=== PATIENT | female | born 1945 | race Caucasian/White ===

== ENCOUNTER 2020-05-06 09:05 | Outpatient (REF) | payer MEDICARE, SELFPAY ==
--- NOTE | 2020-05-06 09:10 | US_ITS ---
EXAMINATION: US THYROID CLINICAL INFORMATION: Thyroid nodules. COMPARISON: Ultrasound soft tissue head/neck thyroid dated 05/03/2019 and 05/02/2018. TECHNIQUE: Linear transducer lauren-scale and color Doppler examination with attention to the region of the thyroid. FINDINGS: SIZE: Measurements of the thyroid lobes and nodules are given in sagittal, anteroposterior and transverse dimensions respectively. Right Thyroid Lobe: 4.9 x 2.9 x 1.9 cm, volume 13.5 mL. Previously 4.2 x 2.1 x 1.9 cm, volume 8.8 mL. Parenchyma: The gland echotexture is heterogeneous. Thyroid vascularity is normal. Left Thyroid Lobe: 4.7 x 1.9 x 1.6 cm, volume 7.6 mL. Previously 4.0 x 1.7 x 1.5 cm, volume 5.3 mL. Parenchyma: The gland echotexture is heterogeneous. Thyroid vascularity is normal. Isthmus: 0.29 cm in maximum AP dimension. Previously 0.43 cm. RIGHT THYROID LOBE: There are 4 nodules seen. 1. Location: Superior. Size: 1.4 x 1.0 x 1.3 cm. Previous: 1.6 x 1.2 x 1.2 cm. Nodule characteristics: Hypoechoic smooth margin, peripheral calcification and no intranodular flow. 2. Location: Superior. Size: 1.1 x 0.85 x 0.60 cm. Previous: This nodule is new. Nodule characteristics: Hypoechoic and heterogeneous, smooth margin, no calcification and no intranodular flow. 3. Location: Middle/inferior. Size: 1.1 x 1.4 x 0.82 cm. Previous: 1.2 x 0.90 x 1.2 cm. Nodule characteristics: Follow up collection heterogeneous, smooth margin, peripheral calcification and no intranodular flow. 4. Location: Inferior. Size: 1.0 x 0.80 x 0.44 cm. Previous: This nodule is new. Nodule characteristics: Hypoechoic and heterogeneous, smooth margin, no calcification and no intranodular flow. ISTHMUS: No nodules. LEFT THYROID LOBE: There are 3 nodules seen. 1. Location: Inferior. Size: 0.91 x 0.56 x 0.61 cm. Previous: 0.90 x 0.50 x 0.66 cm. Nodule characteristics: Hypoechoic and heterogeneous, smooth margin, no calcification and no intranodular flow. 2. Location: Middle. Size: 0.90 x 0.65 x 0.65 cm. Previous: 0.65 x 0.62 x 0.72 cm. Nodule characteristics: Hypoechoic and heterogeneous, smooth margin, no calcification and no intranodular flow. 3. Location: Superior. Size: 0.82 x 0.62 x 0.76 cm. Previous: 0.8 x 0.6 x 0.8 cm. Nodule characteristics: Hyperechoic, smooth margin, small calcification and no intranodular flow. Measurement differences may be due to interobserver variation of the margins of the nodule. NODES: No lymphadenopathy is seen in the tissue surrounding the thyroid gland. US/US thyroid IMPRESSION: Heterogeneous thyroid gland. The right lobe is enlarged. There are 2 newly appreciated right thyroid nodules. The remaining right thyroid nodules do not appear appreciably changed. The left thyroid nodules are unchanged.
== END 2020-05-06 09:06 | disposition home or self-care (01) ==
LOC: HO.HMGCX 09:05
PROVIDERS: PCP Internal Medicine; Visit Provider Internal Medicine
DX: E04.1 Nontoxic single thyroid nodule (principal)
CPT/HCPCS: 76536

== ENCOUNTER 2020-05-16 09:50 | Outpatient (REF) | payer MEDICARE, SELFPAY ==
--- NOTE | 2020-05-16 | MM_ITS ---
EXAMINATION: MM SCREENING DIGITAL BREAST TOMOSYNTHESIS, BILATERAL CLINICAL INFORMATION: Screening. Asymptomatic. The lifetime risk of breast cancer based on the Tyrer-Cuzick Model is 5.7%. COMPARISON: Mammography: May 12, 2019 and studies dating back to September 08, 2013 TECHNIQUE: Digital breast tomosynthesis is performed in both the craniocaudal and mediolateral oblique views along with computer-aided detection (CAD). Synthesized 2D images are generated from the tomosynthesis. FINDINGS: There are scattered areas of fibroglandular density (ACR BI-RADS breast composition Category b). There are no significant masses, abnormal calcifications, or other abnormalities. MM/MM tomosynthesis screening BI IMPRESSION: There are no significant changes from prior study. ASSESSMENT: BI-RADS 1: Negative RECOMMENDATION: Routine annual mammography screening. This patient's information was entered into a reminder system with a target due date for their next mammogram.
== END 2020-05-16 09:51 | disposition home or self-care (01) ==
LOC: HO.MAMMO 09:50
PROVIDERS: PCP Internal Medicine; Visit Provider Internal Medicine
DX: Z12.31 Encounter for screening mammogram for malignant neoplasm of breast (principal)
CPT/HCPCS: 77063; 77067

== ENCOUNTER 2020-09-13 08:39 | Outpatient (REF) | payer MEDICARE, SELFPAY ==
--- NOTE | ~2020-09-13 | CT_ITS ---
EXAMINATION: CT CHEST WITHOUT CONTRAST CLINICAL INFORMATION: Follow-up pulmonary nodule COMPARISON: Previous chest CT scans most recent September 2019 TECHNIQUE: Multidetector volumetric CT imaging of the chest was done. Axial MIP volume rendering provided. Sagittal and coronal reformatted images were obtained. This CT examination was performed using dose optimization techniques as appropriate, variously including the following: *Automated exposure control *Adjustment of mA and/or kV according to patient size (this includes techniques or standardized protocols for targeted exams where dose is matched to indication/reason for exam; i.e. extremities or head) *Use of iterative reconstruction technique DLP: 132 mGy-cm FINDINGS: LUNGS: There is biapical pleural and parenchymal scarring. There are small pulmonary nodules that are stable. No new pulmonary nodule is seen. MEDIASTINUM: There are calcified right thyroid nodules that are stable. No follow-up is needed. There are small mediastinal lymph nodes. There are no enlarged hilar or mediastinal lymph nodes seen. The heart does not appear enlarged. There is coronary artery calcification. There is prominent fat seen in the anterior atrial septum. There is no pericardial effusion. PLEURA: There is no pleural effusion. No pleural mass or thickening. AXILLA: No lymphadenopathy. UPPER ABDOMEN: There is a small posterior gastric diverticulum that is stable. OSSEOUS STRUCTURES: There are degenerative changes of the spine. CT/CT chest wo con IMPRESSION: Stable biapical pleural and parenchymal scarring and small pulmonary nodules.
== END 2020-09-13 08:40 | disposition home or self-care (01) ==
LOC: HO.CT 08:39
PROVIDERS: PCP Internal Medicine; Visit Provider Internal Medicine
DX: R91.1 Solitary pulmonary nodule (principal)
CPT/HCPCS: 71250

== ENCOUNTER 2020-09-17 10:33 | Outpatient (REF) | payer MEDICARE, SELFPAY ==
[2020-09-17 10:38] LABS: MANUAL DIFF FLAG NO
[2020-09-17 10:50] LABS: Basophils Absolute Auto 0.1 X10*3/uL (0.0-0.2); Basophils Percent Auto 0.9 % (0-2); Eosinophils Absolute Auto 0.7 X10*3/uL (0.0-0.4); Eosinophils Percent Auto 10.4 % (0-4); Hematocrit 42.8 % (37-47); Hemoglobin 13.3 g/dl (12.0-16.0); Imm Gran Abs Auto 0.02 X10*3/uL (0.00-0.03); Imm Gran Pct Auto 0.3 % (0.0-0.4); Lymphocytes Absolute Auto 1.8 X10*3/uL (1.2-4.9); Lymphocytes Percent Auto 26.1 % (20-40); Mean Corpuscular HGB Conc 31.1 g/dl (31.0-35.0); Mean Corpuscular Hemoglobin 29.2 pg (27.0-33.0); Mean Corpuscular Volume 93.9 fL (80-98); Mean Platelet Volume 11.7 fL (9.4-12.3); Monocytes Absolute Auto 0.7 X10*3/uL (0.1-1.2); Monocytes Percent Auto 9.9 % (2-11); Neutrophils Absolute Auto 3.5 X10*3/uL (2.0-8.3); Neutrophils Percent Auto 52.4 % (45-73); Platelet Count 239 X10*3/uL (160-400); Red Blood Count 4.56 X10*6/uL (4.20-5.50); Red Cell Distribution Width 13.2 % (11.0-16.0); White Blood Count 6.7 X10*3/uL (4.8-10.8)
[2020-09-17 11:33] LABS: Alanine Aminotransferase 14 U/L (0-31); Albumin Level 4.1 g/dL (3.5-5.0); Alkaline Phosphatase 109 U/L (39-117); Anion Gap 12 (12-20); Aspartate Amino Transferase 15 U/L (5-31); Bilirubin Total 0.8 mg/dL (0.0-1.0); Blood Urea Nitrogen 17 mg/dL (9-16); Calcium 9.2 mg/dL (8.4-10.2); Carbon Dioxide 32 mmol/L (22-29); Chloride 104 mmol/L (96-108); Cholesterol 178 mg/dL; Estimated Glomerular Filt Rate > 60; Glucose Fasting 99 mg/dL (60-99); HDL Cholesterol 54 mg/dL; LDL Cholesterol Calculated 101 mg/dl; Potassium 4.5 mmol/L (3.3-5.1); Sodium 143 mmol/L (135-145); Total Protein 6.7 g/dL (6.5-8.0); Triglycerides 116 mg/dL
[2020-09-17 11:56] LABS: TSH reflex Free T4 1.23 uIU/mL (0.32-4.0); Vitamin D 25-OH Total 25.4 ng/mL (>30)
[2020-09-17 13:29] LABS: Reflex LDLD? No
== END 2020-09-17 10:34 | disposition home or self-care (01) ==
LOC: HO.LNP 10:33
PROVIDERS: Visit Provider Internal Medicine
DX: Z00.00 Encounter for general adult medical examination without abnormal findings (principal); E04.1 Nontoxic single thyroid nodule; E55.9 Vitamin D deficiency, unspecified; E78.00 Pure hypercholesterolemia, unspecified
CPT/HCPCS: 80053; 80061; 81003; 82306; 84443; 85025

== ENCOUNTER 2020-09-26 13:57 | Outpatient (REF) | payer MEDICARE, SELFPAY ==
[2020-09-26 14:06] LABS: Glucose Urine UA NEG (NEG); Leukocyte Esterase Urine NEG (NEG); Nitrite Urine NEG (NEG); Specific Gravity - Urine 1.025 (1.005-1.025); Urine Blood NEG (NEG); Urine Ketones NEG (NEG); Urine Protein NEG (NEG-TRACE)
[2020-09-26 14:07] LABS: Appearance Urine CLEAR; Color Urine YELLOW
[2020-09-26 14:53] LABS: Bacteria Urine TRACE /LPF; RBC Urine 0 /HPF (0); Squamous Epithelial Cell Urine TRACE /LPF; WBC Urine 0-2 /HPF (0-4)
== END 2020-09-26 13:58 | disposition home or self-care (01) ==
LOC: HO.LNP 13:57
PROVIDERS: Visit Provider Internal Medicine
DX: Z00.00 Encounter for general adult medical examination without abnormal findings (principal)
CPT/HCPCS: 81001

== ENCOUNTER 2021-01-02 13:38 | Outpatient (REF) | payer MEDICARE, SELFPAY | END 2021-01-02 13:39 | disposition home or self-care (01) | LOC: HO.LAB 13:38 | PROVIDERS: PCP Physician Assistant Medical; Visit Provider Internal Medicine | DX: J45.901 Unspecified asthma with (acute) exacerbation (principal) | CPT/HCPCS: C9803; U0003; U0005 ==

== ENCOUNTER 2021-03-24 11:33 | Outpatient (REF) | payer MEDICARE, SELFPAY ==
[2021-03-24 12:39] LABS: Alanine Aminotransferase 10 U/L (0-31); Alkaline Phosphatase 90 U/L (39-117); Aspartate Amino Transferase 15 U/L (5-31); Bilirubin Direct 0.4 mg/dL (0.0-0.5); Bilirubin Total 1.4 mg/dL (0.0-1.0); Cholesterol 171 mg/dL; HDL Cholesterol 43 mg/dL; LDL Cholesterol Calculated 101 mg/dl; Total Protein 6.2 g/dL (6.5-8.0); Triglycerides 137 mg/dL
[2021-03-24 12:41] LABS: Reflex LDLD? No
== END 2021-03-24 11:34 | disposition home or self-care (01) ==
LOC: HO.LNP 11:33
PROVIDERS: Visit Provider Internal Medicine
DX: E78.00 Pure hypercholesterolemia, unspecified (principal)
CPT/HCPCS: 80061; 80076

== ENCOUNTER 2021-05-12 11:18 | Outpatient (REF) | payer MEDICARE, SELFPAY ==
--- NOTE | ~2021-05-12 | US_ITS ---
EXAMINATION: US THYROID CLINICAL INFORMATION: Nontoxic single thyroid nodule. COMPARISON: Thyroid ultrasound 05/06/2020 and 05/03/2019. TECHNIQUE: Linear transducer grayscale and color Doppler examination with attention to the region of the thyroid. Technically difficult study secondary to severe COPD. FINDINGS: SIZE: Measurements of the thyroid lobes and nodules are given in sagittal, anteroposterior and transverse dimensions respectively. Right Thyroid Lobe: 4.0 x 1.9 x 2.0 cm, volume 7.8 mL. Previously 4.9 x 2.9 x 1.9 cm, volume 8.8 mL. Parenchyma: The gland echotexture is heterogeneous. Thyroid vascularity is normal. Left Thyroid Lobe: 4.4 x 2.2 x 1.4 cm, volume 7.1 mL. Previously 4.7 x 1.9 x 1.6 cm, volume 7.6 mL. Parenchyma: The gland echotexture is heterogeneous. Thyroid vascularity is normal. Isthmus: 0.3 cm in maximum AP dimension. Previously 0.3 cm. Estimated total number of nodules greater than or equal to 1 cm: 6 to 10. Punch [employer] Member nodules are described as follows: 1. Location: Right mid pole. Size: 1.4 x 1.4 x 1.0 cm, volume 0.97 mL. Previously: 1.4 x 1.2 x 1.2 cm, volume 1.1 mL. Nodule characteristics: Composition: Solid/almost completely solid (2). Echogenicity: Hypoechoic (2). Shape: Not taller than wide (0). Margins: Smooth (0). Echogenic Foci: Peripheral calcifications (2). ACR TI-RADS total points: 6 Previous: Not applicable ACR TI-RADS category: 4 Previous: Not applicable Significant change in size (>/= 20% in 2 dimensions and minimal increase of 2 mm or 50% or greater increase in volume): Change in features: Change in ACR TI-RADS risk category: Not applicable 2. Location: Right mid pole. Size: 0.9 x 0.8 x 0.7 cm, volume 0.24 mL. Previously: 1.1 x 0.9 x 0.6 cm, volume 0.31 mL. Nodule characteristics: Composition: Solid/almost completely solid (2). Echogenicity: Hypoechoic (2). Shape: Not taller than wide (0). Margins: Smooth (0). Echogenic Foci: None (0). ACR TI-RADS total points: 4 Previous: Not applicable ACR TI-RADS category: 4 Previous: Not applicable Significant change in size (>/= 20% in 2 dimensions and minimal increase of 2 mm or 50% or greater increase in volume): Change in features: Change in ACR TI-RADS risk category: Not applicable 3. Location: Right mid pole. Size: 1.2 x 0.8 x 0.9 cm, volume 0.46 mL. Previously: 1.2 x 0.9 x 1.2 cm, volume 0.68 mL. Nodule characteristics: Composition: Solid (2). Echogenicity: Very hypoechoic (3). Shape: Not taller than wide (0). Margins: Smooth (0). Echogenic Foci: Peripheral calcifications (2). ACR TI-RADS total points: 7 Previous: Not applicable ACR TI-RADS category: 5 Previous: Not applicable Significant change in size (>/= 20% in 2 dimensions and minimal increase of 2 mm or 50% or greater increase in volume): Change in features: Change in ACR TI-RADS risk category: Not applicable 4. Location: Left upper pole. Size: 0.6 x 0.7 x 0.6 cm, volume 0.75 mL. Previously: 0.9 x 0.5 x 0.7 cm, volume 0.17 mL. Nodule characteristics: Composition: Solid/almost completely solid (2). Echogenicity: Isoechoic (1). Shape: Not taller than wide (0). Margins: Smooth (0). Echogenic Foci: Punctate echogenic foci (3). ACR TI-RADS total points: 5 Previous: Not applicable ACR TI-RADS category: 4 Previous: Not applicable Significant change in size (>/= 20% in 2 dimensions and minimal increase of 2 mm or 50% or greater increase in volume): Change in features: Change in ACR TI-RADS risk category: Not applicable 5. Location: Left lower pole. Size: 0.6 x 0.7 x 0.5 cm, volume 0.13 mL. Previously: 0.8 x 0.6 x 0.8 cm, volume 0.20 mL. Nodule characteristics: Composition: Spongiform (0). Echogenicity: Hypoechoic (2). Shape: Not taller than wide (0). Margins: Smooth (0). Echogenic Foci: Punctate echogenic foci (3). ACR TI-RADS total points: Previous: Not applicable ACR TI-RADS category: Previous: Not applicable Significant change in size (>/= 20% in 2 dimensions and minimal increase of 2 mm or 50% or greater increase in volume): Change in features: Change in ACR TI-RADS risk category: Not applicable NODES: No lymphadenopathy is seen in the tissue surrounding the thyroid gland. US/US thyroid IMPRESSION: Stable bilateral thyroid nodules. ACR TI-RADS RECOMMENDATION REFERENCE: Ultrasound-guided fine-needle aspiration, followup ultrasound, no further follow up. * TR1 (0 point) and TR 2 (2 points): No FNA or follow up * TR3 (3 points): FNA if more than or equal to 2.5 cm in maximum dimension, followup ultrasound in 1, 3 and 5 years if 1.5 to 2.4 cm in maximum dimension. * TR4 (4-6 points): FNA if more than or equal to 1.5 cm in maximum dimension, followup ultrasound in 1, 2, 3 and 5 years if 1 to 1.4 cm in maximum dimension. * TR5 (more than or equal to 7 points): FNA if more than or equal to 1 cm in maximum dimension, followup ultrasound every year for 5 years if 0.5 to 0.9 cm in maximum dimension. * TR3, TR4 or TR5 nodules that are below the size threshold for follow up receive no follow up.
== END 2021-05-12 11:19 | disposition home or self-care (01) ==
LOC: HO.US 11:18
PROVIDERS: PCP Internal Medicine; Visit Provider Internal Medicine
DX: E04.1 Nontoxic single thyroid nodule (principal)
CPT/HCPCS: 76536

== ENCOUNTER 2021-05-20 11:42 | Outpatient (REF) | payer MEDICARE, SELFPAY ==
--- NOTE | ~2021-05-20 | MM_ITS ---
EXAMINATION: MM SCREENING DIGITAL BREAST TOMOSYNTHESIS, BILATERAL CLINICAL INFORMATION: Screening. Asymptomatic. The lifetime risk of breast cancer based on the Tyrer-Cuzick Model is 7.8%. COMPARISON: Mammography: May 16, 2020 and studies dating back to September 08, 2013 TECHNIQUE: Digital breast tomosynthesis is performed in both the craniocaudal and mediolateral oblique views along with computer-aided detection (CAD). Synthesized 2D images are generated from the tomosynthesis. FINDINGS: There are scattered areas of fibroglandular density (ACR BI-RADS breast composition Category b). There are no significant masses, abnormal calcifications, or other abnormalities. MM/MM tomosynthesis screening BI IMPRESSION: There are no significant changes from prior study. ASSESSMENT: BI-RADS 1: Negative RECOMMENDATION: Routine annual mammography screening. This patient's information was entered into a reminder system with a target due date for their next mammogram.
== END 2021-05-20 11:43 | disposition home or self-care (01) ==
LOC: HO.MAMMO 11:42
PROVIDERS: Visit Provider Internal Medicine
DX: Z12.31 Encounter for screening mammogram for malignant neoplasm of breast (principal)
CPT/HCPCS: 77063; 77067

== ENCOUNTER 2021-09-18 10:46 | Outpatient (REF) | payer MEDICARE, SELFPAY ==
[2021-09-18 10:52] LABS: MANUAL DIFF FLAG NO
[2021-09-18 12:19] LABS: Basophils Absolute Auto 0.1 X10*3/uL (0.0-0.2); Basophils Percent Auto 0.9 % (0-2); Eosinophils Absolute Auto 0.6 X10*3/uL (0.0-0.4); Eosinophils Percent Auto 10.8 % (0-4); Hematocrit 43.4 % (37.0-47.0); Hemoglobin 13.7 g/dl (12.0-16.0); Imm Gran Abs Auto 0.01 X10*3/uL (0.00-0.03); Imm Gran Pct Auto 0.2 % (0.0-0.4); Lymphocytes Absolute Auto 1.5 X10*3/uL (1.2-4.9); Lymphocytes Percent Auto 26.6 % (20-40); Mean Corpuscular HGB Conc 31.6 g/dl (31.0-35.0); Mean Corpuscular Hemoglobin 29.3 pg (27.0-33.0); Mean Corpuscular Volume 92.7 fL (80.0-98.0); Mean Platelet Volume 11.8 fL (9.4-12.3); Monocytes Absolute Auto 0.6 X10*3/uL (0.1-1.2); Monocytes Percent Auto 11.1 % (2-11); Neutrophils Absolute Auto 2.8 x10*3/uL (2.0-8.3); Neutrophils Percent Auto 50.4 % (45-73); Platelet Count 235 X10*3/uL (160-400); Red Blood Count 4.68 X10*6/uL (4.20-5.50); Red Cell Distribution Width 13.3 % (11.0-16.0); White Blood Count 5.5 X10*3/uL (4.8-10.8)
[2021-09-18 12:46] LABS: Alanine Aminotransferase 11 U/L (0-31); Albumin Level 4.2 g/dL (3.5-5.0); Alkaline Phosphatase 98 U/L (39-117); Anion Gap 9 (12-20); Aspartate Amino Transferase 17 U/L (5-31); Bilirubin Total 1.3 mg/dL (0.0-1.0); Blood Urea Nitrogen 17 mg/dL (9-16); Calcium 9.6 mg/dL (8.4-10.2); Carbon Dioxide 34 mmol/L (22-29); Chloride 101 mmol/L (96-108); Cholesterol 191 mg/dL; Estimated Glomerular Filt Rate > 60; Glucose Fasting 102 mg/dL (60-99); HDL Cholesterol 50 mg/dL; LDL Cholesterol Calculated 112 mg/dl; Potassium 4.4 mmol/L (3.3-5.1); Sodium 140 mmol/L (135-145); Total Protein 6.9 g/dL (6.5-8.0); Triglycerides 148 mg/dL
[2021-09-18 12:50] LABS: Appearance Urine HAZY; Color Urine YELLOW; Glucose Urine UA NEG (NEG); Leukocyte Esterase Urine 1+ (NEG); Nitrite Urine NEG (NEG); PH 5.5 (5.0-8.0); Specific Gravity - Urine 1.025 (1.005-1.025); Urine Blood NEG (NEG); Urine Ketones NEG (NEG); Urine Protein NEG (NEG-TRACE)
[2021-09-18 12:52] LABS: TSH reflex Free T4 1.12 uIU/mL (0.32-4.0); Vitamin D 25-OH Total 23.4 ng/mL (>30)
[2021-09-18 13:55] LABS: Bacteria Urine 1+ /LPF; Mucus Urine 2+ /LPF; RBC Urine 0 /HPF (0); Squamous Epithelial Cell Urine 2+ /LPF
== END 2021-09-18 10:47 | disposition home or self-care (01) ==
LOC: HO.LNP 10:46
PROVIDERS: Visit Provider Internal Medicine
DX: Z00.00 Encounter for general adult medical examination without abnormal findings (principal); E04.1 Nontoxic single thyroid nodule; E78.00 Pure hypercholesterolemia, unspecified; E55.9 Vitamin D deficiency, unspecified
CPT/HCPCS: 80053; 80061; 81001; 81003; 82306; 84443; 85025

== ENCOUNTER 2021-10-17 08:01 | Outpatient (REF) | payer MEDICARE, SELFPAY ==
--- NOTE | ~2021-10-17 | XR_ITS ---
EXAMINATION: XR SHOULDER, LEFT CLINICAL INFORMATION: Left shoulder pain. COMPARISON: None TECHNIQUE: Three views of the left shoulder. FINDINGS: There is calcific density along the left rotator cuff suggestive of calcific tendinitis. There is loss of left AC joint space. The glenohumeral joint space is also reduced. No bony erosive changes. No acute fracture, dislocation or subluxation seen. The soft tissues are normal. XR/XR shoulder LT min 2V IMPRESSION: Suspect calcific tendinitis. No visible acute fracture, dislocation or subluxation seen.
== END 2021-10-17 08:02 | disposition home or self-care (01) ==
LOC: HO.HOSX 08:01
PROVIDERS: Visit Provider Physician Assistant
DX: M75.32 Calcific tendinitis of left shoulder (principal)
CPT/HCPCS: 20610; 73030; 99202; J1040

== ENCOUNTER 2021-10-24 08:47 | Outpatient (REF) | payer MEDICARE, SELFPAY ==
--- NOTE | ~2021-10-24 | CT_ITS ---
EXAMINATION: CT CHEST WITHOUT CONTRAST CLINICAL INFORMATION: Multiple lung nodules. COMPARISON: CT chest 09/13/2020. TECHNIQUE: Multidetector volumetric CT imaging of the chest was done. Axial MIP volume rendering provided. Sagittal and coronal reformatted images were obtained. This CT examination was performed using dose optimization techniques as appropriate, variously including the following: *Automated exposure control *Adjustment of mA and/or kV according to patient size (this includes techniques or standardized protocols for targeted exams where dose is matched to indication/reason for exam; i.e. extremities or head) *Use of iterative reconstruction technique DLP: 138 mGy-cm. FINDINGS: RN ANGIOGRAPHY: Well-inflated lungs. LUNGS: The lungs are well expanded. Bilaterally apical parenchymal scarring and pleural thickening. There are bilateral small calcified and noncalcified lung nodules in the range of 1 to 3 mm. Largest 3 mm calcified nodule in the right lower lobe axial image 249/6 and 3 mm calcified nodule left upper lobe axial image 207/6. There are no new nodules seen. MEDIASTINUM: The heart size and the great vessels are normal caliber. The thyroid lobes are symmetric and normal. The central trachea and the bronchi are widely patent. There are small shotty lymph nodes with a short-axis pretracheal lymph node measuring 5 mm axial image 119/3. There is no pericardial effusion. PLEURA: There is no pleural effusion. No pleural mass or thickening. AXILLA: There are small shotty lymph nodes in the axilla. The chest wall is unremarkable. UPPER ABDOMEN: Visualized liver, spleen, pancreas and bilateral adrenal glands are unremarkable. There is a moderate-sized cyst upper pole left kidney. OSSEOUS STRUCTURES: No lytic or sclerotic process seen. CT/CT chest wo con IMPRESSION: Bilateral apical pleural thickening and scarring. There are small calcified and noncalcified pulmonary nodule. The noncalcified pulmonary nodule is slightly larger on the right lower lobe. No new nodules seen. No abnormal mediastinal adenopathy. Fleischner guidelines were followed.
== END 2021-10-24 08:48 | disposition home or self-care (01) ==
LOC: HO.CT 08:47
PROVIDERS: PCP Internal Medicine; Visit Provider Internal Medicine
DX: R91.8 Other nonspecific abnormal finding of lung field (principal)
CPT/HCPCS: 71250

== ENCOUNTER 2022-03-20 10:49 | Outpatient (REF) | payer MEDICARE, SELFPAY ==
[2022-03-20 11:08] LABS: Alanine Aminotransferase 12 U/L (0-31); Albumin Level 4.1 g/dL (3.5-5.0); Alkaline Phosphatase 94 U/L (39-117); Aspartate Amino Transferase 17 U/L (5-31); Bilirubin Direct 0.3 mg/dL (0.0-0.5); Bilirubin Total 1.1 mg/dL (0.0-1.0); Cholesterol 174 mg/dL; HDL Cholesterol 52 mg/dL; LDL Cholesterol Calculated 101 mg/dl; Total Protein 6.7 g/dL (6.5-8.0); Triglycerides 108 mg/dL
== END 2022-03-20 10:50 | disposition home or self-care (01) ==
LOC: HO.LNP 10:49
PROVIDERS: Visit Provider Internal Medicine
DX: E78.00 Pure hypercholesterolemia, unspecified (principal)
CPT/HCPCS: 80061; 80076

== ENCOUNTER 2022-05-21 11:42 | Outpatient (REF) | payer MEDICARE, SELFPAY ==
--- NOTE | ~2022-05-21 | MM_ITS ---
EXAMINATION: MM SCREENING DIGITAL BREAST TOMOSYNTHESIS, BILATERAL CLINICAL INFORMATION: Screening. Asymptomatic. COMPARISON: Mammography: May 20, 2021 and studies dating back to April 29, 2016 TECHNIQUE: Digital breast tomosynthesis is performed in both the craniocaudal and mediolateral oblique views along with computer-aided detection (CAD). Synthesized 2D images are generated from the tomosynthesis. FINDINGS: There are scattered areas of fibroglandular density (ACR BI-RADS breast composition Category b). There are no significant masses, abnormal calcifications, or other abnormalities. MM/MM tomosynthesis screening BI IMPRESSION: No significant changes from prior exam. ASSESSMENT: BI-RADS 1: Negative RECOMMENDATION: Routine annual mammography screening. This patient's information was entered into a reminder system with a target due date for their next mammogram.
== END 2022-05-21 11:43 | disposition home or self-care (01) ==
LOC: HO.MAMMO 11:42
PROVIDERS: Visit Provider Internal Medicine
DX: Z12.31 Encounter for screening mammogram for malignant neoplasm of breast (principal)
CPT/HCPCS: 77063; 77067

== ENCOUNTER 2022-06-09 08:51 | Outpatient (REF) | payer MEDICARE, SELFPAY ==
--- NOTE | ~2022-06-09 | US_ITS ---
EXAMINATION: US THYROID CLINICAL INFORMATION: Thyroid nodule. COMPARISON: Ultrasound soft tissue head/neck thyroid dated 05/12/2021 and 05/06/2020. TECHNIQUE: Linear transducer grayscale and color Doppler examination with attention to the region of the thyroid. Limited exam due to low-lying thyroid and patient breathing (COPD). FINDINGS: SIZE: Measurements of the thyroid lobes and nodules are given in sagittal, anteroposterior and transverse dimensions respectively. Right Thyroid Lobe: 4.76 x 2.91 x 1.83 cm, volume 13.3 mL. Previously 4.0 x 1.9 x 2.0 cm, volume 7.8 mL. Parenchyma: The gland echotexture is heterogeneous. Thyroid vascularity is normal. Left Thyroid Lobe: 4.69 x 2.19 x 1.50 cm, volume 8.06 mL. Previously 4.4 x 2.2 x 1.4 cm, volume 7.1 mL. Parenchyma: The gland echotexture is heterogeneous. Thyroid vascularity is normal. Isthmus: 0.39 cm in maximum AP dimension. Previously 0.29 cm. Estimated total number of nodules greater than or equal to 1 cm: 3. Paint Maker nodules are described as follows: 1. Location: Right mid. Size: 1.4 x 0.91 x 1.2 cm, volume 0.80 mL. Previously: 1.4 x 1.2 x 1.2 cm, volume 0.97 mL. Nodule characteristics: Composition: Solid (2). Echogenicity: Hypoechoic (2). Shape: Not taller than wide (0). Margins: Smooth (0). Echogenic Foci: Peripheral calcifications (2). ACR TI-RADS total points: 6 Previous: 6 ACR TI-RADS category: 4 Previous: 4 Significant change in size (>/= 20% in 2 dimensions and minimal increase of 2 mm or 50% or greater increase in volume): None Change in features: None Change in ACR TI-RADS risk category: No change 2. Location: Right mid. Size: 1.2 x 1.0 x 0.91 cm, volume 0.57 mL. Previously: 0.90 x 0.80 x 0.70 cm, volume 0.24 mL. Nodule characteristics: Composition: Solid (2). Echogenicity: Hypoechoic (2). Shape: Taller than wide (3). Margins: Smooth (0). Echogenic Foci: Peripheral calcifications (2). ACR TI-RADS total points: 7 Previous: 4 ACR TI-RADS category: 5 Previous: 4 Significant change in size (>/= 20% in 2 dimensions and minimal increase of 2 mm or 50% or greater increase in volume): None Change in features: None Change in ACR TI-RADS risk category: No change 3. Location: Right mid. Size: 1.2 x 0.81 x 0.89 cm, volume 0.45 mL. Previously: 1.2 x 0.80 x 0.90 cm, volume 0.46 mL. Nodule characteristics: Composition: Solid (2). Echogenicity: Hypoechoic (2). Shape: Not taller than wide (0). Margins: Smooth (0). Echogenic Foci: Peripheral calcifications (2). ACR TI-RADS total points: 6 Previous: 7 ACR TI-RADS category: 4 Previous: 5 Significant change in size (>/= 20% in 2 dimensions and minimal increase of 2 mm or 50% or greater increase in volume): None Change in features: None Change in ACR TI-RADS risk category: No change 4. Location: Left mid. Size: 0.90 x 0.53 x 0.71 cm, volume 0.18 mL. Previously: 0.60 x 0.70 x 0.50 cm, volume 0.13 mL. Nodule characteristics: Composition: Spongiform (0). Echogenicity: Anechoic (0). Shape: Not taller than wide (0). Margins: Smooth (0). Echogenic Foci: None (0). ACR TI-RADS total points: 0 Previous: 5 ACR TI-RADS category: 1 Previous: 4 Significant change in size (>/= 20% in 2 dimensions and minimal increase of 2 mm or 50% or greater increase in volume): None Change in features: None Change in ACR TI-RADS risk category: No change NODES: No lymphadenopathy is seen in the tissue surrounding the thyroid gland. US/US thyroid IMPRESSION: 1. Multiple thyroid nodules, stable. 2. TR1 (0 point) and TR 2 (2 points): 3. TR4 (4-6 points): FNA if more than or equal to 1.5 cm in maximum dimension, followup ultrasound in 1, 2, 3 and 5 years if 1 to 1.4 cm in maximum dimension. 4. TR5 (more than or equal to 7 points): FNA if more than or equal to 1 cm in maximum dimension, followup ultrasound every year for 5 years if 0.5 to 0.9 cm in maximum dimension.
== END 2022-06-09 08:52 | disposition home or self-care (01) ==
LOC: HO.HMGCX 08:51
PROVIDERS: Visit Provider Internal Medicine
DX: E04.1 Nontoxic single thyroid nodule (principal)
CPT/HCPCS: 76536

== ENCOUNTER 2022-09-18 11:29 | Outpatient (REF) | payer MEDICARE, SELFPAY ==
[2022-09-18 11:31] LABS: MANUAL DIFF FLAG NO
[2022-09-18 11:44] LABS: Basophils Absolute Auto 0.1 X10*3/uL (0.0-0.2); Basophils Percent Auto 0.9 % (0-2); Eosinophils Absolute Auto 0.5 X10*3/uL (0.0-0.4); Eosinophils Percent Auto 6.7 % (0-4); Hematocrit 43.5 % (37.0-47.0); Hemoglobin 13.8 g/dl (12.0-16.0); Imm Gran Abs Auto 0.02 X10*3/uL (0.00-0.03); Imm Gran Pct Auto 0.3 % (0.0-0.4); Lymphocytes Absolute Auto 1.7 X10*3/uL (1.2-4.9); Lymphocytes Percent Auto 25.3 % (20-40); Mean Corpuscular HGB Conc 31.7 g/dl (31.0-35.0); Mean Corpuscular Hemoglobin 29.4 pg (27.0-33.0); Mean Corpuscular Volume 92.6 fL (80.0-98.0); Mean Platelet Volume 11.9 fL (9.4-12.3); Monocytes Absolute Auto 0.8 X10*3/uL (0.1-1.2); Monocytes Percent Auto 11.7 % (2-11); Neutrophils Absolute Auto 3.7 x10*3/uL (2.0-8.3); Neutrophils Percent Auto 55.1 % (45-73); Platelet Count 228 X10*3/uL (160-400); Red Cell Distribution Width 13.2 % (11.0-16.0); White Blood Count 6.7 X10*3/uL (4.8-10.8)
[2022-09-18 11:45] LABS: Appearance Urine Clear; Color Urine Yellow; Glucose Urine UA Negative (Negative); Leukocyte Esterase Urine Small (1+) (Negative); Nitrite Urine Negative (Negative); Specific Gravity - Urine 1.015 (1.005-1.025); UMIC TRIGGER UACC YES; Urine Blood Negative (Negative); Urine Ketones Negative (Negative); Urine Protein Negative (Neg-Trace)
[2022-09-18 11:49] LABS: Bacteria Urine 1+ (None Seen); Hyaline Casts Urine 0-2 /LPF (0-2); RBC Urine 0-2 /HPF (0-2); UACC Culture Trigger YES
[2022-09-18 13:03] LABS: Alanine Aminotransferase 12 U/L (0-31); Albumin Level 4.1 g/dL (3.5-5.0); Alkaline Phosphatase 96 U/L (39-117); Anion Gap 10 (12-20); Aspartate Amino Transferase 16 U/L (5-31); Bilirubin Total 1.4 mg/dL (0.0-1.0); Blood Urea Nitrogen 16 mg/dL (9-16); Calcium 9.1 mg/dL (8.4-10.2); Carbon Dioxide 33 mmol/L (22-29); Chloride 104 mmol/L (96-108); Cholesterol 189 mg/dL; Estimated Glomerular Filt Rate > 60; Glucose Fasting 105 mg/dL (60-99); HDL Cholesterol 48 mg/dL; LDL Cholesterol Calculated 116 mg/dl; Potassium 4.8 mmol/L (3.3-5.1); Sodium 142 mmol/L (135-145); TSH reflex Free T4 1.08 uIU/mL (0.32-4.0); Total Protein 6.5 g/dL (6.5-8.0); Triglycerides 129 mg/dL; Vitamin D 25-OH Total 23.8 ng/mL (>30)
== END 2022-09-18 11:30 | disposition home or self-care (01) ==
LOC: HO.LNP 11:29
PROVIDERS: Visit Provider Internal Medicine
DX: Z00.00 Encounter for general adult medical examination without abnormal findings (principal); E78.00 Pure hypercholesterolemia, unspecified; E55.9 Vitamin D deficiency, unspecified; E04.1 Nontoxic single thyroid nodule; R82.90 Unspecified abnormal findings in urine
CPT/HCPCS: 80053; 80061; 81001; 82306; 84443; 85025; 87086

== ENCOUNTER 2022-10-05 06:52 | Day surgery (SDC) | payer MEDICARE, SELFPAY ==
[2022-09-29 11:41] VITALS: BMI 27.4
--- NOTE | 2022-10-01 14:43 | MHC.SHP ---
Pre-Procedural Eval Section A Date of Service: 10/01/22 The patient is an INPATIENT: No Changes since office visit: No Cold of Flu in the past 2 weeks, No New Medical Problems, No Changes in Medication and No Patient answered all questions The History & Physical has been completed within 30 days and I have reviewed it.: Yes Section B Chief Complaint: Age-related nuclear cataract, left eye Allergies: Allergies Allergy/AdvReac Type Severity Reaction Status Date / Time gatifloxacin [From TEQUIN] Allergy Severe BLACKED Verified 09/29/22 11:28 OUT Plan Diagnosis/Plan: Unchanged I have reviewed the history and physical and performed a pertinent physical examination on my patient. No changes have occurred unless specified. Time Spent With Patient Time: Total time managing care of this patient today ____ minutes.
[2022-10-05 07:51] VITALS: BP 162/67; PULSE 70; RESP 16; TEMP 36.6; O2SAT 94
[2022-10-05] MEDS: Cyclopentolate 1 % Ophth Sol 2 ML DRPBTL 1 DROP EYE-LEFT ×3 (07:54→08:05)
[2022-10-05] MEDS: Tetracaine HCl/PF 0.5% Oph Sol 4 ML DROPS 1 DROP EYE-LEFT (07:54)
[2022-10-05] MEDS: Tropicamide 1 % Ophth Sol 3 ML BTL 1 DROP EYE-LEFT ×3 (07:55→08:05)
[2022-10-05] MEDS: Ketorolac Tromethamine 0.5% Op 5 ML DROPS 1 DROP EYE-LEFT ×3 (07:58→08:06)
[2022-10-05] MEDS: Phenylephrine HCL 2.5% Oph SoL 2 ML BOTTLE 1 DROP EYE-LEFT ×3 (07:58→08:07)
[2022-10-05] MEDS: Lactated Ringers 500 ML 50 ML IV (07:58)
--- NOTE | 2022-10-05 08:03 | HO.ANESPROP2 ---
[facility] Active Problems Active Problems: All Active Problems (Updated 09/29/22 @ 11:39 by Elif Carmichael RN) Calcific tendonitis of left shoulder (Acute) Past Medical History Medical History (Updated 09/29/22 @ 11:39 by Elif Carmichael RN) Anxiety Arthritis COPD (chronic obstructive pulmonary disease) Elevated cholesterol Lung nodules Thyroid nodule Family History Family history of problems with anesthesia: No Surgical History Surgical History (Updated 09/29/22 @ 11:39 by Elif Carmichael RN) H/O colonoscopy Hx of excision of mass Hx of right breast biopsy Hx of tubal ligation Hx of varicose vein ligation History of Problems with Anesthesia: No Social History Social History (Updated 10/17/21 @ 10:02 by ALIE Francois) Are you a primary managed care coordinator to a significant other at home: No Do you presently have visiting nurse or other home services: No Patient Tobacco Use Status: Former Tobacco user Quit Date: age 60 Tobacco use type: Cigarette Years Smoked: 38 Use of substances other than those prescribed or required for medical reasons: No Have you been hit, kicked, punched, or otherwise hurt by someone within the past year? If so, by whom?: No Advance Directives Information Provided: Yes (will bring copy DOS) Advance Directives on File: No Recently lost weight without trying: No Eating poorly because of decreased appetite: No Nutrition Risks: Surgical patient >75years Poor oral hygiene: No (upper & lower full dentured) Current occupational status: retired Current occupation: rt hand Meds Allergies Allergy/AdvReac Type Severity Reaction Status Date / Time gatifloxacin [From TEQUIN] Allergy Severe BLACKED Verified 09/29/22 11:28 OUT Active Medications: Current Medications Lactated Ringer's (Lr) 500 mls @ 50 mls/hr IV .Q10H JESSICA Stop: 10/05/22 18:14 Povidone Iodine (Povidone Iodine 5 % Ophth Soln 30 Ml Bottle) 1 appl EYE-LEFT PREOP PRN PRN Reason: Pre-Op Surgical Implant Prophy Home Medications Medication Instructions Recorded Confirmed Last Taken Type albuterol sulfate 90 mcg/actuation 2 puff inhalation Q4H PRN Wheezing 10/17/21 09/29/22 10/05/22 06:30 History aerosol inhaler atorvastatin 20 mg tablet 20 mg PO DAILY 10/17/21 09/29/22 Unknown History triamcinolone acetonide 0.5 % 1 appl topical DAILY PRN dermatitis 10/17/21 09/29/22 Unknown History topical cream aspirin 81 mg tablet,delayed 81 mg PO DAILY 09/29/22 09/29/22 Unknown History release Exam Exam Date and Time: October 05, 2022 0803 Height,Weight and Vital Signs: Height 5 ft 2 in Weight 68.039 kg Last Vital Signs Temp 97.8 F 10/05/22 07:51 Pulse 70 10/05/22 07:51 Resp 16 10/05/22 07:51 BP 162/67 H 10/05/22 07:51 Pulse Ox 94 10/05/22 07:51 O2 Del Method Room Air 10/05/22 07:51 Airway Mallampati Class: II TM Dist: >3cm Neck ROM: Full Denture: Upper and Lower Heart: rrr Lungs: cta Assessment and Plan Assessment Anesthesia Assessment: Anesthesia Plan Discussed and Chart Reviewed Final Anesthetic Review Family History of Problems with Anesthesia: No History of Problems with Anesthesia: No NPO: Yes ASA Class: III Final Preanesthetic Review: No Changes in Pt Med Stat, Meds/Allgs Chart Reviewed and Consent Obtained/Reviewed Patient Risk: Intermediate Procedure Risk: Intermediate Anesthetic Plan Anesthetic Plan: MAC: Disposition: Standard PACU
--- NOTE | 2022-10-05 08:41 | HO.PNOPHT ---
Ophthalmology Procedure Procedure Date of Service: 10/05/22 Ophthalmology Viscoelastic: Healmaria esther Bonillat Dual Pack Pro Ophthalmology Lenses: TECAPOLLO [id number] (23) Procedure Notes: PREOPERATIVE DIAGNOSIS: Decreased visual acuity left eye secondary to cataract POSTOPERATIVE DIAGNOSIS: Same PROCEDURE: Left cataract extraction with intraocular lens insertion SURGEON: Christiano Samano M.D. ANESTHESIA: Topical/MAC ESTIMATED BLOOD LOSS: None COMPLICATIONS: None After obtaining informed consent, the patient was brought to the operation room suite and placed in the supine position. After adequate sedation per anesthesia, topical drops of Tetracaine were given to the left eye. The eye was then prepped and draped in the usual sterile fashion. The operating room microscope was then positioned over the operative eye and a lid speculum placed. A paracentesis was created. Viscoelastic was then instilled into the anterior chamber. A three plane incision was then created temporally, utilizing a 2.85 mm keratome. Capsulotomy forceps were then utilized to create a circular tear capsulotomy. Hydrodissection and hydrodelineation were carried out until adequate mobilization of the nucleus occurred. Phacoemulsification was then utilized to remove the dense central nucleus followed by removal of the cortical material utilizing the automated aspiration irrigation unit. Viscoat elastic was instilled into the posterior capsular bag followed by placement of a posterior chamber intraocular lens without difficulty. The residual Viscoat elastic was then removed utilizing the automated IA machine. The wound was check and found to be watertight. The patient tolerated the procedure well and the lid speculum was removed. Intracameral injection of Vigamox 0.1 mL followed by a subtenon injection of Kenalog-40 0.2 mL were administered. The patient will be seen in the a.m.
[2022-10-05 09:01] VITALS: BP 132/39; PULSE 60; RESP 12; TEMP 36.4; O2SAT 100
== END 2022-10-05 09:17 | disposition home or self-care (01) ==
PROVIDERS: PCP Internal Medicine; Visit Provider Ophthalmology
PROC: (CPT 66985; principal; 2022-10-05 08:50)
DX: H25.12 Age-related nuclear cataract, left eye (principal); Z83.511 Family history of glaucoma; H52.4 Presbyopia; H18.413 Arcus senilis, bilateral; H11.153 Pinguecula, bilateral; H35.09 Other intraretinal microvascular abnormalities; J44.9 Chronic obstructive pulmonary disease, unspecified; Z79.82 Long term (current) use of aspirin; Z79.899 Other long term (current) drug therapy; Z88.8 Allergy status to other drugs, medicaments and biological substances; Z87.891 Personal history of nicotine dependence
CPT/HCPCS: 66984; J2250; J3010; J3301; V2632

== ENCOUNTER 2022-11-16 05:55 | Day surgery (SDC) | payer MEDICARE, SELFPAY ==
[2022-11-11 10:31] VITALS: BMI 27.4
--- NOTE | 2022-11-13 07:56 | MHC.SHP ---
Pre-Procedural Eval Section A Date of Service: 11/13/22 The patient is an INPATIENT: No Changes since office visit: No Cold of Flu in the past 2 weeks, No New Medical Problems, No Changes in Medication and No Patient answered all questions The History & Physical has been completed within 30 days and I have reviewed it.: Yes Section B Chief Complaint: Age-related nuclear cataract, right eye Allergies: Allergies Allergy/AdvReac Type Severity Reaction Status Date / Time gatifloxacin [From TEQUIN] Allergy Severe BLACKED Verified 09/29/22 11:28 OUT Plan Diagnosis/Plan: Unchanged I have reviewed the history and physical and performed a pertinent physical examination on my patient. No changes have occurred unless specified. Time Spent With Patient Time: Total time managing care of this patient today ____ minutes.
[2022-11-16 06:20] VITALS: BP 127/55; PULSE 70; RESP 18; TEMP 36.8; O2SAT 96; BMI 27.4
[2022-11-16] MEDS: Phenylephrine HCL 2.5% Oph SoL 2 ML BOTTLE 1 DROP EYE-RIGHT ×3 (06:28→06:34)
[2022-11-16] MEDS: Tetracaine HCl/PF 0.5% Oph Sol 4 ML DROPS 1 DROP EYE-RIGHT (06:28)
[2022-11-16] MEDS: Tropicamide 1 % Ophth Sol 3 ML BTL 1 DROP EYE-RIGHT ×3 (06:29→06:35)
[2022-11-16] MEDS: Cyclopentolate 1 % Ophth Sol 2 ML DRPBTL 1 DROP EYE-RIGHT ×3 (06:29→06:35)
[2022-11-16] MEDS: Ketorolac Tromethamine 0.5% Op 5 ML DROPS 1 DROP EYE-RIGHT ×3 (06:29→06:35)
[2022-11-16] MEDS: Lactated Ringers 500 ML 50 ML IV (06:40)
--- NOTE | 2022-11-16 07:13 | HO.ANESPROP2 ---
[facility] Active Problems Active Problems: All Active Problems (Updated 09/29/22 @ 11:39 by Elif Carmichael RN) Calcific tendonitis of left shoulder (Acute) Past Medical History Medical History Anxiety Arthritis COPD (chronic obstructive pulmonary disease) Elevated cholesterol Lung nodules Thyroid nodule Family History Family history of problems with anesthesia: No Surgical History Surgical History H/O colonoscopy Hx of excision of mass Hx of left cataract extraction Hx of right breast biopsy Hx of tubal ligation Hx of varicose vein ligation History of Problems with Anesthesia: No Social History Social History Are you a primary career technical education instructor to a significant other at home: No Do you presently have visiting nurse or other home services: No Patient Tobacco Use Status: Former Tobacco user Quit Date: age 60 Tobacco use type: Cigarette Years Smoked: 38 Use of substances other than those prescribed or required for medical reasons: No Have you been hit, kicked, punched, or otherwise hurt by someone within the past year? If so, by whom?: No Are you DNR?: No Advance Directives: No (states son is HCP) Advance Directives Information Provided: Yes (will bring copy DOS) Advance Directives on File: No Recently lost weight without trying: No Eating poorly because of decreased appetite: No Nutrition Risks: Surgical patient >75years Poor oral hygiene: No (upper/lower full denture) Current occupational status: retired Current occupation: rt hand Meds Allergies Allergy/AdvReac Type Severity Reaction Status Date / Time amoxicillin Allergy Severe Anaphylaxis Verified 11/16/22 06:42 gatifloxacin [From TEQUIN] Allergy Severe BLACKED Verified 09/29/22 11:28 OUT Active Medications: Current Medications Albuterol Sulfate (Albuterol Sulfate (0.083%) 2.5 Mg/3 Ml Vial.Neb) 2.5 mg INHALE ONCE PRN PRN Reason: Shortness of Breath/Wheezing Lactated Ringer's (Lr) 500 mls @ 50 mls/hr IV .Q10H JESSICA Stop: 11/16/22 15:59 Last Admin: 11/16/22 06:40 Dose: 50 mls/hr Moxifloxacin HCl (Moxifloxacin Hcl 0.5 % Oph [place] 3 Ml Drpbtl) 1 drop EYE-RIGHT POSTOP ONE Stop: 11/16/22 05:59 Moxifloxacin HCl (Moxifloxacin Hcl 0.5 % Oph [place] 3 Ml Drpbtl) 1 drop EYE-RIGHT POSTOP ONE Stop: 11/16/22 06:00 Povidone Iodine (Povidone Iodine 5 % Ophth Soln 30 Ml Bottle) 1 appl EYE-RIGHT PREOP PRN PRN Reason: Pre-Op Surgical Implant Prophy Povidone Iodine (Povidone Iodine 5 % Ophth Soln 30 Ml Bottle) 1 appl EYE-RIGHT PREOP PRN PRN Reason: Pre-Op Surgical Implant Prophy Home Medications Medication Instructions Recorded Confirmed Last Taken Type albuterol sulfate 90 mcg/actuation 2 puff inhalation Q4H PRN Wheezing 10/17/21 11/11/22 11/16/22 History aerosol inhaler atorvastatin 20 mg tablet 20 mg PO DAILY 10/17/21 11/11/22 Unknown History triamcinolone acetonide 0.5 % 1 appl topical DAILY PRN dermatitis 10/17/21 11/11/22 Unknown History topical cream aspirin 81 mg tablet,delayed 81 mg PO DAILY 09/29/22 11/11/22 Unknown History release ipratropium 0.5 mg-albuterol 3 mg 3 ml inhalation QID 11/11/22 11/11/22 Unknown History (2.5 mg base)/3 mL nebulization soln Exam Exam Date and Time: November 16, 2022712 Height,Weight and Vital Signs: Height 5 ft 2 in Weight 68.039 kg Last Vital Signs Temp 98.3 F 11/16/22 06:20 Pulse 70 11/16/22 06:20 Resp 18 11/16/22 06:20 BP 127/55 L 11/16/22 06:20 Pulse Ox 96 11/16/22 06:20 O2 Del Method Room Air 11/16/22 06:20 Airway Mallampati Class: II (edentulous) TM Dist: >3cm Neck ROM: Full Denture: Upper and Lower Loose/Missing/Broken Teeth: Yes, Upper and Lower Heart: RRR Lungs: CTA Assessment and Plan Assessment Anesthesia Assessment: Anesthesia Plan Discussed and Chart Reviewed Final Anesthetic Review Family History of Problems with Anesthesia: No History of Problems with Anesthesia: No NPO: Yes ASA Class: III Final Preanesthetic Review: Meds/Allgs Chart Reviewed, Consent Obtained/Reviewed and Anes Risks/Benef Reviewed Patient Risk: Intermediate Procedure Risk: Low Anesthetic Plan Anesthetic Plan: MAC: Disposition: Standard PACU
--- NOTE | 2022-11-16 07:34 | HO.PNOPHT ---
Ophthalmology Procedure Procedure Date of Service: 11/16/22 Ophthalmology Viscoelastic: Healmaria esther Bonillat Dual Pack Pro Ophthalmology Lenses: TECNIS [id number] (22.5) Procedure Notes: PREOPERATIVE DIAGNOSIS: Decreased visual acuity right eye secondary to cataract POSTOPERATIVE DIAGNOSIS: Same PROCEDURE: Right cataract extraction with intraocular lens insertion SURGEON: Christiano Samano M.D. ANESTHESIA: Topical/MAC ESTIMATED BLOOD LOSS: None COMPLICATIONS: None After obtaining informed consent, the patient was brought to the operating room suite and placed in the supine position. After adequate sedation per anesthesia, topical drops of Tetracaine were given to the right eye. The eye was then prepped and draped in the usual sterile fashion. The operating room microscope was then positioned over the operative eye and a lid speculum placed. A paracentesis was created. Viscoelastic was then instilled into the anterior chamber. A three plane incision was then created temporally, utilizing a 2.85 mm keratome. Capsulotomy forceps were then utilized to create a circular tear capsulotomy. Hydrodissection and hydrodelineation were carried out until adequate mobilization of the nucleus occurred. Phacoemulsification was then utilized to remove the dense central nucleus followed by removal of the cortical material utilizing the automated aspiration irrigation unit. Viscoelastic was instilled into the posterior capsular bag followed by placement of a posterior chamber intraocular lens without difficulty. The residual Viscoelastic was then removed utilizing the automated IA machine. The wound was checked and found to be watertight. The patient tolerated the procedure well and the lid speculum was removed. Intracameral injection of Vigamox 0.1 mL followed by a subtenon injection of Kenalog-40 0.2 mL were administered. The patient will be seen in the a.m.
[2022-11-16 08:00] VITALS: BP 145/58; PULSE 61; RESP 12; TEMP 36.6; O2SAT 100
[2022-11-16 08:15] VITALS: BP 124/59; PULSE 67; RESP 16; TEMP 36.4; O2SAT 95
[2022-11-16 08:30] VITALS: BP 117/62; PULSE 68; RESP 16; TEMP 36.4; O2SAT 96
== END 2022-11-16 08:36 | disposition home or self-care (01) ==
PROVIDERS: PCP Internal Medicine; Visit Provider Ophthalmology
PROC: (CPT 66985; principal; 2022-11-16 07:30)
DX: H25.11 Age-related nuclear cataract, right eye (principal); H52.4 Presbyopia; H18.413 Arcus senilis, bilateral; H11.153 Pinguecula, bilateral; H35.09 Other intraretinal microvascular abnormalities; J43.1 Panlobular emphysema; E04.1 Nontoxic single thyroid nodule; Z79.82 Long term (current) use of aspirin; Z79.899 Other long term (current) drug therapy; Z87.891 Personal history of nicotine dependence
CPT/HCPCS: 66984; J1100; J2250; J2405; J3010; J3301; V2632

== ENCOUNTER 2022-11-20 10:36 | Outpatient (REF) | payer MEDICARE, SELFPAY ==
--- NOTE | ~2022-11-20 | CT_ITS ---
EXAMINATION: CT CHEST WITHOUT CONTRAST CLINICAL INFORMATION: Pulmonary nodule COMPARISON: CT chest 10/24/2021. TECHNIQUE: Multidetector volumetric CT imaging of the chest was done. Axial MIP volume rendering provided. Sagittal and coronal reformatted images were obtained. This CT examination was performed using dose optimization techniques as appropriate, variously including the following: *Automated exposure control *Adjustment of mA and/or kV according to patient size (this includes techniques or standardized protocols for targeted exams where dose is matched to indication/reason for exam; i.e. extremities or head) *Use of iterative reconstruction technique DLP: 135 mGy-cm FINDINGS: DRYWALL HANGER: Well-inflated lungs with right apical pleural thickening and parenchymal scarring. LUNGS: The lungs are well-expanded with bilateral apical pleural thickening and parenchymal scarring. There are multiple small calcified and noncalcified pulmonary nodules similar to previous study. There is a 4 mm minor fissure triangular-shaped 4 mm nodule, stable likely intrafissural lymph node. Also visualized is a 5 mm nodule along the right minor fissure anteriorly, axial image 215/5, likely a lymph node, stable as well. No new nodules visualized. There is nonspecific mild parenchymal ground-glass attenuation seen in right upper lobe and left upper lobe with centrilobular emphysema. There is mild peribronchial wall thickening in both upper and lower lobes. No bronchiectasis or intrabronchial debris or nodule visualized. MEDIASTINUM: Thyroid lobes are symmetrical and normal. There is a calcified 1.1 cm nodule, right lobe. Central trachea and the bronchi are widely patent. Heart size and the great vessels are normal caliber. No pericardial effusion seen. Small shotty lymph nodes are seen in the pretracheal space. CORONARY ARTERY CALCIFICATION: Moderate coronary artery calcifications are present. PLEURA: There is bilateral apical pleural thickening. No calcified pleural plaques or effusion. AXILLA: No abnormal axillary lymph nodes seen. The chest wall is unremarkable. UPPER ABDOMEN: Visualized liver, spleen, pancreas and bilateral adrenal glands are unremarkable. OSSEOUS STRUCTURES: No aggressive lytic or sclerotic process seen. CT/CT chest wo IV con IMPRESSION: 1. Multiple calcified and noncalcified pulmonary nodules are stable. 2. There are bilateral apical pleural thickening and parenchymal scarring, stable. 3. There is diffuse centrilobular emphysema with nonspecific groundglass attenuation in both upper lobes, stable. 4. There is mild peribronchial wall thickening in both upper and lower lobes. 5. No abnormal mediastinal or axillary lymph nodes seen. 6. Calcified right thyroid nodule is stable. 7. Moderate coronary artery calcifications are stable. Fleischner guidelines were followed.
== END 2022-11-20 10:37 | disposition home or self-care (01) ==
LOC: HO.CT 10:36
PROVIDERS: PCP Internal Medicine; Visit Provider Internal Medicine
DX: R91.1 Solitary pulmonary nodule (principal)
CPT/HCPCS: 71250

== ENCOUNTER 2023-03-19 10:40 | Outpatient (REF) | payer MEDICARE, SELFPAY ==
[2023-03-19 11:30] LABS: Cholesterol 173 mg/dL (<200); HDL Cholesterol 46 mg/dL (>40); LDL Cholesterol Calculated 103 mg/dL (<100); Triglycerides 122 mg/dL (<150)
[2023-03-19 11:32] LABS: Alanine Aminotransferase 10 U/L (0-31); Albumin Level 4.1 g/dL (3.5-5.0); Alkaline Phosphatase 87 U/L (39-117); Aspartate Amino Transferase 16 U/L (5-31); Bilirubin Direct 0.3 mg/dL (0.0-0.5); Bilirubin Total 0.9 mg/dL (0.0-1.0); Reflex LDLD? No; Total Protein 6.6 g/dL (6.5-8.0)
== END 2023-03-19 10:41 | disposition home or self-care (01) ==
LOC: HO.LNP 10:40
PROVIDERS: Visit Provider Internal Medicine
DX: E78.00 Pure hypercholesterolemia, unspecified (principal)
CPT/HCPCS: 80061; 80076

== ENCOUNTER 2023-04-12 12:04 | Outpatient (AMB) | payer MEDICARE, SELFPAY ==
--- NOTE | 2023-04-12 13:12 | AM.OFFWIN_ITS ---
Intake Vital Signs 04/12/23 13:13 Height 5 ft 1 in Weight 66.224 kg BMI 27.6 BP 130/80 Blood Pressure Location Lt brachial Position Sitting Pulse 72 Pulse Source Pulse Oximeter Temp 97.9 F Temp Source Temporal Artery Scan Pulse Oximetry (%) 96 Intake Visit Reasons: EP, back pain Intake Note: pt is here for c/o back pain, pulled back from cleaning windows at home over a week ago Patient Tobacco Use Status: Former Tobacco user Quit Date: age 60 Allergies gatifloxacin [From TEQUIN] Allergy (Severe, Verified 04/12/23 13:14) BLACKED OUT moxifloxacin Allergy (Verified 04/12/23 13:14) Anaphylaxis Do you need a note to return to daycare/school/sports/work: Yes HPI HPI Comments History of Present Illness Details Patient presents with right-sided lumbar pain x1 week since cleaning windows. She pushed up on a window that was stuck and felt sudden back pain which has not subsided. She denies radiation of pain or cauda equina symptoms or abdominal pain. She has intermittently tried Tylenol and ibuprofen with minimal relief. She has found some relief with ice and heat. Prolonged standin g sitting or any lifting increases pain. [facility] Medical History Anxiety Arthritis COPD (chronic obstructive pulmonary disease) Elevated cholesterol Lung nodules Thyroid nodule Surgical History H/O colonoscopy Hx of excision of mass Hx of left cataract extraction Hx of right breast biopsy Hx of tubal ligation Hx of varicose vein ligation Social History Are you a primary skin care instructor to a significant other at home: No Do you presently have visiting nurse or other home services: No Patient Tobacco Use Status: Former Tobacco user Quit Date: age 60 Tobacco use type: Cigarette Years Smoked: 38 Current occupational status: retired Current occupation: rt hand Review of Systems Const Reports as per HPI and Reports no additional complaints ENT Reports no additional complaints and Reports as per HPI GI Reports as per HPI and Reports no additional complaints Musc Reports no additional complaints and Reports as per HPI Neuro Reports no additional complaints and Reports as per HPI Physical Exam Vital Signs: Last Vital Signs Temp 97.9 F 04/12/23 13:13 Pulse 72 04/12/23 13:13 BP 130/80 04/12/23 13:13 Pulse Ox 96 04/12/23 13:13 BMI result Body Mass Index 27.6 Const General: cooperative, comfortable and no acute distress Orientation/consciousness: patient oriented x3 Resp Effort & Inspection: normal respiratory effort Auscultation: clear to auscultation bilaterally Cardio Rate: regular rate Rhythm: regular rhythm Heart sounds: S1 normal heart sound present and S2 normal heart sound present General: Yes no CVA tenderness Back/Spine/Pelvis Other: Moderate tenderness to palpation of L3 area Back: no CVA tenderness Cervical Spine: cervical ROM normal Thoracic/Lumbar Spine: thoracic and lumbar spine normal to inspection, pain with thoraco-lumbar ROM, paraspinal muscle tenderness on the right in the mid lumbar, thoraco-lumbar ROM limited and No straight leg raise positive Sacroiliac joints: on the right tender to palpation Sacrum: no erythema Coccyx: no tenderness Neuro General: patient oriented x3 Extrem General: Yes normal to inspection and Yes full ROM Office Meds ketorolac 30 mg/mL injection solution Performing Provider: PAMELA Hobbs Performing Location: [facility] Walk In [facility] Administered by: Angie Kenny RN on 04/12/23 14:11 Dose Route Admin Location Dispensed Lot Number Expiration Date NDC Pottery Decorator 30 mg IM right gluteal 1.0 mL [id number] 11/10/23 55579-867-10 Almoject Results Reviewed Results Reviewed: X-ray of the lumbar spine contemporaneously read by me without acute finding of compression fracture or severe joint space loss. There is some spondylolisthesis of L3-L4. Assessment & Plan Assessment & Plan (1) Lumbar pain: Code(s): M54.50 - Low back pain, unspecified Plan: She did receive a Toradol injection here today which seemed to help initially. Patient declines use of muscle relaxer. I have sent prescription for naproxen, she can start this 12 hours from now. as well as lidocaine patch. I did offer her physical therapy which she declines at this time she can continue alternating heat or ice as well as gentle massage and stretching as tolerated. Return to clinic if symptoms do not improve Orders: Orders AMB Ketorolac Injection Today M54.50 - Low back pain, unspecified XR lumbar spine 2-3V Today M54.50 - Low back pain, unspecified Medications: New naproxen 500 mg PO BID 30 tabs 0RF lidocaine 5% leave on most painful area for up to 12 hrs topical 15 ea 1RF Coding Level of Care Code Est Pt Level 4 (00382) Diagnoses Lumbar pain M54.50
[2023-04-12 13:13] VITALS: BP 130/80; PULSE 72; TEMP 36.6; O2SAT 96; BMI 27.6
== END 2023-04-12 14:23 | disposition home or self-care (01) ==
PROVIDERS: PCP Internal Medicine; Visit Provider Physician Assistant
DX: M54.50 Low back pain, unspecified (principal)
CPT/HCPCS: 96372; 99214; J1885

== ENCOUNTER 2023-04-12 13:33 | Outpatient (REF) | payer MEDICARE, SELFPAY ==
--- NOTE | ~2023-04-12 | XR_ITS ---
EXAMINATION: XR LUMBOSACRAL SPINE CLINICAL INFORMATION: Low back pain COMPARISON: None available. TECHNIQUE: Three views of the lumbosacral spine. FINDINGS: Vertebral bodies are well aligned and intervertebral discs are preserved there is very mild grade 1 anterior listhesis of L4 over L5 and mild facet arthropathy at the level of L4-L5 L5-S1. XR/XR lumbar spine 2-3V IMPRESSION: Mild degenerative changes with grade 1 anterolisthesis of L4 over L5.
== END 2023-04-12 13:34 | disposition home or self-care (01) ==
LOC: HO.HMGCX 13:33
PROVIDERS: PCP Internal Medicine; Visit Provider Physician Assistant
DX: M54.50 Low back pain, unspecified (principal)
CPT/HCPCS: 72100

== ENCOUNTER 2023-05-24 07:41 | Outpatient (REF) | payer MEDICARE, SELFPAY ==
--- NOTE | ~2023-05-24 | MM_ITS ---
EXAMINATION: MM SCREENING DIGITAL BREAST TOMOSYNTHESIS, BILATERAL CLINICAL INFORMATION: Screening. Asymptomatic. COMPARISON: Mammography: This study is compared with prior exams dating back to 2017. TECHNIQUE: Digital breast tomosynthesis is performed in both the craniocaudal and mediolateral oblique views along with computer-aided detection (CAD). Synthesized 2D images are generated from the tomosynthesis. FINDINGS: There are scattered areas of fibroglandular density (ACR BI-RADS breast composition Category b). There are no significant masses, abnormal calcifications, or other abnormalities. Few, benign calcifications are present in each breast. MM/MM tomosynthesis screening BI IMPRESSION: No mammographic evidence of malignancy. ASSESSMENT: BI-RADS BI-RADS 2 - Benign Findings RECOMMENDATION: Routine annual mammography screening. 1 year F/U This examination should not preclude the clinical evaluation of a suspicious palpable abnormality. This patient's information was entered into a reminder system with a target due date for their next mammogram.
== END 2023-05-24 07:42 | disposition home or self-care (01) ==
LOC: HO.MAMMO 07:41
PROVIDERS: PCP Internal Medicine; Visit Provider Internal Medicine
DX: Z12.31 Encounter for screening mammogram for malignant neoplasm of breast (principal)
CPT/HCPCS: 77063; 77067

== ENCOUNTER → 2023-05-24 08:00 | Outpatient (BNV) | payer MEDICARE, SELFPAY | PROVIDERS: PCP Internal Medicine; Visit Provider Radiology Diagnostic Radiology | DX: Z12.31 Encounter for screening mammogram for malignant neoplasm of breast (principal) | CPT/HCPCS: 77063; 77067 ==

== ENCOUNTER 2023-06-08 15:22 | Outpatient (REF) | payer MEDICARE, SELFPAY ==
--- NOTE | ~2023-06-08 | US_ITS ---
EXAMINATION: US THYROID CLINICAL INFORMATION: Thyroid nodule. COMPARISON: Thyroid ultrasound 06/09/2022 and 05/12/2021. TECHNIQUE: Linear transducer grayscale and color Doppler examination with attention to the region of the thyroid. FINDINGS: SIZE: Measurements of the thyroid lobes and nodules are given in sagittal, anteroposterior and transverse dimensions respectively. Right Thyroid Lobe: 5.3 x 2.9 x 1.6 cm, volume 13.0 mL. Previously 4.8 x 2.9 x 1.8 cm, volume 13.3 mL. Parenchyma: The gland echotexture is heterogeneous. Thyroid vascularity is normal. Left Thyroid Lobe: 4.9 x 2.1 x 1.2 cm, volume 6.5 mL. Previously 4.7 x 2.2 x 1.5 cm, volume 8.1 mL. Parenchyma: The gland echotexture is heterogeneous. Thyroid vascularity is normal. Isthmus: 0.4 cm in maximum AP dimension. Previously 0.4 cm. Estimated total number of nodules greater than or equal to 1 cm: 3. Shooting Gallery Operator nodules are described as follows: 1. Location: Right upper pole. Size: 1.2 x 1.1 x 1.3 cm, volume 0.9 mL. Previously: 1.4 x 0.9 x 1.2 cm, volume 0.8 mL. Nodule characteristics: Composition: Solid (2). Echogenicity: Hypoechoic (2). Shape: Not taller than wide (0). Margins: Smooth (0). Echogenic Foci: Peripheral calcifications (2). ACR TI-RADS total points: 6 Previous: 6 ACR TI-RADS category: 4 Previous: 4 Significant change in size (>/= 20% in 2 dimensions and minimal increase of 2 mm or 50% or greater increase in volume): No Change in features: No Change in ACR TI-RADS risk category: No 2. Location: Right mid pole. Size: 1.3 x 0.8 x 1.0 cm, volume 0.5 mL. Previously: 1.2 x 0.8 x 0.9 cm, volume 0.5 mL. Nodule characteristics: Composition: Solid (2). Echogenicity: Hypoechoic (2). Shape: Not taller than wide (0). Margins: Smooth (0). Echogenic Foci: Peripheral calcifications (2). ACR TI-RADS total points: 6 Previous: 6 ACR TI-RADS category: 4 Previous: 4 Significant change in size (>/= 20% in 2 dimensions and minimal increase of 2 mm or 50% or greater increase in volume): No Change in features: No Change in ACR TI-RADS risk category: No 3. Location: Left lower pole. Size: 1.0 x 0.6 x 0.8 cm, volume 0.2 mL. Previously: Not seen previously. Nodule characteristics: Composition: Spongiform (0). ACR TI-RADS total points: 0 ACR TI-RADS category: 1 4. Location: Left mid pole. Size: 0.4 x 0.5 x 0.3 cm, volume 0.03 mL. Previously: Not seen previously. Nodule characteristics: Composition: Cystic(0). ACR TI-RADS total points: 0 ACR TI-RADS category: 1 5. Location: Left mid pole. Size: 0.8 x 0.8 x 1.0 cm, volume 0.3 mL. Previously: 0.9 x 0.5 x 0.7 cm, volume 0.2 mL. Nodule characteristics: Composition: Spongiform (0). ACR TI-RADS total points: 0 Previous: 0 ACR TI-RADS category: 1 Previous: 1 Significant change in size (>/= 20% in 2 dimensions and minimal increase of 2 mm or 50% or greater increase in volume): No Change in features: No Change in ACR TI-RADS risk category: No NODES: No lymphadenopathy is seen in the tissue surrounding the thyroid gland. US/US thyroid IMPRESSION: 1. There is an asymmetric goiter, right lobe greater than left. 2. There is heterogeneous thyroid echotexture, which can be associated with thyroiditis. 3. Bilateral thyroid nodules are noted, as detailed. Recommend continued thyroid ultrasound surveillance. ACR TI-RADS RECOMMENDATION REFERENCE: Ultrasound-guided fine-needle aspiration, follow up ultrasound, no further followup. * TR1 (0 point) and TR2 (2 points): No FNA or followup * TR3 (3 points): FNA if more than or equal to 2.5 cm in maximum dimension, follow up ultrasound in 1, 3 and 5 years if 1.5 to 2.4 cm in maximum dimension. * TR4 (4-6 points): FNA if more than or equal to 1.5 cm in maximum dimension, follow up ultrasound in 1, 2, 3 and 5 years if 1 to 1.4 cm in maximum dimension. * TR5 (more than or equal to 7 points): FNA if more than or equal to 1 cm in maximum dimension, follow up ultrasound every year for 5 years if 0.5 to 0.9 cm in maximum dimension. * TR3, TR4 or TR5 nodules that are below the size threshold for follow up receive no followup.
== END 2023-06-08 15:23 | disposition home or self-care (01) ==
LOC: HO.HMGCX 15:22
PROVIDERS: PCP Internal Medicine; Visit Provider Internal Medicine
DX: E04.1 Nontoxic single thyroid nodule (principal)
CPT/HCPCS: 76536

== ENCOUNTER 2023-09-06 15:08 | Outpatient (REF) | payer MEDICARE, SELFPAY ==
--- NOTE | ~2023-09-06 | XR_ITS ---
EXAMINATION: XR LUMBOSACRAL SPINE WITH OBLIQUES CLINICAL INFORMATION: Compression fracture. COMPARISON: Lumbar spine April 12, 2023 TECHNIQUE: AP, both oblique, and lateral views of the lumbar spine. Lateral view of the lumbosacral junction. FINDINGS: There is compression deformity superior endplate of L5. There is about 25% loss of height of the vertebrae. This is new since the prior study April 12, 2023 but otherwise indeterminate for age. There is chronic stable-appearing compression deformity superior endplate of the L1 vertebrae. 20% loss of height of the body. Chronic spur at the anterior superior endplate of L1 mild disc height narrowing at T12-L1. Stable grade 1 anterolisthesis of L4 anterior to L5. Disc due to degenerative change of facet joints. No spondylolysis. Moderate lumbar disc height narrowing L4-L5 stable since prior study. Marked facet joint arthropathy L5-S1 as well. Sacroiliac joints are normal. Heavy vascular calcification of the abdominal aorta without evidence for aneurysm. Large volume of stool in the colon. No abnormally dilated bowel loop. Nonobstructive bowel pattern. XR/XR lumbar spine 4V min IMPRESSION: 1. Compression deformity superior endplate of L5 with about 25% loss of height of the vertebrae. This is new since prior study April 12, 2023 but otherwise indeterminate for age. 2. Stable chronic compression deformity superior endplate of L1. 3. Stable grade 1 anterolisthesis of L4 anterior to L5. 4. Degenerative changes of lumbar spine.
== END 2023-09-06 15:09 | disposition home or self-care (01) ==
LOC: HO.HMGCX 15:08
PROVIDERS: PCP Internal Medicine; Visit Provider Internal Medicine
DX: S32.000S Wedge compression fracture of unspecified lumbar vertebra, sequela (principal)
CPT/HCPCS: 72110

== ENCOUNTER 2023-09-20 10:17 | Outpatient (REF) | payer MEDICARE, SELFPAY ==
[2023-09-20 10:20] LABS: MANUAL DIFF FLAG NO
[2023-09-20 11:21] LABS: Appearance Urine Clear; Color Urine Yellow; Glucose Urine UA Negative (Negative); Leukocyte Esterase Urine Negative (Negative); Nitrite Urine Negative (Negative); PH 5.5 (5.0-9.0); Urine Blood Negative (Negative); Urine Ketones Negative (Negative); Urine Protein Negative (Neg-Trace)
[2023-09-20 11:24] LABS: Basophils Absolute Auto 0.1 X10*3/uL (0.0-0.2); Basophils Percent Auto 1.1 % (0-2); Eosinophils Absolute Auto 0.7 X10*3/uL (0.0-0.4); Eosinophils Percent Auto 12.1 % (0-4); Hematocrit 41.9 % (37.0-47.0); Hemoglobin 13.2 g/dl (12.0-16.0); Imm Gran Abs Auto 0.01 X10*3/uL (0.00-0.03); Imm Gran Pct Auto 0.2 % (0.0-0.4); Lymphocytes Absolute Auto 1.7 X10*3/uL (1.2-4.9); Lymphocytes Percent Auto 32.5 % (20-40); Mean Corpuscular HGB Conc 31.5 g/dl (31.0-35.0); Mean Corpuscular Hemoglobin 29.5 pg (27.0-33.0); Mean Corpuscular Volume 93.7 fL (80.0-98.0); Mean Platelet Volume 11.5 fL (9.4-12.3); Monocytes Absolute Auto 0.5 X10*3/uL (0.1-1.2); Monocytes Percent Auto 9.3 % (2-11); Neutrophils Absolute Auto 2.4 x10*3/uL (2.0-8.3); Neutrophils Percent Auto 44.8 % (45-73); Platelet Count 231 X10*3/uL (160-400); Red Blood Count 4.47 X10*6/uL (4.20-5.50); Red Cell Distribution Width 13.3 % (11.0-16.0); White Blood Count 5.4 X10*3/uL (4.8-10.8)
[2023-09-20 11:29] LABS: Bacteria Urine None Seen (None Seen); RBC Urine 0-2 /HPF (0-2); Squamous Epithelial Cell Urine 0-2 /HPF (0-2); WBC Urine 0-5 /HPF (0-5)
[2023-09-20 12:59] LABS: Alanine Aminotransferase 13 U/L (0-31); Alkaline Phosphatase 128 U/L (39-117); Anion Gap 12 (12-20); Aspartate Amino Transferase 16 U/L (5-31); Bilirubin Total 0.8 mg/dL (0.0-1.0); Blood Urea Nitrogen 17 mg/dL (9-16); Calcium 9.4 mg/dL (8.4-10.2); Carbon Dioxide 29 mmol/L (22-29); Chloride 107 mmol/L (96-108); Cholesterol 178 mg/dL (<200); Estimated Glomerular Filt Rate > 60; Glucose Fasting 93 mg/dL (60-99); HDL Cholesterol 56 mg/dL (>40); LDL Cholesterol Calculated 102 mg/dL (<100); Potassium 4.3 mmol/L (3.3-5.1); Sodium 144 mmol/L (135-145); Total Protein 6.6 g/dL (6.5-8.0); Triglycerides 102 mg/dL (<150)
== END 2023-09-20 10:18 | disposition home or self-care (01) ==
LOC: HO.LNP 10:17
PROVIDERS: Visit Provider Internal Medicine
DX: Z00.00 Encounter for general adult medical examination without abnormal findings (principal); E78.00 Pure hypercholesterolemia, unspecified
CPT/HCPCS: 80053; 80061; 81001; 85025

== ENCOUNTER 2023-12-24 07:58 | Outpatient (REF) | payer MEDICARE, SELFPAY ==
--- NOTE | ~2023-12-24 | CT_ITS ---
EXAMINATION: CT CHEST WITHOUT CONTRAST CLINICAL INFORMATION: Multiple lung nodules. COMPARISON: Multiple priors, most recently chest CT 11/20/2022. TECHNIQUE: Multidetector volumetric CT imaging of the chest was done. Axial MIP volume rendering provided. Sagittal and coronal reformatted images were obtained. This CT examination was performed using dose optimization techniques as appropriate, variously including the following: *Automated exposure control *Adjustment of mA and/or kV according to patient size (this includes techniques or standardized protocols for targeted exams where dose is matched to indication/reason for exam; i.e. extremities or head) *Use of iterative reconstruction technique DLP: 111 mGy-cm FINDINGS: LUNGS: Stable biapical pleural parenchymal scarring. Again seen are numerous sub-6 mm calcified and noncalcified pulmonary nodules which are stable compared to prior and most likely reflect prior granulomatous disease. There is airway wall thickening consistent with chronic airways disease. No suspicious enlarging or new pulmonary nodule. MEDIASTINUM: Calcified right thyroid nodule is stable. No aortic aneurysm. No mediastinal adenopathy. CORONARY ARTERY CALCIFICATION: Present PLEURA: There is no pleural effusion. No pleural mass or thickening. AXILLA: No lymphadenopathy. UPPER ABDOMEN: Small gastric diverticulum. OSSEOUS STRUCTURES: Degenerative changes in the spine. CT/CT chest wo IV con IMPRESSION: Stable pulmonary nodules. No follow-up recommended as per Fleischner Society guidelines. Follow-up if clinically indicated. Fleischner guidelines were followed.
== END 2023-12-24 07:59 | disposition home or self-care (01) ==
LOC: HO.CT 07:58
PROVIDERS: PCP Internal Medicine; Visit Provider Internal Medicine
DX: R91.8 Other nonspecific abnormal finding of lung field (principal)
CPT/HCPCS: 71250; J1100

== ENCOUNTER 2024-05-23 10:27 | Outpatient (REF) | payer MEDICARE, SELFPAY | END 2024-05-23 10:28 | disposition home or self-care (01) | LOC: HO.US 10:27 | PROVIDERS: PCP Internal Medicine; Visit Provider Internal Medicine | DX: E04.1 Nontoxic single thyroid nodule (principal) | CPT/HCPCS: 76536 ==

== ENCOUNTER → 2024-05-29 08:15 | Outpatient (BNV) | payer MEDICARE, SELFPAY | PROVIDERS: PCP Internal Medicine; Visit Provider Internal Medicine | DX: Z12.31 Encounter for screening mammogram for malignant neoplasm of breast (principal) | CPT/HCPCS: 77063; 77067 ==

== ENCOUNTER 2024-05-29 08:16 | Outpatient (REF) | payer MEDICARE, SELFPAY ==
--- NOTE | ~2024-05-29 | MM_ITS ---
EXAMINATION: MM SCREENING DIGITAL BREAST TOMOSYNTHESIS, BILATERAL CLINICAL INFORMATION: Screening. Asymptomatic. COMPARISON: Mammography: Comparison is made with available priors TECHNIQUE: Digital breast mammography with tomosynthesis is performed in both the craniocaudal and mediolateral oblique views along with computer-aided detection (CAD). FINDINGS: There are scattered areas of fibroglandular density (ACR BI-RADS breast composition Category b). There are no significant masses, abnormal calcifications, or other abnormalities. MM/MM tomosynthesis screening BI IMPRESSION: No mammographic evidence of malignancy. ASSESSMENT: BI-RADS BI-RADS 1 - Negative RECOMMENDATION: Routine annual mammography screening. 1 year F/U This examination should not preclude the clinical evaluation of a suspicious palpable abnormality. This patient's information was entered into a reminder system with a target due date for their next mammogram. Electronically signed by: Nichole Zepeda DO 06/06/2024 11:11 AM [facility]
== END 2024-05-29 08:17 | disposition home or self-care (01) ==
LOC: HO.MAMMO 08:16
PROVIDERS: PCP Internal Medicine; Visit Provider Internal Medicine
DX: Z12.31 Encounter for screening mammogram for malignant neoplasm of breast (principal)
CPT/HCPCS: 77063; 77067

== ENCOUNTER 2024-08-04 09:56 | Outpatient (REF) | payer MEDICARE, SELFPAY ==
[2024-08-04 11:22] LABS: TSH reflex Free T4 0.68 uIU/mL (0.32-4.0)
== END 2024-08-04 09:57 | disposition home or self-care (01) ==
LOC: HO.10HDL 09:56
PROVIDERS: Visit Provider Student in an Organized Health Care Education/Training Program
DX: E04.2 Nontoxic multinodular goiter (principal); Z87.891 Personal history of nicotine dependence
CPT/HCPCS: 36415; 84443; 99202

== ENCOUNTER 2024-08-23 08:33 | Outpatient (REF) | payer MEDICARE, SELFPAY ==
--- OUTSIDE RECORDS SUMMARY | 2024-08-23 09:16 | XMS_ITS ---
Author Organization Boubacar Dumont MD Address [address] [place], [place] [phone] Care Team Providers Care Hydraulic Engineer Name Role Phone Boubacar Dumont Primary Care [...] for 7 days 06/21/2014 Not-Donato sepulveda Nystatin 526023 UNIT/GM 1 application to affected area Externally [...] Location Date Provider Diagnosis Boubacar Dumont MD [address] [place] [address] Drive [address] [place] [phone] 08/11/2024 Boubacar Dumont Bronchitis J40 and Plaque [...] better Next Appt Details Provider Name:Boubacar mcgraw, 09/25/2024 07:00:00 AM, [address] [place] [address], [address], [place], [place], [phone], Provider Name:Boubacar mcgraw, 10/02/2024 09:30:00 AM, [address] [place] [address], [address], [place], [place], [phone], Progress Notes * Sandra GALLEGOS RDOB:[birth year] (78 yo F)Acc No.[id number]:08/11/2024 Progress Notes Patient:?Sandra GALLEGOS Provider:?Boubacar Dumont MD :1945???Age:78 Y???Sex:Female D ate:08/11/2024 Address:[address] [place], [place] [phone] Subjective: * Chief Complaints: * ???2 week * HPI: ???Symptom(s):?patient is a 78 yo female here for 2 week follow up of psoriasis/ arms are all better back is flaired. * ROS:?General/Constitutional:?Denies?Chills.?Denies?Fatigue.?Denies?Fever.?Denies?Headache.?ENT:?Patient denies?decreased sense of smell, any loss of taste, sore throat.?Denies?Sore throat.?Respiratory:?Admits?Cough.?Admits?Shortness of breath at rest.?Admits?Shortness of breath with exertion.?Gastrointestinal:?Denies?Diarrhea.?Denies?Nausea.?Musculoskeletal:?Patient denies?muscle aches.?Peripheral Vascular:?Patient denies?red and blue toes.? * Medical History:? * Surgical History:? * Hospitalization/Major Diagno stic Procedure:? * Medications:?TakingTylenol E xtra Strength 500 MG Tablet 1 tablet as [...] for allergic reaction if trouble breathing Nystatin 316063 UNIT/GM Cream 1 application to affected area [...] allergic reaction if trouble breathing Not-Taking/PRN Nystatin 685312 UNIT/GM Cream 1 application to affected area [...] reviewed and reconciled with the patient * Allergies:?eden: passing frank ambrosio[Allergies Verified] Objective: * Vitals:?Ht: 62, Wt: 129, BMI :23.59, BP:142/56, Wt-k.51. * Examination: ???General Examination: ?GENERAL APPEARANCE:?alert, well hydrated, in no distress.?SKIN:?good turgor.?HEART:?regular rate and rhythm, no murmurs, rubs, gallops.?LUNGS:?no wheezes, rales, rhonchi, good air movement, clear to auscultation bilaterally.? Assessment: * Assessment: 1.?Plaque psoriasis - L40.0 (Primary)???2.?Bronchitis - J40??? Plan: * Treatment: 2.?Bronchitis? Notes: has finally resolved?? * Procedure Codes:? * * Sign off status: Completed true * Provider:?Boubacar Dumont MD Date:?0 08/11/2024 Generated for Sarah tobar/Zainab/eTransmitting on:?08/23/2024 09:16 AM EST History and Physical Notes * [...]
--- OUTSIDE RECORDS SUMMARY | 2024-08-23 09:17 | XMS_ITS ---
Author Organization Boubacar Dumont MD Address [address] [place], [place] [phone] Care Team Providers Care Commercial Housekeeper Name Role Phone Boubacar Dumont Primary Care Provider Allergies Allergen (clinical drug ingredient) Drug/Non Drug Allergy documented on EMR Reaction Allergy Type Onset Date Status gatifloxacin tequin (uncoded) passing out Allergy Active REASON FOR VISIT rash x 1 month arms legs stomach neck Medications Medication SIG (Take, Route, Frequency, Duration) Notes Start Date End Date Status Clobetasol Prop Emollient Base 0.05 % as directed Externally twice a day for 7 days 06/21/2014 Not-Nikhilin coco Estrace 0.1 MG/GM as directed Vaginal Once a day for 30 days 02/06/2022 Active Meclizine HCl 12.5 MG 2 tablets as neede d Orally Once a day Not-Taking Aspir-81 81 MG 1 tablet Orally Once a day for 30 day(s) Active Tylenol Extra Strength 500 MG 1 tablet as needed Orally every 6 hrs Active Nystatin 267269 UNIT/GM 1 application to affected area Externally Twice a day 01/19/2017 Not-Donato sepulveda EpiPen 2-Guy 0.3 MG/0.3ML as directed In jection as needed for allergic reaction if trouble breathing for 1 dose 08/19/2017 Not-Taking Vitamin C Adult Gummies 125 MG as directed Orally Not-Takin g Clobetasol Propionate 0.05 % 1 application to affected area Externally Twice a day for 30 days 06/22/2017 Not-Taking Betamethasone Valerate 0.1 % 1 application to affected area Externally Once a day for 30 days 06/30/2016 Not-Taking Triamcinolone Acetonide 0.5 % APPLY 1 APPLICATION EXTERNALLY TWICE PER WEEK for 21 Active predniSONE 10 MG 1 tablet with food o r milk Orally 4 tabs for 3 days,3tabs for 3 days, 2 tabs for 3 days, and 1 tab for 3 days for 14 days 05/12/2024 Not-Taking Albuterol Sulfate HFA 108 (90 Base) MCG/ACT INHALE 2 PUFFS EVERY 4 HOURS NEEDED INHALATION EVERY 4 HRS 30 DAYS for 30 Active Atorvastatin Calcium 20 MG TAKE 1 TABLET BY MOUTH EVERY DAY for 90 Active Ipratropium-Albuterol 0.5-2.5 (3) MG/3ML 3 ml Inhalation Four times a day for 30 days 07/13/2014 Active Clobetasol Propionate 0.05 % 1 application Externally Twice a day for 30 days 07/18/2024 Active Problems Problem Type SNOMED Code ICD Code Onset Dates Problem Status W/U Status Risk Notes Problem 882755383 Multiple thyroid nodules (E04.2) Active confirmed Problem 102512070 Plaque psoriasis (L40.0) Active confirmed Vital Signs Blood pressure systolic 128 mm Hg 07/18/19 25 Blood pressure diastolic 60 mm Hg 025 Height 62 in 07/18/2024 Weight 131 lbs 07/18/2024 BMI 23.96 kg/m2 07/18/2024 weight is down 3 pounds [facility] 05-26-24 Encounters Encounter Location Date Provider Diagnosis Boubacar Dumont MD [address] [facility] [address] [place], [place] [phone] 07/18/2024 Boubacar Dumont Multiple thyroid nodules E04.2 and Plaque psoriasis L40.0 Assessments Encounter Date Diagnosis (ICD Code) Assessment Notes Treatment Notes Treatment Clinical Notes Section Notes 07/18/2024 Multiple thyroid nodules (ICD-10 - E04.2) [place] [facility] [place] referral already entered in being worked on 07/18/2024 Plaque psoriasis (ICD-10 - L40.0) Plan Of Treatment Medication Medication Name Sig Start Date Stop Date Notes Clobetasol Propionate 0.05 % 1 applicati on Externally Twice a day for 30 days 07/18/2024 Treatment Notes Assessment Notes Multiple thyroid nodules [place] [facility] / referral already entered in being worked on Next Appt Details Follow Up: 2 Weeks, Reason: Provider Name:Boubacar mcgraw, 09/25/2024 07:00:00 AM, [address], [address], [place], [place], [phone], Provider Name:Boubacar Alvarez ier, 10/02/2024 09:30:00 AM, [address], [address], [place], [phone], Progress Notes * KAESandra KOVACS RDOB:[birth year] (78 yo F)Acc No.[id number]:07/18/2024 Progress Notes Patient:?Sandra Franks R Provider:?Boubacar Dumont MD :1945???Age:78 Y???Sex:Female D ate:07/18/2024 Address:[address] [place], [place] [phone] Subjective: * Chief Complaints: * ???Rash x 1 month arms legs stomach neck * HPI: ???Symptom(s):? patientis a 78 yo female here with complaint of a pruritic rash since end of may on arms, legs, stomach and neck. * ROS:?General/Constitutional:?Denies?Chills.?Denies?Fatigue.?Denies?Fever.?Denies?Headache.?ENT:?Patient denies?decreased sense of smell , any loss of taste , sore throat.?Denies?Sore throat.?Respiratory:?Denies?Cough.?Denies?Shortness of breath at rest.?Denies?Shortness of breath with exertion.?Gastrointestinal:?Denies?Diarrhea.?Denies?Nausea.?Musculoskeletal:?Patient denies?muscle aches.?Peripheral Vascular:?Patient [...] INHALATION EVERY 4 HRS 30 DAYS Taking Tylenol Extra Strength 500 MG Tablet 1 tablet as needed Orally every 6 hrsTaking Aspir-81 81 MG Tablet Delayed Release 1 [...] NEEDED INHALATION EVERY 4 HRS 30 DAYS Not-Taking/PRNpredniSONE 10 MG Tablet 1 tablet with [...] needed for allergic reaction if trouble breathingNystatin 995304 UNIT/GM Cream 1 application to affected area [...] for allergic reaction if trouble breathingNot-Taking/PRN Nystatin 871707 UNIT/GM Cream 1 application to affected area Externally Twice a dayNot-Taking/PRN Meclizine HCl 12.5 MG Tablet 2 tablets as needed Orally Once a dayNot-Taking/PRN Clobetasol Prop Emollient Base 0.05 % Cream as directed Externally twice a dayMedication List reviewed and reconciled with the patient * Allergies:?tequin: passing o hebert[Allergies Verified] Objective: * Vitals:?Ht: 62, Wt:131, BMI: 23.96, BP:128/60 weight is down 3 pounds since 05-26-24. * Examination: ???General Examination: ?GENERAL APPEARANCE:?alert, well hydrated, in no distress.?SKIN:?abnormal with psoriatic plaques all over her arms and back as well as her chest.? Assessment: * Assessment: 1.?Multiple thyroid nodules - E04.2 (Primary)?2.?Plaque psoriasis - L40.0? Plan: * Treatment: * Procedure Codes:? * Follow Up:?2 Weeks * * Sign off status: Completed true * Provider:?Boubacar Dumont MD Date:?0 07/18/2024 Generated for Sarah tobar/Zainab/Alexandraitting on:?08/23/2024 09:17 AM EST History and Physical Notes * HPI (History of Present Illness) Category Sub-Category Detail Notes Category Not es Symptom(s) patientis a 78 yo female here with complaint of a pruritic rash since end of may on arms, legs, stomach and neck Examination Category Sub-Category Detail Notes Category Not es General Examination GENERAL APPEARANCE: alert, w ell hydrated, in no distress SKIN: abnormal with psoria tic plaques all over her arms and back as well as her chest
--- OUTSIDE RECORDS SUMMARY | 2024-08-23 09:17 | XMS_ITS ---
Author Organization Boubacar Dumont MD Address [address] [place], [place] [phone] Care Team Providers Care Technician Support Association Name Role Phone Boubacar Dumont Primary Care Provider Allergies Allergen (clinical drug ingredient) Drug/Non Drug Allergy documented on EMR Reaction Allergy Type Onset Date Status gatifloxacin tequin (uncoded) passing out Allergy Active REASON FOR VISIT c/o sore throat productive cough, SOB, congestion x 2 days did not test for Covid, Video [phone] Medications Medication SIG (Take, Route, Frequency, Duration) [...] breathing for 1 dose 08/19/2017 Not-Taking Nystatin 783431 UNIT/GM 1 application to affected area Externally [...] Location Date Provider Diagnosis Boubacar Dumont MD [address] [place] [address] [place] [phone] 07/24/2024 Boubacar Dumont Bronchitis J40 Assessments Encounter [...] for use Next Appt Details Provider Name:Boubacar mcgraw, 09/25/2024 07:00:00 AM, [address] [facility], [address], [place], [place], [phone], Provider Name:Boubacar Berenice Kim mcgraw, 10/02/2024 09:30:00 AM, [address] [place] [address], [address], [place], [place], [phone], Progress Notes * Sandra GALLEGOS RDOB:[birth year] (78 yo F)Acc No.[id number]:07/24/2024 Patient:?Sandra Gallegos Provider:?Boubacar Dumont MD :1945???Age:78 Y???Sex:Female D ate:07/24/2024 Address:[address] [place], [place] [phone] Subjective: * Chief Complaints: * ???c/o sore throat productiv e cough, SOB, congestion x 2 days did not test for CovidVideo [phone] * HPI: ???Symptom(s):?Telehealth?Location of provider rendering services:?[address] [facility], [address],?Location of patient:?at address listed in demographics for today's visit,?Patient identification confirmed using:?Name, , SSN, Insurance information,?Telehealth method:?Telephone only. Patient not visible to care provider.,?Consent:?Patient verbally consented to treatment, Patient verbally consented to billing insurance company, Patient informed of any privacy concerns related to method of visit,?Total time spend talking with patient (minutes)?10.? patient is a 78 yo female audio telehalth visit, with complaint of sore throat, prod cough, SOB, congestion for 2 days. did not test for covid. * ROS:?General/Constitutional:?Denies?Chills.?Denies?Fatigue.?Denies?Fever.?Denies?Headache.?ENT:?Patient denies?decreased sense of smell , any loss of taste , sore throat.?Denies?Sore throat.?Respiratory:?Admits?Cough.?Admits?Shortness of breath at rest.?Admits?Shortness of breath with exertion.?Admits?Sputum production.?Admits?Wheezing.?Musculoskeletal:?Patient denies?muscle aches.?Peripheral Vascular:?Patient denies?red and blue toes.? [...] needed for allergic reaction if trouble breathingNystatin 259512 UNIT/GM Cream 1 application to affected area [...] for allergic reaction if trouble breathingNot-Taking/PRN Nystatin 435049 UNIT/GM Cream 1 application to affected area Externally Twice a dayNot-Taking/PRN Meclizine HCl 12.5 MG Tablet 2 tablets as needed Orally Once a dayNot-Taking/PRN Clobetasol Prop Emollient Base 0.05 % Cream as directed Externally twice a dayMedication List reviewed and reconciled with the patient * Allergies:?tequin: passing o alconyes[Allergies Verified] Objective: * Vitals:?Ht: 62, Wt:130, BMI: 23.77 weight is 130 BP not taken O2 was 92 no temp. Assessment: * Assessment: 1.?Bronchitis - J40 (Primary )? Plan: * Treatment: * Procedure Codes:? * * Sign off status: Completed true * Provider:?Boubacar Dumont MD Date:?0 07/24/2024 Generated for Printi ng/Zainab/eTransmitting on:?08/23/2024 09:17 AM EST History and Physical Notes * HPI (History of Present Illness) Category Sub-Category Detail Notes Category Not es Symptom(s) Telehealth Location of [facility] ider rendering services:: [address], [address] [...]
--- NOTE | 2024-08-23 09:49 | PM.PROC ---
Brief Operative Note Date of procedure: 08/23/24 Pre-op diagnosis: right sup/mid 1.3 cm and left sup/mid 1.2 cm thyroid nodule FNA biopsy Post-op diagnosis: same Procedure: THYROID FINE NEEDLE ASPIRATION PROCEDURE NOTE ? PROCEDURE PERFORMED: Ultrasound-guided FNA of thyroid nodule ? OPERATORS: Dr. Cristina Alvarez ? INDICATION: right sup/mid 1.3 cm and left sup/mid 1.2 cm thyroid nodules; FNA performed to assess for malignancy ? DESCRIPTION OF PROCEDURE: The indications for FNA (to assess for malignancy) were reviewed with the patient in detail. Potential complications (e.g., bleeding, infection, damage to local structures, absence of clear diagnosis after FNA) were reviewed. Alternatives to FNA including conservative observation or surgery were described. The patient understood and agreed to proceed. This was documented by the signing of the written informed consent form. A time-out was performed to confirm the patient's identity and the site of planned FNA. The nodules of interest was identified using ultrasound (14 MHz linear array probe). Only the right superior/mid 1.3 cm was noted in the right lobe, no right inferior lobe nodule present. The left superior/mid nodule was identified. She has a small thyroid gland. The sites of FNA was then draped in the usual fashion and carefully cleaned and prepared using alcohol swabs. The skin at the previously-identified sites of needle insertion was iced and sprayed with numbing spray. First for the right sup/mid 1.3 cm thyroid nodule: Under ultrasound guidance, _5_ passes were performed using a 1.5-inch, 25-gauge needle, and sample was obtained via capillary action. The needle tip was clearly visualized to be within the nodule at the time of sampling for 4__ of _5_ passes First for the left sup/mid 1.2 cm thyroid nodule: Under ultrasound guidance, _4_ passes were performed using a 1.5-inch, 25-gauge needle, and sample was obtained via capillary action. The needle tip was clearly visualized to be within the nodule at the time of sampling for 3__ of _4_ passes. The patient tolerated the procedure well. There were no immediate complications. A small adhesive bandage was applied, and the patient was advised to take acetaminophen (rather than NSAIDs) for any discomfort and to report any signs of inflammation/infection or marked swelling. IMPRESSION: Technically successful ultrasound-guided fine needle aspiration of right sup/mid 1.3 cm and left sup/mid 1.2 cm thyroid nodule FNA biopsy. PLAN: The patient was advised that I will provide follow-up regarding the cytology result and any subsequent plans. Cristina Alvarez MD Endocrinology Attending Condition: stable Disposition: same day
== END 2024-08-23 08:34 | disposition home or self-care (01) ==
LOC: HO.US 08:33
PROVIDERS: PCP Internal Medicine; Visit Provider Student in an Organized Health Care Education/Training Program
DX: E04.2 Nontoxic multinodular goiter (principal)
CPT/HCPCS: 10005; 10006; 88173

== ENCOUNTER → 2024-08-23 08:33 | Outpatient (BNV) | payer MEDICARE, SELFPAY | PROVIDERS: PCP Internal Medicine; Visit Provider Student in an Organized Health Care Education/Training Program | DX: E04.2 Nontoxic multinodular goiter (principal) | CPT/HCPCS: 10005; 10006 ==

== ENCOUNTER 2024-09-06 13:21 | Outpatient (AMB) | payer MEDICARE, SELFPAY ==
[2024-09-06 13:24] VITALS: BP 138/68; PULSE 71; O2SAT 94; BMI 24.2
--- NOTE | 2024-09-06 13:24 | A.OFFVIS_ITS ---
Vital Signs 3 09/06/24 13:24 Height 5 ft 2 in Weight 132 lb 7.965 oz BMI 24.2 BP 138/68 Blood Pressure Location Lt brachial Position Sitting Pulse 71 Pulse Source Pulse Oximeter Pulse Oximetry (%) 94 Oxygen Delivery Method Room Air Intake Visit Reasons: Biopsy f/u Intake Note: Patient present today for biopsy results. Adhesive Bonding Machine Operator Required: No Accompanied by: Self / Same As Patient Allergies gatifloxacin [From TEQUIN] Allergy (Severe, Verified 09/06/24 13:27) BLACKED OUT moxifloxacin Allergy (Verified 09/06/24 13:27) Anaphylaxis HPI Comments Details: 78-year-old female here today for follow up of nontoxic multinodular goiter. HPI She has had thyroid nodules at least since 2019. No prior FNA biopsy. Says she has has these nodules for even before that. Most recent thyroid ultrasound done 05/23/2024 showed bilateral thyroid nodules with a right superior/mid 1.3 cm nodule TR 4 category which is solid, hypoechoic with a peripheral calcification, a right mid/inferior 1.2 cm nodule which is also solid, hypoechoic with a peripheral calcification, TR 4 category. This peripheral calcification is regular, not interrupted. Low suspicion per GLYNN. The left lobe shows a dominant superior/mid lobe 1.2 cm nodule which has punctate echogenic foci, solid, isoechoic, TR 4 category. Per GLYNN guidelines this is a high suspicion nodule due to the punctate echogenic foci, which has greater than 50% chance of malignancy per GLYNN guidelines, hence meets criteria for biopsy. Even the right sided superior/mid 1.3 cm nodules per GLYNN criteria classify as high suspicion nodules with greater than 50% chance of malignancy due to having peripheral rim calcifications with soft tissue extrusion. Patient currently denies heat or cold intolerance, diarrhea or constipation, hair loss, palpitation, anxiety, mood changes, low energy, changes in appearance of eyes or vision changes, tremors, increased diaphoresis or dry skin. ? Weight loss recently due to stress and poor eating. Patient denies any difficulty swallowing, pain on swallowing or voice changes. Patient denies any history of childhood neck radiation. Denies having ever used lithium, amiodarone or biotin supplements. Patient denies any family history of thyroid cancer or thyroid disease. Quit smoking 19 years ago. Interval history 08/04/2024: Normal TSH 0.68 08/23/2024: Underwent FNA biopsy of the right superior/mid 1.3 cm nodule with benign cytology [place] category 2. Also underwent FNA of the left superior mid 1.2 cm nodule which came back as nondiagnostic [place] category 1. Physical exam General: sitting comfortably in no acute distress HEENT: normocephalic/atraumatic, Neck: supple, symmetrical, has loose skin, difficult to palpate, no thyromegaly Cardiac: normal heart sounds Pulm: normal breath sounds B/L, no added breath sounds Laboratory Tests 09/18/22 07:30 TSH 1.08 Laboratory Tests 08/04/24 10:00 TSH 0.68 US THYROID 05/23/24 CLINICAL INFORMATION: Thyroid nodule. COMPARISON: Thyroid ultrasound 06/08/2023 and 06/09/2022. TECHNIQUE: Linear transducer grayscale and color Doppler examination with attention to the region of the thyroid. FINDINGS: SIZE: Measurements of the thyroid lobes and nodules are given in sagittal, anteroposterior and transverse dimensions respectively. Right Thyroid Lobe: 4.5 x 2.2 x 1.6 cm, volume 8.5 mL. Previously 5.3 x 2.9 x 1.6 cm, volume 13.0 mL. Parenchyma: The gland echotexture is heterogeneous. Thyroid vascularity is normal. Left Thyroid Lobe: 4.0 x 1.8 x 1.3 cm, volume 4.8 mL. Previously 4.9 x 2.1 x 1.2 cm, volume 6.5 mL. Parenchyma: The gland echotexture is heterogeneous. Thyroid vascularity is normal. Isthmus: 0.3 cm in maximum AP dimension. Previously 0.4 cm. Estimated total number of nodules greater than or equal to 1 cm: 3. Test Engine Operator nodules are described as follows: 1. Location: Right mid/upper pole. Size: 1.3 x 1.1 x 1.2 cm, volume 0.9 mL. Previously: 1.2 x 1.1 x 1.3 cm, volume 0.91 mL. Nodule characteristics: Composition: Solid (2). Echogenicity: Hypoechoic (2). Shape: Not taller than wide (0). Margins: Smooth (0). Echogenic Foci: Peripheral calcifications (2). ACR TI-RADS total points: 6 Previous: 6 ACR TI-RADS category: 4 Previous: 4 Significant change in size (>/= 20% in 2 dimensions and minimal increase of 2 mm or 50% or greater increase in volume): No Change in features: No Change in ACR TI-RADS risk category: No 2. Location: Right lower/mid pole. Size: 1.2 x 1.0 x 1.1 cm, volume 0.7 mL. Previously: 1.3 x 0.8 x 1.0 cm, volume 0.50 mL. Nodule characteristics: Composition: Solid (2). Echogenicity: Hypoechoic (2). Shape: Not taller than wide (0). Margins: Ill-defined (0). Echogenic Foci: Peripheral calcifications (2). ACR TI-RADS total points: 6 Previous: 6 ACR TI-RADS category: 4 Previous: 4 Significant change in size (>/= 20% in 2 dimensions and minimal increase of 2 mm or 50% or greater increase in volume): No Change in features: No Change in ACR TI-RADS risk category: No 3. Location: Left upper/mid pole. Size: 0.7 x 0.4 x 0.4 cm, volume 0.7 mL. Previously: 0.4 x 0.5 x 0.3 cm, volume 0.3 mL. Nodule characteristics: Composition: Spongiform (0). ACR TI-RADS total points: 0 Previous: 0 ACR TI-RADS category: 1 Previous: 1 Significant change in size (>/= 20% in 2 dimensions and minimal increase of 2 mm or 50% or greater increase in volume): Yes Change in features: No Change in ACR TI-RADS risk category: No 4. Location: Left upper/mid pole. Size: 1.2 x 0.5 x 0.6 cm, volume 0.2 mL. Previously: 0.8 x 0.8 x 1.0 cm, volume 0.31 mL. Nodule characteristics: Composition: Solid (2). Echogenicity: Isoechoic (1). Shape: Not taller than wide (0). Margins: Ill-defined (0). Echogenic Foci: Punctate echogenic foci (3). ACR TI-RADS total points: 6 Previous: 0 ACR TI-RADS category: 4 Previous: 1 Significant change in size (>/= 20% in 2 dimensions and minimal increase of 2 mm or 50% or greater increase in volume): No Change in features: Yes Change in ACR TI-RADS risk category: Yes NODES: No lymphadenopathy is seen in the tissue surrounding the thyroid gland. US/US thyroid IMPRESSION: Heterogeneous thyroid parenchyma with normal vascularity. No thyromegaly. Multiple bilateral thyroid nodules are redemonstrated. The largest nodule is within the left upper/mid pole measuring up to 1.2 cm with ultrasound characteristics consistent with TI-RADS Category 4. This appears slightly increased in size when compared to the prior examination now measuring up to 1.2 cm (previously 0.8 cm). Left upper/mid pole thyroid nodule measuring up to 1.2 cm, not significantly increased in size. There is a change in nodule characteristics with the nodule now representing a TI-RADS Category 4 (previously category 1). Left upper/mid pole nodule measuring up to 0.7 cm, increased in size when compared to the prior examination measuring up to 0.7 mL in volume (previously 0.3 mm). No significant change in thyroid characteristics, consistent with TI-RADS category 1. [facility] Medical History (Updated 08/04/24 @ 09:49 by Cristina Alvarez MD) Non-toxic multinodular goiter Arthritis Thyroid nodule Lung nodules Elevated cholesterol Anxiety COPD (chronic obstructive pulmonary disease) Surgical History Hx of left cataract extraction Hx of excision of mass Hx of tubal ligation Hx of varicose vein ligation Hx of right breast biopsy H/O colonoscopy Social History Are you a primary care program director to a significant other at home: No Do you presently have visiting nurse or other home services: No Patient Tobacco Use Status: Former Tobacco user Tobacco use type: Cigarette Years Smoked: 38 Current occupational status: retired Current occupation: rt hand Assessment & Plan Assessment & Plan (1) Non-toxic multinodular goiter: Code(s): E04.2 - Nontoxic multinodular goiter Category: Medical Plan: 78-year-old female with no personal history of head or neck radiation with no family history of thyroid cancer coming in today for follow up. She has had thyroid nodules at least since 2019. No prior FNA biopsy. Says she has has these nodules for even before that. Most recent thyroid ultrasound done 05/23/2024 showed bilateral thyroid nodules with a right superior/mid 1.3 cm nodule TR 4 category which is solid, hypoechoic with a peripheral calcification, a right mid/inferior 1.2 cm nodule which is also solid, hypoechoic with a peripheral calcification, TR 4 category. This peripheral calcification is regular, not interrupted. Low suspicion per GLYNN. The left lobe shows a dominant superior/mid lobe 1.2 cm nodule which has punctate echogenic foci, solid, isoechoic, TR 4 category. Per GLYNN guidelines this is a high suspicion nodule due to the punctate echogenic foci, which has greater than 50% chance of malignancy per GLYNN guidelines, hence meets criteria for biopsy. Even the right sided superior/mid 1.3 cm nodules per GLYNN criteria classify as high suspicion nodules with greater than 50% chance of malignancy due to having peripheral rim calcifications with soft tissue extrusion. 08/04/2024: Normal TSH 0.68 08/23/2024: Underwent FNA biopsy of the right superior/mid 1.3 cm nodule with benign cytology [place] category 2. Also underwent FNA of the left superior mid 1.2 cm nodule which came back as nondiagnostic [place] category 1. We will plan to repeat biopsy of the left superior/mid 1.2 cm nodule in 3 months. Plan: -scheduled for repeat FNA of the left mid/superior 1.2 cm thyroid nodule in 3 months and a follow up 2 weeks after to discuss results. Plan See above Orders: Orders 2 US biopsy thyroid Today E04.2 - Nontoxic multinodular goiter Patient Instructions: We will plan to repeat biopsy of your left nodule again in October 2024 Coding Level of Care Code Est Pt Level 3 (86170) Diagnoses Non-toxic multinodular goiter E04.2
--- OUTSIDE RECORDS SUMMARY | 2024-09-06 16:23 | XMS_ITS ---
Author Organization Boubacar Dumont MD Address [address] [place], [place] [id number] Care Team Providers Care Network Strategist Name Role Phone Boubacar Dumont Primary Care Provider [phone] Allergies Allergen (clinical drug ingredient) Drug/Non Drug Allergy documented on EMR Reaction Allergy Type Onset Date Status gatifloxacin tequin (uncoded) passing out Allergy Active REASON FOR VISIT 2 week Medications Medication SIG (Take, Route, Frequency, Duration) Notes Start Date End Date Status Clobetasol Prop Emollient Base 0.05 % as directed Externally twice a day for 7 days 06/21/2014 Not-Donato sepulveda Nystatin 203514 UNIT/GM 1 application to affected area Externally [...] Location Date Provider Diagnosis Boubacar Dumont MD [address] [place] [address] Drive [address] [place] [phone] 08/11/2024 Boubacar Dumont Bronchitis J40 and Plaque [...] Details Provider Name:Boubacar mcgraw, 09/25/2024 07:00:00 AM, [address] [place] [address], [address], [place], [place], [phone], Provider Name:Boubacar mcgraw, 10/02/2024 09:30:00 AM, [address] [place] [address], [address], [place], [place], [phone], Progress Notes * Sandra GALLEGOS RDOB:[birth year] (78 yo F)Acc No.[id number]:08/11/2024 Progress Notes Patient:?Sandra GALLEGOS Provider:?Boubacar Dumont MD :1945???Age:78 Y???Sex:Female D ate:08/11/2024 Address:[address] [place], [place] [id number] Subjective: * Chief Complaints: * ???2 week [...] for allergic reaction if trouble breathing Nystatin 501616 UNIT/GM Cream 1 application to affected area [...] allergic reaction if trouble breathing Not-Taking/PRN Nystatin 768748 UNIT/GM Cream 1 application to affected area [...] MD Date:?0 08/11/2024 Generated for Sarah tobar/Zainab/eTransmitting on:?09/06/2024 04:23 PM EST History and Physical Notes * HPI [...]
--- OUTSIDE RECORDS SUMMARY | 2024-09-06 16:24 | XMS_ITS ---
Author Organization Boubacar Dumont MD Address [address] [place], [place] [id number] Care Team Providers Care Dry Cell Sealer Name Role Phone Boubacar Dumont Primary Care Provider Allergies Allergen (clinical drug ingredient) Drug/Non Drug Allergy documented on EMR Reaction Allergy Type Onset Date Status gatifloxacin tequin (uncoded) passing out Allergy Active REASON FOR VISIT c/o sore throat productive cough, SOB, congestion x 2 days did not test for Covid, Video [phone] Medications Medication SIG (Take, Route, Frequency, Duration) [...] breathing for 1 dose 08/19/2017 Not-Taking Nystatin 428141 UNIT/GM 1 application to affected area Externally [...] Location Date Provider Diagnosis Boubacar Dumont MD [address] [place] [address] [place] [phone] 07/24/2024 Boubacar Dumont Bronchitis J40 Assessments Encounter [...] Provider Name:Boubacar mcgraw, 09/25/2024 07:00:00 AM, [address] [facility], [address], [place], [place], [phone], Provider Name:Boubacar Berenice Kim mcgraw, 10/02/2024 09:30:00 AM, [address] [place] [address], [address], [place], [place], [phone], Progress Notes * Sandra GALLEGOS RDOB:[birth year] (78 yo F)Acc No.[id number]:07/24/2024 Patient:?Sandra Gallegos Provider:?Boubacar Dumont MD :1945???Age:78 Y???Sex:Female D ate:07/24/2024 Address:[address] [place], [place] [phone] Subjective: * Chief Complaints: * ???c/o sore throat productiv e cough, SOB, congestion x 2 days did not test for CovidVideo [phone] * HPI: ???Symptom(s):?Telehealth?Location of provider rendering services:?[address] [facility], [address],?Location of patient:?at address listed in [...] needed for allergic reaction if trouble breathingNystatin 507367 UNIT/GM Cream 1 application to affected area [...] for allergic reaction if trouble breathingNot-Taking/PRN Nystatin 485557 UNIT/GM Cream 1 application to affected area [...] MD Date:?0 07/24/2024 Generated for Printi ng/Zainab/eTransmitting on:?09/06/2024 04:23 PM EST History and Physical Notes * HPI (History of Present Illness) Category Sub-Category Detail Notes Category Not es Symptom(s) Telehealth Location of [facility] ider rendering services:: [address], [...]
--- OUTSIDE RECORDS SUMMARY | 2024-09-06 16:24 | XMS_ITS ---
Author Organization Boubacar Dumont MD Address [address] [place], [place] [id number] Care Team Providers Care Visual Merchandising Director Name Role Phone Boubacar Dumont Primary Care [...] needed Orally every 6 hrs Active Nystatin 094428 UNIT/GM 1 application to affected area Externally [...] Problem Status W/U Status Risk Notes Problem 529230713 Multiple thyroid nodules (E04.2) Active confirmed Problem [id number] Plaque psoriasis (L40.0) Active confirmed Vital Signs Blood pressure systolic 128 mm Hg 07/18/19 25 Blood pressure diastolic 60 mm Hg 025 Height 62 in 07/18/2024 Weight 131 lbs 07/18/2024 BMI 23.96 kg/m2 07/18/2024 weight is down 3 pounds [facility] 05-26-24 Encounters Encounter Location Date Provider Diagnosis Boubacar Dumont MD [address] [facility] [address] [place], [place] [phone] 07/18/2024 Boubacar Dumont Multiple thyroid nodules E04.2 and Plaque psoriasis L40.0 Assessments Encounter Date Diagnosis (ICD Code) Assessment Notes Treatment Notes Treatment Clinical Notes Section Notes 07/18/2024 Multiple thyroid nodules (ICD-10 - E04.2) referral to [facility] / referral already entered in being worked on 07/18/2024 Plaque psoriasis (ICD-10 - L40.0) Plan Of Treatment Medication Medication Name Sig Start Date Stop Date Notes Clobetasol Propionate 0.05 % 1 applicati on Externally Twice a day for 30 days 07/18/2024 Treatment Notes Assessment Notes Multiple thyroid nodules referral to [facility] / referral already entered in being worked on Next Appt Details Follow Up: 2 Weeks, Reason: Provider Name:Boubacar mcgraw, 09/25/2024 07:00:00 AM, [address], [address], [place], [place], [phone], Provider Name:Boubacar Alvarez ier, 10/02/2024 09:30:00 AM, [address], [address], [place], [phone], Progress Notes * KAESandra KOVACS RDOB:[birth year] (78 yo F)Acc No.[id number]:07/18/2024 Progress Notes Patient:?Sandra Franks R Provider:?Boubacar Dumont MD :1945???Age:78 Y???Sex:Female D ate:07/18/2024 Address:[address] [place], [place] [phone] Subjective: * Chief Complaints: * ???Rash x [...] needed for allergic reaction if trouble breathingNystatin 328015 UNIT/GM Cream 1 application to affected area [...] for allergic reaction if trouble breathingNot-Taking/PRN Nystatin 611025 UNIT/GM Cream 1 application to affected area [...] Dumont MD Date:?0 07/18/2024 Generated for Sarah tobar/Zainab/Sadaf on:?09/06/2024 04:23 PM EST History and Physical [...]
== END 2024-09-06 13:49 | disposition home or self-care (01) ==
PROVIDERS: PCP Internal Medicine; Visit Provider Student in an Organized Health Care Education/Training Program
DX: E04.2 Nontoxic multinodular goiter (principal)
CPT/HCPCS: 99213

== ENCOUNTER → 2024-09-06 13:21 | Outpatient (BNVA) | payer MEDICARE, SELFPAY | PROVIDERS: PCP Internal Medicine; Visit Provider Student in an Organized Health Care Education/Training Program | DX: E04.2 Nontoxic multinodular goiter (principal) | CPT/HCPCS: 99212 ==

== ENCOUNTER 2024-09-25 10:44 | Outpatient (REF) | payer MEDICARE, SELFPAY ==
[2024-09-25 10:47] LABS: MANUAL DIFF FLAG NO
[2024-09-25 11:04] LABS: Basophils Percent Auto 0.6 % (0-2); Eosinophils Absolute Auto 0.4 X10*3/uL (0.0-0.4); Eosinophils Percent Auto 6.1 % (0-4); Hematocrit 41.1 % (37.0-47.0); Hemoglobin 12.8 g/dl (12.0-16.0); Imm Gran Abs Auto 0.03 X10*3/uL (0.00-0.03); Imm Gran Pct Auto 0.4 % (0.0-0.4); Lymphocytes Absolute Auto 1.4 X10*3/uL (1.2-4.9); Lymphocytes Percent Auto 19.3 % (20-40); Mean Corpuscular HGB Conc 31.1 g/dl (31.0-35.0); Mean Corpuscular Hemoglobin 29.2 pg (27.0-33.0); Mean Corpuscular Volume 93.8 fL (80.0-98.0); Mean Platelet Volume 11.3 fL (9.4-12.3); Monocytes Absolute Auto 0.9 X10*3/uL (0.1-1.2); Monocytes Percent Auto 12.5 % (2-11); Neutrophils Absolute Auto 4.5 x10*3/uL (2.0-8.3); Neutrophils Percent Auto 61.1 % (45-73); Platelet Count 323 X10*3/uL (160-400); Red Blood Count 4.38 X10*6/uL (4.20-5.50); Red Cell Distribution Width 13.6 % (11.0-16.0); White Blood Count 7.3 X10*3/uL (4.8-10.8)
[2024-09-25 11:05] LABS: Appearance Urine Clear; Color Urine Yellow; Glucose Urine UA Negative (Negative); Leukocyte Esterase Urine Negative (Negative); Nitrite Urine Negative (Negative); PH 5.5 (5.0-9.0); Urine Blood Negative (Negative); Urine Ketones Negative (Negative); Urine Protein Negative (Neg-Trace)
[2024-09-25 11:08] LABS: Bacteria Urine None Seen (None Seen); Hyaline Casts Urine 0-2 /LPF (0-2); RBC Urine 0-2 /HPF (0-2); Squamous Epithelial Cell Urine 0-2 /HPF (0-2); WBC Urine 0-5 /HPF (0-5)
[2024-09-25 12:27] LABS: Vitamin D 25-OH Total 28.8 ng/mL (>30)
[2024-09-25 12:56] LABS: Anion Gap 11 (12-20)
[2024-09-25 13:01] LABS: Alanine Aminotransferase 15 U/L (0-31); Albumin Level 3.9 g/dL (3.5-5.0); Alkaline Phosphatase 84 U/L (39-117); Aspartate Amino Transferase 25 U/L (5-31); Blood Urea Nitrogen 15 mg/dL (9-16); Carbon Dioxide 28 mmol/L (22-29); Chloride 108 mmol/L (96-108); Cholesterol 143 mg/dL (<200); Estimated Glomerular Filt Rate > 60; Glucose Fasting 95 mg/dL (60-99); HDL Cholesterol 43 mg/dL (>40); LDL Cholesterol Calculated 78 mg/dL (<100); Potassium 4.4 mmol/L (3.3-5.1); Sodium 143 mmol/L (135-145); Total Protein 6.9 g/dL (6.5-8.0); Triglycerides 114 mg/dL (<150)
== END 2024-09-25 10:45 | disposition home or self-care (01) ==
LOC: HO.LNP 10:44
PROVIDERS: Visit Provider Internal Medicine
DX: Z00.00 Encounter for general adult medical examination without abnormal findings (principal); E78.00 Pure hypercholesterolemia, unspecified; E55.9 Vitamin D deficiency, unspecified
CPT/HCPCS: 80053; 80061; 81001; 82306; 85025

== ENCOUNTER 2024-10-04 15:15 | Outpatient (AMB) | payer MEDICARE, SELFPAY ==
[2024-10-04 15:19] VITALS: BP 120/80; PULSE 80; O2SAT 97
--- NOTE | 2024-10-04 15:19 | AM.OFFWIN_ITS ---
Intake Vital Signs 10/04/24 15:19 Weight 132 lb BP 120/80 Blood Pressure Location Rt brachial Position Sitting Pulse 80 Pulse Source Pulse Oximeter Pulse Oximetry (%) 97 Oxygen Delivery Method Room Air Intake Visit Reasons: EP LT foot injury Intake Note: Patient here for left foot pain after she got up from the cough and her ankle buckled and heard a crack. Patient Tobacco Use Status: Former Tobacco user Allergies gatifloxacin [From TEQUIN] Allergy (Severe, Verified 10/04/24 15:24) BLACKED OUT moxifloxacin Allergy (Verified 10/04/24 15:24) Anaphylaxis Do you need a note to return to daycare/school/sports/work: No HPI HPI Comments History of Present Illness Details History of Present Illness - The patient is a 79-year-old female pr esenting with a recent left ankle in [facility]. The injury occurred when she attempted to rise from the couch, resulting in an audible cracking sound and a fall. This incident happened roughly 20 minutes ago. The patient reports ongoing pain when attempting to ambulate. Ice application provided minimal relief, and she is unable to put pressure on or twist the ankle without experiencing severe shooting pain up the leg. She has not yet taken any medication but has Tylenol and leftover pain medication available at home from a past back fracture. Physical Exam General: Cooperative, healthy appearing, comfortable, no acute distress and well developed Orientation: Patient oriented x3 Limitations: using walker with limping gait Head: Normal to inspection Ears: Hearing grossly normal bilaterally Nose: Normal External nose present Face and sinus: Normal facial exam Eyes: Appearance normal, both eyes and all related structures Neck: Normal visual inspection and Yes full ROM Respiratory: Normal respiratory effort and able to speak in complete sentences. Skin: No rashes or lesions noted Neuro: Patient oriented x3, limping gait Extremities: left ankle has edema lateral malleolus, TTP lateral posterior malleolus; otherwise normal to inspection [facility] Medical History (Updated 10/04/24 @ 15:39 by Odette Ferro PA-C) Non-toxic multinodular goiter Arthritis Thyroid nodule Lung nodules Elevated cholesterol Anxiety COPD (chronic obstructive pulmonary disease) Surgical History Hx of left cataract extraction Hx of excision of mass Hx of tubal ligation Hx of varicose vein ligation Hx of right breast biopsy H/O colonoscopy Social History Are you a primary animal care giver to a significant other at home: No Do you presently have visiting nurse or other home services: No Patient Tobacco Use Status: Former Tobacco user Tobacco use type: Cigarette Years Smoked: 38 Current occupational status: retired Current occupation: rt hand Review of Systems Const All systems reviewed & are unremarkable except as noted in HPI and below Physical Exam Vital Signs: Last Vital Signs Pulse 80 10/04/24 15:19 BP 120/80 10/04/24 15:19 Pulse Ox 97 10/04/24 15:19 Oxygen Delivery Method Room Air 10/04/24 15:19 Assessment & Plan Assessment & Plan (1) Acute left ankle pain: Code(s): M25.572 - Pain in left ankle and joints of left foot Plan: [place] Ankle rules state XR is necessary with TTP lateral posterior malleolus. I will conduct an X-ray evaluation to ascertain whether the left ankle is fractured. Pending the results, if no fracture is present, the focus will be on conservative management using rest, ice, compression, and elevation to alleviate pain and swelling. The patient is advised to use Tylenol for pain relief, with the option of utilizing existing prescription pain medication if required. Patient has an Orthopeic boot at home she can use. I will reassess the case following radiographic findings to determine the final intervention strategy and propose subsequent follow-up as necessary to monitor healing progress and modify treatment as indicated. My interpretation of left ankle x-ray is no acute fracture or dislocation. APRYL wrapped ankle for patient. Recommended patient use the boot so that she can safely ambulate while resting the ankle. I did express she should wean herself off the boot slowly and use the APRYL wrap over the next 5-7 days and start nijgg-tc-fdywat exercises of the ankle in a few days. She can continue to use the boot/APRYL wrap as needed but integrated with sbwkg-gn-[id number] exercises so she does not lose mobility of the joint. Patient was informed and verbally consented to the use of an ambient scribe for clinic note documentation during this visit. Orders: Orders XR ankle LT min 3V Today M25.572 - Pain in left ankle and joints of left foot Coding Level of Care Code Est Pt Level 4 (40409) Diagnoses Acute left ankle pain M25.572
--- OUTSIDE RECORDS SUMMARY | 2024-10-04 18:15 | XMS_ITS ---
Author Organization Boubacar Dumont MD Address [address] [place], [place] [phone] Care Team Providers Care Driller And Reamer Name Role Phone Boubacar Dumont Primary Care [...] for 7 days 06/21/2014 Not-Donato sepulveda Nystatin 753874 UNIT/GM 1 application to affected area Externally [...] Location Date Provider Diagnosis Boubacar Dumont MD [address] [place] [address] Drive [address] [place] [phone] 08/11/2024 Boubacar Dumont Bronchitis J40 and Plaque [...] better Next Appt Details Provider Name:Boubacar mcgraw, 03/29/2025 07:00:00 AM, [address] [place] [address], [address], [place], [place], [phone], Provider Name:Boubacar mcgraw, 04/05/2025 09:00:00 AM, [address] [place] [address], [address], [place], [place], [phone], Provider Name:Boubacar Alvarez ier, 09/27/2025 07:15:00 AM, [address], [address], [place], [place], [phone], Provider Name:Boubacar Alvarez ier, 10/04/2025 11:00:00 AM, [address], [address], [place], [phone], Progress Notes * GEORGEReanna STYLESra RDOB:[birth year] (78 yo F)Acc No.[id number]:08/11/2024 Progress Notes Patient:?Sandra FRANKS R Provider:?Boubacar Dumont MD :1945???Age:78 Y???Sex:Female D ate:08/11/2024 Address:[address] [place], [place] [phone] Subjective: * Chief Complaints: * ???2 week [...] for allergic reaction if trouble breathing Nystatin 145946 UNIT/GM Cream 1 application to affected area [...] allergic reaction if trouble breathing Not-Taking/PRN Nystatin 148590 UNIT/GM Cream 1 application to affected area [...] with the patient * Allergies:?tequin: passing o utyes[Allergies Verified] Objective: * Vitals:?Ht: 62, Wt: 129, [...] Dumont MD Date:?0 08/11/2024 Generated for Sarah tobar/Zainab/Sadaf on:?10/04/2024 06:15 PM EDT History and Physical Notes * [...]
--- OUTSIDE RECORDS SUMMARY | 2024-10-04 18:15 | XMS_ITS ---
Author Organization Boubacar Dumont MD Address [address] [place], [place] [phone] Care Team Providers Care Industrial Rehabilitation Consultant Name Role Phone Boubacar Dumont Primary Care Provider Results Component Value Reference Range Notes Complete Blood Count Auto Di ff Reviewed date:09/25/2024 04:33:00 PM Interpretation: Performing Lab:[facility], [address] [place] [phone] Notes/Report: White Blood Count 7.3 4.8-10.8 X10*3/uL [...] NRBC Abs Auto 0.000 0.0-0.012 X10*3/uL Comprehensive [place]. Panel Fa st Reviewed date:09/25/2024 04:32:44 PM Interpretation: Performing Lab:[facility], [address] [place] [phone] Notes/Report: Sodium 143 135-145 mmol/L Potassium 4.4 [...] Panel Reviewed date:09/25/2024 04:21:18 PM Interpretation: Performing Lab:[facility], [address] [place] [phone] Notes/Report: Triglycerides 114 <150 mg/dL Desirable Triglyceride: [...] Total Reviewed date:09/25/2024 04:21:28 PM Interpretation: Performing Lab:[address] [phone] Notes/Report: Vitamin D 25-OH Total 28.8 >30 [...] t Reviewed date:09/25/2024 04:29:06 PM Interpretation: Performing Lab:[facility], [address] [place] [phone] Notes/Report: Urine, Clean Catch Color Urine Yellow Appearance Urine Clear PH 5.5 5.0-9.0 Glucose Urine UA Negative Negative mg/dL Urine Blood Negative Negative Specific [place] - Urine 1.020 1.005-1.025 Urine Protein Negative [...] Location Date Provider Diagnosis Boubacar Dumont MD [address] [place] [phone] 09/25/2024 Boubacar Dumont Blood tests for rout [...] Treatment Next Appt Details Provider Name:Boubacar mcgraw, 03/29/2025 07:00:00 AM, [address] [place] [address], [address], [phone], Provider Name:Boubacar mcgraw, 04/05/2025 09:00:00 AM, [address] [place] [address], [address], [phone], Provider Name:Boubacar duranr, 09/27/2025 07:15:00 AM, [address] [place] [address], [address], [phone], Provider Name:Boubacar duranr, 10/04/2025 11:00:00 AM, [address] [place] [address], [phone], Progress Notes * Sandra FRANKS RDOB:[birth year] (79 yo F)Acc No.[id number]:09/25/2024 Progress Note Patient:?Sandra FRANKS Provider:?Boubacar Dumont MD :1945???Age:79 Y???Sex:Female D ate:09/25/2024 Address: [address] [facility] Subjective: * Chief Complaints: * ???1. Fasting yearly labs. * Medical History:? Objective: * Vitals:? Assessment: * Assessment: 1.?Blood tests for routine g eneral physical examination - Z00.00 (Primary)???2.?Pure hypercholesterolemia - E78.00???3.?Vitamin D deficiency - E55.9??? Plan: * Treatment: 2.?Pure hypercholesterolemia ?LAB: Complete Blood Count Auto Diff (Collection Date & Time - 09/25/2024 07:00 AM) ?LAB: Comprehensive [place]. Panel Fast (Collection Date & Time - 09/25/2024 07:00 AM) ?LAB: Lipid Panel (Collection Date & Time - 09/25/2024 07:00 AM) ?LAB: Vitamin D 25-OH Total (Collection Date & Time - 09/25/2024 07:00 AM) ?LAB: UA ClnCatch+Micro w/rflx Cult (Collection Date & Time - 09/25/2024 07:00 AM) 3.?Vitamin D deficiency?LAB: Complete Blood Count Auto Diff (Collection Date & Time - 09/25/2024 07:00 AM) ?LAB: Comprehensive [place]. Panel Fast (Collection Date & Time - 09/25/2024 07:00 AM) ?LAB: Lipid Panel (Collection Date & Time - 09/25/2024 07:00 AM) ?LAB: Vitamin D 25-OH Total (Collection Date & Time - 09/25/2024 07:00 AM) ?LAB: UA ClnCatch+Micro w/rflx Cult (Collection Date & Time - 09/25/2024 07:00 AM) * Procedure Codes:?30850 VENIP UNCT, ROUTINE* * * The named appointment provid er may or may not be the originator of this progress note, and it is not deemed complete until electronically signed by the appointment provider. Sign off status: Pending * Provider:?Boubacar Dumont MD Date:?0 09/25/2024 Generated for Sarah tobar/Zainab/Sadaf on:?10/04/2024 06:15 PM EDT
--- OUTSIDE RECORDS SUMMARY | 2024-10-04 18:16 | XMS_ITS ---
Author Organization Boubacar Dumont MD Address [address] [place], [place] [phone] Care Team Providers Care Hospitality Housekeeper Name Role Phone Boubacar Dumont Primary [...] a day for 30 day(s) Active Nystatin 471359 UNIT/GM 1 application to affected area Externally [...] Date Provider Diagnosis Boubacar Dumont MD [address] [place], [place] [phone] 10/02/2024 Boubacar Dumont Thyroid nodule E04.1 ; [...] ALL INFO GIVEN FOR PATIENT TO CALL [facility] 10/02/2024 Colon cancer screeni ng (ICD-10 [...] ALL INFO GIVEN FOR PATIENT TO CALL [facility] Colon cancer screening guaiac negative Depression screening negative screen Next Appt Details Provider Name:Boubacar mcgraw, 03/29/2025 07:00:00 AM, [address] [place] [address], [address] [place] [address], [phone], Provider Name:Boubacar mcgraw, 04/05/2025 09:00:00 AM, [address] [place] [address], Suite [facility], [place], [place], [phone], Provider Name:Boubacar mcgraw, 09/27/2025 07:15:00 AM, [address] [place] [address], Suite [facility], [place], [place], [phone], Provider Name:Boubacar mcgraw, 10/04/2025 11:00:00 AM, [address] [place] [address], Suite [facility], [place], [place], [phone], Progress Notes * Sandra GALLEGOS RDOB:[birth year] (79 yo F)Acc No.[id number]:10/02/2024 Progress Notes Patient:?Sandra GALLEGOS Provider:?Boubacar Dumont MD :1945???Age:79 Y???Sex:Female D ate:10/02/2024 Address:[address] [place], [place] [id number] Subjective: * Chief Complaints: * ???1. Annual visit. * HPI: ???Depression Screening:?PHQ-9?Little interest or pleasure in doing things?Not at all,?Feeling down, depressed, or hopeless?Not at all,?Trouble falling or staying asleep, or sleeping too much?Not at all,?Feeling tired or having little energy?Not at all,?Poor appetite or overeating?Not at all,?Feeling bad about yourself or that you are a failure, or have let yourself or your family down?Not at all,?Trouble concentrating on things, such as reading the newspaper or watching television?Not at all,?Moving or speaking so slowly that other people could have noticed; or the opposite, being so fidgety or restless that you have been moving around a lot more than usual?Not at all,?Thoughts that you would be better off or of hurting yourself in some way?Not at all,?Total Score?0.?Interpretation and Intervention?Depression Screening Findings?Negative,?Follow-Up for Depression?: review of PHQ-9 found negative result, no follow-up needed.?Communication Needs:?Communication Needs?Does the patient have a hearing impairment?No,?Does the patient have a vision impairment??Yes,?If yes, what is the vision impairment??Glasses,?Does the patient have a cognition impairment??No.?Fall Risk:?History?Have you had any falls with injury in the past year??No,?Have you had two or more falls in the past year??No.?SDOH Questions:?SDOH Questions?In the past year have you been worried about losing housing??No,?In the past year have you or any family members you live with been unable to get any of the following when it was really needed? Check all that apply:?None.?Symptom(s):? patient s a 79 yo female here for annual visit with review of recent labs and follow up of chronic issues, psoriasis doing well. * ROS:?General/Constitutional:?Change in appetite?denies.?Chills?denies.?Fever?denies.?Ophthalmologic:?Blurred vision?denies.?Discharge?denies.?Pain?denies.?ENT:?Decreased hearing?denies.?Sore throat?denies.?Swollen glands?denies.?Endocrine:?Cold intolerance?denies.?Excessive thirst?denies.?Heat intolerance?denies.?Weight loss?denies.?Respiratory:?Cough?denies.?Shortness of breath at rest?denies.?Shortness of breath with exertion?denies.?Wheezing?denies.?Cardiovascular:?Chest pain at rest?denies.?Chest pain with exertion?denies.?Irregular heartbeat?denies.?Shortness of breath?denies.?Gastrointestinal:?Abdominal pain?denies.?Change in bowel habits?denies.?Diarrhea?denies.?Nausea?denies.?Rectal bleeding?denies.?Vomiting?denies .?Genitourinary:?Blood in urine?denies.?Difficulty urinating?denies.?Frequent urination?denies.?Urinary incontinence?Denies.?Musculoskeletal:?Painful joints?denies.?Weakness?denies.?Skin:?Dry skin?denies.?Itching?denies.?Denies?Mole(s),? changes in moles, new moles or any lesions of concern.?Denies?Photosensitivity.?Rash?denies.?Neurologic:?Dizziness?denies.?Fainting?denies.?Headache?denies.? * Medical History:?Colonoscopy 08/30/2012, Thyroid nodule being evaluated with repeat ultrasound, Abnormal mammogram. * Family History:?Father: dece ased 76 yrs, CVA,Respiratory.?Mother: 88 yrs, Cardiac.?1 brother(s) , 2 sister(s) . 3 son(s) , 1 daughter(s) . .? 1 brother and 1 sister Father CHF Mother- cardiac, Denies mental health/substance abuse family history, Denies mental health/substance abuse family history, No pertinent family medical history. * Social History:?Tobacco Use:?Tobacco Use/Smoking?Patient is a?former smoker,?How long has it been since you last smoked??> 10 years,?Additional Findings: Tobacco Non-User?Former smoker, currently using no form of tobacco.?Drugs/Alcohol:?Alcohol Screen?Did you have a drink containing alcohol in the past year??No,?Points?0,?Interpretation?Negative.?Miscellaneous:?Caffeine: yes, frequency:, 1-2 cups per day. Children: yes. Exercise: no. Home smoke detector use: yes. Housing: owning. Living with: spouse. Marital status: . 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 Pets: none. Travel outside of the [place]: no. * Medications:?Taking Tylenol Extra Strength 500 MG Tablet 1 tablet as needed Orally every 6 hrs , Taking Aspir-81 81 MG Tablet Delayed Release 1 tablet Orally Once a day , Taking Estrace 0.1 MG/GM Cream as directed Vaginal Once a day , Taking Ipratropium-Albuterol 0.5-2.5 (3) MG/3ML Solution 3 ml Inhalation Four times a day , Taking Atorvastatin Calcium 20 MG Tablet TAKE 1 TABLET BY MOUTH EVERY DAY , Taking Albuterol Sulfate HFA 108 (90 Base) MCG/ACT Aerosol Solution INHALE 2 PUFFS EVERY 4 HOURS NEEDED INHALATION EVERY 4 HRS 30 DAYS , Taking Clobetasol Propionate 0.05 % Cream 1 application Externally Twice a day , Not-Taking/PRN Triamcinolone Acetonide 0.5 % Cream APPLY 1 APPLICATION EXTERNALLY TWICE PER WEEK , Not-Taking/PRN predniSONE 10 MG Tablet 1 tablet with food or milk Orally 4 tabs for 3 days,3tabs for 3 days, 2 tabs for 3 days, and 1 tab for 3 days , Not-Taking/PRN Vitamin C Adult Gummies 125 MG Tablet Chewable as directed Orally , Not-Taking/PRN Betamethasone Valerate 0.1 % Cream 1 application to affected area Externally Once a day , Not-Taking/PRN Clobetasol Propionate 0.05 % Cream 1 application to affected area Externally Twice a day , Not-Taking/PRN EpiPen 2-Guy 0.3 MG/0.3ML Solution Auto-injector as directed Injection as needed for allergic reaction if trouble breathing , Not-Taking/PRN Nystatin 441922 UNIT/GM Cream 1 application to affected area Externally Twice a day , Not-Taking/PRN Meclizine HCl 12.5 MG Tablet 2 tablets as needed Orally Once a day , Not-Taking/PRN Clobetasol Prop Emollient Base 0.05 % Cream as directed Externally twice a day , Medication List reviewed and reconciled with the patient * Allergies:?Tequin: Passing O ut. Objective: * Vitals:?Ht: 62, Wt: 130, BMI :23.77, BP:142/68, Repeat BP:120/60, Wt-k.97. * ???Past Orders: ???Lab:Vitamin D 25-OH Total (Order Date - 09/25/2024) (Collection Date & Time - 09/25/2024 07:00 AM) ? Value Reference Range ?Vitamin D 25-OH Total 28.8 L >30 - ng/mL ???Lab: ClnCatch+Micro w/r flx Cult (Order Date - 09/25/2024) (Collection Date & Time - 09/25/2024 07:00 AM) ? Value Reference Range ?Color Urine Yellow - ?Appearance Urine Clear - ?PH 5.5 5.0-9.0 - ?Glucose Urine UA Negative Neg ative - mg/dL ?Urine Blood Negative Negative - ?Specific [place] - Urine 1.020 1.005-1.025 - ?Urine Protein Negative Neg-Tr torie - mg/dL ?Urine Ketones Negative Negati ve - mg/dL ?Nitrite Urine Negative Negati ve - ?Leukocyte Esterase Urine Negative Negative - ?RBC Urine 0-2 0-2 - /HPF ?WBC Urine 0-5 0-5 - /HPF ?Squamous Epithelial Cell Urine 0-2 0-2 - /HPF ?Bacteria Urine None Seen None Seen - ?Hyaline Casts Urine 0-2 0-2 - /LPF ???Lab:Complete Blood Count Auto Diff (Order Date - 09/25/2024) (Collection Date & Time - 09/25/2024 07:00 AM) ? Value Reference Range ?White Blood Count 7.3 4. 8-10.8 - X10*3/uL ?Red Blood Count 4.38 4.20 -5.50 - X10*6/uL ?Hemoglobin 12.8 12.0-16.0 - g/dl ?Hematocrit 41.1 37.0-47.0 - % ?Mean Corpuscular Volume 93.8 80.0-98.0 - fL ?Mean Corpuscular Hemoglobin 29.2 27.0-33.0 - pg ?Mean Corpuscular HGB Conc 31.1 31.0-35.0 - g/dl ?Red Cell Distribution Width 13.6 11.0-16.0 - % ?Platelet Count 323 160-4 00 - X10*3/uL ?Mean Platelet Volume 11.3 9.4-12.3 - fL ?Neutrophils Percent Auto 61.1 45-73 - % ?Imm Gran Pct Auto 0.4 0. 0-0.4 - % ?Lymphocytes Percent Auto 19.3 L 20-40 - % ?Monocytes Percent Auto 12.5 H 2-11 - % ?Eosinophils Percent Auto 6.1 H 0-4 - % ?Basophils Percent Auto 0.6 0-2 - % ?NRBC Pct Auto 0.0 0.0-0. 2 - /100WBC ?Neutrophils Absolute Auto 4.5 2.0-8.3 - x10*3/uL ?Imm Gran Abs Auto 0.03 0. 00-0.03 - X10*3/uL ?Lymphocytes Absolute Auto 1.4 1.2-4.9 - X10*3/uL ?Monocytes Absolute Auto 0.9 0.1-1.2 - X10*3/uL ?Eosinophils Absolute Auto 0.4 0.0-0.4 - X10*3/uL ?Basophils Absolute Auto 0.0 0.0-0.2 - X10*3/uL ?NRBC Abs Auto 0.000 0.0-0. 012 - X10*3/uL ???Lab:Comprehensive [place] Fast (Order Date - 09/25/2024) (Collection Date & Time - 09/25/2024 07:00 AM) ? Value Reference Range ?Sodium 143 135-145 - mmo l/L ?Bilirubin Total 1.0 0.0- 1.0 - mg/dL ?Aspartate Amino Transferase 25 5-31 - U/L ?Alanine Aminotransferase 15 0-31 - U/L ?Total Protein 6.9 6.5-8. 0 - g/dL ?Albumin Level 3.9 3.5-5. 0 - g/dL ?Alkaline Phosphatase 84 39-117 - U/L ?Potassium 4.4 3.3-5.1 - mmol/L ?Chloride 108 96-108 - mm ol/L ?Carbon Dioxide 28 22-29 - mmol/L ?Anion Gap 11 L 12-20 - ?Blood Urea Nitrogen 15 9-16 - mg/dL ?Creatinine 0.82 0.5-1.4 - mg/dL ?Estimated Glomerular Filt Rate > 60 - ?Glucose Fasting 95 60-9 9 - mg/dL ?Calcium 9.0 8.4-10.2 - m g/dL ???Lab:Lipid Panel (Order Da te - 09/25/2024) (Collection Date & Time - 09/25/2024 07:00 AM) ? Value Reference Range ?Triglycerides 114 <150 - mg/dL ?Cholesterol 143 <200 - m g/dL ?LDL Cholesterol Calculated 78 <100 - mg/dL ?HDL Cholesterol 43 >40 - mg/dL * Examination: ???General Examination: ?GENERAL APPEARANCE:?well developed, well nourished, in no acute distress.?HEAD:?normocephalic, atraumatic.?EYES:?pupils equal, round, reactive to light and accommodation, sclera non-icteric.?EARS:?normal.?ORAL CAVITY:?mucosa moist.?THROAT:?clear.?NECK/THYROID:?neck supple, full range of motion, no cervical lymphadenopathy, no bruits.?SKIN:?warm and dry, , abnormal on sternum has a scaly leison which could be a squamous cell.?HEART:?regular rate and rhythm, S1, S2 normal, no murmurs.?LUNGS:?clear to auscultation bilaterally.?BREASTS:?No mass, no lump.?ABDOMEN:?soft, nontender, nondistended, bowel sounds present, normal, no organomegaly , no masses palpable.?RECTAL EXAM:?stool guaiac negative, no masses palpable.?FEMALE GENITOURINARY:?not done.?EXTREMITIES:?no clubbing, cyanosis, or edema.?NEUROLOGIC:?nonfocal, motor strength normal upper and lower extremities, sensory exam intact.? Assessment: * Assessment: 1.?Annual physical exam - Z0 0.00 (Primary)???2.?Thyroid nodule - E04.1???3.?Panlobular emphysema - J43.1???4.?Pure hypercholesterolemia - E78.00???5.?Psoriasis - L40.9???6.?Skin lesion - L98.9 ??7.?Colon cancer screening - Z12.11???8.?Depression screening - Z13.31??? Plan: * Treatment: 2.?Thyroid nodule? Notes: is going for a biopsy, pending diagnostic testing?? 3.?Panlobular emphysema? Notes: doing well stable, will continue current regiment?? 4.?Pure hypercholesterolemia ? Notes: well controlled, will continue current regiment?? 5.?Psoriasis? Notes: doing much better, will continue current regiment?? 6.?Skin lesion? Notes: have her go to dermatology/ ALL INFO GIVEN FOR PATIENT TO CALL [facility]?? 7.?Colon cancer screening?LAB: Occult Blood, Stool, Guaiac (Collection Date & Time - 10/02/2024)?Negative ? Value Reference Range ?Occult Blood, Stool, Guaiac Neg Notes: guaiac negative??8.?Depression screening? Notes: negative screen?? * Procedure Codes:?50721 TEST FOR BLOOD, FECES * Preventive Medicine:? ??COPD Care Plan:?Patient Lifestyle Goals?Relieve symptoms and improve quality of life.?Treatment Goals?take medicine exactly as precribed and plan for RX refills.?Barriers?No Specific barriers.?Self-Managment Plan?Eat a healthy diet.?Expected Outcome?improving quality of life.? * * The named appointment provid er may or may not be the originator of this progress note, and it is not deemed complete until electronically signed by the appointment provider. Sign off status: Pending * Provider:?Boubacar Dumont MD Date:?0 10/02/2024 Generated for Sarah tobar/Zainab/eTransmitting on:?10/04/2024 06:16 PM EDT History and Physical Notes * [...] Total Score: 0 Interpretation and Intervention Depression Scree cornelius Findings: Negative Follow-Up for Depression: : review [...] had two or more falls in the year?: No Communication Needs Communication Needs Does the patient have a hearing impairment: No Does the patient have a vision impairmen t?: Yes ?If yes, what is the vision impairment?: Glasses Does the patient have a cognition impair ment?: No Examination Category Sub-Category Detail Notes Category Not es General Examination GENERAL APPEARANCE: well dev eloped, well nourished, in no acute distress HEAD: normocephalic, atrau matic EYES: pupils equal, round, reactive to light and accommodation, sclera non- icteric EARS: normal THROAT: clear NECK/THYROID: neck supple, [...]
== END 2024-10-04 16:20 | disposition home or self-care (01) ==
PROVIDERS: PCP Internal Medicine; Visit Provider Physician Assistant
DX: M25.572 Pain in left ankle and joints of left foot (principal)

== ENCOUNTER 2024-10-04 15:15 | Outpatient (REF) | payer MEDICARE, SELFPAY ==
--- NOTE | ~2024-10-04 | XR_ITS ---
EXAMINATION: XR ANKLE, LEFT CLINICAL INFORMATION: M25.572 - Pain in left ankle and joints of left foot COMPARISON: None available. TECHNIQUE: AP, lateral, and mortise views of the left ankle. FINDINGS: No fracture, dislocation, or suspicious bone lesion. Normal bone mineralization. Normal alignment. Mortise is intact. Talar dome is normal. Joint spaces are preserved. No significant arthropathy. Tiny plantar and small dorsal calcaneal spurs. No definite ankle joint effusion. Soft tissues appear normal. XR/XR ankle LT min 3V IMPRESSION: Essentially normal left ankle. Electronically signed by: Vlad Manriquez MD 10/04/2024 03:57 PM EDT
== END 2024-10-04 15:16 | disposition home or self-care (01) ==
LOC: HO.HMGCX 15:15
PROVIDERS: PCP Internal Medicine; Visit Provider Physician Assistant
DX: M25.572 Pain in left ankle and joints of left foot (principal)
CPT/HCPCS: 73610; 99212

== ENCOUNTER → 2024-10-04 15:45 | Outpatient (BNV) | payer MEDICARE, SELFPAY | PROVIDERS: PCP Internal Medicine; Visit Provider Radiology Diagnostic Radiology | DX: M25.572 Pain in left ankle and joints of left foot (principal) | CPT/HCPCS: 73610 ==

== ENCOUNTER 2024-11-01 08:48 | Outpatient (REF) | payer MEDICARE, SELFPAY ==
--- OUTSIDE RECORDS SUMMARY | 2024-11-01 09:19 | XMS_ITS ---
Author Organization Boubacar Dumont MD Address [address] [place], [place] [phone] Care Team Providers Care Rug Washer Name Role Phone Boubacar Dumont Primary Care [...] for 7 days 06/21/2014 Not-Donato sepulveda Nystatin 683191 UNIT/GM 1 application to affected area Externally [...] Location Date Provider Diagnosis Boubacar Dumont MD [address] [place] [address] Drive [address] [place] [phone] 08/11/2024 Boubacar Dumont Bronchitis J40 and Plaque [...] Details Provider Name:Boubacar mcgraw, 03/29/2025 07:00:00 AM, [address] [place] [address], [address], [place], [place], [phone], Provider Name:Boubacar mcgraw, 04/05/2025 09:00:00 AM, [address] [place] [address], [address], [place], [place], [phone], Provider Name:Boubacar Alvarez ier, 09/27/2025 07:15:00 AM, [address], [address], [place], [place], [phone], Provider Name:Boubacar Alvarez ier, 10/04/2025 11:00:00 AM, [address], [address], [place], [phone], Progress Notes * GEORGEReanna STYLESra RDOB:[birth year] (78 yo F)Acc No.[id number]:08/11/2024 Progress Notes Patient:?Sandra FRANKS R Provider:?Boubacar Dumont MD :1945???Age:78 Y???Sex:Female D ate:08/11/2024 Address:[address] [place], [place] [phone] Subjective: * Chief Complaints: * ???2 week [...] for allergic reaction if trouble breathing Nystatin 643774 UNIT/GM Cream 1 application to affected area [...] allergic reaction if trouble breathing Not-Taking/PRN Nystatin 842546 UNIT/GM Cream 1 application to affected area [...] MD Date:?0 08/11/2024 Generated for Sarah tobar/Zainab/Sadaf on:?11/01/2024 09:18 AM EDT History and Physical Notes * HPI [...]
--- OUTSIDE RECORDS SUMMARY | 2024-11-01 09:19 | XMS_ITS ---
Author Organization Boubacar Dumont MD Address [address] [place], [place] [phone] Care Team Providers Care Physician Relations Specialist Name Role Phone Boubacar Dumont Primary Care Provider Results Component Value Reference Range Notes Complete Blood Count Auto Di ff Reviewed date:09/25/2024 04:33:00 PM Interpretation: Performing Lab:[facility], [address] [place] [phone] Notes/Report: White Blood Count 7.3 4.8-10.8 X10*3/uL [...] NRBC Abs Auto 0.000 0.0-0.012 X10*3/uL Comprehensive [place]. Panel Fa st Reviewed date:09/25/2024 04:32:44 PM Interpretation: Performing Lab:[facility], [address] [place] [phone] Notes/Report: Sodium 143 135-145 mmol/L Potassium 4.4 [...] Panel Reviewed date:09/25/2024 04:21:18 PM Interpretation: Performing Lab:[facility], [address] [place] [phone] Notes/Report: Triglycerides 114 <150 mg/dL Desirable Triglyceride: [...] Total Reviewed date:09/25/2024 04:21:28 PM Interpretation: Performing Lab:[address] [phone] Notes/Report: Vitamin D 25-OH Total 28.8 >30 [...] t Reviewed date:09/25/2024 04:29:06 PM Interpretation: Performing Lab:[facility], [address] [place] [phone] Notes/Report: Urine, Clean Catch Color Urine Yellow Appearance Urine Clear PH 5.5 5.0-9.0 Glucose Urine UA Negative Negative mg/dL Urine Blood Negative Negative Specific [place] - Urine 1.020 1.005-1.025 Urine Protein Negative [...] Location Date Provider Diagnosis Boubacar Dumont MD [address] [place] [phone] 09/25/2024 Boubacar Dumont Blood tests for rout [...] Details Provider Name:Boubacar mcgraw, 03/29/2025 07:00:00 AM, [address] [place] [address], [address], [phone], Provider Name:Boubacar mcgraw, 04/05/2025 09:00:00 AM, [address] [place] [address], [address], [phone], Provider Name:Boubacar duranr, 09/27/2025 07:15:00 AM, [address] [place] [address], [address], [phone], Provider Name:Boubacar duranr, 10/04/2025 11:00:00 AM, [address] [place] [address], [phone], Progress Notes * Sandra FRANKS RDOB:[birth year] (79 yo F)Acc No.[id number]:09/25/2024 Progress Note Patient:?Sandra FRANKS Provider:?Boubacar Dumont MD :1945???Age:79 Y???Sex:Female D ate:09/25/2024 Address: [address] [id number] Subjective: * Chief Complaints: * ???1. Fasting yearly labs. * Medical History:? Objective: * Vitals:? Assessment: * Assessment: 1.?Blood tests for routine g eneral physical examination - Z00.00 (Primary)???2.?Pure hypercholesterolemia - E78.00???3.?Vitamin D deficiency - E55.9??? Plan: * Treatment: 2.?Pure hypercholesterolemia ?LAB: Complete Blood Count Auto Diff (Collection Date & Time - 09/25/2024 07:00 AM) ?LAB: Comprehensive [place]. Panel Fast (Collection Date & Time - [...] Time - 09/25/2024 07:00 AM) ?LAB: Comprehensive [place]. Panel Fast (Collection Date & Time - 09/25/2024 07:00 AM) ?LAB: Lipid Panel (Collection Date & Time - 09/25/2024 07:00 AM) ?LAB: Vitamin D 25-OH Total (Collection Date & Time - 09/25/2024 07:00 AM) ?LAB: UA ClnCatch+Micro w/rflx Cult (Collection Date & Time - 09/25/2024 07:00 AM) * Procedure Codes:?94885 VENIP UNCT, ROUTINE* * * The named appointment provid er may or may not be the originator of this progress note, and it is not deemed complete until electronically signed by the appointment provider. Sign off status: Pending * Provider:?Boubacar Dumont MD Date:?0 09/25/2024 Generated for Sarah tobar/Zainab/Sadaf on:?11/01/2024 09:19 AM EDT
--- OUTSIDE RECORDS SUMMARY | 2024-11-01 09:19 | XMS_ITS | Patient Health Record ---
Author Organization Boubacar Dumont MD Address [address] [place], [place] [id number] Care Team Providers Care Rigging Helper Name Role Phone Boubacar Dumont Primary Care Provider Allergies Allergen (clinical drug ingredient) Drug/Non Drug Allergy documented on EMR Reaction Allergy Type Onset Date Status gatifloxacin tequin (uncoded) passing out Allergy Active Results Component Value Reference Range Notes Complete Blood Count Auto Di ff Reviewed date:09/25/2024 04:33:00 PM Interpretation: Performing Lab:[facility], [address] [place] [address] Notes/Report: White Blood Count 7.3 4.8-10.8 X10*3/uL [...] 0.0-0.2 /100WBC Neutrophils Absolute Auto 4.5 2.0-8.3 x10*3/uL Imm Gran Abs Auto 0.03 0.00-0.03 X10*3/uL Lymphocytes Absolute Auto 1.4 1.2-4.9 X10*3/uL Monocytes Absolute Auto 0.9 0.1-1.2 X10*3/uL Eosinophils Absolute Auto 0.4 0.0-0.4 X10*3/uL Basophils Absolute Auto 0.0 0.0-0.2 X10*3/uL NRBC Abs Auto 0.000 0.0-0.012 X10*3/uL Comprehensive [place]. Panel Fa st Reviewed date:09/25/2024 04:32:44 PM Interpretation: Performing Lab:[address] [address] Notes/Report: Sodium 143 135-145 mmol/L Potassium 4.4 [...] Panel Reviewed date:09/25/2024 04:21:18 PM Interpretation: Performing Lab:[address] [address] Notes/Report: Triglycerides 114 <150 mg/dL Desirable Triglyceride: [...] Total Reviewed date:09/25/2024 04:21:28 PM Interpretation: Performing Lab:[address] [address] Notes/Report: Vitamin D 25-OH Total 28.8 >30 [...] t Reviewed date:09/25/2024 04:29:06 PM Interpretation: Performing Lab:[address] [address] Notes/Report: Urine, Clean Catch Color Urine Yellow Appearance Urine Clear PH 5.5 5.0-9.0 Glucose Urine UA Negative Negative mg/dL Urine Blood Negative Negative Specific [place] - Urine 1.020 1.005-1.025 Urine Protein Negative Neg-Trace mg/dL Urine Ketones Negative Negative mg/dL Nitrite Urine Negative Negative Leukocyte Esterase Urine Negative Negative RBC Urine 0-2 0-2 /HPF WBC Urine 0-5 0-5 /HPF Squamous Epithelial Cell Urine 0-2 0-2 /HPF Bacteria Urine None Seen None Seen Hyaline Casts Urine 0-2 0-2 /LPF Occult Blood, Stool, Guaiac Reviewed date:10/02/2024 01:35:41 PM Interpretation:Negative Performing Lab: Notes/Report: Negative Occult Blood, Stool, Guaiac Neg CT chest wo con Reviewed date:01/27/2024 03:25:56 PM Interpretation: Performing Lab: Notes/Report: [address] [address] [address] Scan Report Signed Patient: Sandra Franks MR#: [id number] 958 : 1945 Acct:[id number] Age/Sex: 78 / F ADM Date: 12/24/23 Loc: HO.CT Attending Dr: Boubacar Dumont MD Ordering Physician: Boubacar Dumont MD Date of Service: 12/24/23 Procedure(s): CT chest wo IV con Accession Number(s): [id number] cc: Boubacar Dumont MD EXAMINATION: CT CHEST WITHOUT CONTRAST CLINICAL INFORMATION: Multiple lung nodules. COMPARISON: Multiple priors, most recently chest CT 11/20/2022. TECHNIQUE: Multidetector volumetric CT imaging of the chest was done. Axial MIP volume rendering provided. Sagittal and coronal reformatted images were obtained. This CT examination was performed using dose optimization techniques as appropriate, variously including the following: *Automated exposure control *Adjustment of mA and/or kV according to patient size (this includes techniques or standardized protocols for targeted exams where dose is matched to indication/reason for exam; i.e. extremities or head) *Use of iterative reconstruction technique DLP: 111 mGy-cm FINDINGS: LUNGS: Stable biapical pleural parenchymal scarring. Again seen are numerous sub-6 mm calcified and noncalcified pulmonary nodules which are stable compared to prior and most likely reflect prior granulomatous disease. There is airway wall thickening consistent with chronic airways disease. No suspicious enlarging or new pulmonary nodule. MEDIASTINUM: Calcified right thyroid nodule is stable. No aortic aneurysm. No mediastinal adenopathy. CORONARY ARTERY CALCIFICATION: Present PLEURA: There is no pleural effusion. No pleural mass or thickening. AXILLA: No lymphadenopathy. UPPER ABDOMEN: Small gastric diverticulum. OSSEOUS STRUCTURES: Degenerative changes in the spine. CT/CT chest wo IV con IMPRESSION: Stable pulmonary nodules. No follow-up recommended as per Fleischner Society guidelines. Follow-up if clinically indicated. Fleischner guidelines were followed. Dictated By: Tomas Esqueda MD Signed By: <Electronically signed by Tomas Esqueda MD in OV> 01/27/24 1114 DD/ 0820 TD/TT: Medical Esthetician: [address] [address] [address] Scan Report Signed Patient: Reanna Franks ra MR#: [id number] 958 : 1945 Acct:[id number] Age/Sex: 78 / F ADM Date: 12/24/23 Loc: HO.CT Attending Dr: Boubacar Dumont MD Ordering Physician: Boubacar Dumont MD Date of Service: 12/24/23 Procedure(s): CT stefany st wo IV con Accession Number(s): [id number] cc: Boubacar Dumont MD EXAMINATION: CT CHEST WITHOUT CONTRAST CLINICAL INFORMATION: Multiple lung nodules. COMPARISON: Multiple priors, mos t recently chest CT 11/20/2022. TECHNIQUE: Multidetector volumetric CT imaging of the chest was done. Axial MIP volume rendering provided. Sagittal and coronal reformatted images were obtained. This CT examination was performed using dose optimization techniques as appropriate, various ly including the following: *Automated exposure control *Adjustment of mA and/or kV according to patient size (this includes techniques or standardized protocols for targeted exams where dose is matched to indication/reason for exam; i.e. extremities or head) *Use of iterative reconstruction technique DLP: 111 mGy-cm FINDINGS: LUNGS: Stable biapic al pleural parenchymal scarring. Again seen are numerous sub-6 mm calcified and noncalcified pulmonary nodules which are stable compared to prior and most likely reflect prior granulomatous diseas e. There is airway wall thickening consistent with chronic airways disease. No suspicious enlarging or new pulmonary nodule. MEDIASTINUM: Calcifi ed right thyroid nodule is stable. No aortic aneurysm. No mediastinal adenopathy. CORONARY ARTERY CALCIFICATION: Present PLEURA: There is no pleural effusion. No pleural mass or thickening. AXILLA: No lymphadenopathy. UPPER ABDOMEN: Small gastric diverticulum. OSSEOUS STRUCTURES: Degenerative changes in the spine. CT/CT chest wo IV con IMPRESSION: Stable pulmonary nodules. No follow-up recommended as per Fleischner Society guidelines. Follow-up if clinically indicated. Fleischner guideline s were followed. Dictated By: Tomas Esqueda MD Signed By: <Electronically signed by Tomas Esqueda MD in OV> 01/27/24 1114 DD/ 0820 TD/TT: Medical Esthetician: STEPHENIE MCKEON thyroid Reviewed date:07/17/2024 01:50:20 PM Interpretation:left message for patient to call office Performing Lab: Notes/Report: [place] [address] Ultrasound Report Signed Patient: Sandra Franks MR#: [id number] 958 : 1945 Acct:[id number] Age/Sex: 78 / F ADM Date: 05/23/24 Loc: .US Attending Dr: Boubacar Dumont MD Ordering Physician: Boubacar Dumont MD Date of Service: 05/23/24 Procedure(s): US thyroid Accession Number(s): [id number] cc: Boubacar Dumont MD EXAMINATION: US THYROID CLINICAL INFORMATION: Thyroid nodule. COMPARISON: Thyroid ultrasound 06/08/2023 and 06/09/2022. TECHNIQUE: Linear transducer grayscale and color Doppler examination with attention to the region of the thyroid. FINDINGS: SIZE: Measurements of the thyroid lobes and nodules are given in sagittal, anteroposterior and transverse dimensions respectively. Right Thyroid Lobe: 4.5 x 2.2 x 1.6 cm, volume 8.5 mL. Previously 5.3 x 2.9 x 1.6 cm, volume 13.0 mL. Parenchyma: The gland echotexture is heterogeneous. Thyroid vascularity is normal. Left Thyroid Lobe: 4.0 x 1.8 x 1.3 cm, volume 4.8 mL. Previously 4.9 x 2.1 x 1.2 cm, volume 6.5 mL. Parenchyma: The gland echotexture is heterogeneous. Thyroid vascularity is normal. Isthmus: 0.3 cm in maximum AP dimension. Previously 0.4 cm. Estimated total number of nodules greater than or equal to 1 cm: 3. Computer Discovery Teacher nodules are described as follows: 1. Location: Right mid/upper pole. Size: 1.3 x 1.1 x 1.2 cm, volume 0.9 mL. Previously: 1.2 x 1.1 x 1.3 cm, volume 0.91 mL. Nodule characteristics: Composition: Solid (2). Echogenicity: Hypoechoic (2). Shape: Not taller than wide (0). Margins: Smooth (0). Echogenic Foci: Peripheral calcifications (2). ACR TI-RADS total points: 6 Previous: 6 ACR TI-RADS category: 4 Previous: 4 Significant change in size (>/= 20% in 2 dimensions and minimal increase of 2 mm or 50% or greater increase in volume): No Change in features: No Change in ACR TI-RADS risk category: No 2. Location: Right lower/mid pole. Size: 1.2 x 1.0 x 1.1 cm, volume 0.7 mL. Previously: 1.3 x 0.8 x 1.0 cm, volume 0.50 mL. Nodule characteristics: Composition: Solid (2). Echogenicity: Hypoechoic (2). Shape: Not taller than wide (0). Margins: Ill-defined (0). Echogenic Foci: Peripheral calcifications (2). ACR TI-RADS total points: 6 Previous: 6 ACR TI-RADS category: 4 Previous: 4 Significant change in size (>/= 20% in 2 dimensions and minimal increase of 2 mm or 50% or greater increase in volume): No Change in features: No Change in ACR TI-RADS risk category: No 3. Location: Left upper/mid pole. Size: 0.7 x 0.4 x 0.4 cm, volume 0.7 mL. Previously: 0.4 x 0.5 x 0.3 cm, volume 0.3 mL. Nodule characteristics: Composition: Spongiform (0). ACR TI-RADS total points: 0 Previous: 0 ACR TI-RADS category: 1 Previous: 1 Significant change in size (>/= 20% in 2 dimensions and minimal increase of 2 mm or 50% or greater increase in volume): Yes Change in features: No Change in ACR TI-RADS risk category: No 4. Location: Left upper/mid pole. Size: 1.2 x 0.5 x 0.6 cm, volume 0.2 mL. Previously: 0.8 x 0.8 x 1.0 cm, volume 0.31 mL. Nodule characteristics: Composition: Solid (2). Echogenicity: Isoechoic (1). Shape: Not taller than wide (0). Margins: Ill-defined (0). Echogenic Foci: Punctate echogenic foci (3). ACR TI-RADS total points: 6 Previous: 0 ACR TI-RADS category: 4 Previous: 1 Significant change in size (>/= 20% in 2 dimensions and minimal increase of 2 mm or 50% or greater increase in volume): No Change in features: Yes Change in ACR TI-RADS risk category: Yes NODES: No lymphadenopathy is seen in the tissue surrounding the thyroid gland. US/US thyroid IMPRESSION: Heterogeneous thyroid parenchyma with normal vascularity. No thyromegaly. Multiple bilateral thyroid nodules are redemonstrated. The largest nodule is within the left upper/mid pole measuring up to 1.2 cm with ultrasound characteristics consistent with TI-RADS Category 4. This appears slightly increased in size when compared to the prior examination now measuring up to 1.2 cm (previously 0.8 cm). Left upper/mid pole thyroid nodule measuring up to 1.2 cm, not significantly increased in size. There is a change in nodule characteristics with the nodule now representing a TI-RADS Category 4 (previously category 1). Left upper/mid pole nodule measuring up to 0.7 cm, increased in size when compared to the prior examination measuring up to 0.7 mL in volume (previously 0.3 mm). No significant change in thyroid characteristics, consistent with TI-RADS category 1. ACR TI-RADS RECOMMENDATION REFERENCE: Ultrasound-guided fine-needle aspiration, follow up ultrasound, no further followup. * TR1 (0 point) and TR2 (2 points): No FNA or followup * TR3 (3 points): FNA if more than or equal to 2.5 cm in maximum dimension, follow up ultrasound in 1, 3 and 5 years if 1.5 to 2.4 cm in maximum dimension. * TR4 (4-6 points): FNA if more than or equal to 1.5 cm in maximum dimension, follow up ultrasound in 1, 2, 3 and 5 years if 1 to 1.4 cm in maximum dimension. * TR5 (more than or equal to 7 points): FNA if more than or equal to 1 cm in maximum dimension, follow up ultrasound every year for 5 years if 0.5 to 0.9 cm in maximum dimension. * TR3, TR4 or TR5 nodules that are below the size threshold for follow up receive no followup. Electronically signed by: Ajay Harry MD 07/07/2024 01:59 PM [facility] Dictated By: Ajay Harry MD Signed By: <Electronically signed by Ajay Harry MD in OV> 07/07/24 1359 DD/ 1100 TD/TT: 05/23/24 1130 Medical Esthetician: [place] [address] Ultrasound Report Signed Patient: Reanna Franks ra MR#: [id number] 958 : 1945 Acct:[id number] Age/Sex: 78 / F ADM Date: 05/23/24 Loc: .US Attending Dr: Boubacar Dumont MD Ordering Physician: Boubacar Dumont MD Date of Service: 05/23/24 Procedure(s): US thyroid Accession Number(s): [id number] cc: Boubacar Dumont MD EXAMINATION: US THYROID CLINICAL INFORMATION: Thyroid nodule. COMPARISON: Thyroid ultrasound 06/08/2023 and 06/09/2022. TECHNIQUE: Linear transducer grayscale and color Doppler examination with attention to the reg ion of the thyroid. FINDINGS: SIZE: Measurements o f the thyroid lobes and nodules are given in sagittal, anteroposterior and transverse dimensions respectively. Right Thyroid Lobe: 4.5 x 2.2 x 1.6 cm, volume 8.5 mL. Previously 5.3 x 2.9 x 1.6 cm, volume 13.0 mL. Parenchyma: The glan d echotexture is heterogeneous. Thyroid vascularity is normal. Left Thyroid Lobe: 4 .0 x 1.8 x 1.3 cm, volume 4.8 mL. Previously 4.9 x 2.1 x 1.2 cm, volume 6.5 mL. Parenchyma: The glan d echotexture is heterogeneous. Thyroid vascularity is normal. Isthmus: 0.3 cm in maximum AP dimension. Previously 0.4 cm. Estimated total numb er of nodules greater than or equal to 1 cm: 3. Computer Discovery Teacher nodul es are described as follows: 1. Location: Right mid/upper pole. Size: 1.3 x 1.1 x 1. 2 cm, volume 0.9 mL. Previously: 1.2 x 1. 1 x 1.3 cm, volume 0.91 mL. Nodule characteristics: Composition: Solid (2). Echogenicity: Hypoechoic (2). Shape: Not taller th an wide (0). Margins: Smooth (0). Echogenic Foci: Peripheral calcifications (2). ACR TI-RADS total points: 6 Previous: 6 ACR TI-RADS category : 4 Previous: 4 Significant change i n size (>/= 20% in 2 dimensions and minimal increase of 2 mm or 50% or greater increase in volume): No Change in features: No Change in ACR TI-RAD S risk category: No 2. Location: Right lower/mid pole. Size: 1.2 x 1.0 x 1. 1 cm, volume 0.7 mL. Previously: 1.3 x 0. 8 x 1.0 cm, volume 0.50 mL. Nodule characteristics: Composition: Solid (2). Echogenicity: Hypoechoic (2). Shape: Not taller th an wide (0). Margins: Ill-defined (0). Echogenic Foci: Peripheral calcifications (2). ACR TI-RADS total points: 6 Previous: 6 ACR TI-RADS category : 4 Previous: 4 Significant change i n size (>/= 20% in 2 dimensions and minimal increase of 2 mm or 50% or greater increase in volume): No Change in features: No Change in ACR TI-RAD S risk category: No 3. Location: Left upper/mid pole. Size: 0.7 x 0.4 x 0. 4 cm, volume 0.7 mL. Previously: 0.4 x 0. 5 x 0.3 cm, volume 0.3 mL. Nodule characteristics: Composition: Spongif orm (0). ACR TI-RADS total points: 0 Previous: 0 ACR TI-RADS category : 1 Previous: 1 Significant change i n size (>/= 20% in 2 dimensions and minimal increase of 2 mm or 50% or greater increase in volume): Yes Change in features: No Change in ACR TI-RAD S risk category: No 4. Location: Left upper/mid pole. Size: 1.2 x 0.5 x 0. 6 cm, volume 0.2 mL. Previously: 0.8 x 0. 8 x 1.0 cm, volume 0.31 mL. Nodule characteristics: Composition: Solid (2). Echogenicity: Isoech oic (1). Shape: Not taller th an wide (0). Margins: Ill-defined (0). Echogenic Foci: Punctate echogenic foci (3). ACR TI-RADS total points: 6 Previous: 0 ACR TI-RADS category : 4 Previous: 1 Significant change i n size (>/= 20% in 2 dimensions and minimal increase of 2 mm or 50% or greater increase in volume): No Change in features: Yes Change in ACR TI-RAD S risk category: Yes NODES: No lymphadenopathy is seen in the tissue surrounding the thyroid gland. US/US thyroid IMPRESSION: Heterogeneous thyroi d parenchyma with normal vascularity. No thyromegaly. Multiple bilateral thyroid nodules are redemonstrated. The largest nodule is within the left upper/mid pole measuring up to 1.2 cm with ultrasound characteristics consistent with TI-RADS Category 4. This appears slightly increased in size when compared to the prior examination now measuring up to 1.2 cm (previously 0.8 cm). Left upper/mid pole thyroid nodule measuring up to 1.2 cm, not significantly increa sed in size. There is a change in nodule characteristics with the nodule now representing a TI-RADS Category 4 (previously category 1). Left upper/mid pole nodule measuring up to 0.7 cm, increased in size when compared to the prior examination measuring up to 0.7 mL in volume (previously 0.3 mm). No significant change in thyroid characteristics, consistent with TI-R ADS category 1. ACR TI-RADS RECOMMENDATION REFERENCE: Ultrasound-guided fine-needle aspiration, follow up ultrasound, no further followup. * TR1 (0 point) and TR2 (2 points): No FNA or followup * TR3 (3 points): FN A if more than or equal to 2.5 cm in maximum dimension, follow up ultrasound in 1, 3 and 5 years if 1.5 to 2.4 cm in maximum dimension. * TR4 (4-6 points): FNA if more than or equal to 1.5 cm in maximum dimension, follow up ultrasound in 1, 2, 3 and 5 years if 1 to 1.4 cm in maximum dimension. * TR5 (more than or equal to 7 points): FNA if more than or equal to 1 cm in maximum dimension, follow up ultrasound every year for 5 years if 0.5 to 0.9 cm in maximum dimension. * TR3, TR4 or TR5 nodules that are below the size threshold for follow up receive no followup. Electronically consuelo d by: Ajay Harry MD 07/07/2024 01:59 PM [facility] Dictated By: Aajy Harry MD Signed By: <Electronically signed by Ajay Harry MD in OV> 07/07/24 1359 DD/ 1100 TD/TT: 05/23/24 1130 Medical Esthetician: MM tomosynthesis screening B I Reviewed date:06/06/2024 12:40:36 PM Interpretation: Performing Lab: Notes/Report: [facility] [address] [place] [address] Mammography Report Signed Patient: Sandra Franks MR#: [id number] 958 : 1945 Acct:[id number] Age/Sex: 78 / F ADM Date: 05/29/24 Loc: HO.MAMMO Attending Dr: Boubacar Dumont MD Ordering Physician: Boubacar Dumont MD Results: 1Ne gative Date of Service: 05/29/24 Follow Up: 1 Year From Orig inal Mammogram Procedure(s): MM tomosynthesis screening BI Accession Number(s): [id number] cc: Boubacar Dumont MD EXAMINATION: MM SCREENING DIGITAL BREAST TOMOSYNTHESIS, BILATERAL CLINICAL INFORMATION: Screening. Asymptomatic. COMPARISON: Mammography: Comparison is made with available priors TECHNIQUE: Digital breast mammography with tomosynthesis is performed in both the craniocaudal and mediolateral oblique views along with computer-aided detection (CAD). FINDINGS: There are scattered areas of fibroglandular density (ACR BI-RADS breast composition Category b). There are no significant masses, abnormal calcifications, or other abnormalities. MM/MM tomosynthesis screening BI IMPRESSION: No mammographic evidence of malignancy. ASSESSMENT: BI-RADS BI-RADS 1 - Negative RECOMMENDATION: Routine annual mammography screening. 1 year F/U This examination should not preclude the clinical evaluation of a suspicious palpable abnormality. This patient's information was entered into a reminder system with a target due date for their next mammogram. Electronically signed by: Nichole Zepeda DO 06/06/2024 11:11 AM EST Dictated By: Nichole Zepeda DO Signed By: <Electronically signed by Nichole Zepeda DO in OV> 06/06/24 1111 DD/ TD/TT: 05/29/24 0839 Medical Esthetician: [facility] [address] [place] [address] Mammography Report Signed Patient: Reanna Franks ra MR#: [id number] 958 : 1945 Acct:[id number] Age/Sex: 78 / F ADM Date: 05/29/24 Loc: HO.MAMMO Attending Dr: Boubacar Dumont MD Ordering Physician: Boubacar Dumont MD Results: 1Ne gative Date of Service: 05/29/24 Follow Up: 1 Year From Orig ina Mammogram Procedure(s): MM tomosynthesis screening BI Accession Number(s): [id number] cc: Boubacar Dumont MD EXAMINATION: MM SCREENING DIGITAL BREAST TOMOSYNTHESIS, BILATERAL CLINICAL INFORMATION: Screening. Asymptomatic. COMPARISON: Mammography: Compari son is made with available priors TECHNIQUE: Digital breast mammography with tomosynthesis is performed in both the craniocaudal and mediolateral oblique views along with computer-aided detection (CAD). FINDINGS: There are scattered areas of fibroglandular density (ACR BI-RADS breast composition Category b). There are no significant masses, abnormal calcifications, or other abnormalities. MM/MM tomosynthesis screening BI IMPRESSION: No mammographic evidence of malignancy. ASSESSMENT: BI-RADS BI-RADS 1 - Negative RECOMMENDATION: Routine annual mammography screening. 1 year F/U This examination dom uld not preclude the clinical evaluation of a suspicious palpable abnormality. This patient's information was entered into a reminder system with a target due date for their next mammogram. Electronically consuelo d by: Nichole Zepeda DO 06/06/2024 11:11 AM EST Dictated By: Nichole Zepeda DO Signed By: <Electronically signed by Nichole Zepeda DO in OV> 06/06/24 1111 DD/ 7 TD/TT: 05/29/2439 Medical Esthetician: Pathology Reviewed date:08/24/2024 04:59:19 PM Interpretation: Performing Lab:[facility], [address] [place] [id number] Notes/Report: --- Name: Sandra Franks Age/Sex: 78/F : 1945 [id number]#: [id number] Attend Dr: Cristina Alvarez MD Re08/23/24 Status : DEP REF Location: [facility] Disch: --- SPEC : [id number] RECD : 02/ STATUS: NICOLE MCDOWELL NUM: [id number] SHARRON: 08/23/24 [facility] DR: Cristina Alvarez MD ENTERED: 08/23/24 47 SP TYPE: Cytology OTHR DR: Boubacar Dumont MD ORDERED: Fine Ndl Asp/2 Diagnosis A. Thyroid, right sup/mid 1.3 cm nodule, fine needle aspiration: Benign ([place] category II). COMMENT (A): Satisfactory for evaluation; paucicellular specimen. Occasional groups of follicular epithelia l cells mostly in a macrofollicular arrangement are seen; no cytologic atypia is present. Some Hurthle cell change is present. Colloid is seen. Taken together, the findings are consistent with a benign thyroid nodule. B. Thyroid, left sup/mid 1.2 cm nodule, fine needle aspiration: Non-diagnostic ([place] category I). COMMENT (B): No follicular epithelial cells are identified. Recommend repeat, as clinically appropriate. Clinical History Right sup/mid 1.3 cm and left sup/mid 1.2 cm thyroid nodule FNA bx's Material Received A. Right sup/mid 1.3 cm thyroid nodule FNA bx B. Left sup/mid 1.2 cm thyroid nodule FNA bx Gross Description A.Received is 30 cc of clear pale pink fluid from which a ThinPrep slide is prepared. B. Received is 26 cc of clear fluid from which a ThinPrep slide is prepared. Copies To: Boubacar Dumont MD [facility] [address] [place] [address] [address] [place] [address] Cristina Alvarez MD [facility] [address] [place] [id number] [email or web address] CONTINUED ON NEXT PAGE --- Name: El R Age/Sex: 78/F : 1945 Unit#: [id number] Attend Dr: Cristina Alvarez MD Re08/23/24 Status : DEP REF Location: [facility] Disch: --- SPEC : [id number] RECD : 08/23/24 STATUS: NICOLE MCDOWELL NUM: [id number] SHARRON: 08/23/24 [facility] DR: Cristina Alvarez MD ENTERED: 08/23/24- 47 SP TYPE: Cytology OTHR DR: Boubacar Dumont MD ORDERED: Gwen Miranda Asp/2 --- Signed (signature on file) Ray Bonilla MD 08/24/24 1525 --- END OF REPORT XR ankle LT min 3V Reviewed date:10/05/2024 04:36:41 PM Interpretation: Performing Lab: Notes/Report: [facility] [place] [address] XRay Report Signed Patient: Sandra Franks MR#: [id number] 958 : 1945 Acct:[id number] Age/Sex: 79 / F ADM Date: 10/04/24 Loc: HOLiHMGCX Attending Dr: Era Iglesias PA-C Ordering Physician: Odette Ferro PA-C Date of Service: 10/04/24 Procedure(s): XR ankle LT min 3V Accession Number(s): [id number] cc: Boubacar Dumont MD; Odette Ferro PA-C EXAMINATION: XR ANKLE, LEFT CLINICAL INFORMATION: M25.572 - Pain in left ankle and joints of left foot COMPARISON: None available. TECHNIQUE: AP, lateral, and mortise views of the left ankle. FINDINGS: No fracture, dislocation, or suspicious bone lesion. Normal bone mineralization. Normal alignment. Mortise is intact. Talar dome is normal. Joint spaces are preserved. No significant arthropathy. Tiny plantar and small dorsal calcaneal spurs. No definite ankle joint effusion. Soft tissues appear normal. XR/XR ankle LT min 3V IMPRESSION: Essentially normal left ankle. Electronically signed by: Vlad Manriquez MD 10/04/2024 03:57 PM EDT Dictated By: Vlad Manriquez MD Signed By: <Electronically signed by Vlad Manriquez MD in OV> 10/04/24 1557 DD/ 1545 TD/TT: 10/04/24 1554 Medical Esthetician: [facility] [address] [place] [address] [place] [address] XRay Report Signed Patient: Reanna Franks ra MR#: [id number] : 1945 Acct:[id number] Age/Sex: 79 / F ADM Date: 10/04/24 Loc: [facility]ENC[facility] Attending Dr: Era Iglesias PA-C Ordering Physician: Odette Ferro PA-C Date of Service: 10/04/24 Procedure(s): XR ank le LT min 3V Accession Number(s): [id number] cc: Boubacar Dumont MD; Odette Ferro PA-C EXAMINATION: XR ANKLE, LEFT CLINICAL INFORMATION: M25.572 - Pain in le ft ankle and joints of left foot COMPARISON: None available. TECHNIQUE: AP, lateral, and mortise views of the left ankle. FINDINGS: No fracture, dislocation, or suspicious bone lesion. Normal bone mineralization. Normal alignment. Mortise is intact. Talar dome is normal. Joint spaces are preserved. No significant arthropathy. Tiny plantar and sma ll dorsal calcaneal spurs. No definite ankle renu int effusion. Soft tissues appear normal. XR/XR ankle LT min 3V IMPRESSION: Essentially normal l eft ankle. Electronically consuelo d by: Vlad Manriquez MD 10/04/2024 03:57 PM EDT Dictated By: Vlad Manriquez MD Signed By: <Electronically signed by Vlad Manriquez MD in OV> 10/04/24 1557 DD/ 1545 TD/TT: 10/04/24 1554 Medical Esthetician: Reason For Referral Reason thyroid nodule Diagnosis 1 Thyroid nodule (E04. 1) Referral Organization Boubacar Dumont MD Referring Provider First Name Boubacar Referring Provider Last Name Tim Referring Provider Speciality Internal M edicine Referred Provider Eric Torrez Referred Provider Specialty Endocrinolog y General Notes Vera Guzmán 0 07/17/2024 01:48:17 PM > referral info faxed, Vera Guzmán 07/25/2024 01:58:15 PM >APPT is with Dr. Alvarez was told patient is aware of appt Referral Priority Routine Referral Appointment Date 08/04/2024 Medications Medication SIG (Take, Route, Frequency, Duration) Notes Start Date End Date Status Triamcinolone Acetonide 0.5 % APPLY 1 APPLICATION [...] a day for 30 days 02/06/2022 Active Nystatin 232360 UNIT/GM 1 application to affected area Externally Twice a day 01/19/2017 Not-Takin g Ipratropium-Albuterol 0.5-2.5 (3) MG/3ML 3 ml Inhalation Four times a day for 30 days 07/13/2014 Active Meclizine HCl 12.5 MG 2 tablets as neede d Orally Once a day Not-Taking Atorvastatin Calcium 20 MG TAKE 1 TABLET BY MOUTH EVERY DAY for 90 Active Clobetasol Prop Emollient Base 0.05 % as directed Externally twice a day for 7 days 06/21/2014 Not-Takin g Albuterol Sulfate HFA 108 (90 Base) MCG/ACT INHALE 2 PUFFS EVERY 4 HOURS NEEDED INHALATION EVERY 4 HRS 30 DAYS for 30 Active Vitamin C Adult Gummies 125 MG as directed Orally Not-Takin g Betamethasone Valerate 0.1 % 1 application to affected area Externally Once a day for 30 days 06/30/2016 Not-Taking Tylenol Extra Strength 500 MG 1 tablet as needed Orally every 6 hrs Active Clobetasol Propionate 0.05 % 1 application to affected area Externally Twice a day for 30 days 06/22/2017 Not-Taking Aspir-81 81 MG 1 tablet Orally Once a day for 30 day(s) Active EpiPen 2-Guy 0.3 MG/0.3ML as directed In jection as needed for allergic reaction if trouble breathing for 1 dose 08/19/2017 Not-Taking Immunizations Vaccine Route Administration Date Status Comme nts DECLINED, FLU Unknown 05/30/2013 Administered TDaP Unknown 05/27/2017 Administered pt was given the vaccine at [facility] in [facility] SARS-COV-2 Pfizer Unknown 10/02/2020 Administered SARS-COV-2 Pfizer Unknown 10/23/2020 Administered SARS-COV-2 Pfizer Unknown 04/29/2021 Administered SARS-COV-2 Moderna Unknown 05/12/2022 Administered [facility] Flu Vaccine Unknown 07/09/2014 Refused zFluzone Quadrivalent Unknown 05/10/2015 Refused PPSV23 (Pnemovax) Unknown 07/23/2015 Refused Fluarix Quadrivalent Unknown 04/06/2016 Refused Shingles Unknown 05/24/2017 Refused Fluarix Quadrivalent Unknown 09/07/2017 Refused Fluarix Quadrivalent Unknown 04/04/2018 Refused Fluarix Quadrivalent Unknown 07/28/2018 Refused Fluarix Quadrivalent Unknown 04/10/2019 Refused Fluarix Quadrivalent Unknown 09/25/2019 Refused PPSV23 (Pnemovax) Unknown 09/25/2019 Refused Influenza High Dose Unknown 03/24/2021 Refused Social History Tobacco Use: Social History Observation [...] ast year? No Points 0 Interpretation Negative Problems Problem Type SNOMED Code ICD Code Onset Dates Problem Status W/U Status Risk Notes Problem 774329427 Thyroid nodule (E04.1) Active confirm ed Problem 73199649 Vitamin D defici ency (E55.9) Active confirmed Problem 9477547 Panlobular emphy sema (J43.1) Active confirmed Problem 6739488 Arthritis (M19.90) Active confirmed Problem 644794538 Osteopenia (M85.80) Active confirmed Problem 4316352 Psoriasis (L40.9) Active confirmed Problem 822632861 Asthmatic bronch itis with acute exacerbation (J45.901) Active confirmed Problem 855870117 Multiple lung no dules (R91.8) Active confirmed Problem 05658786 Intrinsic eczema (L20.84) Active confirmed Problem 20023241 Acute non-recurr ent maxillary sinusitis (J01.00) Active confirmed Problem Atrophy of vagina (846867618) Vaginal atrophy (N95.2) Active confirmed Problem 371656449 Pulmonary nodule (R91.1) Active confirmed Problem 799830735 Pure hypercholesterolemia (E78.00) Active confirmed Problem 282635938 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) Active confirmed Problem 133248718 Age-related inci pient cataract, unspecified laterality (H25.099) Active confirmed Problem 054333370 Multiple thyroid nodules (E04.2) Active confirmed Problem 397968498 Plaque psoriasis (L40.0) Active confirmed Vital Signs Blood pressure diastolic 68 mm Hg 10/02/2024 Height 62 in 10/02/2024 Blood pressure systolic 142 mm Hg 10/02/2024 Weight 130 lbs 10/02/2024 BMI 23.77 kg/m2 10/02/2024 Encounters Encounter Location Date Provider Diagnosis Boubacar Dumont MD [address] [place] [address] [id number] 09/25/2024 Boubacar Dumont Blood tests for rout ine general physical examination Z00.00 ; Pure hypercholesterolemia E78.00 and Vitamin D deficiency E55.9 Boubacar Dumont MD [address] [place] [address] [id number] 11/30/2023 Boubacar Dumont Bronchitis J40 Boubacar Dumont MD [address] [place] [address] [id number] 05/12/2024 Boubacar Dumont COPD with exacerbati on J44.1 and Thyroid nodule E04.1 Boubacar Dumont MD [address] [place] [address] [id number] 05/26/2024 Boubacar Dumont COPD with exacerbati on J44.1 and Acute bronchitis, unspecified organism J20.9 Boubacar Dumont MD [address] [place] [address] [id number] 07/18/2024 Boubacar Dumont Multiple thyroid nod ules E04.2 and Plaque psoriasis L40.0 Boubacar Dumont MD [address] [place] [address] [id number] 07/24/2024 Boubacar Dumont Bronchitis J40 Boubacar Dumont MD [address] [place] [address] [id number] 08/11/2024 Boubacar Dumont Bronchitis J40 and P laque psoriasis L40.0 Boubacar Dumont MD [address] [place] [address] [id number] 10/02/2024 Boubacar Dumont Thyroid nodule E04.1 ; Annual physical exam Z00.00 ; Panlobular emphysema J43.1 ; Pure hypercholesterolemia E78.00 ; Psoriasis L40.9 ; Skin lesion L98.9 ; Colon cancer screening Z12.11 and Depression screening Z13.31 Boubacar Dumont MD [address] [place] [address] [id number] 11/12/2023 Boubacar Dumont Panlobular emphysema J43.1 Boubacar Dumont MD [address] [place] [address] [id number] 11/29/2023 Boubacar Dumont MD [address] [place] [address] [id number] 01/27/2024 Boubacar Dumont Multiple lung nodule s R91.8 Boubacar Dumont MD [address] [place] [address] [id number] 05/08/2024 Boubacar Dumont MD [address] [place] [address] [id number] 06/01/2024 Boubacar Dumont Assessments Encounter Date Diagnosis (ICD Code) Assessment Notes Treatment Notes Treatment Clinical Notes Section Notes 09/25/2024 [address] tests for rout ine general physical examination (ICD-10 - Z00.00) 11/30/2023 Bronchitis (ICD-10 - J40) the pain sounds as though it is rib pain from coughing, patient verbalized understanding of medications and directions for use. 05/12/2024 COPD with exacerbati on (ICD-10 - J44.1) patient verbalized understanding of medication and directions for use. THE ORDER WAS FAXED OVER TO [facility] [place] 05/08/[place] , FARHAN IS AWARE THEY WILL BE CALLING HER TO SCHEDULE 05/12/2024 Thyroid nodule (ICD- 10 - E04.1) pending diagnostic testing 05/26/2024 COPD with exacerbati on (ICD-10 - J44.1) patient verbalized understanding of medication and directions for use 05/26/2024 Acute bronchitis, unspecified organism (ICD-10 - J20.9) 07/18/2024 Multiple thyroid nodules (ICD-10 - E04.2) referral to [facility] / referral already entered in being worked on 07/18/2024 Plaque psoriasis (ICD-10 - L40.0) 07/24/2024 Bronchitis (ICD-10 - J40) patet verbalized understanding of medicatin and directions for use 08/11/2024 Bronchitis (ICD-10 - J40) has finally resolved 08/11/2024 Plaque psoriasis (ICD-10 - L40.0) doing much better 10/02/2024 Thyroid nodule (ICD- 10 - E04.1) is going for a biopsy, pending diagnostic testing 10/02/2024 Annual physical exam (ICD-10 - Z00.00) labs reviewed and dicussed with patient 11/12/2023 Panlobular emphysema (ICD-10 - J43.1) 01/27/2024 Multiple lung nodule s (ICD-10 - R91.8) order made and put into the future order folder for . Patient notified. 09/25/2024 Pure hypercholesterolemia (ICD-10 - E78.00) 10/02/2024 Panlobular emphysema (ICD-10 - J43.1) doing well stable, will continue current regiment 09/25/2024 Vitamin D deficiency (ICD-10 - E55.9) 10/02/2024 Pure hypercholesterolemia (ICD-10 - E78.00) well controlled, will continue current regiment 10/02/2024 Psoriasis (ICD-10 - L40.9) doing much better, will continue current regiment 10/02/2024 Skin lesion (ICD-10 - L98.9) have her go to dermatology/ ALL INFO GIVEN FOR PATIENT TO CALL [facility] 10/02/2024 Colon cancer screeni ng (ICD-10 - Z12.11) guaiac negative 10/02/2024 Depression screening (ICD-10 - Z13.31) negative screen Plan Of Treatment Pending Test Test Name Order Date Electrocardiogram (EKG) 05/29/2011 CT CHEST NO CONTRAST 09/13/2020 XR CHEST 2 VIEW PA & LAT 06/22/2011 MAMMOGRAM DIGITAL BILATERAL SCREEN 04/23 US THYROID 05/09/2020 CT chest wo con 10/31/2021 CT chest wo con 11/30/2022 CT chest wo con 09/22/2021 CT chest wo con 01/27/2024 US thyroid 06/12/2022 US thyroid 06/11/2023 US thyroid 05/15/2021 US thyroid 05/12/2024 Future Test Test Name Order Date US THYROID 05/03/2020 US THYROID 03/29/2021 CT CHEST NO CONTRAST 09/26/2021 Next Appt Details Provider Name:Boubacar mcgraw, 03/29/2025 07:00:00 AM, [address] [place] [address], [address], [place], [place], [phone], Provider Name:Boubacar mcgraw, 04/05/2025 09:00:00 AM, [address], [address], [place], [phone], Provider Name:Boubacar Berenice Kim mcgraw, 09/27/2025 07:15:00 AM, [address], [address], [place], [phone], Provider Name:Boubacar Berenice Kim mcgraw, 10/04/2025 11:00:00 AM, [address], [address], [place], [phone], Insurance Providers Payer Name Payer Address Payer Phone Subscriber Number Group Number Insured Name Patient Relationship to Insured Coverage Start Date Coverage End Date [facility] are [employer] [address] [address] [place] [address] [id number] Sandra Franks Self - patient is the insured Medical (General) History Medical History History ICD Code colonoscopy 08/30/2012 thyroid nodule being evaluated with repe at ultrasound Abnormal mammogram
--- NOTE | 2024-11-01 09:20 | PM.PROC ---
Brief Operative Note Date of procedure: 11/01/24 Pre-op diagnosis: left mid upper 1.2 cm thyroid nodule - cancelled FNA Procedure: THYROID PROCEDURE NOTE- Cancelled FNA ? ? OPERATORS: Dr. Cristina Alvarez ? INDICATION: left mid upper 1.2 cm thyroid nodule ? DESCRIPTION OF PROCEDURE: . The nodule of interest was identified using ultrasound (14 MHz linear array probe). The nodule measured 1.2 cm in the sagittal dimension but in the transverse view was very hard to delineate as it was very small and measured 0.5 cm in the transverse dimension. Punctate echogenic foci noted but given the small size of the nodule we discussed with the patient that we can monitor this nodule with surveillance US and decided not to proceed with FNA. . PLAN: The patient was advised we will follow up in clinic with surveillance US . Cristina Alvarez MD Endocrinology Attending
--- OUTSIDE RECORDS SUMMARY | 2024-11-01 09:20 | XMS_ITS ---
Author Organization Boubacar Dumont MD Address [address] [place], [place] [phone] Care Team Providers Care Anger Control Counselor Name Role Phone Boubacar Dumont Primary Care [...] a day for 30 day(s) Active Nystatin 730786 UNIT/GM 1 application to affected area Externally [...] Date Provider Diagnosis Boubacar Dumont MD [address] [place], [place] [phone] 10/02/2024 Boubacar Dumont Thyroid nodule E04.1 ; [...] ALL INFO GIVEN FOR PATIENT TO CALL [facility] 10/02/2024 Colon cancer screeni ng (ICD-10 [...] ALL INFO GIVEN FOR PATIENT TO CALL [facility] Colon cancer screening guaiac negative Depression screening negative screen Next Appt Details Provider Name:Boubacar mcgraw, 03/29/2025 07:00:00 AM, [address] [place] [address], [address] [place] [address], [phone], Provider Name:Boubacar mcgraw, 04/05/2025 09:00:00 AM, [address] [place] [address], Suite [facility], [place], [place], [phone], Provider Name:Boubacar mcgraw, 09/27/2025 07:15:00 AM, [address] [place] [address], Suite [facility], [place], [place], [phone], Provider Name:Boubacar mcgraw, 10/04/2025 11:00:00 AM, [address] [place] [address], Suite [facility], [place], [place], [phone], Progress Notes * Sandra GALLEGOS RDOB:[birth year] (79 yo F)Acc No.[id number]:10/02/2024 Progress Notes Patient:?Sandra GALLEGOS Provider:?Boubacar Dumont MD :1945???Age:79 Y???Sex:Female D ate:10/02/2024 Address:[address] [place], [place] [phone] Subjective: * Chief Complaints: * ???Annual visit * HPI: ???Depression Screening:?PHQ-9?Little interest or pleasure [...] or any lesions of concern.?Denies?Photosensitivity.?Rash?denies.?Neurologic:?Dizziness?denies.?Fainting?denies.?Headache?denies.? * Medical History:? * Surgical History:? * Hospitalization/Major Diagno stic Procedure:? * Family History:?Father: dece ased 76 yrs, [...] outside of the [place]: no. * Medications:?TakingTylenol E xtra Strength 500 MG [...] for allergic reaction if trouble breathing Nystatin 896943 UNIT/GM Cream 1 application to affected area [...] allergic reaction if trouble breathing Not-Taking/PRN Nystatin 122884 UNIT/GM Cream 1 application to affected area Externally Twice a day Not-Taking/PRN Meclizine HCl 12.5 MG Tablet 2 tablets as needed Orally Once a day Not-Taking/PRN Clobetasol Prop Emollient Base 0.05 % Cream as directed Externally twice a day Medication List reviewed and reconciled with the patient * Allergies:?tequin: passing o alconyes[Allergies Verified] Objective: * Vitals:?Ht: 62, Wt: 130, BMI :23.77, BP:142/68, Repeat BP:120/60, Wt-k.97. * ???Past Orders: ???Lab:Vitamin D 25-OH Total (Order Date - 09/25/2024) (Collection Date & Time - 09/25/2024 07:00 AM) ? Value Reference Range ?Vitamin D 25-OH Total 28.8 L >30 - ng/mL ???Lab:UA ClnCatch+Micro w/r flx Cult (Order Date - 09/25/2024) (Collection Date & Time - 09/25/2024 07:00 AM) ? Value Reference Range ?Color Urine Yellow - ?Appearance Urine Clear - ?PH 5.5 5.0-9.0 - ?Glucose Urine UA Negative Neg ative - mg/dL ?Urine Blood Negative Negative - ?Specific Newman - Urine 1.020 1.005-1.025 - ?Urine Protein [...] Auto 0.000 0.0-0. 012 - X10*3/uL ???Lab:Comprehensive [place]. P domingo Fast (Order Date - 09/25/2024) [...] ALL INFO GIVEN FOR PATIENT TO CALL [facility]?? 7.?Colon cancer screening?LAB: Occult Blood, Stool, Guaiac (Collection Date & Time - 10/02/2024)?Negative ? Value Reference Range ?Occult Blood, Stool, Guaiac Neg Notes: guaiac negative??8.?Depression screening? Notes: negative screen?? * Procedure Codes:?67241 TEST FOR BLOOD, FECES * Preventive Medicine:? ??COPD Care Plan:?Patient Lifestyle Goals?Relieve symptoms and improve quality of life.?Treatment Goals?take medicine exactly as precribed and plan for RX refills.?Barriers?No Specific barriers.?Self-Managment Plan?Eat a healthy diet.?Expected Outcome?improving quality of life.? * * Sign off status: Completed true * Provider:?Boubacar Dumont MD Date:?0 10/02/2024 Generated for Sarah tobar/Zainab/Theodoresmitting on:?11/01/2024 09:19 AM EDT History and Physical Notes * [...]
== END 2024-11-01 08:49 | disposition home or self-care (01) ==
LOC: HO.US 08:48
PROVIDERS: PCP Internal Medicine; Visit Provider Student in an Organized Health Care Education/Training Program
DX: E04.2 Nontoxic multinodular goiter (principal)
CPT/HCPCS: 76536

== ENCOUNTER → 2024-11-01 08:48 | Outpatient (BNV) | payer MEDICARE, SELFPAY | PROVIDERS: PCP Internal Medicine; Visit Provider Student in an Organized Health Care Education/Training Program | DX: E04.1 Nontoxic single thyroid nodule (principal) | CPT/HCPCS: 76536 ==

== ENCOUNTER 2024-12-25 09:34 | Outpatient (REF) | payer MEDICARE, SELFPAY ==
--- NOTE | ~2024-12-25 | CT_ITS ---
CLINICAL HISTORY: MULTIPLE LUNG NODULES CT chest without contrast Comparison: None Findings: No cardiomegaly. Severe atherosclerotic disease of the coronary arteries. Lipomatous hypertrophy of the intra-atrial septum. No mediastinal adenopathy or pericardial effusion. Multiple partially calcified thyroid nodules. Lungs exhibit scattered 2-4 mm nodules, for example subpleural right lower lobe on axial 94. Angular nodular density abutting the minor fissure on axial 54 and sagittal 65. Biapical pleural thickening. Minimal centrilobular emphysema. Mild airway thickening. No effusion or pneumothorax. Upper abdomen demonstrates large left renal cyst and gastric diverticulum. Impression: Scattered 2-4 mm pulmonary nodules are present. If a comparison study is available, an addendum could be issued to this report, otherwise 12 month follow-up. This document has been electronically signed by: Edmund Arroyo MD on 12/26/2024 04:50:17
--- OUTSIDE RECORDS SUMMARY | 2024-12-25 10:23 | XMS_ITS ---
Author Organization Boubacar Dumont MD Address [address] [place], [place] [phone] Care Team Providers Care Document Restorer Name Role Phone Boubacar Dumont Primary Care Provider Results Component Value Reference Range Notes Complete Blood Count Auto Di ff Reviewed date:09/25/2024 04:33:00 PM Interpretation: Performing Lab:[facility], [address] [place] [phone] Notes/Report: White Blood Count 7.3 4.8-10.8 X10*3/uL [...] NRBC Abs Auto 0.000 0.0-0.012 X10*3/uL Comprehensive [place]. Panel Fa st Reviewed date:09/25/2024 04:32:44 PM Interpretation: Performing Lab:[facility], [address] [place] [phone] Notes/Report: Sodium 143 135-145 mmol/L Potassium 4.4 [...] Panel Reviewed date:09/25/2024 04:21:18 PM Interpretation: Performing Lab:[facility], [address] [place] [phone] Notes/Report: Triglycerides 114 <150 mg/dL Desirable Triglyceride: [...] Total Reviewed date:09/25/2024 04:21:28 PM Interpretation: Performing Lab:[address] [phone] Notes/Report: Vitamin D 25-OH Total 28.8 >30 [...] t Reviewed date:09/25/2024 04:29:06 PM Interpretation: Performing Lab:[facility], [address] [place] [phone] Notes/Report: Urine, Clean Catch Color Urine Yellow Appearance Urine Clear PH 5.5 5.0-9.0 Glucose Urine UA Negative Negative mg/dL Urine Blood Negative Negative Specific [place] - Urine 1.020 1.005-1.025 Urine Protein Negative [...] Location Date Provider Diagnosis Boubacar Dumont MD [address] [place] [phone] 09/25/2024 Boubacar Dumont Blood tests for rout [...] Details Provider Name:Boubacar mcgraw, 03/29/2025 07:00:00 AM, [address] [place] [address], [address], [phone], Provider Name:Boubacar mcgraw, 04/05/2025 09:00:00 AM, [address] [place] [address], [address], [phone], Provider Name:Boubacar duranr, 09/27/2025 07:15:00 AM, [address] [place] [address], [address], [phone], Provider Name:Boubacar duranr, 10/04/2025 11:00:00 AM, [address] [place] [address], [phone], Progress Notes * Sandra FRANKS RDOB:[birth year] (79 yo F)Acc No.[id number]:09/25/2024 Progress Note Patient:?Sandra FRANKS Provider:?Boubacar Dumont MD :1945???Age:79 Y???Sex:Female D ate:09/25/2024 Address: [place] [id number] Subjective: * Chief Complaints: * ???1. Fasting yearly labs. * Medical History:? Objective: * Vitals:? Assessment: * Assessment: 1.?Blood tests for routine g eneral physical examination - Z00.00 (Primary)???2.?Pure hypercholesterolemia - E78.00???3.?Vitamin D deficiency - E55.9??? Plan: * Treatment: 2.?Pure hypercholesterolemia ?LAB: Complete Blood Count Auto Diff (Collection Date & Time - 09/25/2024 07:00 AM) ?LAB: Comprehensive [place]. Panel Fast (Collection Date & Time - [...] Time - 09/25/2024 07:00 AM) ?LAB: Comprehensive [place]. Panel Fast (Collection Date & Time - 09/25/2024 07:00 AM) ?LAB: Lipid Panel (Collection Date & Time - 09/25/2024 07:00 AM) ?LAB: Vitamin D 25-OH Total (Collection Date & Time - 09/25/2024 07:00 AM) ?LAB: UA ClnCatch+Micro w/rflx Cult (Collection Date & Time - 09/25/2024 07:00 AM) * Procedure Codes:?57125 VENIP UNCT, ROUTINE* * * The named appointment provid er may or may not be the originator of this progress note, and it is not deemed complete until electronically signed by the appointment provider. Sign off status: Pending * Provider:?Boubacar Dumont MD Date:?0 09/25/2024 Generated for Sarah tobar/Zainab/Alexandraitting on:?12/25/2024 10:23 AM EDT
== END 2024-12-25 09:35 | disposition home or self-care (01) ==
LOC: HO.CT 09:34
PROVIDERS: PCP Internal Medicine; Visit Provider Internal Medicine
DX: R91.8 Other nonspecific abnormal finding of lung field (principal)
CPT/HCPCS: 71250

== ENCOUNTER → 2024-12-25 09:45 | Outpatient (BNV) | payer MEDICARE, SELFPAY | PROVIDERS: PCP Internal Medicine; Visit Provider Radiology Vascular & Interventional Radiology | DX: R91.8 Other nonspecific abnormal finding of lung field (principal) | CPT/HCPCS: 71250 ==

== ENCOUNTER 2025-03-29 10:14 | Outpatient (REF) | payer MEDICARE, SELFPAY ==
[2025-03-29 11:35] LABS: Alanine Aminotransferase 12 U/L (0-31); Albumin Level 4.3 g/dL (3.5-5.0); Alkaline Phosphatase 91 U/L (39-117); Aspartate Amino Transferase 28 U/L (5-31); Cholesterol 165 mg/dL (<200); HDL Cholesterol 55 mg/dL (>40); Total Protein 6.8 g/dL (6.5-8.0); Triglycerides 95 mg/dL (<150)
[2025-03-29 12:26] LABS: Reflex LDLD? No
== END 2025-03-29 10:15 | disposition home or self-care (01) ==
LOC: HO.LNP 10:14
PROVIDERS: Visit Provider Internal Medicine
DX: E78.00 Pure hypercholesterolemia, unspecified (principal)
CPT/HCPCS: 80061; 80076

== ENCOUNTER 2025-05-07 10:17 | Outpatient (REF) | payer MEDICARE, SELFPAY ==
--- OUTSIDE RECORDS SUMMARY | 2024-07-24 09:30 | XMS_ITS ---
Author Organization Boubacar Dumont MD Address [address] [place], [place] [id number] Care Team Providers Care Customs Agent Name Role Phone Boubacar Dumont Primary Care Provider Allergies Allergen (clinical drug ingredient) Drug/Non Drug Allergy documented on EMR Reaction Allergy Type Onset Date Status gatifloxacin tequin (uncoded) passing out Allergy Active REASON FOR VISIT c/o sore throat productive cough, SOB, congestion x 2 days did not test for Covid, Video [phone] Medications Medication SIG (Take, Route, Frequency, Duration) Notes Start Date End Date Status Meclizine HCl 12.5 MG 2 tablets as neede d Orally Once a day Not-Taking Clobetasol Prop Emollient Base 0.05 % as directed Externally twice a day for 7 days 06/21/2014 Not-Takin g Clobetasol Propionate 0.05 % 1 application to affected area Externally Twice a day for 30 days 06/22/2017 Not-Taking EpiPen 2-Guy 0.3 MG/0.3ML as directed In jection as needed for allergic reaction if trouble breathing for 1 dose 08/19/2017 Not-Taking Nystatin 819154 UNIT/GM 1 application to affected area Externally Twice a day 01/19/2017 Not-Takin g Albuterol Sulfate HFA 108 (90 Base) MCG/ACT INHALE 2 PUFFS EVERY 4 HOURS NEEDED INHALATION EVERY 4 HRS 30 DAYS for 30 Active Clobetasol Propionate 0.05 % 1 application Externally Twice a day for 30 days 07/18/2024 Active predniSONE 10 MG 1 tablet with food o r milk Orally 4 tabs for 3 days,3tabs for 3 days, 2 tabs for 3 days, and 1 tab for 3 days for 14 days 05/12/2024 Not-Taking Vitamin C Adult Gummies 125 MG as directed Orally Not-Takin g Betamethasone Valerate 0.1 % 1 application to affected area Externally Once a day for 30 days 06/30/2016 Not-Taking Triamcinolone Acetonide 0.5 % APPLY 1 APPLICATION EXTERNALLY TWICE PER WEEK for 21 Active Ipratropium-Albuterol 0.5-2.5 (3) MG/3ML 3 ml Inhalation Four times a day for 30 days 07/13/2014 Active Atorvastatin Calcium 20 MG TAKE 1 TABLET BY MOUTH EVERY DAY for 90 Active Aspir-81 81 MG 1 tablet Orally Once a day for 30 day(s) Active Estrace 0.1 MG/GM as directed Vaginal Once a day for 30 days 02/06/2022 Active Zithromax Z-Guy 250 MG 2 tablet on the f irst day, then 1 tablet daily for 4 days Orally Once a day for 5 day(s) 07/24/2024 Active Tylenol Extra Strength 500 MG 1 tablet as needed Orally every 6 hrs Active predniSONE 10 MG 1 tablet with food o r milk Orally 4 tabs for 4 days, 3 tabs for 4 days, 2 tbs for 4 days, and 1 tab for 4 days for 14 days 07/24/2024 Active Vital Signs Height 62 in 07/24/2024 Weight 130 lbs 07/24/2024 BMI 23.77 kg/m2 07/24/2024 weight is 130 BP not taken O 2 was 92 no temp Encounters Encounter Location Date Provider Diagnosis Boubacar Dumont MD [address] [place] [address] [place] [phone] 07/24/2024 Boubacar Dumont Bronchitis J40 Assessments Encounter Date Diagnosis (ICD Code) Assessment Notes Treatment Notes Treatment Clinical Notes Section Notes 07/24/2024 Bronchitis (ICD-10 - J40) patet verbalized understanding of medicatin and directions for use Plan Of Treatment Medication Medication Name Sig Start Date Stop Date Notes Zithromax Z-Guy 250 MG 2 tablet on the f irst day, then 1 tablet daily for 4 days Orally Once a day for 5 day(s) 07/24/2024 predniSONE 10 MG 1 tablet with food o r milk Orally 4 tabs for 4 days, 3 tabs for 4 days, 2 tbs for 4 days, and 1 tab for 4 days for 14 days 07/24/2024 Treatment Notes Assessment Notes Bronchitis elva verbalized und erstanding of medicatin and directions for use Next Appt Details Provider Name:Boubacar Alvarez ier, 09/27/2025 07:15:00 AM, [address] [facility], [address], [place], [place], [phone], Provider Name:Boubacar Alvarez ier, 10/04/2025 11:00:00 AM, [address], [address], [place], [place], [phone], Progress Notes * GEORGEReanna STYLESra RDOB:[birth year] (78 yo F)Acc No.[id number]:07/24/2024 Patient: Sandra Vail Provider: Amalia Dumont MD :1945 A ge:78 Y S ex:Female Date:07/24/2024 Address:[address] [place], [place] [phone] Subjective: * Chief Complaints: * c /o sore throat productive cough, SOB, congestion x 2 days did not test for CovidVideo [phone] * HPI: S ymptom(s): Telehealth L ocation of provider rendering services: [address] [facility], [address], ocation of patient: a t address listed in demographics for today's visit, P atient identification confirmed using: BOYD Castillo ame, SSN, Insurance information, T elehealth method: T elephone only. Patient not visible to care provider., C onsent: P atient verbally consented to treatment, Patient verbally consented to billing insurance company, Patient informed of any privacy concerns related to method of visit, T otal time spend talking with patient (minutes) 1 0. patient is a 78 yo female audio telehalth visit, with complaint of sore throat, prod cough, SOB, congestion for 2 days. did not test for covid. * ROS: G eneral/Constitutional: Denies C hills. D enies F atigue. D enies F ever. D enies H eadache. E NT: Patient denies d ecreased sense of smell , any loss of taste , sore throat. D enies S ore throat. R espiratory: Admits All huynh. A dmits S hortness of breath at rest. A dmits S hortness of breath with exertion. A dmits S putum production. A dmits W heezing. M usculoskeletal: Patient denies m uscle aches. P eripheral Vascular: Patient denies r ed and blue toes. * Medical History: * Surgical History: * Hospitalization/Major Diagno stic Procedure: * Medications: T akingTylenol Extra Strength 500 MG Tablet 1 tablet as needed Orally every 6 hrsAspir-81 81 MG Tablet Delayed Release 1 tablet Orally Once a dayEstrace 0.1 MG/GM Cream as directed Vaginal Once a dayTriamcinolone Acetonide 0.5 % Cream APPLY 1 APPLICATION EXTERNALLY TWICE PER WEEK Ipratropium-Albuterol 0.5-2.5 (3) MG/3ML Solution 3 ml Inhalation Four times a dayAtorvastatin Calcium 20 MG Tablet TAKE 1 TABLET BY MOUTH EVERY DAY Albuterol Sulfate HFA 108 (90 Base) MCG/ACT Aerosol Solution INHALE 2 PUFFS EVERY 4 HOURS NEEDED INHALATION EVERY 4 HRS 30 DAYS Clobetasol Propionate 0.05 % Cream 1 application Externally Twice a dayTaking Tylenol Extra Strength 500 MG Tablet 1 tablet as needed Orally every 6 hrsTaking Aspir- 81 81 MG Tablet Delayed Release 1 tablet Orally Once a dayTaking Estrace 0.1 MG/GM Cream as directed Vaginal Once a dayTaking Triamcinolone Acetonide 0.5 % Cream APPLY 1 APPLICATION EXTERNALLY TWICE PER WEEK Taking Ipratropium-Albuterol 0.5-2.5 (3) MG/3ML Solution 3 ml Inhalation Four times a dayTaking Atorvastatin Calcium 20 MG Tablet TAKE 1 TABLET BY MOUTH EVERY DAY Taking Albuterol Sulfate HFA 108 (90 Base) MCG/ACT Aerosol Solution INHALE 2 PUFFS EVERY 4 HOURS NEEDED INHALATION EVERY 4 HRS 30 DAYS Taking Clobetasol Propionate 0.05 % Cream 1 application Externally Twice a dayNot-Taking/PRNpredniSONE 10 MG Tablet 1 tablet with food or milk Orally 4 tabs for 3 days,3tabs for 3 days, 2 tabs for 3 days, and 1 tab for 3 daysVitamin C Adult Gummies 125 MG Tablet Chewable as directed Orally Betamethasone Valerate 0.1 % Cream 1 application to affected area Externally Once a dayClobetasol Propionate 0.05 % Cream 1 application to affected area Externally Twice a dayEpiPen 2-Guy 0.3 MG/0.3ML Solution Auto-injector as directed Injection as needed for allergic reaction if trouble breathingNystatin 139182 UNIT/GM Cream 1 application to affected area Externally Twice a dayMeclizine HCl 12.5 MG Tablet 2 tablets as needed Orally Once a dayClobetasol Prop Emollient Base 0.05 % Cream as directed Externally twice a dayMedication List reviewed and reconciled with the patientNot-Taking/PRN predniSONE 10 MG Tablet 1 tablet with food or milk Orally 4 tabs for 3 days,3tabs for 3 days, 2 tabs for 3 days, and 1 tab for 3 daysNot-Taking/PRN Vitamin C Adult Gummies 125 MG Tablet Chewable as directed Orally Not-Taking/PRN Betamethasone Valerate 0.1 % Cream 1 application to affected area Externally Once a dayNot-Taking/PRN Clobetasol Propionate 0.05 % Cream 1 application to affected area Externally Twice a dayNot-Taking/PRN EpiPen 2-Guy 0.3 MG/0.3ML Solution Auto-injector as directed Injection as needed for allergic reaction if trouble breathingNot-Taking/PRN Nystatin 670739 UNIT/GM Cream 1 application to affected area Externally Twice a dayNot-Taking/PRN Meclizine HCl 12.5 MG Tablet 2 tablets as needed Orally Once a dayNot-Taking/PRN Clobetasol Prop Emollient Base 0.05 % Cream as directed Externally twice a dayMedication List reviewed and reconciled with the patient * Allergies: t equin: passing outyes[Allergies Verified] Objective: * Vitals: H t: 62, Wt:130, BMI:23.77 weight is 130 BP not taken O2 was 92 no temp. Assessment: * Assessment: 1. B lucila - Leighann (Primary) Plan: * Treatment: * Procedure Codes: * * Sign off status: Completed true * Provider: Amalia Dumont MD Date: 0 07/24/2024 Generated for Sarah tobar/Zainab/Alexandraitting on: 1 12:24 PM EDT History and Physical Notes * HPI (History of Present Illness) Category Sub-Category Detail Notes Category Not es Symptom(s) Telehealth Location of [facility] rendering services:: [address], [address] patient is a 78 yo female audio telehalth visit, with complaint of sore throat, prod cough, SOB, congestion for 2 days. did not test for covid Location of patient:: at address listed in demographics for today's visit Patient identification confirmed using:: Name, , SSN, Insurance information Telehealth method:: Telephone only. Alexia ent not visible to care provider. Consent:: Patient verbally c onsented to treatment, Patient verbally consented to billing insurance company, Patient informed of any privacy concerns related to method of visit Total time spend talking with patient (m inutes): 10
--- OUTSIDE RECORDS SUMMARY | 2024-08-11 05:15 | XMS_ITS ---
Author Organization Boubacar Dumont MD Address [address] [place], [place] [id number] Care Team Providers Care Graphic Designer Name Role Phone Boubacar Dumont Primary Care [...] for 7 days 06/21/2014 Not-Donato sepulveda Nystatin 041827 UNIT/GM 1 application to affected area Externally [...] Location Date Provider Diagnosis Boubacar Dumont MD [address] [place] [address] Drive [address] [place] [phone] 08/11/2024 Boubacar Dumont Bronchitis J40 and Plaque [...] Details Provider Name:Boubacar mcgraw, 09/27/2025 07:15:00 AM, [address] [place] [address], Suite [facility], [place], [place], [phone], Provider Name:Boubacar mcgraw, 10/04/2025 11:00:00 AM, [address] [place] [address], Suite [facility], [place], [place], [phone], Progress Notes * Sandra GALLEGOS RDOB:[birth year] (78 yo F)Acc No.[id number]:08/11/2024 Progress Notes Patient: Sandra CROW Provider: Coco Dumont MD :1945 A ge:78 Y S ex:Female Date:08/11/2024 Address:[address] [place], [place] [phone] Subjective: * Chief Complaints: * 2 week [...] for allergic reaction if trouble breathing Nystatin 050565 UNIT/GM Cream 1 application to affected area [...] allergic reaction if trouble breathing Not-Taking/PRN Nystatin 463975 UNIT/GM Cream 1 application to affected area [...] 0 08/11/2024 Generated for Sarah tobar/Zainab/Sadaf on: 12:23 PM EDT History and Physical Notes * [...]
--- OUTSIDE RECORDS SUMMARY | 2024-09-25 03:00 | XMS_ITS ---
Author Organization Boubacar Dumont MD Address [address] [place], [place] [phone] Care Team Providers Care Flat Clothier Name Role Phone Boubacar Dumont Primary Care Provider [phone] Results Component Value Reference Range Notes Complete Blood Count Auto Di ff Reviewed date:09/25/2024 04:33:00 PM Interpretation: Performing Lab:[facility], [address] [place] [phone] Notes/Report: White Blood Count 7.3 4.8-10.8 X10*3/uL [...] NRBC Abs Auto 0.000 0.0-0.012 X10*3/uL Comprehensive [place]. Panel Fa st Reviewed date:09/25/2024 04:32:44 PM Interpretation: Performing Lab:[facility], [address] [place] [phone] Notes/Report: Sodium 143 135-145 mmol/L Potassium 4.4 [...] Panel Reviewed date:09/25/2024 04:21:18 PM Interpretation: Performing Lab:[facility], [address] [place] [phone] Notes/Report: Triglycerides 114 <150 mg/dL Desirable Triglyceride: [...] Total Reviewed date:09/25/2024 04:21:28 PM Interpretation: Performing Lab:[address] [phone] Notes/Report: Vitamin D 25-OH Total 28.8 >30 [...] t Reviewed date:09/25/2024 04:29:06 PM Interpretation: Performing Lab:[facility], [address] [place] [phone] Notes/Report: Urine, Clean Catch Color Urine Yellow Appearance Urine Clear PH 5.5 5.0-9.0 Glucose Urine UA Negative Negative mg/dL Urine Blood Negative Negative Specific [place] - Urine 1.020 1.005-1.025 Urine Protein Negative [...] Location Date Provider Diagnosis Boubacar Dumont MD [address] [place] [address] [place] [phone] 09/25/2024 Boubacar Dumont Blood tests for rout [...] Details Provider Name:Boubacar mcgraw, 09/27/2025 07:15:00 AM, [address] [place] [address], Suite [facility], [place], [place], [phone], Provider Name:Boubacar mcgraw, 10/04/2025 11:00:00 AM, [address] [place] [address], Suite [facility], [place], [place], [phone], Progress Notes * GOLDEN RDOB:[birth year] (79 yo F)Acc No.[id number]:09/25/2024 Progress Note Patient: Sandra CROW Provider: Amalia Dumont MD :1945 A ge:79 Y S ex:Female Date:09/25/2024 Address:[address] [place], [place] [phone] Subjective: * Chief Complaints: * 1 . [...] - 09/25/2024 07:00 AM) L AB: Comprehensive [place]. Panel Fast (Collection Date & Time - [...] - 09/25/2024 07:00 AM) L AB: Comprehensive [place]. Panel Fast (Collection Date & Time - [...] 0 09/25/2024 Generated for Sarah tobar/Zainab/Sadaf on: 1 12:23 PM EDT
--- OUTSIDE RECORDS SUMMARY | 2024-10-02 05:30 | XMS_ITS ---
Author Organization Boubacar Dumont MD Address [address] [place], [place] [id number] Care Team Providers Care Beveler Name Role Phone Boubacar Dumont Primary Care [...] a day for 30 day(s) Active Nystatin 897853 UNIT/GM 1 application to affected area Externally [...] Date Provider Diagnosis Boubacar Dumont MD [address] [place], [place] [phone] 10/02/2024 Boubacar Dumont Thyroid nodule E04.1 ; [...] ALL INFO GIVEN FOR PATIENT TO CALL [facility] 10/02/2024 Colon cancer screeni ng (ICD-10 [...] ALL INFO GIVEN FOR PATIENT TO CALL [employer] [facility] Colon cancer screening guaiac negative Depression screening negative screen Next Appt Details Provider Name:Boubacar mcgraw, 09/27/2025 07:15:00 AM, [address] [place] [address], [address] [place] [address], [phone], Provider Name:Boubacar mcgraw, 10/04/2025 11:00:00 AM, [address], [address], [place], [place], [phone], Progress Notes * Sandra GALLEGOS RDOB:[birth year] (79 yo F)Acc No.[id number]:10/02/2024 Progress Notes Patient: Amalia MarshallJENNIFERSTEPHANI Sandra Meléndez Provider: Amalia Dumont MD :1945 A ge:79 Y S ex:Female Date:10/02/2024 Address:[id number] Subjective: * Chief Complaints: * A nnual [...] for allergic reaction if trouble breathing Nystatin 671213 UNIT/GM Cream 1 application to affected area [...] allergic reaction if trouble breathing Not-Taking/PRN Nystatin 024788 UNIT/GM Cream 1 application to affected area [...] mg/dL Urine Blood Negative Negative - Specific [place] - Urine 1.020 1.005-1.025 - Urine Protein [...] Auto 0.000 0.0-0.012 - X10*3/uL L ab:Comprehensive [place]. Panel Fast (Order Date - 09/25/2024) (Collection [...] ALL INFO GIVEN FOR PATIENT TO CALL [facility] 7. C olon cancer screening L AB: Occult Blood, Stool, Guaiac (Collection Date & Time - 10/02/2024) N egative Value Reference Range O ccult Blood, Stool, Guaiac Neg Notes: guaiac negative??8.?Depression screening? Notes: negative screen?? * Procedure Codes: 8 1877 TEST FOR BLOOD, FECES * Preventive Medicine: [...] MD Date: 0 10/02/2024 Generated for Sarah tobar/Zainab/Jayleneransmishan on: 1 12:24 PM EDT History and [...] had two or more falls in the st year?: No Communication Needs Communication Needs [...]
--- OUTSIDE RECORDS SUMMARY | 2024-11-30 07:40 | XMS_ITS ---
Author Organization Boubacar Dumont MD Address [address] [place] [phone] Care Team Providers Care Sueding Machine Tender Name Role Phone Boubacar Dumont Primary Care Provider REASON FOR VISIT CT chest due Encounters Encounter Location Date Provider Diagnosis Boubacar Dumont MD [address] [place] [address] [address] [place] [phone] 11/30/2024 Boubacar Dumont Plan Of Treatment Next Appt Details Provider Name:Boubacar Alvarez ier, 09/27/2025 07:15:00 AM, [address] [place] [address], Suite [facility], [place], [place], [phone], Provider Name:Boubacar mcgraw, 10/04/2025 11:00:00 AM, [address] [place] [address], Suite [facility], [place], [place], [phone], Progress Notes * Sandra FRANKS RDOB:[birth year] (79 yo F)Acc No.[id number]:11/30/2024 Patient: Amalia Sandra MONTEZ :1945 A ge:79 Y S ex:Female Address:[address] [place], [place] [address] [address] * true * Date: Generated for Printi ng/Faxing/eTransmitting on: 12:24 PM EDT
--- OUTSIDE RECORDS SUMMARY | 2024-12-26 07:19 | XMS_ITS ---
Author Organization Boubacar Dumont MD Address [address] [place] [phone] Care Team Providers Care Pediatric Pathologist Name Role Phone Boubacar Dumont Primary Care Provider [phone] REASON FOR VISIT Needs order Chest CT Scan due Encounters Encounter Location Date Provider Diagnosis Boubacar Dumont MD [address] [place] [address] [place] [phone] 12/26/2024 Boubacar Dumont Thyroid nodule E04.1 Assessments [...] Provider Name:Boubacar mcgraw, 09/27/2025 07:15:00 AM, [address] [place] [address], Suite [facility], [place], [place], [phone], Provider Name:Boubacar mcgraw, 10/04/2025 11:00:00 AM, [address] [place] [address], Suite [facility], [place], [place], [phone], Progress Notes * Sandra GALLEGOS RDOB:[birth year] (79 yo F)Acc No.[id number]:12/26/2024 Patient: Amalia Sandra MONTEZ :1945 A ge:79 Y S ex:Female Address:[address] [place] [address] [place] [address] Subjective: * Chief Complaints: * N eeds order Chest CT Scan due * Medical History: * Surgical History: * Hospitalization/Major Diagno stic Procedure: * Medications: Objective: * Vitals: * Physical Examination: Assessment: * Assessment: 1. T hyroid nodule - E04.1 Plan: * Treatment: * Procedure Codes: * true * Date: Generated for Sarah tobar/Zainab/eTransmitting on: 12:23 PM EDT
--- OUTSIDE RECORDS SUMMARY | 2025-03-29 03:00 | XMS_ITS ---
Author Organization Boubacar Dumont MD Address [address] [place], [place] [phone] Care Team Providers Care Home Care Physical Therapist Name Role Phone Boubacar Dumont Primary Care Provider [phone] Results Component Value Reference Range Notes Liver Panel Reviewed date:03/29/2025 12:31:51 PM Interpretation: Performing Lab:[facility], [address] [place] [phone] Notes/Report: Bilirubin Total 1.1 0.0-1.0 mg/dL Bilirubin Direct 0.3 0.0-0.5 mg/dL Aspartate Amino Transferase 28 5-31 U/L Alanine Aminotransferase 12 0-31 U/L Total Protein 6.8 6.5-8.0 g/dL Albumin Level 4.3 3.5-5.0 g/dL Alkaline Phosphatase 91 39-117 U/L Lipid Panel with Reflex Reviewed date:03/29/2025 12:31:59 PM Interpretation: Performing Lab:[facility], [address] [place] [phone] Notes/Report: Triglycerides 95 <150 mg/dL Desirable Triglyceride: [...] Location Date Provider Diagnosis Boubacar Dumont MD [address] [place] [address] Drive [address] [place], [place] [phone] 03/29/2025 Boubacar Dumont Pure hypercholestero lemia E78.00 Assessments Encounter Date Diagnosis (ICD Code) Assessment Notes Treatment Notes Treatment Clinical Notes Section Notes 03/29/2025 Pure hypercholesterolemia (ICD-10 - E78.00) Plan Of Treatment Next Appt Details Provider Name:Boubacar mcgraw, 09/27/2025 07:15:00 AM, [address] [place] [address], [address], [place], [place], [phone], Provider Name:Boubacar mcgraw, 10/04/2025 11:00:00 AM, [address] [place] [address], [address], [place], [place], [phone], Progress Notes * Sandra GALLEGOS RDOB:[birth year] (79 yo F)Acc No.[id number]:03/29/2025 Progress Note Patient: Sandra CROW Provider: Amalia Dumont MD :1945 A ge:79 Y S ex:Female Date:03/29/2025 Address:[address] [place], [place] [phone] Subjective: * Chief Complaints: * 1 . [...] 03/29/2025 Generated for Sarah tobar/Zainab/eTransmitting on: 1 12:25 PM EDT
--- OUTSIDE RECORDS SUMMARY | 2025-04-05 05:00 | XMS_ITS ---
Author Organization Boubacar Dumont MD Address [address] [place], [place] [phone] Care Team Providers Care Business Supervisor Name Role Phone Boubacar Dumont Primary Care [...] d Orally Once a day Not-Taking Nystatin 921583 UNIT/GM 1 application to affected area Externally [...] Risk Notes Problem Age-related macular degeneration (disorder) (981168576) Macular degeneration (H35.30) Active confirmed Vital Signs Blood pressure systolic 138 mm Hg 04/05/20 Blood pressure diastolic 60 mm Hg 025 Height 62 in 04/05/2025 Weight 135 lbs 04/05/2025 BMI 24.69 kg/m2 04/05/2025 weight is up 5 pounds since 10-02-24 Encounters Encounter Location Date Provider Diagnosis Boubacar Dumont MD [address] [place] [address] [address] [place], [place] [phone] 04/05/2025 Boubacar Dumont Pure hypercholestero lemia E78.00 [...] (ICD-10 - H35.30) to speak to the [facility] about preservision Plan Of Treatment Medication Medication [...] Name:Boubacar Ng Kim ier, 09/27/2025 07:15:00 AM, [address] [place] [address], [address], [place], [place], [phone], Provider Name:Boubacar Ng Kim ier, 10/04/2025 11:00:00 AM, [address] [facility], [address], [place], [place], [phone], Progress Notes * GEORGEReanna STYLESra RDOB:[birth year] (79 yo F)Acc No.[id number]:04/05/2025 Progress Notes Patient: Amalia MarshallJENNIFERSandra STYLES Medhat Provider: Amalia Dumont MD :1945 A ge:79 Y S ex:Female Date:04/05/2025 Address:[address] [place], [place] [phone] Subjective: * Chief Complaints: * 6 MO [...] for allergic reaction if trouble breathing Nystatin 494666 UNIT/GM Cream 1 application to affected area [...] allergic reaction if trouble breathing Not-Taking/PRN Nystatin 008606 UNIT/GM Cream 1 application to affected area [...] acular degeneration Notes: to speak to the [facility] about preservision * Procedure Codes: * * Sign off status: Completed true * Provider: Amalia Dumont MD Date: 0 04/05/2025 Generated for Sarah tobar/Zainab/Theodoresmitting on: 1 12:24 PM EDT History and [...]
--- OUTSIDE RECORDS SUMMARY | 2025-04-24 06:29 | XMS_ITS ---
Author Organization Boubacar Dumont MD Address [address] [place] [phone] Care Team Providers Care Set Up And Charger Name Role Phone Boubacar Dumont Primary Care Provider Encounters Encounter Location Date Provider Diagnosis Boubacar Dumont MD 10 [facility] [address] [place] [phone] 04/24/2025 Boubacar Dumont Plan Of Treatment Next Appt Details Provider Name:Boubacar Alvarez ier, 09/27/2025 07:15:00 AM, [address] [place] [address], Suite [facility], [place], [place], [phone], Provider Name:Boubacar Alvarez ier, 10/04/2025 11:00:00 AM, [address] [place] [address], Suite [facility], [place], [place], [phone], Progress Notes * Sandra FRANKS RDOB:[birth year] (79 yo F)Acc No.[id number]:04/24/2025 Patient: Amalia Sandra MONTEZ :1945 A ge:79 Y S ex:Female Address:[address] [place], [place] [address] [place] [address] * true * Date: Generated for Printi ng/Faxing/eTransmitting on: 12:23 PM EDT
--- OUTSIDE RECORDS SUMMARY | 2025-04-24 06:33 | XMS_ITS ---
Author Organization Boubacar Dumont MD Address [address] [place] [address] [place] [phone] Care Team Providers Care Meat Inspector Name Role Phone Boubacar Dumont Primary Care Provider [phone] Medications Medication SIG (Take, Route, Frequency, Duration) Notes Start Date End Date Status Triamcinolone Acetonide 0.025 % 1 application Externally Once a day for 30 days 04/24/2025 Active Encounters Encounter Location Date Provider Diagnosis Boubacar Dumont MD [address] [place] [address] [place] [phone] 04/24/2025 Boubacar Dumont Plan Of Treatment Medication Medication Name Sig Start Date Stop Date Notes Triamcinolone Acetonide 0.02 5 % 1 application Externally Once a day for 30 days 04/24/2025 Next Appt Details Provider Name:Boubacar mcgraw, 09/27/2025 07:15:00 AM, [address] [place] [address], [phone], Provider Name:Boubacar mcgraw, 10/04/2025 11:00:00 AM, [address] [place] [address], [address], [phone], Progress Notes * Sandra GALLEGOS RDOB:[birth year] (79 yo F)Acc No.[id number]:04/24/2025 Patient: Amalia Sandra MONTEZ :1945 A ge:79 Y S ex:Female Address:[address] [place] [address], [place] [address] * Refills Start Triamcinolone Acetonide Cream, 0.025 %, Externally, 60, 1 application, Once a day, 30 days, Refills=3 * true * Date: Generated for Sarah tobar/Zianab/Sadaf on: 12:24 PM EDT
--- NOTE | ~2025-05-07 | US_ITS ---
EXAMINATION: US THYROID CLINICAL INFORMATION: Nontoxic multinodular goiter. COMPARISON: November 01, 2024. TECHNIQUE: Linear transducer grayscale and color Doppler examination with attention to the region of the thyroid. FINDINGS: SIZE: Measurements of the thyroid lobes and nodules are given in sagittal, anteroposterior and transverse dimensions respectively. Right Thyroid Lobe: 4.3 x 2.8 x 1.5 cm, volume 9.29 mL. Previous: 4.5 x 2.2 x 1.6, volume: 8.5 cc. Parenchyma: The gland echotexture is heterogeneous. Thyroid vascularity is normal. Left Thyroid Lobe: 4.1 x 3.0 x 1.3 cm, volume 8.36 mL. Previous: 4.0 x 1.8 x 1.3 cm, volume: 4.8 cc. Parenchyma: The gland echotexture is heterogeneous. Thyroid vascularity is normal. Isthmus: 0.3 cm in maximum AP dimension. Previous: 0.26 cm. Estimated total number of nodules greater than or equal to 1 cm: 2. Ocular Pathologist nodules are described as follows: 1. Location: Upper pole, right lobe.. Size: 1.3 x 0.94 x 1.2 cm, volume 0.78 mL. Previous: 1.3 x 1.1 x 1.2 cm, volume: 0.9 cc. Nodule characteristics: Composition: Solid (2). Echogenicity: Hypoechoic (2). Shape: Not taller than wide (0). Margins: Smooth (0). Echogenic Foci: Peripheral calcifications (2). ACR TI-RADS total points: 6 ACR TI-RADS category: 4 2. Location: Lower pole, right lobe. Size: 1.8 x 0.85 x 1.1 cm, volume 0.53 mL. Previous: 1.2 x 1.0 x 1.1 cm, volume: 0.76 cc. Nodule characteristics: Composition: Undetermined (2) Echogenicity: Very hypoechoic (3). Shape: Not taller than wide (0). Margins: Smooth (0). Echogenic Foci: Peripheral calcifications (2). ACR TI-RADS total points: 7 ACR TI-RADS category: 5 3. Location: Lower pole, left lobe. Size: 0.8 x 0.52 x 0.75 cm, volume 0.16 mL. Previous: 0.9 x 0.5 x 0.6 cm, volume: 0.10 cc. Nodule characteristics: Composition: Spongiform (0). Echogenicity: Shape: Margins: Echogenic Foci: ACR TI-RADS total points: 0 ACR TI-RADS category: 1 4. Location: Midportion, left lobe. Size: 0.46 x 0.44 x 0.49 cm, volume 0.75 mL. Previous: Not seen. Nodule characteristics: Composition: Mixed cystic and solid (1). Echogenicity: Very hypoechoic (3). Shape: Not taller than wide (0). Margins: Smooth (0). Echogenic Foci: None (0). ACR TI-RADS total points: 4 ACR TI-RADS category: 4 5. Location: Upper pole, left lobe. Size: 0.76 x 0.60 x 0.7 cm, volume 0.17 mL. Previous: 1.2 x 0.5 x 0.6 cm, volume: 0.2 cc. Nodule characteristics: Composition: Solid (2). Echogenicity: Isoechoic (1). Shape: Not taller than wide (0). Margins: Smooth (0). Echogenic Foci: Punctate echogenic foci (3). ACR TI-RADS total points: 6 ACR TI-RADS category: 4 NODES: No lymphadenopathy is seen in the tissue surrounding the thyroid gland. US/US thyroid IMPRESSION: ACR TI RADS 4 and 5. ACR TI-RADS RECOMMENDATION REFERENCE: Ultrasound-guided fine-needle aspiration, followup ultrasound, no further follow up. * TR1 (0 point) and TR2 (2 points): No FNA or follow up. * TR3 (3 points): FNA if more than or equal to 2.5 cm in maximum dimension, followup ultrasound in 1, 3 and 5 years if 1.5 to 2.4 cm in maximum dimension. * TR4 (4-6 points): FNA if more than or equal to 1.5 cm in maximum dimension, followup ultrasound in 1, 2, 3 and 5 years if 1 to 1.4 cm in maximum dimension. * TR5 (more than or equal to 7 points): FNA if more than or equal to 1 cm in maximum dimension, followup ultrasound every year for 5 years if 0.5 to 0.9 cm in maximum dimension. * TR3, TR4 or TR5 nodules that are below the size threshold for followup receive no follow up. Electronically signed by: Juan F Montemayor MD 05/07/2025 02:50 PM EDT
--- OUTSIDE RECORDS SUMMARY | 2025-05-07 12:24 | XMS_ITS | Patient Health Record ---
Author Organization Boubacar Dumont MD Address [address] [place], [place] [id number] Care Team Providers Care Director Oracle Name Role Phone Boubacar Dumont Primary Care Provider Allergies Allergen (clinical drug ingredient) Drug/Non Drug Allergy documented on EMR Reaction Allergy Type Onset Date Status gatifloxacin tequin (uncoded) passing out Allergy Active Results Component Value Reference Range Notes Complete Blood Count Auto Di ff Reviewed date:09/25/2024 04:33:00 PM Interpretation: Performing Lab:[facility], [address] [place] [phone] Notes/Report: White Blood Count 7.3 4.8-10.8 X10*3/uL [...] NRBC Abs Auto 0.000 0.0-0.012 X10*3/uL Comprehensive [place]. Panel Fa st Reviewed date:09/25/2024 04:32:44 PM Interpretation: Performing Lab:[address] [address] Notes/Report: Sodium 143 135-145 mmol/L Potassium 4.4 [...] Panel Reviewed date:09/25/2024 04:21:18 PM Interpretation: Performing Lab:[address] [address] Notes/Report: Triglycerides 114 <150 mg/dL Desirable Triglyceride: [...] Total Reviewed date:09/25/2024 04:21:28 PM Interpretation: Performing Lab:[address] [address] Notes/Report: Vitamin D 25-OH Total 28.8 >30 [...] t Reviewed date:09/25/2024 04:29:06 PM Interpretation: Performing Lab:[address] [address] Notes/Report: Urine, Clean Catch Color Urine Yellow Appearance Urine Clear PH 5.5 5.0-9.0 Glucose Urine UA Negative Negative mg/dL Urine Blood Negative Negative Specific [place] - Urine 1.020 1.005-1.025 Urine Protein Negative Neg-Trace mg/dL Urine Ketones Negative Negative mg/dL Nitrite Urine Negative Negative Leukocyte Esterase Urine Negative Negative RBC Urine 0-2 0-2 /HPF WBC Urine 0-5 0-5 /HPF Squamous Epithelial Cell Urine 0-2 0-2 /HPF Bacteria Urine None Seen None Seen Hyaline Casts Urine 0-2 0-2 /LPF Liver Panel Reviewed date:03/29/2025 12:31:51 PM Interpretation: Performing Lab:[facility], [address] [place] [phone] Notes/Report: Bilirubin Total 1.1 0.0-1.0 mg/dL Bilirubin Direct 0.3 0.0-0.5 mg/dL Aspartate Amino Transferase 28 5-31 U/L Alanine Aminotransferase 12 0-31 U/L Total Protein 6.8 6.5-8.0 g/dL Albumin Level 4.3 3.5-5.0 g/dL Alkaline Phosphatase 91 39-117 U/L Lipid Panel with Reflex Reviewed date:03/29/2025 12:31:59 PM Interpretation: Performing Lab:[facility], [address] [place] [address] Notes/Report: Triglycerides 95 <150 mg/dL Desirable Triglyceride: [...] low results in patients with liver disease. Occult Blood, Stool, Guaiac Reviewed date:10/02/2024 01:35:41 PM Interpretation:Negative Performing Lab: Notes/Report: Negative Occult Blood, Stool, Guaiac Neg US thyroid Reviewed date:07/17/2024 01:50:20 PM Interpretation:left message for patient to call office Performing Lab: Notes/Report: [address] [address] Ultrasound Report Signed Patient: Sandra Franks MR#: [id number] 958 : 1945 Acct:[id number] Age/Sex: 78 / F ADM Date: 05/23/24 Loc: HO.US Attending Dr: Boubacar Dumont MD Ordering Physician: Boubacar Dumont MD Date of Service: 05/23/24 Procedure(s): US thyroid Accession Number(s): [id number] cc: Boubacar Dumont MD EXAMINATION: US THYROID [...] than or equal to 1 cm: 3. Track Repair Supervisor nodules are described as follows: 1. Location: [...] by: Ajay Harry MD 07/07/2024 01:59 PM [facility] Dictated By: Ajay Harry MD Signed By: <Electronically signed by Ajay Harry MD in OV> 07/07/24 1359 DD/ 1100 TD/TT: 05/23/24 1130 Mine Supervisor: [address] [address] Ultrasound Report Signed Patient: Reanna Franks ra MR#: [id number] 958 : 1945 Acct:[id number] Age/Sex: 78 / F ADM Date: 05/23/24 Loc: HO.US Attending Dr: Boubacar Dumont MD Ordering Physician: Boubacar Dumont MD Date of Service: 05/23/24 Procedure(s): US thyroid Accession Number(s): [id number] cc: Boubacar Dumont MD EXAMINATION: US THYROID [...] than or equal to 1 cm: 3. Track Repair Supervisor nodul es are described as follows: 1. [...] by: Ajay Harry MD 07/07/2024 01:59 PM EST RP Dictated By: Ajay Harry MD Signed By: <Electronically signed by Ajay Harry MD in OV> 07/07/24 1359 DD/ 1100 TD/TT: 05/23/24 1130 Mine Supervisor: MM tomosynthesis screening B I Reviewed date:06/06/2024 12:40:36 PM Interpretation: Performing Lab: Notes/Report: [facility] [address] [place] [address] Mammography Report Signed Patient: Sandra Franks MR#: [id number] 958 : 1945 Acct:[id number] Age/Sex: 78 / F ADM Date: 05/29/24 Loc: HO.MAMMO Attending Dr: Boubacar Dumont MD Ordering Physician: Boubacar Dumont MD Results: 1Ne gative Date of Service: 05/29/24 Follow Up: 1 Year From [facility] Mammogram Procedure(s): MM tomosynthesis screening BI Accession Number(s): [id number] cc: Boubacar Dumont MD EXAMINATION: MM SCREENING [...] Nichole Zepeda DO 06/06/2024 11:11 AM EST RP Dictated By: Nichole Zepeda DO Signed By: <Electronically signed by Nichloe Zepeda DO in OV> 06/06/24 1111 DD/ 7 TD/TT: 05/29/[address] Mine Supervisor: [facility] [address] [place], [place] [address] Mammography Report Signed Patient: Reanna Franks ra MR#: [id number] 958 : 1945 Acct:[id number] Age/Sex: 78 / F ADM Date: 05/29/24 Loc: HO.MAMMO Attending Dr: Boubacar Dumont MD Ordering Physician: Boubacar Dumont MD Results: 1Ne gative Date of Service: 05/29/24 Follow Up: 1 Year From Orig inal Mammogram Procedure(s): MM tomosynthesis screening BI Accession Number(s): [id number] cc: Boubacar Dumont MD EXAMINATION: MM SCREENING [...] Nichole Zepeda DO 06/06/2024 11:11 AM EST RP Dictated By: Nichole Zepeda DO Signed By: <Electronically signed by Nichole Zepeda DO in OV> 06/06/24 1111 DD/ TD/TT: 05/29/[address] Mine Supervisor: Pathology Reviewed date:08/24/2024 04:59:19 PM Interpretation: Performing Lab:[facility], [address] [facility], [place] [address] Notes/Report: --- Name: Sandra Franks Age/Sex: 78/F : 1945 Unit#: [id number] Attend Dr: Cristina Alvarez MD Re08/23/24 Status : [facility] REF Location: [facility] Disch: --- SPEC : [id number] RECD : 08/23/24 STATUS: NICOLE MCDOWELL NUM: [id number] SHARRON: 08/23/24 [facility] DR: Cristina Alvarez MD ENTERED: 08/23/24 47 SP TYPE: Cytology OTHR DR: Boubacar Dumont MD ORDERED: Fine Ndl Asp/2 Diagnosis A. Thyroid, right sup/mid 1.3 cm nodule, fine needle aspiration: Benign ([place] category II). COMMENT (A): Satisfactory for evaluation; paucicellular specimen. Occasional groups of follicular epithelia l cells mostly in a macrofollicular arrangement are seen; no cytologic atypia is present. Some Hurthle cell change is present. Colloid is seen. Taken together, the findings are consistent with a benign thyroid nodule. B. Thyroid, left sup/mid 1.2 cm nodule, fine needle aspiration: Non-diagnostic ([place] category I). COMMENT (B): No follicular epithelial [...] To: Boubacar Dumont MD [facility] [address] [place] [address] [address] [place] [address] Cristina Alvarez MD [facility] Endocrin[facility] [address] [place] [address] [address] [place] [address] [email or web address] CONTINUED ON NEXT PAGE --- Name: Sandra Franks Age/Sex: 78/F : 1945 Unit#: [id number] Attend Dr: Cristina Alvarez MD Re08/23/24 Status : DEP REF Location: [facility] Disch: --- SPEC : [id number] REC STATUS: NICOLE MCDOWELL NUM: [id number] SHARRON: 08/23/24 [facility] DR: Cristina Alvarez MD ENTERED: 08/23/24-12 47 SP TYPE: Cytology OTHR DR: Boubacar Dumont MD ORDERED: Gwen Miranda Asp/2 --- Signed (signature on file) Ray Bonilla MD 08/24/24 1525 --- END OF REPORT XR ankle LT min 3V Reviewed date:10/05/2024 04:36:41 PM Interpretation: Performing Lab: Notes/Report: [facility] [address] [place] [address] [place] [address] XRay Report Signed Patient: Sandra Franks MR#: [id number] 958 : 1945 Acct:[id number] Age/Sex: 79 / F ADM Date: 10/04/24 Loc: HO.HMGCX Attending Dr: Era Iglesias PA-C Ordering Physician: Odette Ferro PA-C Date of Service: 10/04/24 Procedure(s): XR ankle LT min 3V Accession Number(s): [id number] cc: Boubacar Dumont MD; Odette Ferro PA-C [...] 10/04/24 1557 DD/ 1545 TD/TT: 10/04/24 1554 Mine Supervisor: [facility] [address] [place] [address] [place] [address] XRay Report Signed Patient: Reanna Franks ra MR#: [id number] 958 : 1945 Acct:[id number] Age/Sex: 79 / F ADM Date: 10/04/24 Loc: .HMGCX Attending Dr: Era Iglesias PA-C Ordering Physician: Odette Ferro PA-C Date of Service: 10/04/24 Procedure(s): XR ank le LT min 3V Accession Number(s): [id number] cc: Boubacar Dumont MD; Odette Ferro PA-C [...] Vlad Manriquez MD 10/04/2024 03:57 PM EDT RP Dictated By: Vlad Manriquez MD Signed By: <Electronically signed by Vlad Manriquez MD in OV> 10/04/24 155 DD/ 154 TD/TT: 10/04/241553 Mine Supervisor: CT chest wo con Reviewed date:01/02/2025 12:37:14 PM Interpretation: Performing Lab: Notes/Report: [address] [address] [address] Scan Report Signed with Addenda Patient: Sandra Franks MR#: [id number] 958 : 1945 Acct:[id number] Age/Sex: 79 / F ADM Date: 12/25/24 Loc: HO.CT Attending Dr: Boubacar Dumont MD Ordering Physician: Boubacar Dumont MD Date of Service: 12/25/24 Procedure(s): CT chest wo IV con Accession Number(s): [id number] cc: Boubacar Dumont MD Report Number: [id number]: Total DLP = 197.00 mGy-cm ADDENDUM This document has been electronically signed by: Edmund Arroyo MD on 12/26/2024 04:50:17 ADDENDUM: Addendum: Additional CTs are now provided for comparison from 2023 and 2022 Nodules and nodular densities on the current study are stable. These exhibit long-term stability. No new or increasing nodule. No further follow-up recommendations. This document has been electronically signed by: Edmund Arroyo MD on 12/26/2024 22:27:54 Addendum Dictated By: Edmund Arroyo MD Addendum Signed By: <Electronically signed by Edmund Arroyo MD in OV> 12/26/242228 Addendum Cosigned By: DD/ TD/TT: 12/26/24 CLINICAL HISTORY: MULTIPLE LUNG NODULES CT chest without contrast Comparison: None Findings: No cardiomegaly. Severe atherosclerotic disease of the coronary arteries. Lipomatous hypertrophy of the intra-atrial septum. No mediastinal adenopathy or pericardial effusion. Multiple partially calcified thyroid nodules. Lungs exhibit scattered 2-4 mm nodules, for example subpleural right lower lobe on axial 94. Angular nodular density abutting the minor fissure on axial 54 and sagittal 65. Biapical pleural thickening. Minimal centrilobular emphysema. Mild airway thickening. No effusion or pneumothorax. Upper abdomen demonstrates large left renal cyst and gastric diverticulum. Impression: Scattered 2-4 mm pulmonary nodules are present. If a comparison study is available, an addendum could be issued to this report, otherwise 12 month follow-up. This document has been electronically signed by: Edmund Arroyo MD on 12/26/2024 04:50:17 Dictated By: Edmund Arroyo MD Signed By: <Electronically signed by Edmund Arroyo MD in OV> 12/26/241 DD/ 9 TD/TT: 12/26/24[address] Mine Supervisor: [place] [address] CT Scan Report Signed with Addenda Patient: Reanna Franks ra MR#: [id number] 958 : 1945 Acct:[id number] Age/Sex: 79 / F ADM Date: 12/25/24 Loc: HO.CT Attending Dr: Boubacar Dumont MD Ordering Physician: Boubacar Dumont MD Date of Service: 12/25/24 Procedure(s): CT stefany st wo IV con Accession Number(s): [id number] cc: Boubacar Dumont MD Report Number: [id number]: Total DLP = 197.00 mGy-cm ADDENDUM This document has be en electronically signed by: Edmund Arroyo MD on 12/26/2024 04:50:17 ADDENDUM: Addendum: Additional CTs are n ow provided for comparison from 2023 and 2022 Nodules and nodular densities on the current study are stable. These exhibit long-term stability. No new or increasing nodule. No further follow-up recommendations. This document has be en electronically signed by: Edmund Arroyo MD on 12/26/2024 22:27:54 Addendum Dictated By : Edmund Arroyo MD Addendum Signed By: <Electronically signed by Edmund Arroyo MD in OV> 12/26/242228 Addendum Cosigned By: DD/ TD/TT: 12/26/24 CLINICAL HISTORY: MULTIPLE LUNG NODULES CT chest without contrast Comparison: None Findings: No cardiomegaly. Severe atherosclerot ic disease of the coronary arteries. Lipomatous hypertrop hy of the intra-atrial septum. No mediastinal adenopathy or pericardial effusion. Multiple partially calcified thyroid nodules. Lungs exhibit scatte red 2-4 mm nodules, for example subpleural right lower lobe on axial 94. Angular nodular dens ity abutting the minor fissure on axial 54 and sagittal 65. Biapical pleural thickening. Minimal centrilobula r emphysema. Mild airway thickening. No effusion or pneumothorax. Upper abdomen demonstrates large left renal cyst and gastric diverticulum. Impression: Scattered 2-4 mm pulmonary nodules are present. If a comparison study is available, an addend um could be issued to this report, otherwise 12 month follow-up. This document has be en electronically signed by: Edmund Arroyo MD on 12/26/2024 04:50:17 Dictated By: Edmund Arroyo MD Signed By: <Electronically signed by Edmund Arryoo MD in OV> 12/26/24450 DD/ 9 TD/TT: 12/26/[address] Mine Supervisor: Risa Marques Reviewed date:03/29/2025 12:22:56 PM Interpretation: Performing Lab:[facility], [address] [place] [phone] Notes/Report: Risa Marques See Note Specimen held untested for 24 hours; Call to request Chemistry testing. Reason For Referral Reason thyroid nodule Diagnosis [...] Notes Start Date End Date Status Clobetasol Propionate 0.05 % 1 application Externally Twice a day 07/18/2024 Active Clobetasol Prop Emollient Base 0.05 % as directed Externally twice a day for 7 days 06/21/2014 Not-Donato sepulveda Meclizine HCl 12.5 MG 2 tablets as neede d Orally Once a day Not-Taking Nystatin 302545 UNIT/GM 1 application to affected area Externally Twice a day 01/19/2017 Not-Donato sepulveda Vitamin C Adult Gummies 125 MG as directed Orally Not-Takin g Albuterol Sulfate HFA 108 (90 Base) MCG/ACT INHALE 2 PUFFS EVERY 4 HOURS NEEDED FOR 30 DAYS Active predniSONE 10 MG 1 tablet with food o r milk Orally 4 tabs for 3 days,3tabs for 3 days, 2 tabs for 3 days, and 1 tab for 3 days for 14 days 05/12/2024 Not-Taking Atorvastatin Calcium 20 MG TAKE 1 TABLET BY MOUTH EVERY DAY Active Triamcinolone Acetonide 0.5 % APPLY 1 APPLICATION EXTERNALLY TWICE PER WEEK Not-Taking Ipratropium-Albuterol 0.5-2.5 (3) MG/3ML 3 ml Inhalation Four times a day 07/13/2014 Active Aspir-81 81 MG 1 tablet Orally Once a day for 30 day(s) Active Tylenol Extra Strength 500 MG 1 tablet as needed Orally every 6 hrs Active EpiPen 2-Guy 0.3 MG/0.3ML as directed In jection as needed for allergic reaction if trouble breathing for 1 dose 08/19/2017 Not-Taking Clobetasol Propionate 0.05 % 1 application to affected area Externally Twice a day for 30 days 06/22/2017 Not-Taking Betamethasone Valerate 0.1 % 1 application to affected area Externally Once a day for 30 days 06/30/2016 Not-Taking Triamcinolone Acetonide 0.025 % 1 application Externally Once a day for 30 days 04/24/2025 Active Immunizations Vaccine Route Administration Date Status Comme nts DECLINED, FLU Unknown 05/30/2013 Administered TDaP Unknown 05/27/2017 Administered pt was given the vaccine at [facility] in [facility] SARS-COV-2 Pfizer Unknown 10/02/2020 Administered SARS-COV-2 Pfizer Unknown 10/23/2020 Administered SARS-COV-2 Pfizer Unknown 04/29/2021 Administered SARS-COV-2 Moderna Unknown 05/12/2022 Administered [facility] Flu Vaccine Unknown 07/09/2014 Refused zFluzone Quadrivalent [...] Problem Status W/U Status Risk Notes Problem 909010735 Thyroid nodule (E04.1) Active confirm ed Problem 91576154 Vitamin D defici ency (E55.9) Active confirmed Problem 9792104 Panlobular emphy sema (J43.1) Active confirmed Problem 6994180 Arthritis (M19.90) Active confirmed Problem 752516995 Osteopenia (M85.80) Active confirmed Problem 7939057 Psoriasis (L40.9) Active confirmed Problem 522560238 Asthmatic bronch itis with acute exacerbation (J45.901) Active confirmed Problem 741410769 Multiple lung no dules (R91.8) Active confirmed Problem 89441426 Intrinsic eczema (L20.84) Active confirmed Problem Age-related macular degeneration (disorder) (236781777) Macular degeneration (H35.30) Active confirmed Problem 81651196 Acute non-recurr ent maxillary sinusitis (J01.00) Active confirmed Problem Atrophy of vagina (924165784) Vaginal atrophy (N95.2) Active confirmed Problem 675497445 Pulmonary nodule (R91.1) Active confirmed Problem 252587427 Pure hypercholesterolemia (E78.00) Active confirmed Problem 469195717 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) Active confirmed Problem 558667377 Age-related inci pient cataract, unspecified laterality (H25.099) Active confirmed Problem 738506366 Multiple thyroid nodules (E04.2) Active confirmed Problem 396020550 Plaque psoriasis (L40.0) Active confirmed Vital Signs Blood pressure diastolic 60 mm Hg 04/05/2025 иван ght is up 5 pounds since 10-02-24 Height 62 in 04/05/2025 weight is up 5 pounds since 10-02-24 Blood pressure systolic 138 mm Hg 04/05/2025 weig ht is up 5 pounds since 10-02-24 Weight 135 lbs 04/05/2025 weight is up 5 pounds since 10-02-24 BMI 24.69 kg/m2 04/05/2025 weight is up 5 pounds since 10-02-24 Encounters Encounter Location Date Provider Diagnosis Boubacar Dumont MD [address] [place] [id number] 09/25/2024 Boubacar Dumont Blood tests for rout ine general physical examination Z00.00 ; Pure hypercholesterolemia E78.00 and Vitamin D deficiency E55.9 Boubacar Dumont MD [address] [place] [address] [id number] 03/29/2025 Boubacar Dumont Pure hypercholestero lemia E78.00 Boubacar Dumont MD [address] [place] [id number] 05/12/2024 Boubacar Dumont COPD with exacerbati on J44.1 and Thyroid nodule E04.1 Boubacar Dumont MD [address] [place] [address] [id number] 05/26/2024 Boubacar Dumont COPD with exacerbati on J44.1 and Acute bronchitis, unspecified organism J20.9 Boubacar Dumont MD [address] [place] [address] [id number] 07/18/2024 Boubacar Dumont Multiple thyroid nod ules E04.2 and Plaque psoriasis L40.0 Boubacar Dumont MD [address] [place] [address] [id number] 07/24/2024 Boubacar Dumont Bronchitis J40 Boubacar Dumont MD [address] [place] [address] [id number] 08/11/2024 Boubacar Dumont Bronchitis J40 and P laque psoriasis L40.0 Boubacar Dumont MD [address] [place] [address] [id number] 10/02/2024 Boubacar Dumont Thyroid nodule E04.1 ; Annual physical exam Z00.00 ; Panlobular emphysema J43.1 ; Pure hypercholesterolemia E78.00 ; Psoriasis L40.9 ; Skin lesion L98.9 ; Colon cancer screening Z12.11 and Depression screening Z13.31 Boubacar Dumont MD [address] [place] [id number] 04/05/2025 Boubacar Dumont Pure hypercholestero lemia E78.00 ; Panlobular emphysema J43.1 and Macular degeneration H35.30 Boubacar Dumont MD [address] [place] [address] [id number] 05/08/2024 Boubacar Dumont MD [address] [place] [address] [id number] 06/01/2024 Boubacar Dumont MD [address] [place] [address] [id number] 11/30/2024 Boubacar Dumont MD [address] [place] [address] [id number] 12/26/2024 Boubacar Dumont Thyroid nodule E04.1 Boubacar Dumont MD [address] [place] [address] [id number] 04/24/2025 Boubacar Dumont MD [address] [place] [address] [id number] 04/24/2025 Boubacar Dumont Assessments Encounter Date Diagnosis (ICD Code) Assessment Notes Treatment Notes Treatment Clinical Notes Section Notes 09/25/[address] ine general physical examination (ICD-10 - Z00.00) 03/29/2025 Pure hypercholesterolemia (ICD-10 - E78.00) 05/12/2024 COPD with exacerbati on (ICD-10 - J44.1) patient verbalized understanding of medication and directions for use. THE ORDER WAS FAXED OVER TO [facility] ON 05/08/24 , FARHAN IS AWARE THEY WILL BE CALLING HER TO SCHEDULE 05/12/2024 Thyroid nodule (ICD- 10 - E04.1) pending diagnostic testing 05/26/2024 COPD with exacerbati on (ICD-10 - J44.1) patient verbalized understanding of medication and directions for use 05/26/2024 Acute bronchitis, unspecified organism (ICD-10 - J20.9) 07/18/2024 Multiple thyroid nodules (ICD-10 - E04.2) referral to [facility] / referral already entered in being [...] Z00.00) labs reviewed and dicussed with patient 04/05/2025 Pure hypercholesterolemia (ICD-10 - E78.00) doing well on meds, will continue current regiment 04/05/2025 Panlobular emphysema (ICD-10 - J43.1) doing well with no attacks the last 6 months, will continue current regiment and will continue to monitor 12/26/2024 Thyroid nodule (ICD- 10 - E04.1) Order made and printed and put into the future order folder for . 09/25/2024 Pure hypercholesterolemia (ICD-10 - E78.00) 10/02/2024 Panlobular emphysema (ICD-10 - J43.1) doing well stable, will continue current regiment 04/05/2025 Macular degeneration (ICD-10 - H35.30) to speak to the ophth about preservision 09/25/2024 Vitamin D deficiency (ICD-10 - E55.9) 10/02/2024 Pure hypercholesterolemia (ICD-10 - E78.00) well controlled, will continue current regiment 10/02/2024 Psoriasis (ICD-10 - L40.9) doing much better, will continue current regiment 10/02/2024 Skin lesion (ICD-10 - L98.9) have her go to dermatology/ ALL INFO GIVEN FOR PATIENT TO CALL [facility] 10/02/2024 Colon cancer screeni ng (ICD-10 - Z12.11) guaiac negative 10/02/2024 Depression screening (ICD-10 - Z13.31) negative screen Plan Of Treatment Pending Test Test Name Order Date Electrocardiogram (EKG) 05/29/2011 CT CHEST NO CONTRAST 09/13/2020 XR CHEST 2 VIEW PA & LAT 06/22/2011 MAMMOGRAM DIGITAL BILATERAL SCREEN 04/23 US THYROID 05/09/2020 CT chest wo con 10/31/2021 CT chest wo con 12/26/2024 CT chest wo con 11/30/2022 CT chest wo con 09/22/2021 CT chest wo con 01/27/2024 US thyroid 06/12/2022 US thyroid 06/11/2023 US thyroid 05/15/2021 US thyroid 05/12/2024 Future Test Test Name Order Date US THYROID 05/03/2020 US THYROID 03/29/2021 CT CHEST NO CONTRAST 09/26/2021 Next Appt Details Provider Name:Boubacar mcgraw, 09/27/2025 07:15:00 AM, [address] [place] [address], [address], [phone], Provider Name:Boubacar mcgraw, 10/04/2025 11:00:00 AM, [address] [place] [address], [place] [address], [place], [place], [phone], Insurance Providers Payer Name Payer Address Payer Phone Subscriber Number Group Number Insured Name Patient Relationship to Insured Coverage Start Date Coverage End Date [facility] are [employer] [address] [address] [place] [address] [id number] Génesisjomar Self - patient is the insured Medical (General) History Medical History History ICD Code colonoscopy 08/30/2012 thyroid nodule being evaluated with repe at ultrasound Abnormal mammogram
== END 2025-05-07 10:18 | disposition home or self-care (01) ==
LOC: HO.HMGCX 10:17
PROVIDERS: PCP Internal Medicine; Visit Provider Student in an Organized Health Care Education/Training Program
DX: E04.2 Nontoxic multinodular goiter (principal)
CPT/HCPCS: 76536

== ENCOUNTER → 2025-05-07 10:18 | Outpatient (BNV) | payer MEDICARE, SELFPAY | PROVIDERS: PCP Internal Medicine; Visit Provider Radiology Diagnostic Radiology | DX: E04.2 Nontoxic multinodular goiter (principal) | CPT/HCPCS: 76536 ==

== ENCOUNTER 2025-06-04 08:05 | Outpatient (REF) | payer MEDICARE, SELFPAY ==
--- OUTSIDE RECORDS SUMMARY | 2024-08-11 04:15 | XMS_ITS ---
Author Organization Boubacar Dumont MD Address [address] [place], [place] [phone] Care Team Providers Care Deputy Fire Chief Name Role Phone Boubacar Dumont Primary Care Provider Allergies Allergen (clinical drug ingredient) Drug/Non Drug Allergy documented on EMR Reaction Allergy Type Onset Date Status tequin (uncoded) passing out Allergy A ctive REASON FOR VISIT 2 week Medications Medication SIG (Take, Route, Frequency, Duration) Notes Start Date End Date Status Clobetasol Prop Emollient Base 0.05 % as directed Externally twice a day for 7 days 06/21/2014 Not-Donato sepulveda Nystatin 383276 UNIT/GM 1 application to affected area Externally Twice a day 01/19/2017 Not-Donato sepulveda Meclizine HCl 12.5 MG 2 tablets as neede d Orally Once a day Not-Taking Clobetasol Propionate 0.05 % 1 application to affected area Externally Twice a day for 30 days 06/22/2017 Not-Taking EpiPen 2-Guy 0.3 MG/0.3ML as directed In jection as needed for allergic reaction if trouble breathing for 1 dose 08/19/2017 Not-Taking predniSONE 10 MG 1 tablet with food o r milk Orally 4 tabs for 3 days,3tabs for 3 days, 2 tabs for 3 days, and 1 tab for 3 days for 14 days 05/12/2024 Not-Taking Vitamin C Adult Gummies 125 MG as directed Orally Not-Takin coco Betamethasone Valerate 0.1 % 1 application to affected area Externally Once a day for 30 days 06/30/2016 Not-Taking Albuterol Sulfate HFA 108 (90 Base) MCG/ACT INHALE 2 PUFFS EVERY 4 HOURS NEEDED INHALATION EVERY 4 HRS 30 DAYS for 30 Active Ipratropium-Albuterol 0.5-2.5 (3) MG/3ML 3 ml Inhalation Four times a day for 30 days 07/13/2014 Active Clobetasol Propionate 0.05 % 1 application Externally Twice a day 07/18/2024 Active Atorvastatin Calcium 20 MG TAKE 1 TABLET BY MOUTH EVERY DAY for 90 Active Estrace 0.1 MG/GM as directed Vaginal Once a day for 30 days 02/06/2022 Active Tylenol Extra Strength 500 MG 1 tablet as needed Orally every 6 hrs Active Triamcinolone Acetonide 0.5 % APPLY 1 APPLICATION EXTERNALLY TWICE PER WEEK Active Aspir-81 81 MG 1 tablet Orally Once a day for 30 day(s) Active Vital Signs Blood pressure systolic 142 mm Hg 08/11/19 25 Blood pressure diastolic 56 mm Hg 025 Height 62 in 08/11/2024 Weight 129 lbs 08/11/2024 BMI 23.59 kg/m2 08/11/2024 Encounters Encounter Location Date Provider Diagnosis Boubacar Dumont MD [address] [place] [address] Drive [address] [place] [phone] 08/11/2024 Boubacar Dumont Bronchitis J40 and Plaque psoriasis L40.0 Assessments Encounter Date Diagnosis (ICD Code) Assessment Notes Treatment Notes Treatment Clinical Notes Section Notes 08/11/2024 Bronchitis (ICD-10 - J40) has finally resolved 08/11/2024 Plaque psoriasis (ICD-10 - L40.0) doing much better Plan Of Treatment Medication Medication Name Sig Start Date Stop Date Notes Clobetasol Propionate 0.05 % 1 applicati on Externally Twice a day 07/18/2024 Triamcinolone Acetonide 0.5 % APPLY 1 AP PLICATION EXTERNALLY TWICE PER WEEK Treatment Notes Assessment Notes Bronchitis has finally resolved Plaque psoriasis doing much better Next Appt Details Provider Name:Boubacar mcgraw, 09/27/2025 07:15:00 AM, [address] [place] [address], [address], [place], [place], [phone], Provider Name:Boubacar mcgraw, 10/04/2025 11:00:00 AM, [address] [place] [address], Suite [facility], [place], [place], [phone], Progress Notes * Sandra GALLEGOS RDOB:[birth year] (78 yo F)Acc No.[id number]:08/11/2024 Progress Notes Patient: Sandra CROW Provider: Coco Dumont MD :1945 A ge:78 Y S ex:Female Date:08/11/2024 Address:[address] [place], [place] [phone] Subjective: * Chief Complaints: * 2 week * HPI: S ymptom(s): patient is a 78 yo female here for 2 week follow up of psoriasis/ arms are all better back is flaired. * ROS: G eneral/Constitutional: Denies C hills. D enies F atigue. D enies F ever. D enies H eadache. E NT: Patient denies d ecreased sense of smell, any loss of taste, sore throat. D enies S ore throat. R espiratory: Admits C ough. A dmits S hortness of breath at rest. A dmits S hortness of breath with exertion. G astrointestinal: Denies D iarrhea. D enies N ausea. M usculoskeletal: Patient denies m uscle aches. P eripheral Vascular: Patient denies r ed and blue toes. * Medical History: * Surgical History: * Hospitalization/Major Diagno stic Procedure: * Medications: T akingTylenol Extra Strength 500 MG Tablet 1 tablet as needed Orally every 6 hrs Aspir-81 81 MG Tablet Delayed Release 1 tablet Orally Once a day Estrace 0.1 MG/GM Cream as directed Vaginal Once a day Triamcinolone Acetonide 0.5 % Cream APPLY 1 APPLICATION EXTERNALLY TWICE PER WEEK Ipratropium-Albuterol 0.5-2.5 (3) MG/3ML Solution 3 ml Inhalation Four times a day Atorvastatin Calcium 20 MG Tablet TAKE 1 TABLET BY MOUTH EVERY DAY Albuterol Sulfate HFA 108 (90 Base) MCG/ACT Aerosol Solution INHALE 2 PUFFS EVERY 4 HOURS NEEDED INHALATION EVERY 4 HRS 30 DAYS Clobetasol Propionate 0.05 % Cream 1 application Externally Twice a day Taking Tylenol Extra Strength 500 MG Tablet 1 tablet as needed Orally every 6 hrs Taking Aspir-81 81 MG Tablet Delayed Release 1 tablet Orally Once a day Taking Estrace 0.1 MG/GM Cream as directed Vaginal Once a day Taking Triamcinolone Acetonide 0.5 % Cream APPLY 1 APPLICATION EXTERNALLY TWICE PER WEEK Taking Ipratropium-Albuterol 0.5- 2.5 (3) MG/3ML Solution 3 ml Inhalation Four times a day Taking Atorvastatin Calcium 20 MG Tablet TAKE 1 TABLET BY MOUTH EVERY DAY Taking Albuterol Sulfate HFA 108 (90 Base) MCG/ACT Aerosol Solution INHALE 2 PUFFS EVERY 4 HOURS NEEDED INHALATION EVERY 4 HRS 30 DAYS Taking Clobetasol Propionate 0.05 % Cream 1 application Externally Twice a day Not-Taking/PRNpredniSONE 10 MG Tablet 1 tablet with food or milk Orally 4 tabs for 3 days,3tabs for 3 days, 2 tabs for 3 days, and 1 tab for 3 days Vitamin C Adult Gummies 125 MG Tablet Chewable as directed Orally Betamethasone Valerate 0.1 % Cream 1 application to affected area Externally Once a day Clobetasol Propionate 0.05 % Cream 1 application to affected area Externally Twice a day EpiPen 2-Guy 0.3 MG/0.3ML Solution Auto-injector as directed Injection as needed for allergic reaction if trouble breathing Nystatin 510071 UNIT/GM Cream 1 application to affected area Externally Twice a day Meclizine HCl 12.5 MG Tablet 2 tablets as needed Orally Once a day Clobetasol Prop Emollient Base 0.05 % Cream as directed Externally twice a day Not-Taking/PRN predniSONE 10 MG Tablet 1 tablet with food or milk Orally 4 tabs for 3 days,3tabs for 3 days, 2 tabs for 3 days, and 1 tab for 3 days Not-Taking/PRN Vitamin C Adult Gummies 125 MG Tablet Chewable as directed Orally Not-Taking/PRN Betamethasone Valerate 0.1 % Cream 1 application to affected area Externally Once a day Not-Taking/PRN Clobetasol Propionate 0.05 % Cream 1 application to affected area Externally Twice a day Not-Taking/PRN EpiPen 2-Guy 0.3 MG/0.3ML Solution Auto-injector as directed Injection as needed for allergic reaction if trouble breathing Not-Taking/PRN Nystatin 075125 UNIT/GM Cream 1 application to affected area Externally Twice a day Not-Taking/PRN Meclizine HCl 12.5 MG Tablet 2 tablets as needed Orally Once a day Not-Taking/PRN Clobetasol Prop Emollient Base 0.05 % Cream as directed Externally twice a day DiscontinuedpredniSONE 10 MG Tablet 1 tablet with food or milk Orally 4 tabs for 4 days, 3 tabs for 4 days, 2 tbs for 4 days, and 1 tab for 4 days Zithromax Z-Guy 250 MG Tablet 2 tablet on the first day, then 1 tablet daily for 4 days Orally Once a day Medication List reviewed and reconciled with the patientDiscontinued predniSONE 10 MG Tablet 1 tablet with food or milk Orally 4 tabs for 4 days, 3 tabs for 4 days, 2 tbs for 4 days, and 1 tab for 4 days Discontinued Zithromax Z-Guy 250 MG Tablet 2 tablet on the first day, then 1 tablet daily for 4 days Orally Once a day Medication List reviewed and reconciled with the patient * Allergies: t equin: passing outyes[Allergies Verified] Objective: * Vitals: H t: 62, Wt: 129, BMI:23.59, BP:142/56, Wt-k.51. * Examination: G eneral Examination: GENERAL APPEARANCE: a lert, well hydrated, in no distress.? SKIN: g ood turgor. HEART: r egular rate and rhythm, no murmurs, rubs, gallops.? LUNGS: n o wheezes, rales, rhonchi, good air movement, clear to auscultation bilaterally. Assessment: * Assessment: 1. P anastacio psoriasis - L40.0 (Primary) 2 . B ronchitis - J40 ? Plan: * Treatment: 2. Dolores gaytan Notes: has finally resolved * Procedure Codes: * * Sign off status: Completed true * Provider: Coco Dumont MD Date: 0 08/11/2024 Generated for Sarah tobra/Zainab/Sadaf on: 08/04/2024 08:11 AM EST History and Physical Notes * HPI (History of Present Illness) Category Sub-Category Detail Notes Category Not es Symptom(s) patient is a 78 yo female here for 2 week follow up of psoriasis/ arms are all better back is flaired Examination Category Sub-Category Detail Notes Category Not es General Examination GENERAL APPEARANCE: alert, w ell hydrated, in no distress HEART: regular rate and rhy thm, no murmurs, rubs, gallops LUNGS: no wheezes, rales, r honchi, good air movement, clear to auscultation bilaterally SKIN: good turgor
--- OUTSIDE RECORDS SUMMARY | 2024-09-25 02:00 | XMS_ITS ---
Author Organization Boubacar Dumont MD Address [address] [place], [place] [phone] Care Team Providers Care Shareholder Name Role Phone Boubacar Dumont Primary Care Provider [phone] Results Component Value Reference Range Notes Complete Blood Count Auto Di ff Reviewed date:09/25/2024 04:33:00 PM Interpretation: Performing Lab:[facility], [address] [place] [phone] Notes/Report: White Blood Count 7.3 4.8-10.8 X10*3/uL [...] NRBC Abs Auto 0.000 0.0-0.012 X10*3/uL Comprehensive [place]. Panel Fa st Reviewed date:09/25/2024 04:32:44 PM Interpretation: Performing Lab:[facility], [address] [place] [phone] Notes/Report: Sodium 143 135-145 mmol/L Potassium 4.4 [...] Panel Reviewed date:09/25/2024 04:21:18 PM Interpretation: Performing Lab:[facility], [address] [place] [phone] Notes/Report: Triglycerides 114 <150 mg/dL Desirable Triglyceride: [...] Total Reviewed date:09/25/2024 04:21:28 PM Interpretation: Performing Lab:[address] [phone] Notes/Report: Vitamin D 25-OH Total 28.8 >30 [...] t Reviewed date:09/25/2024 04:29:06 PM Interpretation: Performing Lab:[facility], [address] [place] [phone] Notes/Report: Urine, Clean Catch Color Urine Yellow Appearance Urine Clear PH 5.5 5.0-9.0 Glucose Urine UA Negative Negative mg/dL Urine Blood Negative Negative Specific [place] - Urine 1.020 1.005-1.025 Urine Protein Negative [...] Date Provider Diagnosis Boubacar Dumont MD [address] [place] [address] [place] [phone] 09/25/2024 Boubacar Dumont Blood tests for rout [...] Details Provider Name:Boubacar mcgraw, 09/27/2025 07:15:00 AM, [address] [place] [address], Suite [facility], [place], [place], [phone], Provider Name:Boubacar mcgraw, 10/04/2025 11:00:00 AM, [address] [place] [address], Suite [facility], [place], [place], [phone], Progress Notes * GOLDEN RDOB:[birth year] (79 yo F)Acc No.[id number]:09/25/2024 Progress Note Patient: Sandra CROW Provider: Amalia Dumont MD :1945 A ge:79 Y S ex:Female Date:09/25/2024 Address:[address] [place], [place] [phone] Subjective: * Chief Complaints: * 1 . [...] - 09/25/2024 07:00 AM) L AB: Comprehensive [place]. Panel Fast (Collection Date & Time - [...] - 09/25/2024 07:00 AM) L AB: Comprehensive [place]. Panel Fast (Collection Date & Time - [...] MD Date: 0 09/25/2024 Generated for Sarah tobar/Zainab/Sadaf on: 08/04/2024 08:11 AM EST
--- OUTSIDE RECORDS SUMMARY | 2024-10-02 04:30 | XMS_ITS ---
Author Organization Boubacar Dumont MD Address [address] [place], [place] [id number] Care Team Providers Care Live In Companion Name Role Phone Boubacar Dumont Primary Care Provider [phone] Allergies Allergen (clinical drug ingredient) Drug/Non Drug Allergy documented on EMR Reaction Allergy Type Onset Date Status tequin (uncoded) passing out Allergy A ctive Results Component Value Reference Range Notes Occult [...] a day for 30 day(s) Active Nystatin 669306 UNIT/GM 1 application to affected area Externally [...] Date Provider Diagnosis Boubacar Dumont MD [address] [place], [place] [phone] 10/02/2024 Boubacar Dumont Thyroid nodule E04.1 ; [...] ALL INFO GIVEN FOR PATIENT TO CALL [facility] 10/02/2024 Colon cancer screeni ng (ICD-10 [...] ALL INFO GIVEN FOR PATIENT TO CALL [facility] Colon cancer screening guaiac negative Depression screening negative screen Next Appt Details Provider Name:Boubacar mcgraw, 09/27/2025 07:15:00 AM, [address] [place] [address], [address] [place] [address], [phone], Provider Name:Boubacar mcgraw, 10/04/2025 11:00:00 AM, [address], [address], [place], [place], [phone], Progress Notes * Sandra GALLEGOS RDOB:[birth year] (79 yo F)Acc No.[id number]:10/02/2024 Progress Notes Patient: Amalia MarshallJENNIFERSTEPHANISandra Provider: Amalia Dumont MD :1945 A ge:79 Y S ex:Female Date:10/02/2024 Address: [id number] Subjective: * Chief Complaints: * A nnual [...] for allergic reaction if trouble breathing Nystatin 159238 UNIT/GM Cream 1 application to affected area [...] allergic reaction if trouble breathing Not-Taking/PRN Nystatin 177171 UNIT/GM Cream 1 application to affected area [...] mg/dL Urine Blood Negative Negative - Specific [place] - Urine 1.020 1.005-1.025 - Urine Protein [...] Auto 0.000 0.0-0.012 - X10*3/uL L ab:Comprehensive [place]. Panel Fast (Order Date - 09/25/2024) (Collection [...] ALL INFO GIVEN FOR PATIENT TO CALL [facility] 7. C olon cancer screening L AB: Occult Blood, Stool, Guaiac (Collection Date & Time - 10/02/2024) N egative Value Reference Range O ccult Blood, Stool, Guaiac Neg Notes: guaiac negative??8.?Depression screening? Notes: negative screen?? * Procedure Codes: 8 0588 TEST FOR BLOOD, FECES * Preventive Medicine: [...] 0 10/02/2024 Generated for Sarah tobar/Zainab/eTransmitting on: 08/04/2024 08:12 AM EST History and Physical Notes * [...] Score: 0 Interpretation and Intervention Depression Isaac sihelds Findings: Negative Follow-Up for Depression: : review [...]
--- OUTSIDE RECORDS SUMMARY | 2024-11-30 06:40 | XMS_ITS ---
Author Organization Boubacar Dumont MD Address [address] [place] [phone] Care Team Providers Care Mechanic And Welder Name Role Phone Boubacar Dumont Primary Care Provider [phone] chest due Encounters Encounter Location Date Provider Diagnosis Boubacar Dumont MD [address] [place] [address] [place] [phone] 11/30/2024 Boubacar Dumont Plan Of Treatment Next Appt Details Provider Name:Boubacar Alvarez ier, 09/27/2025 07:15:00 AM, [address] [place] [address], Suite [facility], [place], [place], [phone], Provider Name:Boubacar mcgraw, 10/04/2025 11:00:00 AM, [address] [place] [address], Suite [facility], [place], [place], [phone], Progress Notes * Sandra GALLEGOS RDOB:[birth year] (79 yo F)Acc No.[id number]:11/30/2024 Patient: Amalia Sandra MONTEZ :1945 A ge:79 Y S ex:Female Address:[address] [place], [place] [address] [address] * true * Date: Generated for Printi ng/Faxing/eTransmitting on: 08/04/2024 08:12 AM EST
--- OUTSIDE RECORDS SUMMARY | 2024-12-26 06:19 | XMS_ITS ---
Author Organization Boubacar Dumont MD Address [address] [place] [phone] Care Team Providers Care Nibbler Operator Name Role Phone Boubacar Dumont Primary Care Provider REASON FOR VISIT Needs order Chest CT Scan due Encounters Encounter Location Date Provider Diagnosis Boubacar Dumont MD [address] [place] [address] [place] [phone] 12/26/2024 Boubacar Dumont Thyroid nodule E04.1 Assessments [...] Details Provider Name:Boubacar mcgraw, 09/27/2025 07:15:00 AM, [address] [place] [address], Suite [facility], [place], [place], [phone], Provider Name:Boubacar mcgraw, 10/04/2025 11:00:00 AM, [address] [place] [address], Suite [facility], [place], [place], [phone], Progress Notes * Sandra GALLEGOS RDOB:[birth year] (79 yo F)Acc No.[id number]:12/26/2024 Patient: Amalia Sandra MONTEZ :1945 A ge:79 Y S ex:Female Address:[address] [place] [address] [place] [address] Subjective: * Chief Complaints: * N eeds order Chest CT Scan due * Medical History: * Surgical History: * Hospitalization/Major Diagno stic Procedure: * Medications: Objective: * Vitals: * Physical Examination: Assessment: * Assessment: 1. T hyroid nodule - E04.1 Plan: * Treatment: * Procedure Codes: * true * Date: Generated for Sarah tobar/Zainab/Theodoresmitting on: 08/04/2024 08:11 AM EST
--- OUTSIDE RECORDS SUMMARY | 2025-03-29 02:00 | XMS_ITS ---
Author Organization Boubacar Dumont MD Address [address] [place], [place] [phone] Care Team Providers Care Window Treatment Installer Name Role Phone Boubacar Dumont Primary Care Provider Results Component Value Reference Range Notes Liver Panel Reviewed date:03/29/2025 12:31:51 PM Interpretation: Performing Lab:[facility], [address] [place] [phone] Notes/Report: Bilirubin Total 1.1 0.0-1.0 mg/dL Bilirubin Direct 0.3 0.0-0.5 mg/dL Aspartate Amino Transferase 28 5-31 U/L Alanine Aminotransferase 12 0-31 U/L Total Protein 6.8 6.5-8.0 g/dL Albumin Level 4.3 3.5-5.0 g/dL Alkaline Phosphatase 91 39-117 U/L Lipid Panel with Reflex Reviewed date:03/29/2025 12:31:59 PM Interpretation: Performing Lab:[facility], [address] [place] [phone] Notes/Report: Triglycerides 95 <150 mg/dL Desirable Triglyceride: less than 150 mg/dL Borderline High Triglyceride 150-199 mg/dL High Triglyceride: 200-499 mg/dL Very High Triglyceride: greater than or equal to 5OO mg/dL Cholesterol 165 <200 mg/dL Desirable Cholesterol: less than 200 mg/dL Borderline High Cholesterol: 200-239 mg/dL High Cholesterol: greater than 239 mg/dL LDL Cholesterol Calculated 91 <100 mg/dL Desirable LDL: less than 100 mg/dL Near Optimal/Above Optimal LDL: 110-129 mg/dL Borderline High LDL: 130-159 mg/dL High LDL: 160-189 mg/dL Very High LDL: greater than or equal to 190 mg/dL HDL Cholesterol 55 >40 mg/dL Desirable HDL: greater than 40 mg/dL Note: This HDL assay may give artificially low results in patients with liver disease. REASON FOR VISIT FASTING LIPIDS Encounters Encounter Location Date Provider Diagnosis Boubacar Dumont MD [address] [place] [address] Drive [address] [place], [place] [phone] 03/29/2025 Boubacar Dumont Pure hypercholestero lemia E78.00 Assessments Encounter Date Diagnosis (ICD Code) Assessment Notes Treatment Notes Treatment Clinical Notes Section Notes 03/29/2025 Pure hypercholesterolemia (ICD-10 - E78.00) Plan Of Treatment Next Appt Details Provider Name:Boubacar mcgraw, 09/27/2025 07:15:00 AM, [address] [place] [address], [address], [place], [place], [phone], Provider Name:Boubacar mcgraw, 10/04/2025 11:00:00 AM, [address] [place] [address], [address], [place], [place], [phone], Progress Notes * Sandra GALLEGOS RDOB:[birth year] (79 yo F)Acc No.[id number]:03/29/2025 Progress Note Patient: Sandra CROW Provider: Amalia Dumont MD :1945 A ge:79 Y S ex:Female Date:03/29/2025 Address:[address] [place], [place] [phone] Subjective: * Chief Complaints: * 1 . FASTING LIPIDS. * Medical History: Objective: * Vitals: Assessment: * Assessment: 1. P ure hypercholesterolemia - E78.00 (Primary) Plan: * Treatment: * Procedure Codes: 3 6415 VENIPUNCT, ROUTINE* * * The named appointment provid er may or may not be the originator of this progress note, and it is not deemed complete until electronically signed by the appointment provider. Sign off status: Pending * Provider: Amalia Dumont MD Date: 0 03/29/2025 Generated for Sarah tobar/Zainab/eTransmitting on: 08/04/2024 08:12 AM EST
--- OUTSIDE RECORDS SUMMARY | 2025-04-05 04:00 | XMS_ITS ---
Author Organization Boubacar Dumont MD Address [address] [place], [place] [phone] Care Team Providers Care Diamond Setter Name Role Phone Boubacar Dumont Primary Care Provider Allergies Allergen (clinical drug ingredient) Drug/Non Drug Allergy documented on EMR Reaction Allergy Type Onset Date Status tequin (uncoded) passing out Allergy A ctive REASON FOR VISIT 6 MO F/U Medications Medication SIG (Take, Route, Frequency, Duration) Notes Start Date End Date Status Clobetasol Prop Emollient Base 0.05 % as directed Externally twice a day for 7 days 06/21/2014 Not-Donato sepulveda Meclizine HCl 12.5 MG 2 tablets as neede d Orally Once a day Not-Taking Nystatin 813097 UNIT/GM 1 application to affected area Externally [...] Risk Notes Problem Age-related macular degeneration (disorder) (844526935) Macular degeneration (H35.30) Active confirmed Vital Signs Blood pressure systolic 138 mm Hg 04/05/20 Blood pressure diastolic 60 mm Hg 025 Height 62 in 04/05/2025 Weight 135 lbs 04/05/2025 BMI 24.69 kg/m2 04/05/2025 weight is up 5 pounds since 10-02-24 Encounters Encounter Location Date Provider Diagnosis Boubacar Dumont MD [address] [place] [address] [address] [place], [place] [phone] 04/05/2025 Boubacar Dumont Pure hypercholestero lemia E78.00 [...] (ICD-10 - H35.30) to speak to the oph about preservision Plan Of Treatment Medication Medication [...] Name:Boubacar Ng Kim ier, 09/27/2025 07:15:00 AM, [address] [place] [address], [address], [place], [place], [phone], Provider Name:Boubacar Ng Giuliajoan ier, 10/04/2025 11:00:00 AM, [address] [facility], [address], [place], [place], [phone], Progress Notes * AKEJENNIFERSandra STYLES RDOB:[birth year] (79 yo F)Acc No.[id number]:04/05/2025 Progress Notes Patient: Amalia MarshallJENNIFERSandra STYLES Medhat Provider: Amalia Dumont MD :1945 A ge:79 Y S ex:Female Date:04/05/2025 Address:[address] [place], [place] [phone] Subjective: * Chief Complaints: * 6 MO [...] for allergic reaction if trouble breathing Nystatin 173589 UNIT/GM Cream 1 application to affected area [...] allergic reaction if trouble breathing Not-Taking/PRN Nystatin 967791 UNIT/GM Cream 1 application to affected area [...] acular degeneration Notes: to speak to the [facility] about preservision * Procedure Codes: [...] MD Date: 0 04/05/2025 Generated for Sarah tobar/Zainab/Theodoresmitting on: 08/04/2024 08:12 AM EST History and [...]
--- OUTSIDE RECORDS SUMMARY | 2025-04-24 05:29 | XMS_ITS ---
Author Organization Boubacar Dumont MD Address [address] [place] [phone] Care Team Providers Care Strap Cutting Machine Operator Name Role Phone Boubacar Dumont Primary Care Provider Encounters Encounter Location Date Provider Diagnosis Boubacar Dumont MD 10 [facility] [address] [place] [phone] 04/24/2025 Boubacar Dumont Plan Of Treatment Next Appt Details Provider Name:Boubacar Alvarez ier, 09/27/2025 07:15:00 AM, [address] [place] [address], Suite [facility], [place], [place], [phone], Provider Name:Boubacar Alvarez ier, 10/04/2025 11:00:00 AM, [address] [place] [address], Suite [facility], [place], [place], [phone], Progress Notes * Sandra FRANKS RDOB:[birth year] (79 yo F)Acc No.[id number]:04/24/2025 Patient: Amalia Sandra MONTEZ :1945 A ge:79 Y S ex:Female Address:[address] [place], [place] [address] [address] * true * Date: Generated for Printi ng/Fajohng/eTransmitting on: 08/04/2024 08:11 AM EST
--- OUTSIDE RECORDS SUMMARY | 2025-04-24 05:33 | XMS_ITS ---
Author Organization Boubacar Dumont MD Address [address] [place] [address] [place] [phone] Care Team Providers Care Assembler Radio And Electrical Name Role Phone Boubacar Dumont Primary Care Provider [phone] Medications Medication SIG (Take, Route, Frequency, Duration) Notes Start Date End Date Status Triamcinolone Acetonide 0.025 % 1 application Externally Once a day for 30 days 04/24/2025 Active Encounters Encounter Location Date Provider Diagnosis Boubacar Dumont MD [address] [place] [address] [place] [phone] 04/24/2025 Boubacar Dumont Plan Of Treatment Medication Medication Name Sig Start Date Stop Date Notes Triamcinolone Acetonide 0.02 5 % 1 application Externally Once a day for 30 days 04/24/2025 Next Appt Details Provider Name:Boubacar mcgraw, 09/27/2025 07:15:00 AM, [address] [place] [address], [phone], Provider Name:Boubacar mcgraw, 10/04/2025 11:00:00 AM, [address] [place] [address], [address], [phone], Progress Notes * Sandra GALLEGOS RDOB:[birth year] (79 yo F)Acc No.[id number]:04/24/2025 Patient: Amalia Sandra MONTEZ :1945 A ge:79 Y S ex:Female Address:[address] [place] [address], [place] [address] * Refills Start Triamcinolone Acetonide Cream, 0.025 %, Externally, 60, 1 application, Once a day, 30 days, Refills=3 * true * Date: Generated for Sarah tobar/Zainab/Sadaf on: 08/04/2024 08:12 AM EST
--- OUTSIDE RECORDS SUMMARY | 2025-05-11 07:17 | XMS_ITS ---
Author Organization Boubacar Dumont MD Address [address] [place] [phone] Care Team Providers Care Cartoon Designer Name Role Phone Boubacar Dumont Primary Care Provider [phone] REASON FOR VISIT ? to book bx thyroid Encounters Encounter Location Date Provider Diagnosis Boubacar Dumont MD [facility] [address] [place] [phone] 05/11/2025 Boubacar Dumont Plan Of Treatment Next Appt Details Provider Name:Boubacar Alvarez ier, 09/27/2025 07:15:00 AM, [address] [place] [address], Suite [facility], [place], [place], [phone], Provider Name:Boubacar Alvarez ier, 10/04/2025 11:00:00 AM, [address] [place] [address], Suite [facility], [place], [place], [phone], Progress Notes * Sandra FRANKS RDOB:[birth year] (79 yo F)Acc No.[id number]:05/11/2025 Patient: Amalia Sandra MONTEZ :1945 A ge:79 Y S ex:Female Address:[address] [place], [place] [address] [address] * true * Date: Generated for Printi ng/Faxing/eTransmitting on: 08/04/2024 08:12 AM EST
--- NOTE | ~2025-06-04 | MM_ITS ---
EXAMINATION: MM SCREENING DIGITAL BREAST TOMOSYNTHESIS, BILATERAL CLINICAL INFORMATION: Screening. Asymptomatic. COMPARISON: Mammography: Comparison is made with available priors TECHNIQUE: Digital breast mammography with tomosynthesis is performed in both the craniocaudal and mediolateral oblique views along with computer-aided detection (CAD). FINDINGS: There are scattered areas of fibroglandular density. There are no significant masses, abnormal calcifications, or other abnormalities. MM/MM tomosynthesis screening BI IMPRESSION: No mammographic evidence of malignancy. ASSESSMENT: BI-RADS Category 1: Negative RECOMMENDATION: Routine annual mammography screening. 1 year F/U This examination should not preclude the clinical evaluation of a suspicious palpable abnormality. This patient's information was entered into a reminder system with a target due date for their next mammogram. Electronically signed by: Nichole Zepeda DO 06/04/2025 09:53 AM [facility]
--- OUTSIDE RECORDS SUMMARY | 2025-06-04 08:12 | XMS_ITS | Patient Health Record ---
Author Organization Boubacar Dumont MD Address [address] [place], [place] [id number] Care Team Providers Care Translator And Interpreter Name Role Phone Boubacar Dumont Primary Care Provider [phone] Allergies Allergen (clinical drug ingredient) Drug/Non Drug Allergy documented on EMR Reaction Allergy Type Onset Date Status tequin (uncoded) passing out Allergy A ctive Results Component Value Reference Range Notes Complete Blood Count Auto Di ff Reviewed date:09/25/2024 04:33:00 PM Interpretation: Performing Lab:[facility], [address] [place] [id number] Notes/Report: White Blood Count 7.3 4.8-10.8 X10*3/uL [...] NRBC Abs Auto 0.000 0.0-0.012 X10*3/uL Comprehensive [place]. Panel Fa st Reviewed date:09/25/2024 04:32:44 PM Interpretation: Performing Lab:[address] [address] Notes/Report: Sodium 143 135-145 mmol/L Potassium 4.4 [...] Panel Reviewed date:09/25/2024 04:21:18 PM Interpretation: Performing Lab:[address] [address] Notes/Report: Triglycerides 114 <150 mg/dL Desirable Triglyceride: [...] Total Reviewed date:09/25/2024 04:21:28 PM Interpretation: Performing Lab:[address] [address] Notes/Report: Vitamin D 25-OH Total 28.8 >30 [...] t Reviewed date:09/25/2024 04:29:06 PM Interpretation: Performing Lab:[address] [address] Notes/Report: Urine, Clean Catch Color Urine Yellow Appearance Urine Clear PH 5.5 5.0-9.0 Glucose Urine UA Negative Negative mg/dL Urine Blood Negative Negative Specific [place] - Urine 1.020 1.005-1.025 Urine Protein Negative Neg-Trace mg/dL Urine Ketones Negative Negative mg/dL Nitrite Urine Negative Negative Leukocyte Esterase Urine Negative Negative RBC Urine 0-2 0-2 /HPF WBC Urine 0-5 0-5 /HPF Squamous Epithelial Cell Urine 0-2 0-2 /HPF Bacteria Urine None Seen None Seen Hyaline Casts Urine 0-2 0-2 /LPF Liver Panel Reviewed date:03/29/2025 12:31:51 PM Interpretation: Performing Lab:[facility], [address] [place] [address] Notes/Report: Bilirubin Total 1.1 0.0-1.0 mg/dL Bilirubin Direct 0.3 0.0-0.5 mg/dL Aspartate Amino Transferase 28 5-31 U/L Alanine Aminotransferase 12 0-31 U/L Total Protein 6.8 6.5-8.0 g/dL Albumin Level 4.3 3.5-5.0 g/dL Alkaline Phosphatase 91 39-117 U/L Lipid Panel with Reflex Reviewed date:03/29/2025 12:31:59 PM Interpretation: Performing Lab:[facility], [address] [place] [phone] Notes/Report: Triglycerides 95 <150 mg/dL Desirable Triglyceride: [...] Notes/Report: Negative Occult Blood, Stool, Guaiac Neg Pathology Reviewed date:08/24/2024 04:59:19 PM Interpretation: Performing Lab:[facility], [address], [place] [address] Notes/Report: --- Name: Sandra Franks Age/Sex: 78/F : 1945 Unit#: [id number] Attend Dr: Cristina Alvarez MD Re08/23/24 Status : [facility] REF Location: [facility] Disch: --- SPEC : [id number] RECD : 08/23/24-1204 STATUS: NICOLE KAY NUM: [id number] SHARRON: 08/23/[address] [facility] [address]: Cristina Alvarez MD ENTERED: 08/23/24- 47 SP TYPE: Cytology OT DR: Boubacar Dumont MD ORDERED: Fine Ndl Asp/2 Diagnosis A. Thyroid, right sup/mid 1.3 cm nodule, fine needle aspiration: Benign (Dewitt category II). COMMENT (A): Satisfactory for evaluation; paucicellular specimen. Occasional groups of follicular epithelia l cells mostly in a macrofollicular arrangement are seen; no cytologic atypia is present. Some Hurthle cell change is present. Colloid is seen. Taken together, the findings are consistent with a benign thyroid nodule. B. Thyroid, left sup/mid 1.2 cm nodule, fine needle aspiration: Non-diagnostic (Dewitt category I). COMMENT (B): No follicular epithelial [...] To: Boubacar Dumont MD [facility] [address] [place] [address] [address] [place] [address] Cristina Alvarez MD [facility] Endocrinology [address] [place] [address] [address] [place] [address] [email or web address] CONTINUED ON NEXT PAGE --- Name: Sandra Franks Age/Sex: 78/F : 1945 Unit#: [id number] Attend Dr: Cristina Alvarez MD Re08/23/24 Status : DEP REF Location: [facility] Disch: --- SPEC : [id number] RECD : 08/23/24 STATUS: NICOLE MCDOWELL NUM: [id number] SHARRON: 08/23/24-[address] [facility] [address]: Cristina Alvarez MD ENTERED: 08/23/24-12 47 SP TYPE: Cytology OTHR DR: Boubacar Dumont MD ORDERED: Fine Ruth Asp/2 --- Signed (signature on file) Ray Bonilla MD 08/24/24 1525 --- END OF REPORT XR ankle LT min 3V Reviewed date:10/05/2024 04:36:41 PM Interpretation: Performing Lab: Notes/Report: [facility] [address] [place] [address] [place] [address] XRay Report Signed Patient: Sandra Franks MR#: [id number] 958 : 1945 Acct:[id number] Age/Sex: 79 / F ADM Date: 10/04/24 Loc: HO.HMGCX Attending Dr: Era Iglesias PA-C Ordering Physician: Odette Ferro PA-C Date of Service: 10/04/24 Procedure(s): XR ankle LT min 3V Accession Number(s): [id number] cc: Boubacar Dumont MD; Odette Ferro PA-C [...] 10/04/24 1557 DD/ 1545 TD/TT: 10/04/24 1554 Side Gluer: [facility] [address] [place] [address] [place] [address] XRay Report Signed Patient: Reanna Franks ra MR#: [id number] 958 : 1945 Acct:[id number] Age/Sex: 79 / F ADM Date: 10/04/24 Loc: HO.HMGCX Attending Dr: Era Iglesias PA-C Ordering Physician: Odette Ferro PA-C Date of Service: 10/04/24 Procedure(s): XR ank le LT min 3V Accession Number(s): [id number] cc: Boubacar Dumont MD; Odette Ferro PA-C [...] Manriquez MD in OV> 10/04/24 1557 DD/ 154 TD/TT: 10/04/24 155 Side Gluer: CT chest wo con Reviewed date:01/02/2025 12:37:14 PM Interpretation: Performing Lab: Notes/Report: [address] [address] [address] Scan Report Signed with Addenda Patient: Sandra Franks MR#: [id number] 958 : 1945 Acct:[id number] Age/Sex: 79 / F ADM Date: 12/25/24 Loc: HO.CT Attending Dr: Boubacar Dumont MD Ordering Physician: Boubacar Dumont MD Date of Service: 12/25/24 Procedure(s): CT chest wo IV con Accession Number(s): [id number] cc: Boubacar Dumont MD Report Number: [id number]: Total DLP = 197.00 mGy-cm ADDENDUM This [...] signed by Edmund Arroyo MD in OV> 12/26/24 0451 DD/ 9 TD/TT: 12/26/24449 Side Gluer: [place] [address] [address] Scan Report Signed with Addenda Patient: Reanna Franks ra MR#: [id number] 958 : 1945 Acct:[id number] Age/Sex: 79 / F ADM Date: 12/25/24 Loc: HO.CT Attending Dr: Boubacar Dumont MD Ordering Physician: Boubacar Dumont MD Date of Service: 12/25/24 Procedure(s): CT stefany st wo IV con Accession Number(s): [id number] cc: Boubacar Dumont MD Report Number: [id number]: Total DLP = 197.00 mGy-cm ADDENDUM This [...] signed by Edmund Arroyo MD in OV> 12/26/24450 DD/ 9 TD/TT: 12/26/24449 Side Gluer: Risa Marques Reviewed date:03/29/2025 12:22:56 PM Interpretation: Performing Lab:[facility], [address] [place] [address] Notes/Report: Risa Marques See Note Specimen held untested for 24 hours; Call to request Chemistry testing. US thyroid Reviewed date:05/11/2025 12:34:37 PM Interpretation: Performing Lab: Notes/Report: [facility] [place] [address] Ultrasound Report Signed Patient: Sandra Franks MR#: [id number] 958 : 1945 Acct:[id number] Age/Sex: 79 / F ADM Date: 05/07/25 Loc: HO.HMGCX Attending Dr: Cristina Alvarez MD Ordering Physician: Cristina Alvarez MD Date of Service: 05/07/25 Procedure(s): US thyroid Accession Number(s): [id number] cc: Boubacar Dumont MD; Cristina Alvarez MD Reason for Exam: E04.2 - Nontoxic multinodular goiter EXAMINATION: US THYROID CLINICAL INFORMATION: Nontoxic multinodular goiter. COMPARISON: November 01, 2024. TECHNIQUE: Linear transducer grayscale and color Doppler examination with attention to the region of the thyroid. FINDINGS: SIZE: Measurements of the thyroid lobes and nodules are given in sagittal, anteroposterior and transverse dimensions respectively. Right Thyroid Lobe: 4.3 x 2.8 x 1.5 cm, volume 9.29 mL. Previous: 4.5 x 2.2 x 1.6, volume: 8.5 cc. Parenchyma: The gland echotexture is heterogeneous. Thyroid vascularity is normal. Left Thyroid Lobe: 4.1 x 3.0 x 1.3 cm, volume 8.36 mL. Previous: 4.0 x 1.8 x 1.3 cm, volume: 4.8 cc. Parenchyma: The gland echotexture is heterogeneous. Thyroid vascularity is normal. Isthmus: 0.3 cm in maximum AP dimension. Previous: 0.26 cm. Estimated total number of nodules greater than or equal to 1 cm: 2. Manager Ethics nodules are described as follows: 1. Location: Upper pole, right lobe.. Size: 1.3 x 0.94 x 1.2 cm, volume 0.78 mL. Previous: 1.3 x 1.1 x 1.2 cm, volume: 0.9 cc. Nodule characteristics: Composition: Solid (2). Echogenicity: Hypoechoic (2). Shape: Not taller than wide (0). Margins: Smooth (0). Echogenic Foci: Peripheral calcifications (2). ACR TI-RADS total points: 6 ACR TI-RADS category: 4 2. Location: Lower pole, right lobe. Size: 1.8 x 0.85 x 1.1 cm, volume 0.53 mL. Previous: 1.2 x 1.0 x 1.1 cm, volume: 0.76 cc. Nodule characteristics: Composition: Undetermined (2) Echogenicity: Very hypoechoic (3). Shape: Not taller than wide (0). Margins: Smooth (0). Echogenic Foci: Peripheral calcifications (2). ACR TI-RADS total points: 7 ACR TI-RADS category: 5 3. Location: Lower pole, left lobe. Size: 0.8 x 0.52 x 0.75 cm, volume 0.16 mL. Previous: 0.9 x 0.5 x 0.6 cm, volume: 0.10 cc. Nodule characteristics: Composition: Spongiform (0). Echogenicity: Shape: Margins: Echogenic Foci: ACR TI-RADS total points: 0 ACR TI-RADS category: 1 4. Location: Midportion, left lobe. Size: 0.46 x 0.44 x 0.49 cm, volume 0.75 mL. Previous: Not seen. Nodule characteristics: Composition: Mixed cystic and solid (1). Echogenicity: Very hypoechoic (3). Shape: Not taller than wide (0). Margins: Smooth (0). Echogenic Foci: None (0). ACR TI-RADS total points: 4 ACR TI-RADS category: 4 5. Location: Upper pole, left lobe. Size: 0.76 x 0.60 x 0.7 cm, volume 0.17 mL. Previous: 1.2 x 0.5 x 0.6 cm, volume: 0.2 cc. Nodule characteristics: Composition: Solid (2). Echogenicity: Isoechoic (1). Shape: Not taller than wide (0). Margins: Smooth (0). Echogenic Foci: Punctate echogenic foci (3). ACR TI-RADS total points: 6 ACR TI-RADS category: 4 NODES: No lymphadenopathy is seen in the tissue surrounding the thyroid gland. US/US thyroid IMPRESSION: ACR TI RADS 4 and 5. ACR TI-RADS RECOMMENDATION REFERENCE: Ultrasound-guided fine-needle aspiration, followup ultrasound, no further follow up. * TR1 (0 point) and TR2 (2 points): No FNA or follow up. * TR3 (3 points): FNA if more than or equal to 2.5 cm in maximum dimension, followup ultrasound in 1, 3 and 5 years if 1.5 to 2.4 cm in maximum dimension. * TR4 (4-6 points): FNA if more than or equal to 1.5 cm in maximum dimension, followup ultrasound in 1, 2, 3 and 5 years if 1 to 1.4 cm in maximum dimension. * TR5 (more than or equal to 7 points): FNA if more than or equal to 1 cm in maximum dimension, followup ultrasound every year for 5 years if 0.5 to 0.9 cm in maximum dimension. * TR3, TR4 or TR5 nodules that are below the size threshold for followup receive no follow up. Electronically signed by: Juan F Montemayor MD 05/07/2025 02:50 PM EDT RP Dictated By: Juan F Good MD Signed By: <Electronically signed by Juan F Pichardo MD in OV> 05/07/25 1450 DD/ 1024 TD/TT: 05/07/25 1059 Side Gluer: [facility] [address] [place] [address] [place] [address] Ultrasound Report Signed Patient: Reanna Franks ra MR#: [id number] 958 : 1945 Acct:[id number] Age/Sex: 79 / F ADM Date: 05/07/25 [facility]: Cristina Alvarez MD Ordering Physician: Cristina Alvarez MD Date of Service: 05/07/25 Procedure(s): US thyroid Accession Number(s): [id number] cc: Boubacar Dumont MD; Cristina Alvarez MD Reason for Exam: E04 .2 - Nontoxic multinodular goiter EXAMINATION: US THYROID CLINICAL INFORMATION: Nontoxic multinodula r goiter. COMPARISON: November 01, 2024. TECHNIQUE: Linear transducer grayscale and color Doppler examination with attention to the reg ion of the thyroid. FINDINGS: SIZE: Measurements o f the thyroid lobes and nodules are given in sagittal, anteroposterior and transverse dimensions respectively. Right Thyroid Lobe: 4.3 x 2.8 x 1.5 cm, volume 9.29 mL. Previous: 4.5 x 2.2 x 1.6, volume: 8.5 cc. Parenchyma: The glan d echotexture is heterogeneous. Thyroid vascularity is normal. Left Thyroid Lobe: 4 .1 x 3.0 x 1.3 cm, volume 8.36 mL. Previous: 4.0 x 1.8 x 1.3 cm, volume: 4.8 cc. Parenchyma: The glan d echotexture is heterogeneous. Thyroid vascularity is normal. Isthmus: 0.3 cm in maximum AP dimension. Previous: 0.26 cm. Estimated total numb er of nodules greater than or equal to 1 cm: 2. Manager Ethics nodul es are described as follows: 1. Location: Upper pole, right lobe.. Size: 1.3 x 0.94 x 1 .2 cm, volume 0.78 mL. Previous: 1.3 x 1.1 x 1.2 cm, volume: 0.9 cc. Nodule characteristics: Composition: Solid (2). Echogenicity: Hypoechoic (2). Shape: Not taller th an wide (0). Margins: Smooth (0). Echogenic Foci: Peripheral calcifications (2). ACR TI-RADS total points: 6 ACR TI-RADS category: 4 2. Location: Lower pole, right lobe. Size: 1.8 x 0.85 x 1 .1 cm, volume 0.53 mL. Previous: 1.2 x 1.0 x 1.1 cm, volume: 0.76 cc. Nodule characteristics: Composition: Undetermined (2) Echogenicity: Very hypoechoic (3). Shape: Not taller th an wide (0). Margins: Smooth (0). Echogenic Foci: Peripheral calcifications (2). ACR TI-RADS total points: 7 ACR TI-RADS category: 5 3. Location: Lower pole, left lobe. Size: 0.8 x 0.52 x 0 .75 cm, volume 0.16 mL. Previous: 0.9 x 0.5 x 0.6 cm, volume: 0.10 cc. Nodule characteristics: Composition: Spongif orm (0). Echogenicity: Shape: Margins: Echogenic Foci: ACR TI-RADS total points: 0 ACR TI-RADS category: 1 4. Location: Midportion, left lobe. Size: 0.46 x 0.44 x 0.49 cm, volume 0.75 mL. Previous: Not seen. Nodule characteristics: Composition: Mixed cystic and solid (1). Echogenicity: Very hypoechoic (3). Shape: Not taller th an wide (0). Margins: Smooth (0). Echogenic Foci: None (0). ACR TI-RADS total points: 4 ACR TI-RADS category: 4 5. Location: Upper pole, left lobe. Size: 0.76 x 0.60 x 0.7 cm, volume 0.17 mL. Previous: 1.2 x 0.5 x 0.6 cm, volume: 0.2 cc. Nodule characteristics: Composition: Solid (2). Echogenicity: Isoech oic (1). Shape: Not taller th an wide (0). Margins: Smooth (0). Echogenic Foci: Punctate echogenic foci (3). ACR TI-RADS total points: 6 ACR TI-RADS category: 4 NODES: No lymphadenopathy is seen in the tissue surrounding the thyroid gland. US/US thyroid IMPRESSION: ACR TI RADS 4 and 5. ACR TI-RADS RECOMMENDATION REFERENCE: Ultrasound-guided fine-needle aspiration, followup ultrasound, no further follow up. * TR1 (0 point) and TR2 (2 points): No FNA or follow up. * TR3 (3 points): FN A if more than or equal to 2.5 cm in maximum dimension, followup ultrasound in 1, 3 and 5 years if 1.5 to 2.4 cm in maximum dimension. * TR4 (4-6 points): FNA if more than or equal to 1.5 cm in maximum dimension, followup ultrasound in 1, 2, 3 and 5 years if 1 to 1.4 cm in maximum dimension. * TR5 (more than or equal to 7 points): FNA if more than or equal to 1 cm in maximum dimension, followup ultrasound every year for 5 years if 0.5 to 0.9 cm in maximum dimension. * TR3, TR4 or TR5 nodules that are below the size threshold for followup receive no follow up. Electronically consuelo d by: Juan F Montemayor MD 05/07/2025 02:50 PM EDT Dictated By: Juan F Strange MD Signed By: <Electronically signed by Juan F Pichardo MD in OV> 05/07/25 1450 DD/ 1024 TD/TT: 05/07/25 1059 Side Gluer: Reason For Referral Reason thyroid nodule Diagnosis 1 Thyroid nodule (E04. 1) Referral Organization Boubacar Dumont MD Referring Provider First Name Boubacar Referring Provider Last Name Tim Referring Provider Speciality Internal M edicine Referred Provider Eric Torrez Referred Provider Specialty Endocrinolog y General Notes Ramirez Vera 0 07/17/2024 01:48:17 PM > referral info faxed, RamirezOsirisVera 07/25/2024 01:58:15 PM >APPT is with Dr. [...] a day for 7 days 06/21/2014 Not-Donato g Meclizine HCl 12.5 MG 2 tablets as neede d Orally Once a day Not-Taking Nystatin 833486 UNIT/GM 1 application to affected area Externally [...] Administered pt was given the vaccine at [facility] in [facility] SARS-COV-2 Pfizer Unknown 10/02/2020 Administered SARS-COV-2 Pfizer [...] Problem Status W/U Status Risk Notes Problem 039936130 Thyroid nodule (E04.1) Active confirm ed Problem 11755048 Vitamin D defici ency (E55.9) Active confirmed Problem 1389618 Panlobular emphy sema (J43.1) Active confirmed Problem 9590359 Arthritis (M19.90) Active confirmed Problem 784032690 Osteopenia (M85.80) Active confirmed Problem 9217700 Psoriasis (L40.9) Active confirmed Problem 770148949 Asthmatic bronch itis with acute exacerbation (J45.901) Active confirmed Problem 280312965 Multiple lung no dules (R91.8) Active confirmed Problem 92151081 Intrinsic eczema (L20.84) Active confirmed Problem Age-related macular degeneration (disorder) (568032865) Macular degeneration (H35.30) Active confirmed Problem 31932181 Acute non-recurr ent maxillary sinusitis (J01.00) Active confirmed Problem Atrophy of vagina (197581036) Vaginal atrophy (N95.2) Active confirmed Problem 309960484 Pulmonary nodule (R91.1) Active confirmed Problem 857370418 Pure hypercholesterolemia (E78.00) Active confirmed Problem 382844687 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) Active confirmed Problem 341354424 Age-related inci pient cataract, unspecified laterality (H25.099) Active confirmed Problem 921338814 Multiple thyroid nodules (E04.2) Active confirmed Problem 284817970 Plaque psoriasis (L40.0) Active confirmed Vital Signs [...] Boubacar Dumont MD [address] [place] [id number] 09/25/2024 Boubacar Dumont Blood tests for rout ine general physical examination Z00.00 ; Pure hypercholesterolemia E78.00 and Vitamin D deficiency E55.9 Boubacar Dumont MD [address] [place] [address] [id number] 03/29/2025 Boubacar Dumont Pure hypercholestero lemia E78.00 Boubacar Dumont MD [address] [place] [address] [id number] 07/18/2024 Boubacar Dumont Multiple thyroid nod ules E04.2 and Plaque psoriasis L40.0 Boubacar Dumont MD [address] [place] [address] [id number] 07/24/2024 Boubacar Dumont Bronchitis J40 Boubacar Dumont MD [address] [place] [address] [id number] 08/11/2024 Boubacar Dumont Bronchitis J40 and P laque psoriasis L40.0 Boubacar Dumont MD [address] [place] [id number] 10/02/2024 Boubacar Dumont Thyroid nodule E04.1 ; Annual physical exam Z00.00 ; Panlobular emphysema J43.1 ; Pure hypercholesterolemia E78.00 ; Psoriasis L40.9 ; Skin lesion L98.9 ; Colon cancer screening Z12.11 and Depression screening Z13.31 Boubacar Dumont MD [address] [place] [address] [id number] 04/05/2025 Boubacar Dumont Pure hypercholestero lemia E78.00 ; Panlobular emphysema J43.1 and Macular degeneration H35.30 Boubacar Dumont MD [address] [place] [address] [id number] 11/30/2024 Boubacar Dumont MD [address] [place] [address] [id number] 12/26/2024 Boubacar Dumont Thyroid nodule E04.1 Boubacar Dumont MD [address] [place] [address] [id number] 04/24/2025 Boubacar Dumont MD [address] [place] [address] [id number] 04/24/2025 Boubacar Dumont MD [address] [place] [address] [id number] 05/11/2025 Boubacar Dumont Assessments Encounter Date Diagnosis (ICD Code) Assessment Notes Treatment Notes Treatment Clinical Notes Section Notes 09/25/[address] ine general physical examination (ICD-10 - Z00.00) 03/29/2025 Pure hypercholesterolemia (ICD-10 - E78.00) 07/18/2024 Multiple thyroid nodules (ICD-10 - E04.2) referral to [facility] / referral already entered in being [...] ALL INFO GIVEN FOR PATIENT TO CALL [facility] 10/02/2024 Colon cancer screeni ng (ICD-10 [...] CONTRAST 09/26/2021 Next Appt Details Provider Name:Boubacar Alvarez ier, 09/27/2025 07:15:00 AM, [address], [address], [place], [place], [id number], Provider Name:Boubacar Alvarez ier, 10/04/2025 11:00:00 AM, [address], [address], [place], [place], [id number], Insurance Providers Payer Name Payer Address Payer Phone Subscriber Number Group Number Insured Name Patient Relationship to Insured Coverage Start Date Coverage End Date [facility] [employer] [address] [address] [place] [address] [id number] Sandra Franks Self - patient is the insured Medical (General) History Medical History History ICD Code colonoscopy 08/30/2012 thyroid nodule being evaluated with repe at ultrasound Abnormal mammogram
== END 2025-06-04 08:06 | disposition home or self-care (01) ==
LOC: HO.MAMMO 08:05
PROVIDERS: PCP Internal Medicine; Visit Provider Internal Medicine
DX: Z12.31 Encounter for screening mammogram for malignant neoplasm of breast (principal)
CPT/HCPCS: 77063; 77067

== ENCOUNTER → 2025-06-04 08:15 | Outpatient (BNV) | payer MEDICARE, SELFPAY | PROVIDERS: PCP Internal Medicine; Visit Provider Internal Medicine | DX: Z12.31 Encounter for screening mammogram for malignant neoplasm of breast (principal) | CPT/HCPCS: 77063; 77067 ==

== ENCOUNTER 2025-07-09 09:17 | Outpatient (AMB) | payer MEDICARE, SELFPAY ==
--- OUTSIDE RECORDS SUMMARY | 2024-08-11 04:15 | XMS_ITS ---
Author Organization Boubacar Dumont MD Address [address] [place], [place] [phone] Care Team Providers Care [employer] Name Role Phone Boubacar Dumont Primary Care Provider [phone] Allergies Allergen (clinical drug ingredient) Drug/Non Drug Allergy documented on EMR Reaction Allergy Type Onset Date Status gatifloxacin tequin (uncoded) passing out Allergy Active REASON FOR VISIT 2 week Medications Medication SIG (Take, Route, Frequency, Duration) Notes Start Date End Date Status Clobetasol Prop Emollient Base 0.05 % as directed Externally twice a day for 7 days 06/21/2014 Not-Donato sepulveda Nystatin 008103 UNIT/GM 1 application to affected area Externally [...] Location Date Provider Diagnosis Boubacar Dumont MD [address] [place] [address] Drive [address] [place] [phone] 08/11/2024 Boubacar Dumont Bronchitis J40 and Plaque [...] Details Provider Name:Boubacar mcgraw, 09/27/2025 07:15:00 AM, [address] [place] [address], Suite [facility], [place], [place], [phone], Provider Name:Boubacar mcgraw, 10/04/2025 11:00:00 AM, [address] [place] [address], Suite [facility], [place], [place], [phone], Progress Notes * Sandra GALLEGOS RDOB:[birth year] (78 yo F)Acc No.[id number]:08/11/2024 Progress Notes Patient: Sandra CROW Provider: Coco Dumont MD :1945 A ge:78 Y S ex:Female Date:08/11/2024 Address:[address] [place], [place] [phone] Subjective: * Chief Complaints: * 2 week [...] for allergic reaction if trouble breathing Nystatin 183195 UNIT/GM Cream 1 application to affected area [...] area Externally Twice a day Not-Taking/PRN EpiPen 2-Gyu 0.3 MG/0.3ML Solution Auto-injector as directed Injection as needed for allergic reaction if trouble breathing Not-Taking/PRN Nystatin 827917 UNIT/GM Cream 1 application to affected area [...] - J40 ? Plan: * Treatment: 2. B geovannatis Notes: has finally resolved * Procedure Codes: * * Sign off status: Completed true * Provider: Coco Dumont MD Date: 0 08/11/2024 Generated for Sarah tobar/Zainab/Sadaf on: 09:38 AM EST History and Physical Notes * [...]
--- OUTSIDE RECORDS SUMMARY | 2024-09-25 02:00 | XMS_ITS ---
Author Organization Boubacar Dumont MD Address [address] [place], [place] [id number] Care Team Providers Care Optometry Doctor Name Role Phone Boubacar Dumont Primary Care Provider Results Component Value Reference Range Notes Complete Blood Count Auto Di ff Reviewed date:09/25/2024 04:33:00 PM Interpretation: Performing Lab:[facility], [address] [place] [phone] Notes/Report: White Blood Count 7.3 4.8-10.8 X10*3/uL Red Blood Count 4.38 4.20-5.50 X10*6/uL Hemoglobin 12.8 12.0-16.0 g/dl Hematocrit 41.1 37.0-47.0 % Mean Corpuscular Volume 93.8 80.0-98.0 fL Mean Corpuscular Hemoglobin 29.2 27.0-33.0 pg Mean Corpuscular HGB Conc 31.1 31.0-35.0 g/dl Red Cell Distribution Width 13.6 11.0-16.0 % Platelet Count 323 160-400 X10*3/uL Mean Platelet Volume 11.3 9.4-12.3 fL Neutrophils Percent Auto 61.1 45-73 % Imm Gran Pct Auto 0.4 0.0-0.4 % Lymphocytes Percent Auto 19.3 20-40 % Monocytes Percent Auto 12.5 2-11 % Eosinophils Percent Auto 6.1 0-4 % Basophils Percent Auto 0.6 0-2 % NRBC Pct Auto 0.0 0.0-0.2 /100WBC Neutrophils Absolute Auto 4.5 2.0-8.3 x10*3/u L Imm Gran Abs Auto 0.03 0.00-0.03 X10*3/uL Lymphocytes Absolute Auto 1.4 1.2-4.9 X10*3/u L Monocytes Absolute Auto 0.9 0.1-1.2 X10*3/uL Eosinophils Absolute Auto 0.4 0.0-0.4 X10*3/u L Basophils Absolute Auto 0.0 0.0-0.2 X10*3/uL NRBC Abs Auto 0.000 0.0-0.012 X10*3/uL Comprehensive [place]. Panel Fa st Reviewed date:09/25/2024 04:32:44 PM Interpretation: Performing Lab:[facility], [address] [place] [phone] Notes/Report: Sodium 143 135-145 mmol/L Potassium 4.4 3.3-5.1 mmol/L Chloride 108 96-108 mmol/L Carbon Dioxide 28 22-29 mmol/L Anion Gap 11 12-20 Blood Urea Nitrogen 15 9-16 mg/dL Creatinine 0.82 0.5-1.4 mg/dL Estimated Glomerular Filt Rate > 60 Chronic Kidney Disease: Estimated GFR < 60 mL/min/1.73m2 Severe Kidney Disease: Estimated GFR < 15 mL/min/1.73m2 Glucose Fasting 95 60-99 mg/dL Calcium 9.0 8.4-10.2 mg/dL Bilirubin Total 1.0 0.0-1.0 mg/dL Aspartate Amino Transferase 25 5-31 U/L Alanine Aminotransferase 15 0-31 U/L Total Protein 6.9 6.5-8.0 g/dL Albumin Level 3.9 3.5-5.0 g/dL Alkaline Phosphatase 84 39-117 U/L Lipid Panel Reviewed date:09/25/2024 04:21:18 PM Interpretation: Performing Lab:[facility], [address] [place] [phone] Notes/Report: Triglycerides 114 <150 mg/dL Desirable Triglyceride: less than 150 mg/dL Borderline High Triglyceride 150-199 mg/dL High Triglyceride: 200-499 mg/dL Very High Triglyceride: greater than or equal to 5OO mg/dL Cholesterol 143 <200 mg/dL Desirable Cholesterol: less than 200 mg/dL Borderline High Cholesterol: 200-239 mg/dL High Cholesterol: greater than 239 mg/dL LDL Cholesterol Calculated 78 <100 mg/dL Desirable LDL: less than 100 mg/dL Near Optimal/Above Optimal LDL: 110-129 mg/dL Borderline High LDL: 130-159 mg/dL High LDL: 160-189 mg/dL Very High LDL: greater than or equal to 190 mg/dL HDL Cholesterol 43 >40 mg/dL Desirable HDL: greater than 40 mg/dL Note: This HDL assay may give artificially low results in patients with liver disease. Vitamin D 25-OH Total Reviewed date:09/25/2024 04:21:28 PM Interpretation: Performing Lab:[address] [phone] Notes/Report: Vitamin D 25-OH Total 28.8 >30 ng/mL Health Based Reference Values* < 20 ng/mL Deficient 20-30 ng/mL Insufficient > 30 ng/mL Sufficient *Colton HUGHES. N Engl J Med. 2007;357:266-280 There is no well-established upper level of normal vitamin D levels. Some laboratories use 50 ng/mL as an upper limit of normal. However, toxicity is patient-dependent and may occur at any level. Careful correlation with the patient's presentation is necessary and, if there is concern for vitamin D toxicity, treatment should be considered irrespective of the serum level. Care must be taken in interpreting Vitamin D results from different laboratories and methodologies. Published data demonstrated that results from patients undergoing hemodialysis may show a negative bias when tested with various automated 25-OH vitamin D assays when compared to LC-MS/MS. When testing samples from patients whose predominant form of Vitamin D is Vitamin D2, such as patients receiving Vitamin D2 supplementation, results that are subtherapeutic should be confirmed with another method such as LC-MS/MS. UA ClnCatch+Micro w/rflx Cul t Reviewed date:09/25/2024 04:29:06 PM Interpretation: Performing Lab:[facility], [address] [place] [phone] Notes/Report: Urine, Clean Catch Color Urine Yellow Appearance Urine Clear PH 5.5 5.0-9.0 Glucose Urine UA Negative Negative mg/dL Urine Blood Negative Negative Specific [place] - Urine 1.020 1.005-1.025 Urine Protein Negative Neg-Trace mg/dL Urine Ketones Negative Negative mg/dL Nitrite Urine Negative Negative Leukocyte Esterase Urine Negative Negative RBC Urine 0-2 0-2 /HPF WBC Urine 0-5 0-5 /HPF Squamous Epithelial Cell Urine 0-2 0-2 /HPF Bacteria Urine None Seen None Seen Hyaline Casts Urine 0-2 0-2 /LPF REASON FOR VISIT fasting yearly labs Encounters Encounter Location Date Provider Diagnosis Boubacar Dumont MD [address] [place] [address] [place] [phone] 09/25/2024 Boubacar Dumont Blood tests for rout ine general physical examination Z00.00 ; Pure hypercholesterolemia E78.00 and Vitamin D deficiency E55.9 Assessments Encounter Date Diagnosis (ICD Code) Assessment Notes Treatment Notes Treatment Clinical Notes Section Notes 09/25/2024 Blood tests for rout ine general physical examination (ICD-10 - Z00.00) 09/25/2024 Pure hypercholesterolemia (ICD-10 - E78.00) 09/25/2024 Vitamin D deficiency (ICD-10 - E55.9) Plan Of Treatment Next Appt Details Provider Name:Boubacar mcgraw, 09/27/2025 07:15:00 AM, [address] [place] [address], Suite [facility], [place], [place], [phone], Provider Name:Boubacar mcgraw, 10/04/2025 11:00:00 AM, [address] [place] [address], Suite [facility], [place], [place], [phone], Progress Notes * GOLDEN RDOB:[birth year] (79 yo F)Acc No.[id number]:09/25/2024 Progress Note Patient: Sandra CROW Provider: Amalia Dumont MD :1945 A ge:79 Y S ex:Female Date:09/25/2024 Address:[address] [place], [place] [phone] Subjective: * Chief Complaints: * 1 . Fasting yearly labs. * Medical History: Objective: * Vitals: Assessment: * Assessment: 1. B lood tests for routine general physical examination - Z00.00 (Primary) 2 .?Pure hypercholesterolemia - E78.00 3 . V itamin D deficiency - E55.9 ? Plan: * Treatment: 2. P ure hypercholesterolemia L AB: Complete Blood Count Auto Diff (Collection Date & Time - 09/25/2024 07:00 AM) L AB: Comprehensive [place]. Panel Fast (Collection Date & Time - 09/25/2024 07:00 AM) L AB: Lipid Panel (Collection Date & Time - 09/25/2024 07:00 AM) L AB: Vitamin D 25-OH Total (Collection Date & Time - 09/25/2024 07:00 AM) L AB: UA ClnCatch+Micro w/rflx Cult (Collection Date & Time - 09/25/2024 07:00 AM) 3. V itamin D deficiency L AB: Complete Blood Count Auto Diff (Collection Date & Time - 09/25/2024 07:00 AM) L AB: Comprehensive [place]. Panel Fast (Collection Date & Time - 09/25/2024 07:00 AM) L AB: Lipid Panel (Collection Date & Time - 09/25/2024 07:00 AM) L AB: Vitamin D 25-OH Total (Collection Date & Time - 09/25/2024 07:00 AM) L AB: UA ClnCatch+Micro w/rflx Cult (Collection Date & Time - 09/25/2024 07:00 AM) * Procedure Codes: 3 6415 VENIPUNCT, ROUTINE* * * The named appointment provid er may or may not be the originator of this progress note, and it is not deemed complete until electronically signed by the appointment provider. Sign off status: Pending * Provider: Amalia Dumont MD Date: 0 09/25/2024 Generated for Sarah tobar/Zainab/Alexandraitting on: 1 09:38 AM EST
--- OUTSIDE RECORDS SUMMARY | 2024-10-02 04:30 | XMS_ITS ---
Author Organization Boubacar Dumont MD Address [address] [place], [place] [id number] Care Team Providers Care Insulation Batting Machine Operator Name Role Phone Boubacar Dumont Primary Care Provider Allergies Allergen (clinical drug ingredient) Drug/Non Drug Allergy documented on EMR Reaction Allergy Type Onset Date Status gatifloxacin tequin (uncoded) passing out Allergy Active Results Component Value Reference Range Notes Occult Blood, Stool, Guaiac Reviewed date:10/02/2024 01:35:41 PM Interpretation:Negative Performing Lab: Notes/Report: Negative Occult Blood, Stool, Guaiac Neg REASON FOR VISIT annual visit Medications Medication SIG (Take, Route, Frequency, Duration) Notes Start Date End Date Status Albuterol Sulfate HFA 108 (90 Base) MCG/ACT INHALE 2 PUFFS EVERY 4 HOURS NEEDED INHALATION EVERY 4 HRS 30 DAYS for 30 Active Vitamin C Adult Gummies 125 MG as directed Orally Not-Takin g Triamcinolone Acetonide 0.5 % APPLY 1 APPLICATION EXTERNALLY TWICE PER WEEK Not-Taking Clobetasol Propionate 0.05 % 1 application Externally Twice a day 07/18/2024 Active predniSONE 10 MG 1 tablet with food o r milk Orally 4 tabs for 3 days,3tabs for 3 days, 2 tabs for 3 days, and 1 tab for 3 days for 14 days 05/12/2024 Not-Taking Estrace 0.1 MG/GM as directed Vaginal Once a day for 30 days 02/06/2022 Active Ipratropium-Albuterol 0.5-2.5 (3) MG/3ML 3 ml Inhalation Four times a day for 30 days 07/13/2014 Active Atorvastatin Calcium 20 MG TAKE 1 TABLET BY MOUTH EVERY DAY for 90 Active Tylenol Extra Strength 500 MG 1 tablet as needed Orally every 6 hrs Active Aspir-81 81 MG 1 tablet Orally Once a day for 30 day(s) Active Nystatin 111572 UNIT/GM 1 application to affected area Externally Twice a day 01/19/2017 Not-Takin g Meclizine HCl 12.5 MG 2 tablets as [...] trouble breathing for 1 dose 08/19/2017 Not-Taking Betamethasone Valerate 0.1 % 1 application to affected area Externally Once a day for 30 days 06/30/2016 Not-Taking Social History Tobacco Use: Social History Observation Description Date Details (start date - stop date) Former Smoker NA - NA Tobacco Use/Smoking Question Answer Notes Patient is a former smoker How long has it been since y ou last smoked? > 10 years Additional Findings: Tobacco Non-User Fo rmer smoker, currently using no form of tobacco Alcohol Screen Question Answer Notes Did you have a drink containing alcohol in the p ast year? No Points 0 Interpretation Negative Vital Signs Blood pressure systolic 142 mm Hg 10/03/19 25 Blood pressure diastolic 68 mm Hg 025 Height 62 in 10/02/2024 Weight 130 lbs 10/02/2024 BMI 23.77 kg/m2 10/02/2024 Encounters Encounter Location Date Provider Diagnosis Boubacar Dmuont MD [address] [place], [place] [id number] 10/02/2024 Boubacar Dumont Thyroid nodule E04.1 ; Annual physical exam Z00.00 ; Panlobular emphysema J43.1 ; Pure hypercholesterolemia E78.00 ; Psoriasis L40.9 ; Skin lesion L98.9 ; Colon cancer screening Z12.11 and Depression screening Z13.31 Assessments Encounter Date Diagnosis (ICD Code) Assessment Notes Treatment Notes Treatment Clinical Notes Section Notes 10/02/2024 Thyroid nodule (ICD- 10 - E04.1) is going for a biopsy, pending diagnostic testing 10/02/2024 Annual physical exam (ICD-10 - Z00.00) labs reviewed and dicussed with patient 10/02/2024 Panlobular emphysema (ICD-10 - J43.1) doing well stable, will continue current regiment 10/02/2024 Pure hypercholesterolemia (ICD-10 - E78.00) well controlled, will continue current regiment 10/02/2024 Psoriasis (ICD-10 - L40.9) doing much better, will continue current regiment 10/02/2024 Skin lesion (ICD-10 - L98.9) have her go to dermatology/ ALL INFO GIVEN FOR PATIENT TO CALL [facility] 10/02/2024 Colon cancer screeni ng (ICD-10 - Z12.11) guaiac negative 10/02/2024 Depression screening (ICD-10 - Z13.31) negative screen Plan Of Treatment Treatment Notes Assessment Notes Thyroid nodule is going for a biops y, pending diagnostic testing Annual physical exam labs reviewed and d icussed with patient Panlobular emphysema doing well stable, will continue current regiment Pure hypercholesterolemia well controlle d, will continue current regiment Psoriasis doing much better, w ill continue current regiment Skin lesion have her go to derma tology/ ALL INFO GIVEN FOR PATIENT TO CALL [facility] Colon cancer screening guaiac negative Depression screening negative screen Next Appt Details Provider Name:Boubacar mcgraw, 09/27/2025 07:15:00 AM, [address] [place] [address], [address] [place] [address], [phone], Provider Name:Boubacar mcgraw, 10/04/2025 11:00:00 AM, [address], [address], [place], [place], [phone], Progress Notes * Sandra GALLEGOS RDOB:[birth year] (79 yo F)Acc No.[id number]:10/02/2024 Progress Notes Patient: Amalia MarshallJENNIFERSTEPHANI Sandra Meléndez Provider: Amalia Dumont MD :1945 A ge:79 Y S ex:Female Date:10/02/2024 Address:[id number] Subjective: * Chief Complaints: * A nnual visit * HPI: D epression Screening: PHQ-9 L ittle interest or pleasure in doing things N ot at all, F eeling down, depressed, or hopeless N ot at all, T rouble falling or staying asleep, or sleeping too much N ot at all, F eeling tired or having little energy N ot at all, P oor appetite or overeating N ot at all, F eeling bad about yourself or that you are a failure, or have let yourself or your family down N ot at all, T rouble concentrating on things, such as reading the newspaper or watching television N ot at all, M oving or speaking so slowly that other people could have noticed; or the opposite, being so fidgety or restless that you have been moving around a lot more than usual N ot at all, T houghts that you would be better off or of hurting yourself in some way N ot at all, T otal Score 0 . I nterpretation and Intervention D epression Screening Findings N egative, F ollow-Up for Depression : review of PHQ-9 found negative result, no follow-up needed. C ommunication Needs: Communication Needs D oes the patient have a hearing impairment N o, D oes the patient have a vision impairment? Y es, I f yes, what is the vision impairment? G lasses, D oes the patient have a cognition impairment? N o. F all Risk: History H ave you had any falls with injury in the past year? N o, H ave you had two or more falls in the past year? N o. S GERSON Questions: SDOH Questions I n the past year have you been worried about losing housing? N o, I n the past year have you or any family members you live with been unable to get any of the following when it was really needed? Check all that apply: N one. S ymptom(s): patient s a 79 yo female here for annual visit with review of recent labs and follow up of chronic issues, psoriasis doing well. * ROS: G eneral/Constitutional: Change in appetite d enies. C hills d enies. F ever d enies. O phthalmologic: Blurred vision d enies. D ischarge d enies. P ain d enies. E NT: Decreased hearing d enies. S ore throat d enies.?Swollen glands d enies. E ndocrine: Cold intolerance d enies. E xcessive thirst d enies. H eat intolerance d enies. W eight loss d enies. R espiratory: Cough d enies. S hortness of breath at rest d enies. S hortness of breath with exertion d enies. W heezing d enies. C ardiovascular: Chest pain at rest d enies. C hest pain with exertion?denies. I rregular heartbeat d enies. S hortness of breath d enies. ? G astrointestinal: Abdominal pain d enies. C hange in bowel habits d enies. D iarrhea d enies. N ausea d enies. R ectal bleeding d enies. V omiting d enies . G enitourinary: Blood in urine d enies. D ifficulty urinating d enies. F requent urination d enies. U rinary incontinence D enies. M usculoskeletal: Painful joints d enies. W eakness d enies. ? S kin: Dry skin d enies. I tching d enies. D enies?Mole(s), changes in moles, new moles or any lesions of concern. D enies P hotosensitivity. R arnaldo d enies. N eurologic: Dizziness d enies. F ainting d enies. H eadache?denies. * Medical History: * Surgical History: * Hospitalization/Major Diagno stic Procedure: * Family History: F ather: 76 yrs, CVA,Respiratory. M other: 88 yrs, Cardiac. 1 brother(s) , 2 sister(s) . 3 son(s) , 1 daughter(s) . . 1 brother and 1 sister Father CHF Mother- cardiac, Denies mental health/substance abuse family history, Denies mental health/substance abuse family history, No pertinent family medical history. * Social History: T obacco Use: T obacco Use/Smoking P atient is a f ormer smoker, H ow long has it been since you last smoked? > 10 years, A dditional Findings: Tobacco Non-User F ormer smoker, currently using no form of tobacco. D rugs/Alcohol: A lcohol Screen D id you have a drink containing alcohol in the past year? N o, P oints 0 , I nterpretation N egative. M iscellaneous: C affeine: yes, frequency:, 1-2 cups per day. Children: yes. Exercise: no. Home smoke detector use: yes. Housing: owning. Living with: spouse. Marital status: . 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 Pets: none. Travel outside of the [place]: no. * Medications: T akingTylenol Extra Strength 500 MG Tablet 1 tablet as needed Orally every 6 hrs Aspir-81 81 MG Tablet Delayed Release 1 tablet Orally Once a day Estrace 0.1 MG/GM Cream as directed Vaginal Once a day Ipratropium-Albuterol 0.5-2.5 (3) MG/3ML Solution 3 ml [...] as directed Vaginal Once a day Taking Ipratropium-Albuterol 0.5-2.5 (3) MG/3ML Solution 3 ml Inhalation Four times a day Taking Atorvastatin Calcium 20 MG Tablet TAKE 1 TABLET BY MOUTH EVERY DAY Taking Albuterol Sulfate HFA 108 (90 Base) MCG/ACT Aerosol Solution INHALE 2 PUFFS EVERY 4 HOURS NEEDED INHALATION EVERY 4 HRS 30 DAYS Taking Clobetasol Propionate 0.05 % Cream 1 application Externally Twice a day Not-Taking/PRNTriamcinolone Acetonide 0.5 % Cream APPLY 1 APPLICATION EXTERNALLY TWICE PER WEEK predniSONE 10 MG Tablet 1 tablet with [...] for allergic reaction if trouble breathing Nystatin 523635 UNIT/GM Cream 1 application to affected area Externally Twice a day Meclizine HCl 12.5 MG Tablet 2 tablets as needed Orally Once a day Clobetasol Prop Emollient Base 0.05 % Cream as directed Externally twice a day Medication List reviewed and reconciled with the patientNot-Taking/PRN Triamcinolone Acetonide 0.5 % Cream APPLY 1 APPLICATION EXTERNALLY TWICE PER WEEK Not- Taking/PRN predniSONE 10 MG Tablet 1 tablet with [...] allergic reaction if trouble breathing Not-Taking/PRN Nystatin 995612 UNIT/GM Cream 1 application to affected area Externally Twice a day Not-Taking/PRN Meclizine HCl 12.5 MG Tablet 2 tablets as needed Orally Once a day Not-Taking/PRN Clobetasol Prop Emollient Base 0.05 % Cream as directed Externally twice a day Medication List reviewed and reconciled with the patient * Allergies: t equin: passing outyes[Allergies Verified] Objective: * Vitals: H t: 62, Wt: 130, BMI:23.77, BP:142/68, Repeat BP:120/60, Wt-k.97. * P ast Orders: L ab:Vitamin D 25-OH Total (Order Date - 09/25/2024) (Collection Date & Time - 09/25/2024 07:00 AM) Value Reference Range Vitamin D 25-OH Total 28.8 L >30 - ng/mL L ab:UA ClnCatch+Micro w/rflx Cult (Order Date - 09/25/2024) (Collection Date & Time - 09/25/2024 07:00 AM) Value Reference Range Color Urine Yellow - Appearance Urine Clear - PH 5.5 5.0-9.0 - Glucose Urine UA Negative Negative - mg/dL Urine Blood Negative Negative - Specific [place] - Urine 1.020 1.005-1.025 - Urine Protein Negative Neg-Trace - mg/dL Urine Ketones Negative Negative - mg/dL Nitrite Urine Negative Negative - Leukocyte Esterase Urine Negative Negative - RBC Urine 0-2 0-2 - /HPF WBC Urine 0-5 0-5 - /HPF Squamous Epithelial Cell Urine 0-2 0-2 - /HP F Bacteria Urine None Seen None Seen - Hyaline Casts Urine 0-2 0-2 - /LPF L ab:Complete Blood Count Auto Diff (Order Date - 09/25/2024) (Collection Date & Time - 09/25/2024 07:00 AM) Value Reference Range White Blood Count 7.3 4.8-10.8 - X10*3/uL Red Blood Count 4.38 4.20-5.50 - X10*6/uL Hemoglobin 12.8 12.0-16.0 - g/dl Hematocrit 41.1 37.0-47.0 - % Mean Corpuscular Volume 93.8 80.0-98.0 - fL Mean Corpuscular Hemoglobin 29.2 27.0-33.0 - pg Mean Corpuscular HGB Conc 31.1 31.0-35.0 - g/ dl Red Cell Distribution Width 13.6 11.0-16.0 - % Platelet Count 323 160-400 - X10*3/uL Mean Platelet Volume 11.3 9.4-12.3 - fL Neutrophils Percent Auto 61.1 45-73 - % Imm Gran Pct Auto 0.4 0.0-0.4 - % Lymphocytes Percent Auto 19.3 L 20-40 - % Monocytes Percent Auto 12.5 H 2-11 - % Eosinophils Percent Auto 6.1 H 0-4 - % Basophils Percent Auto 0.6 0-2 - % NRBC Pct Auto 0.0 0.0-0.2 - /100WBC Neutrophils Absolute Auto 4.5 2.0-8.3 - x10* 3/uL Imm Gran Abs Auto 0.03 0.00-0.03 - X10*3/uL Lymphocytes Absolute Auto 1.4 1.2-4.9 - X10* 3/uL Monocytes Absolute Auto 0.9 0.1-1.2 - X10*3/ uL Eosinophils Absolute Auto 0.4 0.0-0.4 - X10* 3/uL Basophils Absolute Auto 0.0 0.0-0.2 - X10*3/ uL NRBC Abs Auto 0.000 0.0-0.012 - X10*3/uL L ab:Comprehensive [place]. Panel Fast (Order Date - 09/25/2024) (Collection Date & Time - 09/25/2024 07:00 AM) Value Reference Range Sodium 143 135-145 - mmol/L Bilirubin Total 1.0 0.0-1.0 - mg/dL Aspartate Amino Transferase 25 5-31 - U/L Alanine Aminotransferase 15 0-31 - U/L Total Protein 6.9 6.5-8.0 - g/dL Albumin Level 3.9 3.5-5.0 - g/dL Alkaline Phosphatase 84 39-117 - U/L Potassium 4.4 3.3-5.1 - mmol/L Chloride 108 96-108 - mmol/L Carbon Dioxide 28 22-29 - mmol/L Anion Gap 11 L 12-20 - Blood Urea Nitrogen 15 9-16 - mg/dL Creatinine 0.82 0.5-1.4 - mg/dL Estimated Glomerular Filt Rate > 60 - Glucose Fasting 95 60-99 - mg/dL Calcium 9.0 8.4-10.2 - mg/dL L ab:Lipid Panel (Order Date - 09/25/2024) (Collection Date & Time - 09/25/2024 07:00 AM) Value Reference Range Triglycerides 114 <150 - mg/dL Cholesterol 143 <200 - mg/dL LDL Cholesterol Calculated 78 <100 - mg/dL HDL Cholesterol 43 >40 - mg/dL * Examination: G eneral Examination: GENERAL APPEARANCE: w ell developed, well nourished, in no acute distress. HEAD: n ormocephalic, atraumatic. EYES: p upils equal, round, reactive to light and accommodation, sclera non-icteric. EARS: n ormal. ORAL CAVITY: m ucosa moist. THROAT: c lear. NECK/THYROID: n moisés supple, full range of motion, no cervical lymphadenopathy, no bruits. SKIN: w arm and dry, , abnormal on sternum has a scaly leison which could be a squamous cell. HEART: r egular rate and rhythm, S1, S2 normal, no murmurs.? LUNGS: c lear to auscultation bilaterally. BREASTS: N o mass, no lump. ABDOMEN: s oft, nontender, nondistended, bowel sounds present, normal, no organomegaly , no masses palpable. RECTAL EXAM: s tool guaiac negative, no masses palpable.? FEMALE GENITOURINARY: n ot done. EXTREMITIES: n o clubbing, cyanosis, or edema. NEUROLOGIC: n onfocal, motor strength normal upper and lower extremities, sensory exam intact. Assessment: * Assessment: 1. A nnual physical exam - Z00.00 (Primary) 2 . T hyroid nodule - E04.1? 3. P anlobular emphysema - J43.1 4 . P ure hypercholesterolemia - E78.00 5 . P soriasis - L40.9 6 . S kin lesion - L98.9 7. C olon cancer screening - Z12.11 8 . D epression screening - Z13.31 Plan: * Treatment: 2. T hyroid nodule Notes: is going for a biopsy, pending diagnostic testing 3. P anlobular emphysema Notes: doing well stable, will continue current regiment 4. P ure hypercholesterolemia Notes: well controlled, will continue current regiment 5. P soriasis Notes: doing much better, will continue current regiment 6. S kin lesion Notes: have her go to dermatology/ ALL INFO GIVEN FOR PATIENT TO CALL [facility] 7. C olon cancer screening L AB: Occult Blood, Stool, Guaiac (Collection Date & Time - 10/02/2024) N egative Value Reference Range O ccult Blood, Stool, Guaiac Neg Notes: guaiac negative??8.?Depression screening? Notes: negative screen?? * Procedure Codes: 8 0634 TEST FOR BLOOD, FECES * Preventive Medicine: COPD Care Plan: P atient Lifestyle Goals R elieve symptoms and improve quality of life. T reatment Goals t bernie medicine exactly as precribed and plan for RX refills. B arriers N o Specific barriers. S elf-Managment Plan E at a healthy diet. E xpected Outcome i mproving quality of life. * * Sign off status: Completed true * Provider: Amalia Dumont MD Date: 0 10/02/2024 Generated for Sarah tobar/Zainab/eTransmitting on: 1 09:39 AM EST History and Physical Notes * HPI (History of Present Illness) Category Sub-Category Detail Notes Category Not es Symptom(s) patient s a 79 yo female here for annual visit with review of recent labs and follow up of chronic issues, psoriasis doing well. Depression Screening PHQ-9 Little inte rest or pleasure in doing things: Not at all Feeling down, depressed, or hopeless: No t at all Trouble falling or staying asleep, or sl eeping too much: Not at all Feeling tired or having little energy: N ot at all Poor appetite or overeating: Not at all Feeling bad about yourself o r that you are a failure, or have let yourself or your family down: Not at all Trouble concentrating on thi ngs, such as reading the newspaper or watching television: Not at all Moving or speaking so slowly that other people could have noticed; or the opposite, being so fidgety or restless that you have been moving around a lot more than usual: Not at all Thoughts that you would be b skylar off or of hurting yourself in some way: Not at all Total Score: 0 Interpretation and Intervention Depression Isaac shields Findings: Negative Follow-Up for Depression: : review of PH Q-9 found negative result, no follow-up needed SDOH Questions SDOH Questions In the past year have you been worried about losing housing?: No In the past year have you or any family members you live with been unable to get any of the following when it was really needed? Check all that apply:: None Fall Risk History Have you had any falls with injury i n the past year?: No Have you had two or more falls in the pa st year?: No Communication Needs Communication Needs Does the patient have a hearing impairment: No Does the patient have a vision impairmen t?: Yes If yes, what is the vision impairment?: Glasses Does the patient have a cognition impair ment?: No Examination Category Sub-Category Detail Notes Category Not es General Examination GENERAL APPEARANCE: well dev eloped, well nourished, in no acute distress HEAD: normocephalic, atrau matic EYES: pupils equal, round, reactive to light and accommodation, sclera non-icteric EARS: normal THROAT: clear NECK/THYROID: neck supple, full ra nge of motion, no cervical lymphadenopathy, no bruits HEART: regular rate and rhy thm, S1, S2 normal, no murmurs LUNGS: clear to auscultatio n bilaterally ABDOMEN: soft, nontender, non distended, bowel sounds present, normal, no organomegaly , no masses palpable NEUROLOGIC: nonfocal, motor stre ngth normal upper and lower extremities, sensory exam intact SKIN: warm and dry, , abno rmal on sternum has a scaly leison which could be a squamous cell EXTREMITIES: no clubbing, cyanosi s, or edema BREASTS: No mass, no lump RECTAL EXAM: stool guaiac negativ e, no masses palpable FEMALE GENITOURINARY: not done ORAL CAVITY: mucosa moist
--- OUTSIDE RECORDS SUMMARY | 2024-11-30 06:40 | XMS_ITS ---
Author Organization Boubacar Dumont MD Address [address] [place] [phone] Care Team Providers Care Tax Investigator Name Role Phone Boubacar Dumont Primary Care Provider REASON FOR VISIT CT chest due Encounters Encounter Location Date Provider Diagnosis Boubacar Dumont MD [address] [place] [address] [place] [phone] 11/30/2024 Boubacar Dumont Plan Of Treatment Next Appt Details Provider Name:Boubacar Alvarez ier, 09/27/2025 07:15:00 AM, [address] [place] [address], Suite [facility], [place], [place], [phone], Provider Name:Boubacar mcgraw, 10/04/2025 11:00:00 AM, [address] [place] [address], Suite [facility], [place], [place], [phone], Progress Notes * Sandra GALLEGOS RDOB:[birth year] (79 yo F)Acc No.[id number]:11/30/2024 Patient: Amalia Sandra MONTEZ :1945 A ge:79 Y S ex:Female Address:[address] [place], [place] [address] [address] * true * Date: Generated for Printi ng/Faxing/eTransmitting on: 09:39 AM EST
--- OUTSIDE RECORDS SUMMARY | 2024-12-26 06:19 | XMS_ITS ---
Author Organization Boubacar Dumont MD Address [address] [place] [phone] Care Team Providers Care Moid [employer] Teacher Name Role Phone Boubaacr Dumont Primary Care Provider REASON FOR VISIT Needs order Chest CT Scan due Encounters Encounter Location Date Provider Diagnosis Boubacar Dumont MD [address] [place] [address] [place] [phone] 12/26/2024 Boubacar Dumont Thyroid nodule E04.1 Assessments Encounter Date Diagnosis (ICD Code) Assessment Notes Treatment Notes Treatment Clinical Notes Section Notes 12/26/2024 Thyroid nodule (ICD-10 - E04.1) Order made and printed and put into the future order folder for . Plan Of Treatment Treatment Notes Assessment Notes Thyroid nodule Order made and print ed and put into the future order folder for . Pending Test Test Name Order Date CT chest wo con 12/26/2024 Next Appt Details Provider Name:Boubacar mcgraw, 09/27/2025 07:15:00 AM, [address] [place] [address], Suite [facility], [place], [place], [phone], Provider Name:Boubacar mcgraw, 10/04/2025 11:00:00 AM, [address] [place] [address], Suite [facility] [place], [place], [phone], Progress Notes * Sandra GALLEGOS RDOB:[birth year] (79 yo F)Acc No.[id number]:12/26/2024 Patient: Amalia Sandra MONTEZ :1945 A ge:79 Y S ex:Female Address:[address] [place] [address] [place] [address] Subjective: * Chief Complaints: * N eeds order Chest CT Scan due * Medical History: * Surgical History: * Hospitalization/Major Diagno stic Procedure: * Medications: Objective: * Vitals: * Physical Examination: Assessment: * Assessment: 1. T hyroid nodule - E04.1 Plan: * Treatment: * Procedure Codes: * true * Date: Generated for Sarah tobar/Zainab/Theodoresmitting on: 09:38 AM EST
--- OUTSIDE RECORDS SUMMARY | 2025-03-29 02:00 | XMS_ITS ---
Author Organization Boubacar Dumont MD Address [address] [place], [place] [phone] Care Team Providers Care Manager Government Name Role Phone Boubacar Dumont Primary Care Provider Results Component Value Reference Range Notes Liver Panel Reviewed date:03/29/2025 12:31:51 PM Interpretation: Performing Lab:[facility], [address] [place] [phone] Notes/Report: Bilirubin Total 1.1 0.0-1.0 mg/dL Bilirubin Direct 0.3 0.0-0.5 mg/dL Aspartate Amino Transferase 28 5-31 U/L Alanine Aminotransferase 12 0-31 U/L Total Protein 6.8 6.5-8.0 g/dL Albumin Level 4.3 3.5-5.0 g/dL Alkaline Phosphatase 91 39-117 U/L Lipid Panel with Reflex Reviewed date:03/29/2025 12:31:59 PM Interpretation: Performing Lab:[facility], [address] [place] [phone] Notes/Report: Triglycerides 95 <150 mg/dL Desirable Triglyceride: [...] Location Date Provider Diagnosis Boubacar Dumont MD [address] [place] [address] Drive [address] [place], [place] [phone] 03/29/2025 Boubacar Dumont Pure hypercholestero lemia E78.00 Assessments Encounter Date Diagnosis (ICD Code) Assessment Notes Treatment Notes Treatment Clinical Notes Section Notes 03/29/2025 Pure hypercholesterolemia (ICD-10 - E78.00) Plan Of Treatment Next Appt Details Provider Name:Boubacar mcgraw, 09/27/2025 07:15:00 AM, [address] [place] [address], [address], [place], [place], [phone], Provider Name:Boubacar mcgraw, 10/04/2025 11:00:00 AM, [address] [place] [address], [address], [place], [place], [phone], Progress Notes * Sandra GALLEGOS RDOB:[birth year] (79 yo F)Acc No.[id number]:03/29/2025 Progress Note Patient: aSndra CROW Provider: Amalia Dumont MD :1945 A ge:79 Y S ex:Female Date:03/29/2025 Address:[address] [place], [place] [phone] Subjective: * Chief Complaints: * 1 . [...] 0 03/29/2025 Generated for Sarah tobar/Zainab/eTransmitting on: 1 09:39 AM EST
--- OUTSIDE RECORDS SUMMARY | 2025-04-05 04:00 | XMS_ITS ---
Author Organization Boubacar Dumont MD Address [address] [place], [place] [phone] Care Team Providers Care Grain Oilseed Or Pasture Farm Worker Name Role Phone Boubacar Dumont Primary Care Provider Allergies Allergen (clinical drug ingredient) Drug/Non Drug Allergy documented on EMR Reaction Allergy Type Onset Date Status gatifloxacin tequin (uncoded) passing out Allergy Active REASON FOR VISIT 6 MO F/U Medications Medication SIG (Take, Route, Frequency, Duration) Notes Start Date End Date Status Clobetasol Prop Emollient Base 0.05 % as directed Externally twice a day for 7 days 06/21/2014 Not-Donato sepulveda Meclizine HCl 12.5 MG 2 tablets as neede d Orally Once a day Not-Taking Nystatin 089271 UNIT/GM 1 application to affected area Externally Twice a day 01/19/2017 Not-Donato sepulveda EpiPen 2-Guy 0.3 MG/0.3ML as directed In jection as needed for allergic reaction if trouble breathing for 1 dose 08/19/2017 Not-Taking Clobetasol Propionate 0.05 % 1 application to affected area Externally Twice a day for 30 days 06/22/2017 Not-Taking Clobetasol Propionate 0.05 % 1 application Externally Twice a day 07/18/2024 Active Vitamin C Adult Gummies 125 MG as directed Orally Not-Takin g predniSONE 10 MG 1 tablet with food o r milk Orally 4 tabs for 3 days,3tabs for 3 days, 2 tabs for 3 days, and 1 tab for 3 days for 14 days 05/12/2024 Not-Taking Triamcinolone Acetonide 0.5 % APPLY 1 APPLICATION EXTERNALLY TWICE PER WEEK Not-Taking Betamethasone Valerate 0.1 % 1 application to affected area Externally Once a day for 30 days 06/30/2016 Not-Taking Albuterol Sulfate HFA 108 (90 Base) MCG/ACT INHALE 2 PUFFS EVERY 4 HOURS NEEDED FOR 30 DAYS Active Atorvastatin Calcium 20 MG TAKE 1 TABLET BY MOUTH EVERY DAY Active Ipratropium-Albuterol 0.5-2.5 (3) MG/3ML 3 ml Inhalation Four times a day 07/13/2014 Active Aspir-81 81 MG 1 tablet Orally Once a day for 30 day(s) Active Tylenol Extra Strength 500 MG 1 tablet as needed Orally every 6 hrs Active Problems Problem Type SNOMED Code ICD Code Onset Dates Problem Status W/U Status Risk Notes Problem Age-related macular degeneration (disorder) (025767370) Macular degeneration (H35.30) Active confirmed Vital Signs Blood pressure systolic 138 mm Hg 04/05/20 Blood pressure diastolic 60 mm Hg 025 Height 62 in 04/05/2025 Weight 135 lbs 04/05/2025 BMI 24.69 kg/m2 04/05/2025 weight is up 5 pounds since 10-02-24 Encounters Encounter Location Date Provider Diagnosis Boubacar Dumont MD [address] [place] [address] [address] [place], [place] [phone] 04/05/2025 Boubacar Dumont Pure hypercholestero lemia E78.00 ; Panlobular emphysema J43.1 and Macular degeneration H35.30 Assessments Encounter Date Diagnosis (ICD Code) Assessment Notes Treatment Notes Treatment Clinical Notes Section Notes 04/05/2025 Pure hypercholesterolemia (ICD-10 - E78.00) doing well on meds, will continue current regiment 04/05/2025 Panlobular emphysema (ICD-10 - J43.1) doing well with no attacks the last 6 months, will continue current regiment and will continue to monitor 04/05/2025 Macular degeneration (ICD-10 - H35.30) to speak to the [facility] about preservision Plan Of Treatment Medication Medication Name Sig Start Date Stop Date Notes Albuterol Sulfate HFA 108 (9 0 Base) MCG/ACT INHALE 2 PUFFS EVERY 4 HOURS NEEDED FOR 30 DAYS Atorvastatin Calcium 20 MG TAKE 1 TABLET BY MOUTH EVERY DAY Ipratropium-Albuterol 0.5-2. 5 (3) MG/3ML 3 ml Inhalation Four times a day 07/13/2014 Treatment Notes Assessment Notes Pure hypercholesterolemia doing well on meds, will continue current regiment Panlobular emphysema doing well with no attacks the last 6 months, will continue current regiment and will continue to monitor Macular degeneration to speak to the oph [facility] about preservision Next Appt Details Provider Name:Boubacar Ng Kim ier, 09/27/2025 07:15:00 AM, [address] [place] [address], [address], [place], [place], [phone], Provider Name:Boubacar Ng Kim ier, 10/04/2025 11:00:00 AM, [address] [facility], [address], [place], [place], [phone], Progress Notes * GEORGEReanna STYLESra RDOB:[birth year] (79 yo F)Acc No.[id number]:04/05/2025 Progress Notes Patient: Amalia MarshallJENNIFERSandra STYLES Medhat Provider: Amalia Dumont MD :1945 A ge:79 Y S ex:Female Date:04/05/2025 Address:[address] [place], [place] [phone] Subjective: * Chief Complaints: * 6 MO F/U * HPI: S ymptom(s): patient is a 79 yo female here 6 month follow up visit. * ROS: G eneral/Constitutional: Denies C hills. D enies F atigue. D enies F ever. D enies H eadache. E NT: Denies S ore throat. R espiratory: Denies C ough. D enies S hortness of breath at rest. D enies S hortness of breath with exertion. G astrointestinal: Denies D iarrhea. D enies N ausea. h it head and had trouble with vision and had macular degeneration. * Medical History: * Surgical History: * Hospitalization/Major Diagno stic Procedure: * Medications: T akingTylenol Extra Strength 500 MG Tablet 1 tablet as needed Orally every 6 hrs Aspir-81 81 MG Tablet Delayed Release 1 tablet Orally Once a day Ipratropium-Albuterol 0.5-2.5 (3) MG/3ML Solution 3 ml Inhalation Four times a day Clobetasol Propionate 0.05 % Cream 1 application Externally Twice a day Atorvastatin Calcium 20 MG Tablet TAKE 1 TABLET BY MOUTH EVERY DAY Albuterol Sulfate HFA 108 (90 Base) MCG/ACT Aerosol Solution INHALE 2 PUFFS EVERY 4 HOURS NEEDED FOR 30 DAYS Taking Tylenol Extra Strength 500 MG Tablet 1 tablet as needed Orally every 6 hrs Taking Aspir-81 81 MG Tablet Delayed Release 1 tablet Orally Once a day Taking Ipratropium-Albuterol 0.5-2.5 (3) MG/3ML Solution 3 ml Inhalation Four times a day Taking Clobetasol Propionate 0.05 % Cream 1 application Externally Twice a day Taking Atorvastatin Calcium 20 MG Tablet TAKE 1 TABLET BY MOUTH EVERY DAY Taking Albuterol Sulfate HFA 108 (90 Base) MCG/ACT Aerosol Solution INHALE 2 PUFFS EVERY 4 HOURS NEEDED FOR 30 DAYS Not-Taking/PRNTriamcinolone Acetonide 0.5 % Cream APPLY 1 [...] for allergic reaction if trouble breathing Nystatin 211347 UNIT/GM Cream 1 application to affected area Externally Twice a day Meclizine HCl 12.5 MG Tablet 2 tablets as needed Orally Once a day Clobetasol Prop Emollient Base 0.05 % Cream as directed Externally twice a day Medication List reviewed and reconciled with the patientNot- Taking/PRN Triamcinolone Acetonide 0.5 % Cream APPLY 1 APPLICATION EXTERNALLY TWICE PER WEEK Not-Taking/PRN predniSONE 10 MG Tablet 1 tablet [...] allergic reaction if trouble breathing Not-Taking/PRN Nystatin 783406 UNIT/GM Cream 1 application to affected area Externally Twice a day Not-Taking/PRN Meclizine HCl 12.5 MG Tablet 2 tablets as needed Orally Once a day Not-Taking/PRN Clobetasol Prop Emollient Base 0.05 % Cream as directed Externally twice a day Medication List reviewed and reconciled with the patient * Allergies: t equin: passing outyes[Allergies Verified] Objective: * Vitals: H t: 62, Wt: 135, BMI:24.69, BP:138/60, Wt-k.24. weight is up 5 pounds since 10-02-24. * P ast Orders: L ab:Liver Panel (Order Date - 03/29/2025) (Collection Date & Time - 03/29/2025 07:00 AM) Value Reference Range Bilirubin Total 1.1 H 0.0-1.0 - mg/dL Bilirubin Direct 0.3 0.0-0.5 - mg/dL Aspartate Amino Transferase 28 5-31 - U/L Alanine Aminotransferase 12 0-31 - U/L Total Protein 6.8 6.5-8.0 - g/dL Albumin Level 4.3 3.5-5.0 - g/dL Alkaline Phosphatase 91 39-117 - U/L L ab:Lipid Panel with Reflex (Order Date - 03/29/2025) (Collection Date & Time - 03/29/2025 07:00 AM) Value Reference Range Triglycerides 95 <150 - mg/dL Cholesterol 165 <200 - mg/dL LDL Cholesterol Calculated 91 <100 - mg/dL HDL Cholesterol 55 >40 - mg/dL * Examination: G eneral Examination: GENERAL APPEARANCE: a lert, well hydrated, in no distress.? SKIN: g ood turgor. HEART: h as occasional extrasystoles. LUNGS: n o wheezes, rales, rhonchi, good air movement, clear to auscultation bilaterally. Assessment: * Assessment: 1. P ure hypercholesterolemia - E78.00 (Primary) 2 . P anlobular emphysema - J43.1 3 . M acular degeneration - H35.30 Plan: * Treatment: 2. P anlobular emphysema Continue Ipratropium-Albuterol Solution, 0.5-2.5 (3) MG/3ML, 3 ml, Inhalation, Four times a day;?Continue Albuterol Sulfate HFA Aerosol Solution, 108 (90 Base) MCG/ACT, INHALE 2 PUFFS EVERY 4 HOURS NEEDED FOR 30 DAYS. Notes: doing well with no attacks the last 6 months, will continue current regiment and will continue to monitor 3. M acular degeneration Notes: to speak to the [facility] about preservision * Procedure Codes: * Preventive Medicine: COPD Care Plan: P atient Lifestyle Goals R elieve symptoms and improve quality of life. T reatment Goals t bernie medicine exactly as precribed and plan for RX refills. B arriers N o Specific barriers. S elf-Managment Plan E at a healthy diet, Exercise at least 3xs per week for at least 30 mins. E xpected Outcome m anaging symptoms like dyspnea (breathlessness), slowing disease progression through measures like smoking cessation, medication adherence, and pulmonary rehabilitation.. * * Sign off status: Completed true * Provider: Amalia Dumont MD Date: 0 04/05/2025 Generated for Sarah tobar/Zainab/Alexandraitting on: 09:38 AM EST History and Physical Notes * HPI (History of Present Illness) Category Sub-Category Detail Notes Category Not es Symptom(s) patient is a 79 yo female here 6 month follow up visit Examination Category Sub-Category Detail Notes Category Not es General Examination GENERAL APPEARANCE: alert, w ell hydrated, in no distress HEART: has occasional extra systoles LUNGS: no wheezes, rales, r honchi, good air movement, clear to auscultation bilaterally SKIN: good turgor
--- OUTSIDE RECORDS SUMMARY | 2025-04-24 05:29 | XMS_ITS ---
Author Organization Boubacar Dumont MD Address [address] [place] [phone] Care Team Providers Care Osteopathic Medicine Teacher Name Role Phone Boubacar Dumont Primary Care Provider Encounters Encounter Location Date Provider Diagnosis Boubacar Dumont MD [facility] [address] [place] [phone] 04/24/2025 Boubacar Dumont Plan Of Treatment Next Appt Details Provider Name:Boubacar Alvarez ier, 09/27/2025 07:15:00 AM, [address] [place] [address], Suite [facility], [place], [place], [phone], Provider Name:Boubacar Alvarez ier, 10/04/2025 11:00:00 AM, [address] [place] [address], Suite [facility], [place], [place], [phone], Progress Notes * Sandra FRANKS RDOB:[birth year] (79 yo F)Acc No.[id number]:04/24/2025 Patient: Amalia Sandra MONTEZ :1945 A ge:79 Y S ex:Female Address:[address] [place], [place] [address] [place] [address] * true * Date: Generated for Printi ng/Fajohng/eTransmitting on: 09:38 AM EST
--- OUTSIDE RECORDS SUMMARY | 2025-04-24 05:33 | XMS_ITS ---
Author Organization Boubacar Dumont MD Address [address] [place] [address] [place] [phone] Care Team Providers Care Hanger Off Name Role Phone Boubacar Dumont Primary Care Provider [phone] Medications Medication SIG (Take, Route, Frequency, Duration) Notes Start Date End Date Status Triamcinolone Acetonide 0.025 % 1 application Externally Once a day for 30 days 04/24/2025 Active Encounters Encounter Location Date Provider Diagnosis Boubacar Dumont MD [address] [place] [address] [place] [phone] 04/24/2025 Boubacar Dumont Plan Of Treatment Medication Medication Name Sig Start Date Stop Date Notes Triamcinolone Acetonide 0.02 5 % 1 application Externally Once a day for 30 days 04/24/2025 Next Appt Details Provider Name:Boubacar mcgraw, 09/27/2025 07:15:00 AM, [address] [place] [address], [phone], Provider Name:Boubacar mcgraw, 10/04/2025 11:00:00 AM, [address] [place] [address], [address], [phone], Progress Notes * Sandra GALLEGOS RDOB:[birth year] (79 yo F)Acc No.[id number]:04/24/2025 Patient: Amalia Sandra MONTEZ :1945 A ge:79 Y S ex:Female Address:[address] [place] [address], [place] [address] * Refills Start Triamcinolone Acetonide Cream, 0.025 %, Externally, 60, 1 application, Once a day, 30 days, Refills=3 * true * Date: Generated for Sarah tobar/Zainab/Sadaf on: 09:39 AM EST
--- OUTSIDE RECORDS SUMMARY | 2025-05-11 07:17 | XMS_ITS ---
Author Organization Boubacar Dumont MD Address [address] [place] [phone] Care Team Providers Care Real Estate Broker Name Role Phone Boubacar Dumont Primary Care Provider REASON FOR VISIT ? to book bx thyroid Encounters Encounter Location Date Provider Diagnosis Boubacar Dumont MD [address] [place] [address] [address] [place] [phone] 05/11/2025 Boubacar Dumont Plan Of Treatment Next Appt Details Provider Name:Boubacar Alvarez ier, 09/27/2025 07:15:00 AM, [address] [place] [address], Suite [facility], [place], [place], [phone], Provider Name:Boubacar Alvarez ier, 10/04/2025 11:00:00 AM, [address] [place] [address], Suite [facility], [place], [place], [phone], Progress Notes * Sandra FRANKS RDOB:[birth year] (79 yo F)Acc No.[id number]:05/11/2025 Patient: Amalia Sandra MONTEZ :1945 A ge:79 Y S ex:Female Address:[address] [place], [place] [address] [address] * true * Date: Generated for Printi ng/Faxing/eTransmitting on: 09:39 AM EST
--- NOTE | 2025-07-09 09:25 | MHC.OFFVIS ---
Vital Signs 07/09/25 09:28 Height 5 ft 2 in Weight 132 lb 15.02 oz BMI 24.3 BP 122/68 Blood Pressure Location Rt brachial Position Sitting Pulse 64 Pulse Source Pulse Oximeter Pulse Oximetry (%) 94 Oxygen Delivery Method Room Air Intake Visit Reasons: THYROID NODULE/US results Intake Note: [facility]. Corporate Banking Officer Required: No Accompanied by: Self / Same As Patient Allergies gatifloxacin (From TEQUIN) Allergy (Severe, Verified 07/09/25 09:28) BLACKED OUT moxifloxacin Allergy (Verified 07/09/25 09:28) Anaphylaxis Medication List - Last Reconciled 07/09/25 by Eric Torrez MD albuterol sulfate 90 mcg/actuation 2 puffs inhalation Q4H PRN aspirin 81 mg PO DAILY atorvastatin 20 mg PO DAILY ipratropium-albuterol 0.5 mg-3 mg(2.5 mg base)/3 mL 3 mL inhalation QID lidocaine 5% leave on most painful area for up to 12 hrs topical triamcinolone acetonide 0.5% 1 appl topical DAILY PRN HPI Comments Details: 79-year-old female here today for follow up of nontoxic multinodular goiter. HPI She has had thyroid nodules at least since 2019. No prior FNA biopsy. Says she has has these nodules for even before that. Most recent thyroid ultrasound done 05/23/2024 showed bilateral thyroid nodules with a right superior/mid 1.3 cm nodule TR 4 category which is solid, hypoechoic with a peripheral calcification, a right mid/inferior 1.2 cm nodule which is also solid, hypoechoic with a peripheral calcification, TR 4 category. This peripheral calcification is regular, not interrupted. Low suspicion per GLYNN. The left lobe shows a dominant superior/mid lobe 1.2 cm nodule which has punctate echogenic foci, solid, isoechoic, TR 4 category. Per GLYNN guidelines this is a high suspicion nodule due to the punctate echogenic foci, which has greater than 50% chance of malignancy per GLYNN guidelines, hence meets criteria for biopsy. Even the right sided superior/mid 1.3 cm nodules per GLYNN criteria classify as high suspicion nodules with greater than 50% chance of malignancy due to having peripheral rim calcifications with soft tissue extrusion. Patient currently denies heat or cold intolerance, diarrhea or constipation, hair loss, palpitation, anxiety, mood changes, low energy, changes in appearance of eyes or vision changes, tremors, increased diaphoresis or dry skin. ? Weight loss recently due to stress and poor eating. Patient denies any difficulty swallowing, pain on swallowing or voice changes. Patient denies any history of childhood neck radiation. Denies having ever used lithium, amiodarone or biotin supplements. Patient denies any family history of thyroid cancer or thyroid disease. Quit smoking 19 years ago. Interval history 08/04/2024: Normal TSH 0.68 08/23/2024: Underwent FNA biopsy of the right superior/mid 1.3 cm nodule with benign cytology [place] category 2. Also underwent FNA of the left superior mid 1.2 cm nodule which came back as nondiagnostic [place] category 1. Laboratory Tests 09/18/22 07:30 TSH 1.08 Laboratory Tests 08/04/24 10:00 TSH 0.68 US THYROID 05/23/24 CLINICAL INFORMATION: Thyroid nodule. COMPARISON: Thyroid ultrasound 06/08/2023 and 06/09/2022. TECHNIQUE: Linear transducer grayscale and color Doppler examination with attention to the region of the thyroid. FINDINGS: SIZE: Measurements of the thyroid lobes and nodules are given in sagittal, anteroposterior and transverse dimensions respectively. Right Thyroid Lobe: 4.5 x 2.2 x 1.6 cm, volume 8.5 mL. Previously 5.3 x 2.9 x 1.6 cm, volume 13.0 mL. Parenchyma: The gland echotexture is heterogeneous. Thyroid vascularity is normal. Left Thyroid Lobe: 4.0 x 1.8 x 1.3 cm, volume 4.8 mL. Previously 4.9 x 2.1 x 1.2 cm, volume 6.5 mL. Parenchyma: The gland echotexture is heterogeneous. Thyroid vascularity is normal. Isthmus: 0.3 cm in maximum AP dimension. Previously 0.4 cm. Estimated total number of nodules greater than or equal to 1 cm: 3. Rn Lpn Cna nodules are described as follows: 1. Location: Right mid/upper pole. Size: 1.3 x 1.1 x 1.2 cm, volume 0.9 mL. Previously: 1.2 x 1.1 x 1.3 cm, volume 0.91 mL. Nodule characteristics: Composition: Solid (2). Echogenicity: Hypoechoic (2). Shape: Not taller than wide (0). Margins: Smooth (0). Echogenic Foci: Peripheral calcifications (2). ACR TI-RADS total points: 6 Previous: 6 ACR TI-RADS category: 4 Previous: 4 Significant change in size (>/= 20% in 2 dimensions and minimal increase of 2 mm or 50% or greater increase in volume): No Change in features: No Change in ACR TI-RADS risk category: No 2. Location: Right lower/mid pole. Size: 1.2 x 1.0 x 1.1 cm, volume 0.7 mL. Previously: 1.3 x 0.8 x 1.0 cm, volume 0.50 mL. Nodule characteristics: Composition: Solid (2). Echogenicity: Hypoechoic (2). Shape: Not taller than wide (0). Margins: Ill-defined (0). Echogenic Foci: Peripheral calcifications (2). ACR TI-RADS total points: 6 Previous: 6 ACR TI-RADS category: 4 Previous: 4 Significant change in size (>/= 20% in 2 dimensions and minimal increase of 2 mm or 50% or greater increase in volume): No Change in features: No Change in ACR TI-RADS risk category: No 3. Location: Left upper/mid pole. Size: 0.7 x 0.4 x 0.4 cm, volume 0.7 mL. Previously: 0.4 x 0.5 x 0.3 cm, volume 0.3 mL. Nodule characteristics: Composition: Spongiform (0). ACR TI-RADS total points: 0 Previous: 0 ACR TI-RADS category: 1 Previous: 1 Significant change in size (>/= 20% in 2 dimensions and minimal increase of 2 mm or 50% or greater increase in volume): Yes Change in features: No Change in ACR TI-RADS risk category: No 4. Location: Left upper/mid pole. Size: 1.2 x 0.5 x 0.6 cm, volume 0.2 mL. Previously: 0.8 x 0.8 x 1.0 cm, volume 0.31 mL. Nodule characteristics: Composition: Solid (2). Echogenicity: Isoechoic (1). Shape: Not taller than wide (0). Margins: Ill-defined (0). Echogenic Foci: Punctate echogenic foci (3). ACR TI-RADS total points: 6 Previous: 0 ACR TI-RADS category: 4 Previous: 1 Significant change in size (>/= 20% in 2 dimensions and minimal increase of 2 mm or 50% or greater increase in volume): No Change in features: Yes Change in ACR TI-RADS risk category: Yes NODES: No lymphadenopathy is seen in the tissue surrounding the thyroid gland. US/US thyroid IMPRESSION: Heterogeneous thyroid parenchyma with normal vascularity. No thyromegaly. Multiple bilateral thyroid nodules are redemonstrated. The largest nodule is within the left upper/mid pole measuring up to 1.2 cm with ultrasound characteristics consistent with TI-RADS Category 4. This appears slightly increased in size when compared to the prior examination now measuring up to 1.2 cm (previously 0.8 cm). Left upper/mid pole thyroid nodule measuring up to 1.2 cm, not significantly increased in size. There is a change in nodule characteristics with the nodule now representing a TI-RADS Category 4 (previously category 1). Left upper/mid pole nodule measuring up to 0.7 cm, increased in size when compared to the prior examination measuring up to 0.7 mL in volume (previously 0.3 mm). No significant change in thyroid characteristics, consistent with TI-RADS category 1. Midpole nodule repeat attempt at FNA was not performed because the nodule was not visualized properly by Dr. Alvarez. Repeat ultrasound showed stability in the size of the nodules. Patient denies any obstructive symptoms [facility] Medical History (Updated 10/04/24 @ 15:39 by Odette Ferro PA-C) Non-toxic multinodular goiter Arthritis Thyroid nodule Lung nodules Elevated cholesterol Anxiety COPD (chronic obstructive pulmonary disease) Surgical History Hx of left cataract extraction Hx of excision of mass Hx of tubal ligation Hx of varicose vein ligation Hx of right breast biopsy H/O colonoscopy Social History Are you a primary palliative care specialist to a significant other at home: No Do you presently have visiting nurse or other home services: No Patient Tobacco Use Status: Former Tobacco user Tobacco use type: Cigarette Years Smoked: 38 Current occupational status: retired Current occupation: rt hand Physical Exam Vital Signs: Last Vital Signs Pulse 64 07/09/25 09:28 BP 122/68 07/09/25 09:28 Pulse Ox 94 07/09/25 09:28 Oxygen Delivery Method Room Air 07/09/25 09:28 BMI result Body Mass Index 24.3 Assessment & Plan Assessment & Plan (1) Non-toxic multinodular goiter: Code(s): E04.2 - Nontoxic multinodular goiter Category: Medical Plan: This is a 79-year-old white female with a history of multinodular goiter status post FNA of left midpole nodule with nondiagnostic cytology. Repeat ultrasound done by Dr. Alvarez did not show good visualization of the nodule and nodule was not biopsied. Repeat ultrasound done recently showed stability in the size of the nodule. The patient is clinically and biochemically euthyroid Plan is to have the patient follow up with Dr. Alvarez when she returns from maternity leave so she can review the ultrasound with the patient the terminating further steps Coding Level of Care Code Est Pt Level 3 (66266) Diagnoses Non-toxic multinodular goiter E04.2
[2025-07-09 09:28] VITALS: BP 122/68; PULSE 64; O2SAT 94; BMI 24.3
--- OUTSIDE RECORDS SUMMARY | 2025-07-09 09:39 | XMS_ITS | Patient Health Record ---
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 Panel Fa st Reviewed date:09/25/2024 04:32:44 PM Interpretation: Performing Lab:[address] [address] Notes/Report: Sodium 143 135-145 mmol/L Potassium 4.4 [...] Panel Reviewed date:09/25/2024 04:21:18 PM Interpretation: Performing Lab:[address] [address] Notes/Report: Triglycerides 114 <150 mg/dL Desirable Triglyceride: [...] Total Reviewed date:09/25/2024 04:21:28 PM Interpretation: Performing Lab:[address] [address] Notes/Report: Vitamin D 25-OH Total 28.8 >30 [...] t Reviewed date:09/25/2024 04:29:06 PM Interpretation: Performing Lab:[address] [address] Notes/Report: Urine, Clean Catch Color Urine Yellow Appearance Urine Clear PH 5.5 5.0-9.0 Glucose Urine UA Negative Negative mg/dL Urine Blood Negative Negative Specific [place] - Urine 1.020 1.005-1.025 Urine Protein Negative Neg-Trace mg/dL Urine Ketones Negative Negative mg/dL Nitrite Urine Negative Negative Leukocyte Esterase Urine Negative Negative RBC Urine 0-2 0-2 /HPF WBC Urine 0-5 0-5 /HPF Squamous Epithelial Cell Urine 0-2 0-2 /HPF Bacteria Urine None Seen None Seen Hyaline Casts Urine 0-2 0-2 /LPF Liver Panel Reviewed date:03/29/2025 12:31:51 PM Interpretation: Performing Lab:[facility], [address] [place] [phone] Notes/Report: Bilirubin Total 1.1 0.0-1.0 mg/dL Bilirubin Direct 0.3 0.0-0.5 mg/dL Aspartate Amino Transferase 28 5-31 U/L Alanine Aminotransferase 12 0-31 U/L Total Protein 6.8 6.5-8.0 g/dL Albumin Level 4.3 3.5-5.0 g/dL Alkaline Phosphatase 91 39-117 U/L Lipid Panel with Reflex Reviewed date:03/29/2025 12:31:59 PM Interpretation: Performing Lab:[facility], [address] [place] [phone] Notes/Report: Triglycerides 95 <150 mg/dL Desirable Triglyceride: [...] Pathology Reviewed date:08/24/2024 04:59:19 PM Interpretation: Performing Lab:[facility], [address] [facility], [place] [address] Notes/Report: --- Name: Sandra Franks Age/Sex: 78/F : 1945 Unit#: [id number] Attend Dr: Cristina Alvarez MD Re08/23/24 Status : [facility] REF Location: [facility] Disch: --- SPEC : [id number] RECD : 08/23/24-1204 STATUS: [facility] NUM: [id number] SHARRON: 08/23/24 [facility] DR: Cristina Alvarez MD ENTERED: 08/23/24- 47 SP TYPE: Cytology OT DR: Boubacar Dumont MD ORDERED: Fine Ndl Asp/2 Diagnosis A. Thyroid, right sup/mid 1.3 cm nodule, fine needle aspiration: Benign (Banks category II). COMMENT (A): Satisfactory for evaluation; paucicellular specimen. Occasional groups of follicular epithelia l cells mostly in a macrofollicular arrangement are seen; no cytologic atypia is present. Some Hurthle cell change is present. Colloid is seen. Taken together, the findings are consistent with a benign thyroid nodule. B. Thyroid, left sup/mid 1.2 cm nodule, fine needle aspiration: Non-diagnostic (Banks category I). COMMENT (B): No follicular epithelial [...] To: Boubacar Dumont MD [facility] [address] [place] [address] [address] [place] [address] Cristina Alvarez MD [facility] Endocrinology [address] [place] [address] [address] [place] [address] [email or web address] CONTINUED ON NEXT PAGE --- Name: Sandra Franks Age/Sex: 78/F : 1945 Unit#: [id number] Attend Dr: Cristina Alvarez MD Re08/23/24 Status : DEP REF Location: [facility] Disch: --- SPEC : [id number] RECD : 08/23/24 STATUS: [facility] NUM: [id number] SHARRON: 08/23/24-[address]: Cristina Alvarez MD ENTERED: 08/23/24-12 47 SP TYPE: Cytology OTHR DR: Boubacar Dumont MD ORDERED: Fine Ruth Asp/2 --- Signed (signature on file) Ray Bonilla MD 08/24/24 1525 --- END OF REPORT XR ankle LT min 3V Reviewed date:10/05/2024 04:36:41 PM Interpretation: Performing Lab: Notes/Report: [facility] [address] [place] [address] Dr. Bernard, [place] [address] XRay Report Signed Patient: Sandra Franks MR#: [id number] 958 : 1945 Acct:[id number] Age/Sex: 79 / F ADM Date: 10/04/24 Loc: HO.[facility]GCX Attending Dr: Era Iglesias PA-C Ordering Physician: Odette Ferro PA-C Date of Service: 10/04/24 Procedure(s): XR ankle LT min 3V Accession Number(s): [id number] cc: Boubacar Dumont MD; Odette eFrro PA-C EXAMINATION: XR ANKLE, LEFT CLINICAL INFORMATION: [...] 10/04/24 1557 DD/ 1545 TD/TT: 10/04/24 1554 Trekking Guide: [facility] [address] [place] [address] [place] [address] XRay Report Signed Patient: Reanna Franks ra MR#: [id number] 958 : 1945 Acct:[id number] Age/Sex: 79 / F ADM Date: 10/04/24 Loc: HO.[facility]GCX Attending Dr: Era Iglesias PA-C Ordering Physician: Odette Ferro PA-C Date of Service: 10/04/24 Procedure(s): XR ank le LT min 3V Accession Number(s): [id number] cc: Boubacar Dumont MD; Odette Ferro PA-C [...] 10/04/24 1557 DD/ 154 TD/TT: 10/04/24 155 Trekking Guide: CT chest wo con Reviewed date:01/02/2025 12:37:14 PM Interpretation: Performing Lab: Notes/Report: [address] [address] [address] Scan Report Signed with Addenda Patient: Sandra Franks MR#: [id number] 958 : 1945 Acct:[id number] Age/Sex: 79 / F ADM Date: 12/25/24 Loc: HO.CT Attending Dr: Boubacar Dumont MD Ordering Physician: Boubacar Dumont MD Date of Service: 12/25/24 Procedure(s): CT chest wo IV con Accession Number(s): [id number] cc: Boubacar Dumont MD Report Number: [id number]: Total DLP = 197.00 mGy-cm ADDENDUM This [...] in OV> 12/26/24450 DD/ 9 TD/TT: 12/26/24449 Trekking Guide: [place] [address] [address] Scan Report Signed with Addenda Patient: Reanna Franks ra MR#: [id number] 958 : 1945 Acct:[id number] Age/Sex: 79 / F ADM Date: 12/25/24 Loc: HO.CT Attending Dr: Boubacar Dumont MD Ordering Physician: Boubacar Dumont MD Date of Service: 12/25/24 Procedure(s): CT stefany st wo IV con Accession Number(s): [id number] cc: Boubacar Dumont MD Report Number: [id number]: Total DLP = 197.00 mGy-cm ADDENDUM This [...] in OV> 12/26/24450 DD/ 9 TD/TT: 12/26/24449 Trekking Guide: Risa Marques Reviewed date:03/29/2025 12:22:56 PM Interpretation: Performing Lab:[facility], [address] [place] [address] Notes/Report: Risa Marques See Note Specimen held untested for 24 hours; Call to request Chemistry testing. US thyroid Reviewed date:05/11/2025 12:34:37 PM Interpretation: Performing Lab: Notes/Report: [facility] Adult Primary [facility] [place] [address] Ultrasound Report Signed Patient: Sandra Franks MR#: [id number] 958 : 1945 Acct:[id number] Age/Sex: 79 / F ADM Date: 05/07/25 Loc: HO.[facility]GCX Attending Dr: Cristina Alvarez MD Ordering Physician: Cristina Alvarez MD Date of Service: 05/07/25 Procedure(s): US thyroid Accession Number(s): [id number] cc: Boubacar Dumont MD; Cristina Alvarez MD [...] than or equal to 1 cm: 2. Methods Examiner nodules are described as follows: 1. Location: [...] 05/07/25 1450 DD/ 1024 TD/TT: 05/07/25 1059 Trekking Guide: [facility] Primary [facility] [address] [place] [address] [place] [address] Ultrasound Report Signed Patient: Reanna Franks ra MR#: [id number] 958 : 1945 Acct:[id number] Age/Sex: 79 / F ADM Date: 05/07/25 [facility] Dr: Cristina Alvarez MD Ordering Physician: Cristina Alvarez MD Date of Service: 05/07/25 Procedure(s): US thyroid Accession Number(s): [id number] cc: Boubacar Dumont MD; Cristina Alvarez MD [...] than or equal to 1 cm: 2. Methods Examiner nodul es are described as follows: 1. [...] 05/07/25 1450 DD/ 1024 TD/TT: 05/07/25 1059 Trekking Guide: MM tomosynthesis screening B I Reviewed date:06/04/2025 05:48:10 PM Interpretation: Performing Lab: Notes/Report: [address] [place] [address] Mammography Report Signed Patient: Sandra Franks MR#: [id number] 958 : 1945 Acct:[id number] Age/Sex: 79 / F ADM Date: 06/04/25 Loc: HO.MAMMO Attending Dr: Boubacar Dumont MD Ordering Physician: Boubacar Dumont MD Results: 1Ne gative Date of Service: 06/04/25 Follow Up: 1 Year From Orig [facility] Mammogram Procedure(s): MM tomosynthesis screening BI Accession Number(s): [id number] cc: Boubacar Dumont MD Reason For Exam: SCREENING EXAMINATION: MM SCREENING DIGITAL BREAST TOMOSYNTHESIS, BILATERAL CLINICAL INFORMATION: Screening. Asymptomatic. COMPARISON: Mammography: Comparison is made with available priors TECHNIQUE: Digital breast mammography with tomosynthesis is performed in both the craniocaudal and mediolateral oblique views along with computer-aided detection (CAD). FINDINGS: There are scattered areas of fibroglandular density. There are no significant masses, abnormal calcifications, or other abnormalities. MM/MM tomosynthesis screening BI IMPRESSION: No mammographic evidence of malignancy. ASSESSMENT: BI-RADS Category 1: Negative RECOMMENDATION: Routine annual mammography screening. 1 year F/U This examination should not preclude the clinical evaluation of a suspicious palpable abnormality. This patient's information was entered into a reminder system with a target due date for their next mammogram. Electronically signed by: Nichole Zepeda DO 06/04/2025 09:53 AM EST Dictated By: Nichole Zepeda DO Signed By: <Electronically signed by Nichole Zepeda DO in OV> 06/04/25 0953 DD/ 6 TD/TT: 06/04/25826 Trekking Guide: [address] [place] [address] Mammography Report Signed Patient: Reanna Franks ra MR#: [id number] 958 : 1945 Acct:[id number] Age/Sex: 79 / F ADM Date: 06/04/25 Loc: HO.MAMMO Attending Dr: Boubacar Dumont MD Ordering Physician: Boubacar Dumont MD Results: 1Ne gative Date of Service: 06/04/25 Follow Up: 1 Year From Orig inal Mammogram Procedure(s): MM tomosynthesis screening BI Accession Number(s): [id number] cc: Boubcaar Dumont MD Reason For Exam: SCREENING EXAMINATION: MM SCREENING DIGITAL BREAST TOMOSYNTHESIS, BILATERAL CLINICAL INFORMATION: Screening. Asymptomatic. COMPARISON: Mammography: Compari son is made with available priors TECHNIQUE: Digital breast mammography with tomosynthesis is performed in both the craniocaudal and mediolateral oblique views along with computer-aided detection (CAD). FINDINGS: There are scattered areas of fibroglandular density. There are no significant masses, abnormal calcifications, or other abnormalities. MM/MM tomosynthesis screening BI IMPRESSION: No mammographic evidence of malignancy. ASSESSMENT: BI-RADS Category 1: Negative RECOMMENDATION: Routine annual mammography screening. 1 year F/U This examination dom uld not preclude the clinical evaluation of a suspicious palpable abnormality. This patient's information was entered into a reminder system with a target due date for their next mammogram. Electronically consuelo d by: Nichole Zepeda DO 06/04/2025 09:53 AM EST Dictated By: Nichole Zepeda DO Signed By: <Electronically signed by Nichole Zepeda DO in OV> 06/04/25 0953 DD/ 0807 TD/TT: 06/04/25 0827 Trekking Guide: Reason For Referral Reason thyroid nodule Diagnosis [...] d Orally Once a day Not-Taking Nystatin 710767 UNIT/GM 1 application to affected area Externally Twice a day 01/19/2017 Not-Donato sepulveda Vitamin C Adult Gummies 125 MG as directed Orally Not-Donato sepulveda predniSONE 10 MG 1 tablet with food [...] Inhalation Four times a day 07/13/2014 Active Albuterol Sulfate HFA 108 (90 Base) MCG/ACT INHALE 2 PUFFS EVERY 4 HOURS NEEDED FOR 30 DAYS for 30 Active Aspir-81 81 MG 1 tablet Orally [...] Administered pt was given the vaccine at [facility] in [facility] SARS-COV-2 Pfizer Unknown 10/02/2020 Administered SARS-COV-2 Pfizer [...] Problem Status W/U Status Risk Notes Problem 483936906 Thyroid nodule (E04.1) Active confirm ed Problem 41861756 Vitamin D defici ency (E55.9) Active confirmed Problem 8099380 Panlobular emphy sema (J43.1) Active confirmed Problem 0930698 Arthritis (M19.90) Active confirmed Problem 010110947 Osteopenia (M85.80) Active confirmed Problem 3184128 Psoriasis (L40.9) Active confirmed Problem 052590938 Asthmatic bronch itis with acute exacerbation (J45.901) Active confirmed Problem 817305900 Multiple lung no dules (R91.8) Active confirmed Problem 60535687 Intrinsic eczema (L20.84) Active confirmed Problem Age-related macular degeneration (disorder) (238908551) Macular degeneration (H35.30) Active confirmed Problem 07111566 Acute non-recurr ent maxillary sinusitis (J01.00) Active confirmed Problem Atrophy of vagina (358812041) Vaginal atrophy (N95.2) Active confirmed Problem 381585441 Pulmonary nodule (R91.1) Active confirmed Problem 180540453 Pure hypercholesterolemia (E78.00) Active confirmed Problem 025123166 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) Active confirmed Problem 630889614 Age-related inci pient cataract, unspecified laterality (H25.099) Active confirmed Problem 863532604 Multiple thyroid nodules (E04.2) Active confirmed Problem 996918383 Plaque psoriasis (L40.0) Active confirmed Vital Signs [...] Boubacar Dumont MD [address] [place] [id number] 09/25/2024 Boubacar Dumont Blood tests for rout ine general physical examination Z00.00 ; Pure hypercholesterolemia E78.00 and Vitamin D deficiency E55.9 Boubacar Dumont MD [address] [place] [id number] 03/29/2025 Boubacar Dumont Pure hypercholestero lemia E78.00 Boubacar Dumont MD [address] [place] [id number] 07/18/2024 Boubacar Dumont Multiple thyroid nod ules E04.2 and Plaque psoriasis L40.0 Boubacar Dumont MD [address] [place] [id number] 07/24/2024 Boubacar Dumont Bronchitis J40 Boubacar Dumont MD [address] [place] [id number] 08/11/2024 Boubacar Dumont Bronchitis J40 and P laque psoriasis L40.0 Boubacar Dumont MD [address] [place] [address] [id number] 10/02/2024 Boubacar Dumont Thyroid nodule E04.1 ; Annual physical exam Z00.00 ; Panlobular emphysema J43.1 ; Pure hypercholesterolemia E78.00 ; Psoriasis L40.9 ; Skin lesion L98.9 ; Colon cancer screening Z12.11 and Depression screening Z13.31 Boubacar Dumont MD [address] [place] [address] [id number] 04/05/2025 Boubacar Dumont Pure hypercholestero lemia E78.00 ; Panlobular emphysema J43.1 and Macular degeneration H35.30 Boubacar Dumont MD [address] [place] [id number] 11/30/2024 Boubacar Dumont MD [address] [place] [id number] 12/26/2024 Boubacar Dumont Thyroid nodule E04.1 Boubacar Dumont MD [address] [place] [address] [id number] 04/24/2025 Boubacar Dumont MD [address] [place] [id number] 04/24/2025 Boubacar Dumont MD [address] [place] [id number] 05/11/2025 Boubacar Dumont Assessments Encounter Date Diagnosis (ICD Code) Assessment Notes Treatment Notes Treatment Clinical Notes Section Notes 09/25/[address] ine general physical examination (ICD-10 - Z00.00) 03/29/2025 Pure hypercholesterolemia (ICD-10 - E78.00) 07/18/2024 Multiple thyroid nodules (ICD-10 - E04.2) referral to [facility] / referral already entered in being [...] ALL INFO GIVEN FOR PATIENT TO CALL [facility] 10/02/2024 Colon cancer screeni ng (ICD-10 [...] 07:15:00 AM, [address], [address], [place], [place], [id number], Provider Name:Boubacar Alvarez ier, 10/04/2025 11:00:00 AM, [address], [address], [place], [place], [id number], Insurance Providers Payer Name Payer Address Payer Phone Subscriber Number Group Number Insured Name Patient Relationship to Insured Coverage Start Date Coverage End Date [facility] are [employer] [address] [address] [place] [address] [id number] Sandra Franks Self - patient is the insured Medical (General) History Medical History History ICD Code colonoscopy 08/30/2012 thyroid nodule being evaluated with repe at ultrasound Abnormal mammogram
== END 2025-07-09 09:43 | disposition home or self-care (01) ==
LOC: HO.ENCR 09:18
PROVIDERS: PCP Internal Medicine; Visit Provider Internal Medicine Endocrinology, Diabetes & Metabolism
DX: E04.2 Nontoxic multinodular goiter (principal)
CPT/HCPCS: 99213

== ENCOUNTER → 2025-07-09 09:17 | Outpatient (BNVA) | payer MEDICARE, SELFPAY | PROVIDERS: PCP Internal Medicine; Visit Provider Internal Medicine Endocrinology, Diabetes & Metabolism | DX: E04.2 Nontoxic multinodular goiter (principal) | CPT/HCPCS: 99212 ==